=== PATIENT | female | born 1945 | race Caucasian/White ===

== ENCOUNTER 2019-11-13 10:23 | Emergency (ER) | payer OTHER ==
[~2019-11-13] VITALS: Ht 149.9 cm; Wt 79.4 kg
--- OUTSIDE RECORDS SUMMARY | ~2019-11-13 | XMS | Encounter Summary ---
Demographics + + + | Address | [address] | | | [place] [address] | + + + | Home Phone | | + + + | Preferred Language | Unknown | + + + | Marital Status | | + + + | Druze Affiliation | 1013 | + + + | Race | Unknown | + + + | Ethnic Group | Unknown | + + + Author + + + | Author | [facility] | | | and [place] | + + + | Organization | [facility] | | | and [place] | + + + | Address | Unknown | + + + | Phone | Unavailable | + + + Support + + + + + | Name | Relationship | Address | Phone | + + + + + | Tamar Lancaster | JOSEE | [address] | | | | | [place] [address] | | + + + + + | Peter Hester | ECON | [address] | | | | | [place] [address] | | + + + + + Care Team Providers + +------+ + | Care Private Investigator Surveillance Name | Role | Phone | + +------+ + | Michael Montoya MD | PCP | | + +------+ + Reason for Visit Service/Procedure (Routine) +--------+--------+ + + + + | Status | Reason | Specialty | Diagnoses / | Referred By | Referred To | | | | | Procedures | Contact | Contact | +--------+--------+ + + + + | Closed | | Radiology | Diagnoses | | [facility] | | | | | Thoracic or | [place], | [address] | | | | | lumbosacral | Uvaldo Ahumada MD | [place], | | | | | neuritis or | [address] | [place] | | | | | | [place] | [address] | | | | | radiculitis, | [place] | Phone: | | | | | unspecified | [address] | [phone] | | | | | Procedures | Phone: | Fax: | | | | | SC INJECT | [phone] | [phone] | | | | | ANES/STEROID | Fax: | | | | | | FORAMEN | [phone] | | | | | | LUMBAR/SACRA | | | | | | | L W IMG | | | | | | | GUIDE ,1 | | | | | | | LEVEL SC | | | | | | | TRIAMCINOLON | | | | | | | E ACET INJ | | | | | | | NOS, 10 MG | | | | | | | Bilat L4-5 | | | | | | | TFESI-appt | | | | | | | 12/12 | | | +--------+--------+ + + + + Encounter Details +--------+ + + + + | Date | Type | Department | Care Team | Description | +--------+ + + + + | 12/12/ | Hospital | [facility] | [facility], | Bilateral lumbar | | 2014 | Encounter | MED CTR XRAY [address] | [place]ANI[place] Georges [address] | radiculopathy; | | | | [address] [place] | [facility], | Spinal stenosis of | | | | [place] [address] | [place] [address] | lumbar region at | | | | [phone] | [phone] | multiple levels; DDD | | | | | | (degenerative disc | | | | | [employer] | disease), lumbar; | | | | | | Spondylolisthesis of | | | | | | lumbar region | +--------+ + + + + Social History + +-------+ +--------+------+ | Tobacco Use | Types | Packs/Day | Years | Date | | | | | Used | | + +-------+ +--------+------+ | Never Smoker | | | | | + +-------+ +--------+------+ + +------+---+ + | Smokeless Tobacco: | Chew | | Quit: | | Former User | | | 11/16/18 | | | | | 96 | + +------+---+ + + + | Comments: quit 20 years ago | + + + + +---------+ + | Alcohol Use | Drinks/Week | oz/Week | Comments | + + +---------+ + | No | | | Quit drinking 1975. 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 | + + +---------+ + + + + | Sex Assigned at | Date Recorded | | | | + + + | Not on file | | + + + + + + + | Job Start Date | Occupation | Industry | + + + + | Not on file | Not on file | Not on file | + + + + + + + + | Travel History | Travel Start | Travel End | + + + + + + | No recent travel history available. | + + documented as of this encounter Medications at Time of Discharge + + + +---------+--------+ + | Medication | Sig | Dispensed | Refills | Start | End Date | | | | | | Date | | + + + +---------+--------+ + | ibuprofen | Take 600 mg by mouth | | 0 | | | | (ADVIL,MOTRIN) 600 | every 6 hours as | | | | | | MG tablet | needed. | | | | | + + + +---------+--------+ + | terazosin (HYTRIN) | Take 10 mg by mouth | | 0 | | | | 10 MG capsule | 2 times daily. | | | | | + + + +---------+--------+ + | clonazePAM | Take 0.5 mg by | | 0 | | | | (KLONOPIN) 0.5 mg | mouth. 1 tab in the | | | | 5 | | tablet | AM, 2 tabs in the PM | | | | | + + + +---------+--------+ + | DULoxetine | Take 20 mg by mouth | | 0 | | | | (CYMBALTA) 20 mg | Daily. | | | | 5 | | capsule | | | | | | + + + +---------+--------+ + | methadone 10 mg | Take 10 mg by mouth | | 0 | | | | tablet | every 12 hours. | | | | 9 | + + + +---------+--------+ + | omeprazole | Take 20 mg by mouth | | 0 | | | | (PRILOSEC) 20 mg | every morning | | | | 5 | | capsule | (before breakfast). | | | | | + + + +---------+--------+ + | oxyCODONE | Take 30 mg by mouth | | 0 | | | | (ROXICODONE) 15 mg | every 8 hours as | | | | 9 | | immediate release | needed. Taking 2 | | | | | | tabletIndications: | tablets in morning, | | | | | | Moderate to Severe | 1 tablet at noon, | | | | | | Pain | and 2 tablets in | | | | | | | evening. | | | | | | | Indications: | | | | | | | Moderate to Severe | | | | | | | Pain | | | | | + + + +---------+--------+ + | potassium chloride | Take 20 mEq by mouth | | 0 | | | | (KLOR-CON) 20 MEQ | 2 times daily. | | | | 5 | | packet | | | | | | + + + +---------+--------+ + | ranitidine | Take 300 mg by mouth | | 0 | | | | (ZANTAC) 300 MG | nightly. | | | | 5 | | tablet | | | | | | + + + +---------+--------+ + documented as of this encounter Plan of Treatment +--------+---------+ + + + | Date | Type | Specialty | Care Team | Description | +--------+---------+ + + + | 12/12/ | Office | Cardiology | Emile Rosario MD | | | 2020 | Visit | | [address] | | | | | | [place] [address] | | | | | | [phone] | | | | | | | | +--------+---------+ + + + documented as of this encounter Procedures + +--------+ + + + | Procedure Name | Priori | Date/Time | Associated Diagnosis | Comments | | | ty | | | | + +--------+ + + + | FL EPIDURAL STEROID | Routin | 12/12/2014 | Bilateral lumbar | Results for this | | INJECTION LUMBAR | e | 2:48 PM | radiculopathy | procedure are in the | | TRANSFORAMINAL | | PST | Spinal stenosis of | results section. | | | | | lumbar region at | | | | | | multiple levels DDD | | | | | | (degenerative disc | | | | | | disease), lumbar | | | | | | Spondylolisthesis of | | | | | | lumbar region | | + +--------+ + + + documented in this encounter Results FL KHOA Lumbar Transforaminal (12/12/2014 2:48 PM PST) + + | Specimen | + + | | + + + + | Addenda | + + | Addendum by Uvaldo Hobbs MD on 12/18/2014 7:57 AM 12/12/2014 Bilateral | | Transforaminal Epidural Steroid Injections Diagnosis: Lumbar radiculopathy ICD-9 | | Code 724.4 Annabel Saucedo presents to the fluoroscopy suite for | | fluoroscopically-guided bilateral L4-L5 transforaminal epidural steroid injections as | | part of conservative management for chronic pain with lumbar radiculopathy and | | degenerative disk disease. After informed consent was obtained, the patient lay in the | | prone position on the fluoroscopy table. The areas were identified under fluoroscopic | | guidance. The areas were prepped and draped in sterile fashion. A 25-gauge, 1.5-inch | | needle was inserted into each region and approximately 3 mL of buffered 1% lidocaine | | was infused. Then, a 22-gauge spinal needle was inserted into the posterior superior | | transforaminal space bilaterally and advanced into the epidural space under | | fluoroscopic guidance. No contrast was used in today's study due to contrast allergy. | | Once the needle was in the appropriate position a combination of 2 mL of 1% lidocaine | | and 2 mL of 6 mg/mL Celestone was infused, divided between the two sides. The patient | | tolerated the procedure well without complications. Pre- and post-procedure blood | | pressures were stable. The patient was given verbal as well as written follow-up | | instructions. Prior to the start of the procedure, the following were performed | | and/or verified, including correct patient identity, correct site/side marked and | | visible, agreement on the procedure to be done, correct patient positioning and an | | accurate procedure consent form. Any safety precautions based on clinical history | | and/or medication use have been addressed. I personally performed the procedure above. | | Estimated blood loss: Minimal Complications: None Findings: As expected | | Anesthesia: Local 1% Lidocaine | + + + + + + + | Performing | Address | City/State/Zipcode | Phone Number | | Organization | | | | + + + + + | [facility] | [address] | [place] | [phone] | | [facility] | | [address] | | | - IMAGING | | | | + + + + + documented in this encounter Visit Diagnoses + + | Diagnosis | + + | Bilateral lumbar radiculopathy | + + | Spinal stenosis of lumbar region at multiple levels Spinal stenosis, lumbar region, | | without neurogenic claudication | + + | DDD (degenerative disc disease), lumbar Degeneration of lumbar or lumbosacral | | intervertebral disc | + + | Spondylolisthesis of lumbar region Acquired spondylolisthesis | + + documented in this encounter Administered Medications + +--------+ +-------+------+ + | Medication Order | MAR | Action | Dose | Rate | Site | | | Action | Date | | | | + +--------+ +-------+------+ + | betamethasone (CELESTONE | Given | 12/12/19 | 12 mg | | Other | | SOLUSPAN) injection 12 mg 12 mg, | | 15 3:00 | | | (Comment | | Intramuscular, EVERY 24 HOURS | | PM PST | | | ) | | INTERVAL, First dose on Thu | | | | | | | 12/12/14 at 1500, For 2 doses, | | | | | | | Shake well. Not for IV use., | | | | | | + +--------+ +-------+------+ + +---+---+ | | | +---+---+ + +-------+ +-------+---+---+ | iohexol (OMNIPAQUE 300) 300 | Given | 12/12/19 | 2 mLs | | | | mg/mL injection 2 mL 2 mL, | | 15 3:00 | | | | | Other, ONCE PRN, Other, Starting | | PM PST | | | | | 12/13/14 at 1438, For 1 dose, | | | | | | | Radiology | | | | | | + +-------+ +-------+---+---+ +---+---+ | | | +---+---+ + +-------+ +-------+---+ + | lidocaine (PF) 1% injection 2 | Given | 12/12/19 | 2 mLs | | Back-Low | | mL 2 mL, EPIDURAL, ONCE, Tue | | 15 3:00 | | | er | | 12/12/14 at 1500, For 1 dose | | PM PST | | | | + +-------+ +-------+---+ + +---+---+ | | | +---+---+ + +-------+ +-------+---+ + | lidocaine 1% injection 5 mL 5 | Given | 12/12/19 | 5 mLs | | Other | | mL, Intradermal, ONCE, Tue | | 15 3:00 | | | (Comment | | 12/12/14 at 1500, For 1 dose | | PM PST | | | ) | + +-------+ +-------+---+ + +---+---+ | | | +---+---+ + +-------+ +-------+---+---+ | sodium bicarbonate (NEUT) 4% | Given | 12/12/19 | 5 mLs | | | | injection 5 mL 5 mL, | | 15 2:49 | | | | | Infiltration, ONCE, 12/12/14 | | PM PST | | | | | at 1500, For 1 dose, Use for | | | | | | | addition to other parenteral | | | | | | | solutions., | | | | | | + +-------+ +-------+---+---+ +---+---+ | | | +---+---+ documented in this encounter"
--- OUTSIDE RECORDS SUMMARY | ~2019-11-13 | XMS | Encounter Summary ---
Demographics + + + | Address | [address] | | | [place] [address] | + + + | Home Phone | | + + + | Preferred Language | Unknown | + + + | Marital Status | | + + + | Church Affiliation | 1013 | + + + | Race | Unknown | + + + | Ethnic Group | Unknown | + + + Author + + + | Author | [facility] | | | and [place] | + + + | Organization | [facility] | | | and [place] | + + + | Address | Unknown | + + + | Phone | Unavailable | + + + Support + + + + + | Name | Relationship | Address | Phone | + + + + + | Tamar Lancaster | JOSEE | [address] | | | | | [place] [address] | | + + + + + | Peter Hester | ECON | [address] | | | | | [place] [address] | | + + + + + Care Team Providers + +------+ + | Care Landscape Contractor Name | Role | Phone | + +------+ + | Avani Barahona | PCP | | + +------+ + Reason for Visit + + + | Reason | Comments | + + + | Pain Management | | + + + Encounter Details +--------+ + + + + | Date | Type | Department | Care Team | Description | +--------+ + + + + | 06/30/ | Telephone | [facility] [place] | [facility], | Pain Management | | 2015 | | PHYSIATRY [address] | SHANIQUE [address]es [address] | | | | | [place], | [facility], | | | | | [place] [address] | [place] [address] | | | | | [phone] | [phone] | | | | | | | | +--------+ + + + + Social [...] + + documented as of this encounter Plan of Treatment +--------+---------+ + + + | Date | Type | Specialty | Care Team | Description | +--------+---------+ + + + | 12/12/ | Office | Cardiology | Emile Rosario MD | | | 2020 | Visit | | [address] | | | | | | [place] [address] | | | | | | [phone] | | | | | | | | +--------+---------+ + + + documented as of this encounter Visit Diagnoses Not on filedocumented in this encounter"
--- OUTSIDE RECORDS SUMMARY | ~2019-11-13 | XMS | Encounter Summary ---
Demographics + + + | Address | [address] | | | [place] [address] | + + + | Home Phone | | + + + | Preferred Language | Unknown | + + + | Marital Status | | + + + | Gnosticism Affiliation | 1013 | + + + | Race | Unknown | + + + | Ethnic Group | Unknown | + + + Author + + + | Author | [facility] | | | and [place] | + + + | Organization | [facility] | | | and [place] | + + + | Address | Unknown | + + + | Phone | Unavailable | + + + Support + + + + + | Name | Relationship | Address | Phone | + + + + + | Tamar Lancaster | JOSEE | [address] | | | | | [place] [address] | | + + + + + | Peter Hester | ECON | [address] | | | | | [place] [address] | | + + + + + Care Team Providers + +------+ + | Care Hot Packer Name | Role | Phone | + +------+ + | Michael Montoya MD | PCP | | + +------+ + Reason for Referral Diagnostic/Screening (Routine) +--------+--------+ + + + + | Status | Reason | Specialty | Diagnoses / | Referred By | Referred To | | | | | Procedures | Contact | Contact | +--------+--------+ + + + + | Closed | | Radiology | Diagnoses | | [facility] | | | | | Lumbar | Alexx, | [address] | | | | | radiculopath | [place], | [place], | | | | | y DDD | PA-C [address] | [place] | | | | | (degenerativ | [address] | [address] | | | | | e disc | [place] | Phone: | | | | | disease), | [address] | [phone] | | | | | lumbar | Phone: | Fax: | | | | | Spinal | [phone] | [phone] | | | | | stenosis of | Fax: | | | | | | lumbar | [phone] | | | | | | region at | | | | | | | multiple | | | | | | | levels | | | | | | | Spondylolist | | | | | | | hesis of | | | | | | | lumbar | | | | | | | region | | | | | | | Procedures | | | | | | | MRI Lumbar | | | | | | | Spine wo | | | | | | | Contrast | | | | | | | MRI called | | | | | | | 1x | | | +--------+--------+ + + + + Evaluate & Treat (Routine) +--------+ + + + + + | Status | Reason | Specialty | Diagnoses / | Referred By | Referred To | | | | | Procedures | Contact | Contact | +--------+ + + + + + | Closed | Specialty | Pain Medicine | Diagnoses | | LYNX | | | Services | | Lumbar | Alexx, | HEALTHCARE | | | Required | | radiculopath | Destini, | [address] | | | | | y DDD | PAR[place]iannonC [address] | | | | | (degenerativ | [address] | [place], | | | | | e disc | [place] | [place] [address] | | | | | disease), | [address] | Phone: | | | | | lumbar | Phone: | [phone] | | | | | Spinal | [phone] | Fax: | | | | | stenosis of | Fax: | [phone] | | | | | lumbar | [phone] | | | | | | region at | | | | | | | multiple | | | | | | | levels | | | | | | | Spondylolist | | | | | | | hesis of | | | | | | | lumbar | | | | | | | region | | | | | | | Primary | | | | | | | osteoarthrit | | | | | | | is of left | | | | | | | knee | | | | | | | Fibromyalgia | | | | | | | syndrome | | | | | | | Narcotic | | | | | | | abuse (HCC) | | | +--------+ + + + + + Evaluate & Treat (Routine) +--------+ + + + + + | Status | Reason | Specialty | Diagnoses / | Referred By | Referred To | | | | | Procedures | Contact | Contact | +--------+ + + + + + | Closed | Specialty | Physical | Diagnoses | | [facility] | | | Services | Therapy | Lumbar | Alexx | INDRA | | | Required | | radiculopath | Destini | MEDICAL | | | | | y DDD | PA-C [address] | [address] | | | | | (degenerativ | [address] | [address] | | | | | e disc | [place] | [place], [place] | | | | | disease), | [address] | [address] | | | | | lumbar | Phone: | Phone: | | | | | Spinal | [phone] | [phone] | | | | | stenosis of | Fax: | Fax: | | | | | lumbar | [phone] | [phone] | | | | | region at | | | | | | | multiple | | | | | | | levels | | | | | | | Spondylolist | | | | | | | hesis of | | | | | | | lumbar | | | | | | | region | | | | | | | Primary | | | | | | | osteoarthrit | | | | | | | is of left | | | | | | | knee | | | | | | | Fibromyalgia | | | | | | | syndrome | | | | | | | Narcotic | | | | | | | abuse (HCC) | | | | | | | Procedures | | | | | | | pt eval | | | | | | | (pool) | | | +--------+ + + + + + Reason for Visit + + + | Reason | Comments | + + + | Back Pain | low back pain | + + + Encounter Details +--------+---------+ + + + | Date | Type | Department | Care Team | Description | +--------+---------+ + + + | 11/23/ | Office | [facility] [place] | Alexx, | Lumbar radiculopathy | | 2014 | Visit | PHYSIATRY [address] | SH[address] [address] | - currently into | | | | [place], | [place], | the bilateral lower | | | | [place] [address] | [place] [address] | extremities (Primary | | | | [phone] | [phone] | Dx); DDD | | | | | | (degenerative disc | | | | | | disease), lumbar; | | | | | | Spinal stenosis of | | | | | | lumbar region at | | | | | | multiple levels; | | | | | | Spondylolisthesis of | | | | | | lumbar region; | | | | | | Primary | | | | | | osteoarthritis of | | | | | | left knee; | | | | | | Fibromyalgia | | | | | | syndrome; Narcotic | | | | | | abuse | +--------+---------+ + + + Social History + +-------+ [...] + + documented as of this encounter Last Filed Vital Signs + + + + + | Vital Sign | Reading | Time Taken | Comments | + + + + + | Blood Pressure | 166/85 | 10/08/2015 10:05 AM | | | | | PST | | + + + + + | Pulse | 61 | 10/08/2015 10:05 AM | | | | | PST | | + + + + + | Temperature | - | - | | + + + + + | Respiratory Rate | - | - | | + + + + + | Oxygen Saturation | - | - | | + + + + + | Inhaled Oxygen | - | - | | | Concentration | | | | + + + + + | Weight | 83.9 kg (185 lb) | 10/08/2015 10:05 AM | | | | | PST | | + + + + + | Height | 154.9 cm (5' 1") | 10/08/2015 10:05 AM | | | | | PST | | + + + + + | Body Mass Index | 34.96 | 10/08/2015 10:05 AM | | | | | PST | | + + + + + documented in this encounter Patient Instructions Patient Instructions Destini Coffey PA-C - 10/08/2015 10:38 AM PSTGet new lumbar MRI Physical therapy has been send over to Ernie Alicea at [facility] will contact you to discuss tapering off medications Please think about a new primary care doctor. I recommend Dr. Tidwell. Indicate to them, you are working with [facility] to get off pain medications, you have talked to surgeons for knee surgery and lumbar surgery. Need a doctor that will work with you towards a common goal in the future. documented in this encounter Progress Notes Destini Coffey PA-C - 10/08/2015 11:48 AM PSTFormatting of this note might be differe nt from the original. CHIEF COMPLAINT: Chief Complaint Patient presents with Back Pain low back pain HISTORY OF PRESENT ILLNESS: The patient is a 70 y.o. female being seen today in follow-up for complaints of back pain w ith radiation into the bilateral legs. The patient has been seen for this complaint in the past, with initial visit started by Dr. Hobbs. Previously it was recommended that she receive bilateral L4/L5 TFESI for lumbar radiculopathy, spinal stenosis. This was last per formed on 09/03/2015. She reports that the treatment only gave her 2 days of pain relief. She rates the pain as 5 on scale of 1-10. She describes the pain as aching or burning down the legs. Her symptoms worsen with standing, walking. Her symptoms improve with sitting d own, use of pain medicine: oxycodone, methadone. Initially she is working with her primary care doctor on reducing these medications as both the neurosurgeons and orthopedic surgeon have decided they cannot do surgery until she has reduced her methadone and Percocet intake. However when she saw her primary care doctor last he was not very receptive and helping he r reduce her medications. The patient does describe numbness of the bilateral legs and feet. She does not report we akness of the legs, but states the pain is unbearable and so she gets around slower. She is walking with a cane. The patient does not report recent falls or trauma. She does not have bowel and bladder dysfunction. She does not have saddle anesthesia. She has severe osteoarthritis of the left knee and has seen Dr. Bronson last month who in dicated she needed to reduce her pain medication intake before any surgery was considered. She also saw Dr. Hobbs in 2013 he said the same thing to reduce or get off the pain medication s as it would make recovery from surgery very difficult. Treatments for these complaints have included physical therapy, injections targeting the L4 /L5 nerve root and medications. She was to start physical therapy at [facility] for both her lumbar spine and left knee osteoarthritis however she did not start within 30 day perio d and is requesting another physical therapy referral. Patient's medications, allergies, past medical, surgical, social and family histories were reviewed and updated as appropriate. CURRENT MEDICATIONS: Current Outpatient Prescriptions Medication Sig Dispense Refill diazepam (VALIUM) 2 mg tablet Take 2 mg by mouth every 6 hours as needed for Anxiety. ibuprofen (ADVIL,MOTRIN) 600 MG tablet Take 600 mg by mouth every 6 hours as needed. methadone 10 mg tablet Take 10 mg by mouth every 8 hours as needed. omeprazole (PRILOSEC) 20 mg capsule Take 30 mg by mouth every morning (before breakfast ). oxyCODONE (ROXICODONE) 15 mg immediate release tablet Take 15 mg by mouth every 8 hours as needed. Taking 2 tablets in morning, 1 tablet at noon, and 2 tablets in evening. Indica tions: Moderate to Severe Pain potassium chloride (K-DUR) 20 mEq ER tablet 0 terazosin (HYTRIN) 10 MG capsule Take 10 mg by mouth 2 times daily. torsemide (DEMADEX) 5 mg tablet 0 No current facility-administered medications for this visit. ALLERGIES: Allergies Allergen Reactions Bee Venom Anaphylaxis Iodine Anaphylaxis Povidone Iodine Anaphylaxis REVIEW OF SYSTEMS: (in the last 24 hours) GENERALLY: No fever, chills, weight changes. EYES: No vision changes. EARS, NOSE, AND THROAT: No hearing loss or tinnitis,no difficulty swallowing, no hoarseness . NEUROMUSCULAR: Please see the review of systems discussed above in the history of present illness. In addition, the patient has no dizziness, no blackouts, no headaches. CARDIOVASCULAR: No chest pain, no palpitations PULMONARY: No shortness of breath, no cough. GASTROINTESTINAL: No nausea, vomiting or diarrhea GENITOURINARY: No dysuria or hematuria SKIN: No rashes. HEMATOLOGIC/LYMPHATIC: No abnormal bleeding PHYSICAL EXAMINATION: Filed Vitals: 10/08/15 1005 BP: 166/85 Pulse: 61 PainSc: 5 PainLoc: Back Body mass index is 34.97 kg/(m^2). GENERAL: The patient is well developed and well nourished. She does not appear uncomfortab le when seated. HEENT: HEAD/FACE: EYES: EARS: NASOPHARNYX: OROPHARNYX: Normocephalic and atraumatic. There are no areas of recent trauma. Normal sclerae without icterus. No drainage or tenderness. Clear without drainage. Clear without erythema. SKIN Limited skin exam shows no significant rashes or lesions. There are not scars in the lumbar region. CHEST: The patient is in no acute respiratory distress with unlabored respirations. HEART: There is bilateral lower extremity edema, she has varicose veins. ABDOMEN: Soft, non-tender, non-distended, and without palpable masses. The patient is obe se. NEUROLOGIC: The patient is awake, alert, and oriented to time, place, person. She follows simple and complex commands. Her speech is fluent. She comprehends speech well. She has no apparent deficits with short or intermediate project manager memory. She has appropriate fund of knowledge Cranial nerves 2-12 appear grossly intact. Sensory exam does not show diminished sensation to light touch in the lower extremities. MUSCULOSKELETAL There is no tenderness in the midline of the cervical or thoracic spine. T here is no major palpable deformity of the spine. Straight leg raise and slump-sit are negative. Harjeet's maneuver and impingement testing w ere negative for any groin pain. There was no tenderness to palpation over the greater troch anters or sacral sulci. The patient localized the majority of the pain to the lumbosacral re gion and radiating into the legs, left greater than right. Lumbar facet loading was negative . Strength testing showed 5/5 strength throughout the lower extremities. The patient was abl e to heel and toe walk without difficulty. There was no redness, effusion, warmth. She does have left knee joint line tenderness. RADIOGRAPHIC REVIEW: The patient's imaging was reviewed in detail with the patient today during the visit. Most recent MRI from 2010 shows multiple areas of spinal stenosis, spondylolisthesis of the lumba r region. Left knee xray shows osteoarthritis with severe degenerative joint disease. ASSESSMENT: 1. Lumbar radiculopathy - currently into the bilateral lower extremities 2. DDD (degenerative disc disease), lumbar 3. Spinal stenosis of lumbar region at multiple levels 4. Spondylolisthesis of lumbar region 5. Primary osteoarthritis of left knee 6. Fibromyalgia syndrome 7. Narcotic abuse PLAN: 1. The patient did not receive benefit like she has in the past from the epidural sterile injections targeting her spinal stenosis. Her last lumbar MRI was from 2010 and shows multi ple areas of spinal stenosis. I would like to order a new lumbar MRI and have her follow-up with Dr. Hobbs for discussion of sterile injections in a different location. 2. Medications have been reviewed at today's visit with no changes made at this time. We d iscussed how she really has to reduce the amount of pain narcotics before she is considered a surgical candidate for her knee and or back. She originally thought her primary care doct or would help her with this issue however according to her the last visit he is very busy an d did not have enough time to help manage her pain medications. Because of this I would benny lly like her to see Deanne at [facility] as Deanne can help her Coumadin to roll h er medications and possibly get off of it so that she can have surgery. A referral has been made. 3. I have given her a prescription to to participate in physical therapy at [facility] focusing on both her left knee osteoarthritis and her lumbar spine. 4. She has verbally requested a follow Dr. Hobbs to discuss her MRI results and futur e treatment. She will make this follow-up appointment well exiting our office today. ELECTRONICALLY SIGNED BY: Destini Coffey PA-C, 10/08/2015 documented in t his encounter Plan of Treatment +--------+---------+ + + + | Date | Type | Specialty | Care Team | Description | +--------+---------+ + + + | 12/12/ | Office | Cardiology | Emile Rosario MD | | | 2020 | Visit | | [address] | | | | | | [place] [address] | | | | | | [phone] | | | | | | | | +--------+---------+ + + + + + +--------+ + + | Name | Type | Priori | Associated Diagnoses | Order Schedule | | | | ty | | | + + +--------+ + + | * [facility] | Outpatient | Routin | Lumbar | Ordered: 10/08/2015 | | Therapy - AMB | Referral | e | radiculopathy - | | | Referral | | | currently into the | | | | | | bilateral lower | | | | | | extremities DDD | | | | | | (degenerative disc | | | | | | disease), lumbar | | | | | | Spinal stenosis of | | | | | | lumbar region at | | | | | | multiple levels | | | | | | Spondylolisthesis of | | | | | | lumbar region | | | | | | Primary | | | | | | osteoarthritis of | | | | | | left knee | | | | | | Fibromyalgia | | | | | | syndrome Narcotic | | | | | | abuse | | + + +--------+ + + | Ambulatory referral | Outpatient | Routin | Lumbar | Ordered: 10/08/2015 | | to Pain Clinic | Referral | e | radiculopathy - | | | | | | currently into the | | | | | | bilateral lower | | | | | | extremities DDD | | | | | | (degenerative disc | | | | | | disease), lumbar | | | | | | Spinal stenosis of | | | | | | lumbar region at | | | | | | multiple levels | | | | | | Spondylolisthesis of | | | | | | lumbar region | | | | | | Primary | | | | | | osteoarthritis of | | | | | | left knee | | | | | | Fibromyalgia | | | | | | syndrome Narcotic | | | | | | abuse | | + + +--------+ + + documented as of this encounter Results MRI Lumbar Spine wo Contrast (10/24/2015 2:58 PM PST) + + | Specimen | + + | | + + + + + | Narrative | Performed At | + + + | MRI LUMBAR SPINE WITHOUT CONTRAST: 10/24/2015 2:23 PM CLINICAL | [facility] | | HISTORY: chronic low back pain, spinal stenosis, lumbar radicu | [facility] | | Bilaterally COMPARISON: 08/18/2012 TECHNIQUE: In the 1.5T [facility] | | scanner multiplanar, multisequence imaging of the lumbar spine is | - IMAGING | | performed. FINDINGS: There are 5 lumbar-type vertebral bodies. | | | Mild anterolisthesis at L3-L4. 5 mm of anterolisthesis at L4-L5. This | | | has increased slightly when compared to prior. Alignment is otherwise | | | normal. Vertebral body heights are normal. Mild reactive endplate | | | changes at L5-S1 with no other significant marrow signal abnormality. | | | Right total hip arthroplasty. No other extra spinous | | | abnormalities. Conus medullaris appears normal, with tip at L2-L3. | | | L1-L2: Sagittal images only. Within normal limits. L2-L3: Mild | | | broad-based disc bulge. This is mildly increased in prominence from | | | prior. Mild posterior facet degenerative change and ligamentum flavum | | | thickening. No central canal or foraminal narrowing. L3-L4: | | | Severe posterior facet degenerative changes and fragmentation. | | | Ligamentum flavum thickening. Small broad-based disc bulge. These | | | changes produce a severe (5 mm) central canal stenosis with exclusion | | | of all CSF signal and compaction of the cauda equina nerve roots. | | | Appearance is similar to prior. L4-L5: Large broad-based disc | | | bulge. Severe facet degenerative changes with facet joint effusions. | | | Degenerative anterolisthesis. These features combine to produce | | | severe central canal stenosis and bilateral mild foraminal narrowing. | | | Progressive increase in these changes when compared to prior. | | | L5-S1: Focal central disc protrusion with annular tear. Mild facet | | | degenerative changes. No central canal stenosis but mild bilateral | | | foraminal narrowing similar to prior. IMPRESSION - 1. | | | Multifactorial severe central canal stenosis at L3-L4 and L4-L5. The | | | L3-L4 changes are stable when compared to prior exam, while the L4-L5 | | | changes have progressively increased. 2. Milder degenerative | | | changes of the other levels, with no other areas of neural | | | encroachment. Dictated and Signed by: Pranay Castillo MD | | | Electronically signed: 10/24/2015 6:04 PM | | + + + + + | Procedure Note | + + | Jeremy, Rad Results In - 10/24/2015 6:07 PM PST MRI LUMBAR SPINE WITHOUT CONTRAST: | | 10/24/2015 2:23 PMCLINICAL HISTORY: chronic low back pain, spinal stenosis, lumbar | | radicuBilaterallyCOMPARISON: 08/18/2012TECHNIQUE: In the 1.5T scanner multiplanar, | | multisequence imaging of the lumbarspine is performed.FINDINGS: There are 5 lumbar-type | | vertebral bodies.Mild anterolisthesis at L3-L4. 5 mm of anterolisthesis at L4-L5. This | | hasincreased slightly when compared to prior. Alignment is otherwise normal.Vertebral | | body heights are normal. Mild reactive endplate changes at L5-S1 withno other | | significant marrow signal abnormality.Right total hip arthroplasty. No other extra | | spinous abnormalities.Conus medullaris appears normal, with tip at L2-L3.L1-L2: Sagittal | | images only. Within normal limits.L2-L3: Mild broad-based disc bulge. This is mildly | | increased in prominence fromprior. Mild posterior facet degenerative change and | | ligamentum flavumthickening. No central canal or foraminal narrowing.L3-L4: Severe | | posterior facet degenerative changes and fragmentation. Ligamentumflavum thickening. | | Small broad-based disc bulge. These changes produce a severe(5 mm) central canal | | stenosis with exclusion of all CSF signal and compaction ofthe cauda equina nerve roots. | | Appearance is similar to prior.L4-L5: Large broad-based disc bulge. Severe facet | | degenerative changes withfacet joint effusions. Degenerative anterolisthesis. These | | features combine toproduce severe central canal stenosis and bilateral mild foraminal | | narrowing.Progressive increase in these changes when compared to prior.L5-S1: Focal | | central disc protrusion with annular tear. Mild facet degenerativechanges. No central | | canal stenosis but mild bilateral foraminal narrowingsimilar to prior.IMPRESSION - 1. | | Multifactorial severe central canal stenosis at L3-L4 and L4-L5. The L3-C5ooqauqm are | | stable when compared to prior exam, while the L4-L5 changes haveprogressively | | increased.2. Milder degenerative changes of the other levels, with no other areas | | ofneural encroachment.Dictated and Signed by: Pranay Castillo MD Electronically signed: | | 10/24/2015 6:04 PM | |flavum thickening. Small broad-based disc bulge. These changes produce a severe | |(5 mm) central canal stenosis with exclusion of all CSF signal and compaction of | |the cauda equina nerve roots. Appearance is similar to prior. | | | |L4-L5: Large broad-based disc bulge. Severe facet degenerative changes with | |facet joint effusions. Degenerative anterolisthesis. These features combine to | |produce severe central canal stenosis and bilateral mild foraminal narrowing. | |Progressive increase in these changes when compared to prior. | | | |L5-S1: Focal central disc protrusion with annular tear. Mild facet degenerative | |changes. No central canal stenosis but mild bilateral foraminal narrowing | |similar to prior. | | | |IMPRESSION - | |1. Multifactorial severe central canal stenosis at L3-L4 and L4-L5. The L3-L4 | |changes are stable when compared to prior exam, while the L4-L5 changes have | |progressively increased. | | | |2. Milder degenerative changes of the other levels, with no other areas of | |neural encroachment. | | | |Dictated and Signed by: Pranay Castillo MD | | Electronically signed: 10/24/2015 6:04 PM | + + + + + + + | Performing | Address | City/State/Zipcode | Phone Number | | Organization | | | | + + + + + | [facility] | [address] | [place] | [phone] | | [facility] | | [address] | | | - IMAGING | | | | + + + + + documented in this encounter Visit Diagnoses + + | Diagnosis | + + | Lumbar radiculopathy - currently into the bilateral lower extremities - Primary | | Thoracic or lumbosacral neuritis or radiculitis, unspecified | + + | DDD (degenerative disc disease), lumbar Degeneration of lumbar or lumbosacral | | intervertebral disc | + + | Spinal stenosis of lumbar region at multiple levels Spinal stenosis, lumbar region, | | without neurogenic claudication | + + | Spondylolisthesis of lumbar region Acquired spondylolisthesis | + + | Primary osteoarthritis of left knee Primary localized osteoarthrosis, lower leg | + + | Fibromyalgia syndrome Mylagia and myositis, unspecified | + + | Narcotic abuse (HCC) Sedative, hypnotic or anxiolytic abuse, unspecified | + + documented in this encounter
--- OUTSIDE RECORDS SUMMARY | ~2019-11-13 | XMS | Encounter Summary ---
Demographics + + + | Address | [address] | | | [place] [address] | + + + | Home Phone | | + + + | Preferred Language | Unknown | + + + | Marital Status | | + + + | Yazidi Affiliation | 1013 | + + + | Race | Unknown | + + + | Ethnic Group | Unknown | + + + Author + + + | Author | [facility] | | | and [place] | + + + | Organization | [facility] | | | and [place] | + + + | Address | Unknown | + + + | Phone | Unavailable | + + + Support + + + + + | Name | Relationship | Address | Phone | + + + + + | Tamar Lancaster | JOSEE | [address] | | | | | [place] [address] | | + + + + + | Peter Hester | ECON | [address] | | | | | [place] [address] | | + + + + + Care Team Providers + +------+ + | Care Line Helper Name | Role | Phone | + +------+ + | Michael Montoya MD | PCP | | + +------+ + Encounter Details +--------+ + + + + | Date | Type | Department | Care Team | Description | +--------+ + + + + | 07/31/ | Hospital | [facility] [place] [facility] | [place]version | Pain | | 2017 | Encounter | [address] | Transaction, | | | | | [address] | Provider Unknown | | | | | [place], [place] | [phone] | | | | | [address] | | | | | | [phone] | | | +--------+ + + + [...] at Time of Discharge + + + +---------+ + + | Medication | Sig | Dispensed | Refills | Start | End Date | | | | | | Date | | + + + +---------+ + + | baclofen | Take 10 mg by mouth | | 0 | | | | (LIORESAL) 10 mg | 2 times daily. As | | | | | | tablet | needed. | | | | | + + + +---------+ + + | Digestive Enzymes | Take by mouth. | | 0 | | | | (DIGESTIVE ENZYME | | | | | | | PO) | | | | | | + + + +---------+ + + | EPINEPHrine | Inject 0.3 mg into | | 0 | | | | auto-injector | the muscle as needed | | | | | | (EPIPEN 2-TABITHA) 0.3 | for Anaphylaxis. | | | | | | mg/0.3 mL injection | | | | | | + + + +---------+ + + | ibuprofen | Take 600 mg by mouth | | 0 | | | | (ADVIL,MOTRIN) 600 | every 6 hours as | | | | | | MG tablet | needed. | | | | | + + + +---------+ + + | NARCAN 4 MG/0.1ML | 4 mg by Nasal route | | 0 | / | | | | as needed. | | | 17 | | + + + +---------+ + + | potassium chloride | Take 20 mEq by mouth | | 0 | | | | (LATASHA-CON) 20 MEQ | 2 times daily. | | | | | | packet | | | | | | + + + +---------+ + + | terazosin (HYTRIN) | Take 10 mg by mouth | | 0 | | | | 10 MG capsule | 2 times daily. | | | | | + + + +---------+ + + | torsemide | Take 5 mg by mouth | | 0 | | | | (DEMADEX) 5 mg | Daily. | | | | | | tablet | | | | | | + + + +---------+ + + | Ascorbic Acid | Take 500 mg by mouth | | 0 | | | | (VITAMIN C) 100 MG | Daily. No Dosage | | | | 9 | | tablet | Provided | | | | | + + + +---------+ + + | clonazePAM | Take 0.25 mg by | | 0 | | | | (KLONOPIN) 0.5 mg | mouth Twice daily | | | | 9 | | tablet | as needed for | | | | | | | Anxiety. | | | | | + + + +---------+ + + | escitalopram | Take 10 mg by mouth | | 0 | | | | (LEXAPRO) 10 mg | Daily. | | | | 9 | | tablet | | | | | | + + + +---------+ + + | methadone 10 mg | Take 10 mg by mouth | | 0 | | | | tablet | every 12 hours. | | | | 9 | + + + +---------+ + + | Emery-3 Fatty | Take by mouth. | | 0 | | | | Acids (EPA PO) | | | | | 9 | + + + +---------+ + + | oxyCODONE | Take 30 mg [...] | | | | + + + +---------+ + + documented as of this encounter Plan of Treatment +--------+---------+ + + + | Date | Type | Specialty | Care Team | Description | +--------+---------+ + + + | 12/12/ | Office | Cardiology | Emile Rosario MD | | | 2020 | Visit | | [address] | | | | | | [place] [address] | | | | | | [phone] | | | | | | | | +--------+---------+ + + + documented as of this encounter Procedures + +--------+ + + + | Procedure Name | Priori | Date/Time | Associated Diagnosis | Comments | | | ty | | | | + +--------+ + + + | MRI LUMBAR SPINE WO | Routin | 05/29/2017 | | Results for this | | CONTRAST | e | 12:00 AM | | procedure are in the | | | | PDT | | results section. | + +--------+ + + + documented in this encounter Results MRI Lumbar Spine wo Contrast (05/29/2017 12:00 AM PDT) + + | Specimen | + + | | + + + + + | Narrative | Performed At | + + + | This is a non-reportable procedure without a radiologist report and | | | is used for image storage only | | + + + + + | Procedure Note | + + | Jeremy, Hank Conversion - 06/30/2019 2:50 AM PDT This is a non-reportable procedure | | without a radiologist report and isused for image storage only | + + documented in this encounter Visit Diagnoses + + | Diagnosis | + + | Pain Generalized pain | + + documented in this encounter"
--- OUTSIDE RECORDS SUMMARY | ~2019-11-13 | XMS | Encounter Summary ---
Demographics + + + | Address | [address] | | | [place] [address] | + + + | Home Phone | | + + + | Preferred Language | Unknown | + + + | Marital Status | | + + + | Confucianist Affiliation | [id number] | + + + | Race | Unknown | + + + | Ethnic Group | Unknown | + + + Author + + + | Author | [facility] | | | and [place] | + + + | Organization | [facility] | | | and [place] | + + + | Address | Unknown | + + + | Phone | Unavailable | + + + Support + + + + + | Name | Relationship | Address | Phone | + + + + + | Tamar Lancaster | JOSEE | [address] | | | | | [place] [address] | | + + + + + | Peter Hester | ECON | [address] | | | | | [place] [address] | | + + + + + Care Team Providers + +------+ + | Care Rod Tape Operator Name | Role | Phone | + [...] [facility] | | | | | Acute pain | Alexx, | [address] | | | | | of left | [place], | [place], | | | | | shoulder | PA-C [address] | [place] | | | | | Traumatic | [address] | [address] | | | | | closed | [place] | Phone: | | | | | displaced | [id number] | [phone] | | | | | fracture of | Phone: | Fax: | | | | | right | [phone] | [phone] | | | | | shoulder | Fax: | | | | | | with | [phone] | | | | | | anterior | | | | | | | dislocation | | | | | | | with delayed | | | | | | | healing | | | | | | | Procedures | | | | | | | MRI Shoulder | | | | | | | Left wo | | | | | | | Contrast | | | +--------+--------+ + + + + Reason for Visit + + + | Reason | Comments | + + + | Shoulder Pain | left shoulder | + + + Encounter Details +--------+---------+ + + + | Date | Type | Department | Care Team | Description | +--------+---------+ + + + | 06/25/ | Office | [facility] [place] | Alexx, | Acute pain of left | | 2016 | Visit | PHYSIATRY [address] | [place] [address] | shoulder (Primary | | | | [address] [place], | [address] [place], | Dx); Traumatic | | | | [place] [address] | [place] [address] | closed displaced | | | | [phone] | [phone] | fracture of right | | | | | | shoulder with | | | | | | anterior dislocation | | | | | | with delayed | | | | | | healing | +--------+---------+ + + + Social History [...] + + + | Blood Pressure | 143/66 | 06/25/2016 3:56 PM | | | | | PDT | | + + + + + | Pulse | 62 | 06/25/2016 3:56 PM | | | | | PDT | | + + + + + [...] + + + + | Weight | 79.4 kg (175 lb) | 06/25/2016 3:56 PM | verbacl | | | | PDT | | + + + + + | Height | 152.4 cm (5') | 06/25/2016 3:56 PM | | | | | PDT | | + + + + + | Body Mass Index | 34.18 | 06/25/2016 3:56 PM | | | | | PDT | | + + + + + documented in this encounter Patient Instructions Patient Instructions Destini Coffey PA-C - 06/25/2016 5:10 PM PDTLeft shoulder dislo cation with self reduction Need left shoulder MRI - this will be ordered to be at [facility] WITHOUT contrast since iod ine contrast allergy documented in this encounter Progress Notes Destini Coffey PA-C - 06/26/2016 9:37 AM PDTFormatting of this note might be differe nt from the original. CHIEF COMPLAINT: Chief Complaint Patient presents with Shoulder Pain left shoulder HISTORY OF PRESENT ILLNESS: The patient is a 70 y.o. female with the complaint of left loc ulder pain that began six week ago. She was chasing a bunny through her house and fell land ing on outstretched hand giving her pain to the left shoulder. She has not had any work up from this point. The patient rates her pain and discomfort as 7 on scale of 1-10. Since the symptoms began, she has noticed that symptoms have been constant. She describes the pain as a aching, dull and stabbing feeling. The patient also describes arm symptoms down the left side to the elb ow. Her pain is to the anterior aspect of the left shoulder and travels down the medial pos terior aspect of the upper arm to the elbow. She denies numbness. She taking methadone for other pain and reports about three hours after taking this medicine she still feeling the l eft shoulder aching pain. The patient does report loss of strength, she cannot fully lift her arm to wash her hair, d on and doff clothing. Her symptoms improve with rest. Her symptoms worsen with movement of the left shoulder. The patient does not reports bowel or bladder incontinence. The patien t does not reports saddle paresthesias. Treatments for these complaints have included use of medications. Patient's medications, allergies, past medical, surgical, social and family histories were reviewed and updated as appropriate. PAST MEDICAL HISTORY: Past Medical History Diagnosis Date High blood pressure High cholesterol Anxiety Depression Sleep apnea Uses CPAP machine, not every night. Can only use for 4 hours. Arthritis Breast cancer (HCC) Lumbar radiculopathy - currently into the bilateral lower extremities 03/20/2014 DDD (degenerative disc disease), lumbar 03/20/2014 Spinal stenosis of lumbar region at multiple levels 03/20/2014 Spondylolisthesis of lumbar region 03/20/2014 Osteoarthritis of left knee 01/01/2015 Stroke (HCC) Narcotic abuse 10/08/2015 Acute pain of left shoulder 06/25/2016 Traumatic closed displaced fracture of right shoulder with anterior dislocation with de layed healing 06/25/2016 PAST SURGICAL HISTORY: Past Surgical History Procedure Laterality Date section, classic 1966, 69, 71 Hysterectomy 1973 Carpal tunnel release 1993, 96 Rotator cuff repair 2007 Cholecystectomy 2008 Breast lumpectomy 2011 Bunionectomy Left CURRENT MEDICATIONS: Current Outpatient Prescriptions Medication Sig Dispense Refill acyclovir (ZOVIRAX) 800 mg tablet Take 800 mg by mouth. Ascorbic Acid (VITAMIN C) 100 MG tablet Take 100 mg by mouth Daily. No Dosage Provided Digestive Enzymes (DIGESTIVE ENZYME PO) Take by mouth. EPIPEN 2-TABITHA 0.3 MG/0.3ML injection USE NEEDED FOR ANAPHYLAXIS 1 Flaxseed, Linseed, (FLAX SEED OIL PO) Take by mouth. gabapentin (NEURONTIN) 100 mg capsule Take 100 mg by mouth 3 times daily. ibuprofen (ADVIL,MOTRIN) 600 MG tablet Take 600 mg by mouth every 12 hours. LYSINE PO Take by mouth. methadone 10 mg tablet Take 10 mg by mouth every 12 hours. metoclopramide (REGLAN) 5 MG tablet Take 5 mg by mouth 4 times daily. [place]-3 Fatty Acids (EPA PO) Take by mouth. omeprazole (PRILOSEC) 20 mg capsule Take 30 mg by mouth every morning (before breakfast ). oxyCODONE (ROXICODONE) 15 mg immediate release tablet Take 30 mg by mouth every 8 hours as needed. Taking 2 tablets in morning, 1 tablet at noon, and 2 tablets in evening. Indica tions: Moderate to Severe Pain potassium chloride (K-DUR) 20 mEq ER tablet Take 20 mEq by mouth 2 times daily. 0 prazosin (MINIPRESS) 1 mg capsule Take 1 mg by mouth 3 times daily. Psyllium (METAMUCIL PO) Take by mouth. terazosin (HYTRIN) 10 MG capsule Take 10 mg by mouth 2 times daily. torsemide (DEMADEX) 5 mg tablet 0 No current facility-administered medications for this visit. ALLERGIES: Allergies Allergen Reactions Bee Venom Anaphylaxis Iodine Anaphylaxis Povidone Iodine Anaphylaxis SOCIAL HISTORY: The patient reports that she has never smoked. She quit smokeless tobacco use about 20 yea rs ago. Her smokeless tobacco use included Chew. She reports that she does not drink alcohol or use illicit drugs. FAMILY HISTORY: Family History Problem Relation Age of Onset Headache Mother Alcohol abuse Brother Stroke Brother Stroke Mother Stroke Father Seizures Son Cancer Mother lung Heart disease Father Diabetes Brother Diabetes Mother REVIEW OF SYSTEMS: GENERALLY: No fever, chills, no night sweats, no fatigue, no weight loss, no weight gain. EYES: No vision changes. EARS, NOSE, AND THROAT: No hearing loss, no ear pain, no nosebleeds, no toothache, no gum p roblems, no significant snoring or sleep apnea, no seasonal allergies, no difficulty swallow ing, no hoarseness. NEUROMUSCULAR: Please see the review of systems discussed above in the history of present illness. In addition, the patient has no dizziness, no blackouts, no headaches. PSYCHIATRIC: No depression, no difficulty sleeping, no anxiety, no memory loss. CARDIOVASCULAR: No chest pain, no palpitations, no swollen ankles. PULMONARY: No shortness of breath, no cough. GASTROINTESTINAL: No poor appetite, no diarrhea, no nausea or vomiting, no bowel incontine nce, no hemorrhoids, no constipation, no abdominal pain. GENITOURINARY: No urinary difficulty and no incontinence. SKIN: No rashes. HEMATOLOGIC/LYMPHATIC: No enlarged lymph nodes or swollen glands. ENDOCRINE: No diabetes, no thyroid disease, no osteopenia or osteoporosis, no breast drain age. RHEUMATOLOGIC: No osteoarthritis, no rheumatoid arthritis. PHYSICAL EXAMINATION: Filed Vitals: 06/25/16 1556 BP: 143/66 Pulse: 62 PainSc: 7 PainLoc: Shoulder Body mass index is 34.18 kg/(m^2). GENERAL: The patient is well developed [...] lesions. There are not scars in the left shoulder region. CHEST: The patient is in no acute respiratory distress with unlabored respirations. HEART: There is not lower extremity edema. ABDOMEN: The patient is obese. MUSCULOSKELETAL: Range of motion testing of the cervical spine was unremarkable. Spurling s ign was negative. Shoulder examination shows limited range of motion of the left shoulder with abduction, ext ernal rotation. Impingement testing was Positive. There was tenderness over the bicipital groove and over the AC joint. She has a palpable mass to the anterior region. Speed's test was Positive. Empty can test was Positive. Strength testing, including strength testing o f the infraspinatus, supraspinatus and subscapularis, in bilateral upper extremities showed 5/5 strength to the right with 3+/5 strength in the left of the infraspinatus, suprasinatus and subscapularis. NEUROLOGIC: The patient is awake, alert, and oriented to time, place, person. She follows simple and complex commands. Her speech is fluent. She comprehends speech well. She has no apparent deficits with short or group home memory. She has appropriate fund of knowledge Cranial nerves 2-12 appear grossly intact. Sensory exam does not show diminished sensation to light touch in the upper and lower extr emities. RADIOGRAPHIC REVIEW: The patient's imaging was reviewed in detail with the patient today during the visit. Xray of the left shoulder from today shows On the scapular Y view and the externally rotated frontal view the humeral head is malpositioned. On the frontal view it is inferior in relation to the glenoid. On the scapular Y views is anterior in relation to the glenoid. Is not distinctly anterior inferior as would be expected in a classic dislocation. There is irregularity of the greater tuberosity as can be seen in rotator cuff disease. There are no visible acute fractures. The acromioclavicular joint is degenerative but otherwise unremarkable. ASSESSMENT: Encounter Diagnoses Name Primary? Acute pain of left shoulder Yes Traumatic closed displaced fracture of right shoulder with anterior dislocation with de layed healing PLAN: 1. She has not had any images of the shoulder at this point. I'm concerned about a disloc ation. A left shoulder xray was done in the Y view. She went over to the hospital today and had this done. It shows a malposition of the humeral head. 2. After seeing the xray I have ordered a left shoulder MRI to assess internal derangement and instability of the humeral head and rotator cuff muscles. She cannot have iodine due t o a anaphylaxis allergy. This was ordered without contrast. 3. I will call her with MRI results and probably referral to Dr. Bronson in orthopedics. ELECTRONICALLY SIGNED BY: Destini Coffey PA-C, 06/26/2016 documented in t his encounter Plan of Treatment +--------+---------+ + + + | Date | Type | Specialty | Care Team | Description | +--------+---------+ + + + | 12/12/ | Office | Cardiology | Emile Rosario MD | | | 2019 | Visit | | [address] | | | | | | [place] [address] | | | | | | [phone] | | | | | | | | +--------+---------+ + + + documented as of this encounter Results MRI Shoulder Left wo Contrast (07/02/2016 4:48 PM PDT) + + | Specimen | + + | | + + + + + | Narrative | Performed At | + + + | EXAM: MRI SHOULDER LEFT WO CONTRAST dated 07/02/2016 3:50 PM | [facility] | | HISTORY: left shoulder pain x 6 weeks, dislocation COMPARISON: | [facility] | | None. TECHNIQUE: Multiplanar multisequence MR imaging of the left [facility] | | shoulder without contrast. Imaging is performed on a 3 Lorenza MRI. | - IMAGING | | FINDINGS: There is motion degradation. Rotator cuff: There | | | is essentially a complete tear of the supraspinatus tendon. The torn | | | tendon is retracted to the level of the glenoid. There may be | | | component entrapped between the humeral head and glenoid. There is a | | | very small component, contributing to the junction with the | | | infraspinatus, that is intact. There is moderate supraspinatus | | | muscle volume loss. There is edema along the supraspinatus muscle. | | | There is low to moderate grade articular sided and intrasubstance | | | partial tearing of the infraspinatus tendon. No significant volume | | | loss in the infraspinatus muscle. The teres minor tendon is | | | unremarkable and intact. There is moderate to high-grade tearing of | | | the upper tendinous fibers of the subscapularis tendon. Edema and | | | volume loss in the subscapularis muscle. Labrum and biceps | | | tendon: The intra-articular biceps tendon is not visible. Components | | | of the long head of the biceps tendon are seen in the bicipital | | | groove. This may be from prior tenodesis or more recent tear. The | | | labrum is not well studied due to motion degradation. There is | | | significant irregularity in the region of the superior labrum. | | | There is a thickened irregular and somewhat hyperintense middle | | | glenohumeral ligament. This may be posttraumatic. Glenohumeral | | | and acromioclavicular joints: There is a large joint effusion. This | | | communicates with the subacromial/subdeltoid bursa. This is | | | heterogeneous. There is likely component of synovitis and | | | intra-articular hemorrhage. There is edema in the humeral head | | | along the articular surface. Linear low signal deep to the | | | subchondral bone may represent an impaction injury. The humeral | | | head is anteriorly positioned in the glenoid. There are moderate to | | | severe degenerative changes in the glenohumeral joint. There are | | | degenerative changes in acromioclavicular joint. The acromion is a | | | type II. IMPRESSION - Essentially complete tear of the | | | supraspinatus tendon retracted to the level of the glenoid. | | | Moderate to high-grade tear of the upper subscapularis tendon. | | | Biceps tendon versus prior tenodesis. Correlate with the clinical | | | history. Probable mild impaction fracture related signal changes | | | in the articular surface of humeral head. Large joint effusion | | | with probable hemarthrosis and associated synovitis. Moderate to | | | severe degenerative changes in the glenohumeral Dictated and | | | Signed by: Zaire Zamora MD Electronically signed: 07/02/2016 | | | 5:11 PM | | + + + + + | Procedure Note | + + | Jeremy, Rad Results In - 07/02/2016 5:14 PM PDT EXAM: MRI SHOULDER LEFT WO CONTRAST | | dated 07/02/2016 3:50 PMHISTORY: left shoulder pain x 6 weeks, dislocationCOMPARISON: | | None.TECHNIQUE: Multiplanar multisequence MR imaging of the left shoulder | | withoutcontrast. Imaging is performed on a 3 [facility]za MRI.FINDINGS: There is motion | | degradation. Rotator cuff: There is essentially a complete tear of the supraspinatus | | tendon. The torn tendon is retracted to the level of the glenoid. There may becomponent | | entrapped between the humeral head and glenoid. There is a very smallcomponent, | | contributing to the junction with the infraspinatus, that is intact. There is moderate | | supraspinatus muscle volume loss. There is edema along thesupraspinatus muscle. There | | is low to moderate grade articular sided andintrasubstance partial tearing of the | | infraspinatus tendon. No significantvolume loss in the infraspinatus muscle. The teres | | minor tendon is unremarkableand intact. There is moderate to high-grade tearing of the | | upper tendinousfibers of the subscapularis tendon. Edema and volume loss in the | | subscapularismuscle.Labrum and biceps tendon: The intra-articular biceps tendon is not | | visible. Components of the long head of the biceps tendon are seen in the | | bicipitalgroove. This may be from prior tenodesis or more recent tear. The labrum | | isnot well studied due to motion degradation. There is significant irregularityin the | | region of the superior labrum. There is a thickened irregular andsomewhat hyperintense | | middle glenohumeral ligament. This may be posttraumatic.Glenohumeral and | | acromioclavicular joints: There is a large joint effusion. This communicates with the | | subacromial/subdeltoid bursa. This is heterogeneous. There is likely component of | | synovitis and intra-articular hemorrhage. Thereis edema in the humeral head along the | | articular surface. Linear low signaldeep to the subchondral bone may represent an | | impaction injury. The humeralhead is anteriorly positioned in the glenoid. There are | | moderate to severedegenerative changes in the glenohumeral joint. There are | | degenerative changesin acromioclavicular joint. The acromion is a type II.IMPRESSION | | -Essentially complete tear of the supraspinatus tendon retracted to the level ofthe | | glenoid.Moderate to high-grade tear of the upper subscapularis tendon.Biceps tendon | | versus prior tenodesis. Correlate with the clinical history.Probable mild impaction | | fracture related signal changes in the articular surfaceof humeral head.Large joint | | effusion with probable hemarthrosis and associated synovitis.Moderate to severe | | degenerative changes in the glenohumeralDictated and Signed by: Zaire Zamora MD | | Electronically signed: 07/02/2016 5:11 PM | |is edema in the humeral head along the articular surface. Linear low signal | |deep to the subchondral bone may represent an impaction injury. The humeral | |head is anteriorly positioned in the glenoid. There are moderate to severe | |degenerative changes in the glenohumeral joint. There are degenerative changes | |in acromioclavicular joint. The acromion is a type II. | | | |IMPRESSION - | | | |Essentially complete tear of the supraspinatus tendon retracted to the level of | |the glenoid. | | | |Moderate to high-grade tear of the upper subscapularis tendon. | | | |Biceps tendon versus prior tenodesis. Correlate with the clinical history. | | | |Probable mild impaction fracture related signal changes in the articular surface | |of humeral head. | | | |Large joint effusion with probable hemarthrosis and associated synovitis. | | | |Moderate to severe degenerative changes in the glenohumeral | | | |Dictated and Signed by: Zaire Zamora MD | | Electronically signed: 07/02/2016 5:11 PM | + + + + + + + | Performing | Address | City/State/Zipcode | Phone Number | | Organization | | | | + + + + + | [facility] | [address] | [place], [place] | [phone] | | [facility] | | [address] | | | - IMAGING | | | | + + + + + XR Shoulder Left 2 + Vw (06/25/2016 4:46 PM PDT) + + | Specimen | + + | | + + + + + | Narrative | Performed At | + + + | EXAM: XR SHOULDER LEFT 2 + VW dated 06/25/2016 4:27 PM | [facility] | | HISTORY:left shoulder pain, possible fx or dislocation COMPARISON: | [facility] | | None. FINDINGS:3 views of the left shoulder. On the [facility] | | Y view and the externally rotated frontal view the humeral head is | - IMAGING | | malpositioned. On the frontal view it is inferior in relation to the | | | glenoid. On the scapular Y views is anterior in relation to the | | | glenoid. Is not distinctly anterior inferior as would be expected | | | in a classic dislocation. There is irregularity of the greater | | | tuberosity as can be seen in rotator cuff disease. There are no | | | visible acute fractures. The acromioclavicular joint is | | | degenerative but otherwise unremarkable. IMPRESSION - Subluxed | | | malpositioned humeral head may be the sequelae of internal | | | arrangement and instability. Currently no reagan anteroinferior | | | dislocation. No visible fracture. Consider MRI for problem | | | solving. I discussed the case with the ordering provider at 5:00 | | | PM on the day of exam. Dictated and Signed by: Zaire Zamora MD | | | Electronically signed: 06/25/2016 5:01 PM | | + + + + + | Procedure Note | + + | Jeremy, Rad Results In - 06/25/2016 5:04 PM PDT EXAM: XR SHOULDER LEFT 2 + VW dated | | 06/25/2016 4:27 PMHISTORY:left shoulder pain, possible fx or dislocationCOMPARISON: | | None.FINDINGS:3 views of the left shoulder.On the scapular Y view and the externally | | rotated frontal view the humeral headis malpositioned. On the frontal view it is | | inferior in relation to theglenoid. On the scapular Y views is anterior in relation to | | the glenoid. Isnot distinctly anterior inferior as would be expected in a classic | | dislocation. There is irregularity of the greater tuberosity as can be seen in rotator | | cuffdisease. There are no visible acute fractures. The acromioclavicular joint | | isdegenerative but otherwise unremarkable.IMPRESSION -Subluxed malpositioned humeral | | head may be the sequelae of internal arrangementand instability.Currently no reagan | | anteroinferior dislocation.No visible fracture.Consider MRI for problem solving.I | | discussed the case with the ordering provider at 5:00 PM on the day of exam.Dictated and | | Signed by: Zaire Zamora MD Electronically signed: 06/25/2016 5:01 PM | |disease. There are no visible acute fractures. The acromioclavicular joint is | |degenerative but otherwise unremarkable. | | | |IMPRESSION - | | | |Subluxed malpositioned humeral head may be the sequelae of internal arrangement | |and instability. | | | |Currently no reagan anteroinferior dislocation. | | | |No visible fracture. | | | |Consider MRI for problem solving. | | | |I discussed the case with the ordering provider at 5:00 PM on the day of exam. | | | |Dictated and Signed by: Zaire Zamora MD | | Electronically signed: 06/25/2016 5:01 PM | + + + + + + + | Performing | Address | City/State/Zipcode | Phone Number | | Organization | | | | + + + + + | [facility] | [address] | [place] | [phone] | | [facility] | | [id number] | | | - IMAGING | | | | + + + + + documented in this encounter Visit Diagnoses + + | Diagnosis | + + | Acute pain of left shoulder - Primary | + + | Traumatic closed displaced fracture of right shoulder with anterior dislocation with | | delayed healing | + + documented in this encounter"
--- OUTSIDE RECORDS SUMMARY | ~2019-11-13 | XMS | Encounter Summary ---
Demographics + + + | Address | [address] | | | [place] [address] | + + + | Home Phone | | + + + | Preferred Language | Unknown | + + + | Marital Status | | + + + | Yazidism Affiliation | 1013 | + + + | Race | Unknown | + + + | Ethnic Group | Unknown | + + + Author + + + | Author | [facility] | | | and [place] | + + + | Organization | [facility] | | | and [place] | + + + | Address | Unknown | + + + | Phone | Unavailable | + + + Support + + + + + | Name | Relationship | Address | Phone | + + + + + | Tamar Lancaster | JOSEE | [address] | | | | | [place] [address] | | + + + + + | Peter Hester | ECON | [address] | | | | | [place] [address] | | + + + + + Care Team Providers + +------+ + | Care Wick And Base Assembler Name | Role | Phone | + +------+ + | Michael Montoya MD | PCP | | + +------+ + Reason for Referral Evaluate & Treat (Routine) +--------+ + + + + + | Status | Reason | Specialty | Diagnoses / | Referred By | Referred To | | | | | Procedures | Contact | Contact | +--------+ + + + + + | Closed | Specialty | Pain Medicine | Diagnoses | | | | | Services | | | Alexx, | | | | Required | | Osteoarthrit | Destini, | | | | | | is of [facility] | PA-C [address] | | | | | | knee | [address] | | | | | | | [place] | | | | | | | [address] | | | | | | | Phone: | | | | | | | [phone] | | | | | | | Fax: | | | | | | | [phone] | | +--------+ + + + + + Evaluate & Treat (Routine) +--------+ + + + + + | Status | Reason | Specialty | Diagnoses / | Referred By | Referred To | | | | | Procedures | Contact | Contact | +--------+ + + + + + | Closed | Specialty | Orthopedic | Diagnoses | | Audie, | | | Services | Surgery | | Alexx, | Reagan Means MD | | | Required | | Osteoarthrit | [place]ini, | [address] | | | | | is of left | PA-C [address] [place] | | | | | knee | [address] | [place], [place] | | | | | | [place], [place] | [address] Phone: | | | | | | [address] | [phone] | | | | | | Phone: | Fax: | | | | | | [phone] | [phone] | | | | | | Fax: | | | | | | | [phone] | | +--------+ + + + + + Reason for Visit + + + | Reason | Comments | + + + | Knee Pain | left knee pain, requesting injection | + + + Encounter Details +--------+ + + + + | Date | Type | Department | Care Team | Description | +--------+ + + + + | 01/01/ | Procedure | [facility] | Alexx, | Osteoarthritis of | | 2014 | visit | PHYSIATRY [address] | [place] [address] | left knee (Primary | | | | [facility], | [address] [place], | Dx); Bilateral | | | | [place] [address] | [place] [address] | lumbar | | | | [phone] | [phone] | radiculopathy; DDD | | | | | | [...] region; | | | | | | Fibromyalgia | | | | | | syndrome | +--------+ + + + + Social [...] + + + | Blood Pressure | 144/76 | 01/01/2015 4:27 PM | | | | | PST | | + + + + + | Pulse | 70 | 01/01/2015 4:27 PM | | | | | PST | [...] + + + + | Weight | 88.5 kg (195 lb) | 01/01/2015 4:27 PM | | | | | PST | | + + + + + | Height | 154.9 cm (5' 1") | 01/01/2015 4:27 PM | | | | | PST | | + + + + + | Body Mass Index | 36.84 | 01/01/2015 4:27 PM | | | | | PST | | + + + + + documented in this encounter Patient Instructions Patient Instructions Destini Coffey PA-C - 01/01/2015 4:55 PM PST- Ice the area as n eeded 20 minutes per hour. Multiple times as needed over the next few days. - Watch for signs of infection (redness around injection site, swelling, fever) - No strenuous activity for 24-48 hours after the procedure. - Please call the office with questions or concerns. documented in this encounter Plan of Treatment +--------+---------+ + + + | Date | Type | Specialty | Care Team | Description | +--------+---------+ + + + | 12/12/ | Office | Cardiology | Emile Rosario MD | | | 2019 | Visit | | [address] | | | | | | [place] [address] | | | | | | [phone] | | | | | | | | +--------+---------+ + + + + + +--------+ + + | Name | Type | Priori | Associated Diagnoses | Order Schedule | | | | ty | | | + + +--------+ + + | * [facility] | Outpatient | Routin | Osteoarthritis of | Ordered: 01/01/2015 | | Orthopedic Surgery - | Referral | e | left knee | | | AMB Referral | | | | | + + +--------+ + + | [facility] Clinic, | Outpatient | Routin | Osteoarthritis of | Ordered: 01/01/2015 | | External - AMB | Referral | e | left knee | | | Referral | | | | | + + +--------+ + + documented as of this encounter Visit Diagnoses + + | Diagnosis | + + | Osteoarthritis of left knee - Primary Osteoarthrosis, unspecified whether generalized | | or localized, lower leg | + + | Bilateral lumbar radiculopathy | + + | DDD (degenerative disc disease), lumbar Degeneration of lumbar or lumbosacral | | intervertebral disc | + + | Spinal stenosis of lumbar region at multiple levels Spinal stenosis, lumbar region, | | without neurogenic claudication | + + | Spondylolisthesis of lumbar region Acquired spondylolisthesis | + + | Fibromyalgia syndrome Mylagia and myositis, unspecified | + + documented in this encounter
--- OUTSIDE RECORDS SUMMARY | ~2019-11-13 | XMS | Encounter Summary ---
Demographics + + + | Address | [address] | | | [place] [address] | + + + | Home Phone | | + + + | Preferred Language | Unknown | + + + | Marital Status | | + + + | Restorationism Affiliation | 1013 | + + + | Race | Unknown | + + + | Ethnic Group | Unknown | + + + Author + + + | Author | [facility] | | | and [place] | + + + | Organization | [facility] | | | and [place] | + + + | Address | Unknown | + + + | Phone | Unavailable | + + + Support + + + + + | Name | Relationship | Address | Phone | + + + + + | Tamar Lancaster | JOSEE | [address] | | | | | [place] [address] | | + + + + + | Peter Hester | ECON | [address] | | | | | [place] [address] | | + + + + + Care Team Providers + +------+ + | Care Computer Support Specialist Name | Role | Phone | + +------+ + | Michael Montoya MD | PCP | | + +------+ + Reason for Visit +--------+ + | Reason | Comments | +--------+ + | Other | patient has cancelled 2x appointment for PT | +--------+ + Encounter Details +--------+ + + + + | Date | Type | Department | Care Team | Description | +--------+ + + + + | 01/27/ | Telephone | [facility] | Boubacar Hobbs MD | Other (patient has | | 2012 | | NEUROSURGERY [address] | [address] | cancelled 2x | | | | [address] | [place] [address] | appointment for PT) | | | | [place] | [phone] | | | | | [address] | | | | | | [phone] | | | +--------+ + + + + Social History + +-------+ +--------+------+ | Tobacco Use | Types | Packs/Day | Years | Date | | | | | Used | | + +-------+ +--------+------+ | Never Smoker | | | | | + +-------+ +--------+------+ + +------+---+---+ | Smokeless Tobacco: | Chew | | | | Former User | | | | + +------+---+---+ + + | Comments: quit 20 years ago | + + + + +---------+ + | Alcohol Use | Drinks/Week | oz/Week | Comments | + + +---------+ + | No | | | | + + +---------+ + + + [...] [address] | | | | | | [place] [address] | | | | | | [phone] | | | | | | | | +--------+---------+ + + + documented as of this encounter Visit Diagnoses Not on filedocumented in this encounter"
--- OUTSIDE RECORDS SUMMARY | ~2019-11-13 | XMS | Encounter Summary ---
Demographics + + + | Address | [address] | | | [place] [address] | + + + | Home Phone | | + + + | Preferred Language | Unknown | + + + | Marital Status | | + + + | Faith Affiliation | 1013 | + + + | Race | Unknown | + + + | Ethnic Group | Unknown | + + + Author + + + | Author | [facility] | | | and [place] | + + + | Organization | [facility] | | | and [place] | + + + | Address | Unknown | + + + | Phone | Unavailable | + + + Support + + + + + | Name | Relationship | Address | Phone | + + + + + | Tamar Lancaster | JOSEE | [address] | | | | | [place] [address] | | + + + + + | Peter Hester | ECON | [address] | | | | | [place] [address] | | + + + + + Care Team Providers + +------+ + | Care Thimble Press Operator Name | Role | Phone | [...] | Lumbar | Alexx, | [address] | | | | | radiculopath | [place]ini, | [place], | | | | | y DDD | PA-C [address] | [place] | | | | | (degenerativ | [address] | [address] | | | | | e disc | [place] | Phone: | | | | | disease), | [address] | [phone] | | | | | lumbar | Phone: | Fax: | | | | | Spinal | [phone] | [phone] | | | | | stenosis of | Fax: | | | | | | lumbar | [phone] | | | | | | region [...] + + + + Reason for Visit Diagnostic/Screening (Routine) +--------+--------+ + + + + | Status | Reason | Specialty | Diagnoses / | Referred By | Referred To | | | | | Procedures | Contact | Contact | +--------+--------+ + + + + | Closed | | Radiology | Diagnoses | | [facility] | | | | | Lumbar | Alexx, | [address] | | | | | radiculopath | [place]ini, | [place], | | | | | y DDD | PA-C [address] | [place] | | | | | (degenerativ | [address] | [address] | | | | | e disc | [place] | Phone: | | | | | disease), | [address] | [phone] | | | | | lumbar | Phone: | Fax: | | | | | Spinal | [phone] | [phone] | | | | | stenosis of | Fax: | | | | | | lumbar | [phone] | | | | | | region [...] | +--------+ + + + + | 10/24/ | Hospital | [facility] | Alexx, | Lumbar radiculopathy | | 2015 | Encounter | [facility] MRI [address] | [place]es [address] | - currently into | | | | [place], | [facility], | the bilateral lower | | | | [place] [address] | [place] [address] | extremities; DDD | | | | [phone] | [phone] | (degenerative disc | | | | [...] + + + +---------+ + + | diazepam (VALIUM) | Take 2 mg by mouth | | 0 | | | | 2 mg tablet | every 12 hours as | | | | 6 | | | needed for Anxiety. | | | | | + + + +---------+ + + | methadone 10 mg | Take 10 mg by mouth | | 0 | | | | tablet | every 12 hours. | | | | 9 | + + + +---------+ + + | omeprazole | Take 20 mg by mouth | | 0 | | | | (PRILOSEC) 20 mg | every morning | | | | 7 | | capsule | (before breakfast). | [...] mEq by mouth | | 0 | 08/04/20 | | | (K-DUR) 20 mEq ER | 2 times daily. | | | 15 | 6 | | tablet | | | | | | + + + +---------+ + + | torsemide | | | 0 | 08/06/20 | | | (DEMADEX) 5 mg | | | | 15 | 6 | | tablet | | | | [...] [address] | | | | | | [place] [address] | | | | | | [phone] | | | | | | | | +--------+---------+ + + + documented as of this encounter Procedures + +--------+ + + + | Procedure Name | Priori | Date/Time | Associated Diagnosis | Comments | | | ty | | | | + +--------+ + + + | MRI LUMBAR SPINE WO | Routin | 10/24/2015 | Lumbar | Results for this | | CONTRAST | e | 2:58 PM | radiculopathy - | procedure are in the | | | | PST | currently into the | results section. | | | | | bilateral lower [...] back pain, spinal stenosis, lumbar radicu | [facility] | | Bilaterally COMPARISON: 08/18/2012 TECHNIQUE: In the 1.5T [facility] | | scanner multiplanar, multisequence imaging of [...] canal stenosis at L3-L4 and L4-L5. The L3-U1laprvmh are | | stable when compared to [...] | + + + + + | [address] | [address] | [place] | [phone] | | [facility] | | [address] | | | - IMAGING | | | | + + + + + documented in this encounter Visit Diagnoses + + | Diagnosis | + + | Lumbar radiculopathy - currently into the bilateral lower extremities Thoracic or | | lumbosacral neuritis or radiculitis, unspecified | + + | DDD (degenerative disc disease), lumbar Degeneration of lumbar or lumbosacral | | intervertebral disc | + + | Spinal stenosis of lumbar region at multiple levels Spinal stenosis, lumbar region, | | without neurogenic claudication | + + | Spondylolisthesis of lumbar region Acquired spondylolisthesis | + + documented in this encounter"
--- OUTSIDE RECORDS SUMMARY | ~2019-11-13 | XMS | Encounter Summary ---
Demographics + + + | Address | [address] | | | [place] [address] | + + + | Home Phone | | + + + | Preferred Language | Unknown | + + + | Marital Status | | + + + | Baptism Affiliation | 1013 | + + + | Race | Unknown | + + + | Ethnic Group | Unknown | + + + Author + + + | Author | [facility] | | | and [place] | + + + | Organization | [facility] | | | and [place] | + + + | Address | Unknown | + + + | Phone | Unavailable | + + + Support + + + + + | Name | Relationship | Address | Phone | + + + + + | Tamar Lancaster | JOSEE | [address] | | | | | [place] [address] | | + + + + + | Peter Hester | ECON | [address] | | | | | [place] [address] | | + + + + + Care Team Providers + +------+ + | Care Steel Barrel Reamer Name | Role | Phone | + +------+ + | Michael Montoya MD | PCP | | + +------+ + Reason for Visit + + + | Reason | Comments | + + + | Follow-up | left rotator cuff with acromioplasty and distal clavicle excision | | | DOS 10/07/16 | + + + Encounter Details +--------+---------+ + + + | Date | Type | Department | Care Team | Description | +--------+---------+ + + + | 01/08/ | Office | [facility] | Gamaliel Feng | Chronic left | | 2017 | Visit | ORTHOPEDIC SURGERY | [address] | shoulder pain | | | | [address] | [place] | (Primary Dx); | | | | [place] | [place] [address] | Decreased range of | | | | [address] | [phone] | motion of left | | | | [phone] | | shoulder; S/P | | | | | | orthopedic surgery, | | | | | | follow-up exam | +--------+---------+ + + + Social History [...] + + + | Blood Pressure | - | - | | + + + + + | Pulse | - | - | | + + + + + | Temperature | 36.2 C (97.2 F) | 01/08/2017 9:48 AM | | | | | PST [...] + + + + | Weight | 83.5 kg (184 lb) | 01/08/2017 9:48 AM | | | | | PST | | + + + + + | Height | 152.4 cm (5') | 01/08/2017 9:48 AM | | | | | PST | | + + + + + | Body Mass Index | 35.94 | 01/08/2017 9:48 AM | | | | | PST | | + + + + + documented in this encounter Progress Notes Gamaliel Feng PA-C - 01/08/2017 2:30 PM PSTFormatting of this note might be differe nt from the original. Name:Annabel Saucedo Todays Date: 01/08/2017 Age: 71 y.o. PCP: Michael Montoya MD Chief Complaint Patient presents with Follow-up left rotator cuff with acromioplasty and distal clavicle excision DOS 10/07/16 SUBJECTIVE: Returns today for follow-up of a left rotator cuff repair that was performed on 10/07/16. States today that pain has been significantly increasing diffusely throughout the whole left upper side of her body. She is feeling pain in her wrists and forearm elbow biceps shoulde r neck and head. She continues with chronic pain management who is treating her with 30 mg of oxycodone every 8 hours when necessary. Describes that she is taking 30 mg in the mornin g 50 mg at last time and 30 mg in the evening as well. She is also taking ibuprofen 600 mg 3 times a day. Continues with methadone 10 mg every 12 hours. States that current pain man agedeepti believes that most her pain is actually originally from her neck at this time. They 're obtaining x-ray and MRI of her neck. Current level of pain is rated at 8 out of 10. At her previous visit I gave her a alvaro system instructed her upon its use. She describe s that she has been using it very intermittently secondary to increased pain. OBJECTIVE: Incision site has healed appropriately and well. Unfortunately range of motion has decreas ed since her previous visit. At her previous visit she had approximately 75 of active abd uction and 80 of passive abduction. Examination today reveals active abduction to approxi mately 45 50 degrees. I'm able to passively abduct her to approximately 75 with effort limited secondary to pain. She does have pain experienced at the shoulder elbow and wrist w ith my passive range of motion. She is instructed to the most significant pain that she's b een experiencing in the past 4 weeks is born more in the back of her shoulder and neck just medial to the scapula. She has pain with palpation at approximately the level of C6-C7 in t he left lateral side. Also has pain palpation over the distal insertion of the trapezius mu scles. Examination of her neck reveals that she is guarded. She has full flexion and exten torrey of the neck abated have pain with full flexion that she felt I didn't into her wrist an d hand. She has full internal and external rotation of the neck without discomfort. No jordyn ding of neck occurred today. Imaging/Studies: No studies to review at this time. Filed Vitals: 01/08/17 0948 Temp: 36.2 C (97.2 F) TempSrc: Temporal Height: 1.524 m (5') Weight: 83.462 kg (184 lb) ASSESSMENT/PLAN: 1. Left rotator cuff repair with distal clavicle excision and acromioplasty, follow up A. At her previous postoperative visit she had been healing accordingly, she was given a alina platt to continue with range of motion exercises at home. Unfortunately over the past 4 wee ks pain has significantly increased and she has been unable to use the alvaro system at home . Pain throughout her head, neck shoulder and the entire length of the arm It is possible t hat neck pathology may be interfering with her recovery from the rotator cuff repair. MRI a nd plain films imaging studies are to be obtained by her pain management provider within the next few weeks. Recommended that they send this to our office as well. During examination today passive range of motion showed really no significant improvement as compared to her p revious visit. We will continue to watch her closely as she may be developing some degree o f adhesive capsulitis. To help her in discomfort she did request injection therapy at the [facility] shoulder today which I do agree as appropriate. We did obtain authorization for a left shoulder injection. I placed the injection through the superior approach of the acromioclav icular joint and placed the injection throughout the acromioclavicular joint and subacromial space. The area was identified and marked. Skin is with Betadine and alcohol. Skin was a nesthetized with a 2:1 ratio of lidocaine to ropivacaine; a total of 3 ML's was utilized. 9 mg of betamethasone with 2 ML's of ropivacaine was then placed throughout the acromial clav icular joint space and subacromial space. Post injection therapy exam finds that this actua lly providing her some degree of good pain relief. Recommended today that we no longer have her perform physical therapy at home but instead referred to outpatient physical therapy. Patient is agreeable to this. I will refer her to [facility] t for mobilization at the left shoulder. Continue with chronic pain management for pain con trol. Follow-up in approximate 6 weeks for reexamination. B. Patient is advised that if they have any questions, comments or concerns to contact our office. I spent 28 minutes face to face with the patient, with over 50% spent in counseling and/or coordination of care regarding right shoulder pain, review of physical exam findings and pat hology discussion and develop a treatment plan with injection therapy at the left shoulder. Electronically signed by: Gamaliel Feng PA-C 01/08/2017 14:30 This note was dictated using the [employer] voice recognition system. Minor errors in grammar may have occurred. documented in th is encounter Plan of Treatment +--------+---------+ + + + | Date | Type | Specialty | Care Team | Description | +--------+---------+ + + + | 12/12/ | Office | Cardiology | Emile Rosario MD | | | 2019 | Visit | | [address] | | | | | | [place] [address] | | | | | | [phone] | | | | | | | | +--------+---------+ + + + documented as of this encounter Visit Diagnoses + + | Diagnosis | + + | Chronic left shoulder pain - Primary Pain in joint, shoulder region | + + | Decreased range of motion of left shoulder | + + | S/P orthopedic surgery, follow-up exam Follow-up examination, following other surgery | + + documented in this encounter Administered Medications + +--------+ +------+------+ + | Medication Order | MAR | Action | Dose | Rate | Site | | | Action | Date | | | | + +--------+ +------+------+ + | betamethasone (CELESTONE | Given | 01/08/20 | 9 mg | | Shoulder | | SOLUSPAN) injection 9 mg 9 mg, | | 17 10:35 | | | -Left | | Other, ONCE, [facility] 01/08/17 at 1045, | | AM PST | | | | | For 1 dose, Shake well. Not for | | | | | | | IV use., | | | | | | + +--------+ +------+------+ + +---+---+ | | | +---+---+ documented in this encounter"
--- OUTSIDE RECORDS SUMMARY | ~2019-11-13 | XMS | Encounter Summary ---
Demographics + + + | Address | [address] | | | [place] [address] | + + + | Home Phone | | + + + | Preferred Language | Unknown | + + + | Marital Status | | + + + | Church Affiliation | 1013 | + + + | Race | Unknown | + + + | Ethnic Group | Unknown | + + + Author + + + | Author | [facility] | | | and [place] | + + + | Organization | [facility] | | | and [place] | + + + | Address | Unknown | + + + | Phone | Unavailable | + + + Support + + + + + | Name | Relationship | Address | Phone | + + + + + | Tamar [place] | JOSEE | [address] | | | | | [place] [address] | | + + + + + | Peter Hester | ECON | [address] | | | | | [place] [address] | | + + + + + Care Team Providers + +------+ + | Care Mill Helper Name | Role | Phone | + +------+ + | Michael Montoya MD | PCP | | + +------+ + Reason for Visit +--------+ + | Reason | Comments | +--------+ + | Other | | +--------+ + Encounter Details +--------+ + + + + | Date | Type | Department | Care Team | Description | +--------+ + + + + | 10/08/ | Telephone | [facility] | Reagan Bronson | Other | | 2015 | | ORTHOPEDIC SURGERY | MD Miguelangel [address] [facility] | | | | | [address] [facility] | [place] | | | | | [place], [place] | [address] | | | | | [address] | | | | | | [phone] | | | +--------+ + + + [...] | | | | | [place] [address] | | | | | | [phone] | | | | | | | | +--------+---------+ + + + documented as of this encounter Visit Diagnoses Not on filedocumented in this encounter"
--- OUTSIDE RECORDS SUMMARY | ~2019-11-13 | XMS | Encounter Summary ---
Demographics + + + | Address | [address] | | | [place] [address] | + + + | Home Phone | | + + + | Preferred Language | Unknown | + + + | Marital Status | | + + + | Sikh Affiliation | 1013 | + + + | Race | Unknown | + + + | Ethnic Group | Unknown | + + + Author + + + | Author | [facility] | | | and [place] | + + + | Organization | [facility] | | | and [place] | + + + | Address | Unknown | + + + | Phone | Unavailable | + + + Support + + + + + | Name | Relationship | Address | Phone | + + + + + | Tamar Lancaster | JOSEE | [address] | | | | | [place] [address] | | + + + + + | Peter Hester | ECON | [address] | | | | | [place] [address] | | + + + + + Care Team Providers + +------+ + | Care Email Marketing Executive Name | Role | Phone | + +------+ + | Avani Barahona | PCP | | + +------+ + Encounter Details +--------+ + + + + | Date | Type | Department | Care Team | Description | +--------+ + + + + | 06/25/ | Hospital | [facility] | Robvibhashelley, | Acute pain of left | | 2016 | Encounter | MED CTR XRAY [address] | [place] [address] | shoulder | | | | [place] | [facility], | | | | | [place] [address] | [place] [address] | | | | | [phone] | [phone] | | | | | | | [...] + + + +---------+ + + | acyclovir | Take 800 mg by | | 0 | 05/12/20 | | | (ZOVIRAX) 800 mg | mouth. | | | 16 | 6 | | tablet | | | | | | + + + +---------+ + + | Ascorbic Acid | Take 500 mg by mouth | | 0 | | | | (VITAMIN C) 100 MG | Daily. No Dosage | | | | 9 | | tablet | Provided | | | | | + + + +---------+ + + | EPIPEN 2-TABITHA 0.3 | USE NEEDED FOR | | 1 | 02/29/20 | | | MG/0.3ML injection | ANAPHYLAXIS | | | 16 | 6 | + + + +---------+ + + | Flaxseed, Linseed, | Take by mouth. | | 0 | | | | (FLAX SEED OIL PO) | | | | | 6 | + + + +---------+ + + | gabapentin | Take 100 mg by mouth | | 0 | | | | (NEURONTIN) 100 mg | 3 times daily. | | | | 6 | | capsule | | | | | | + + + +---------+ + + | LYSINE PO | Take by mouth. | | 0 | | | | | | | | | 6 | + + + +---------+ + + | methadone 10 mg | Take 10 mg by mouth | | 0 | | | | tablet | every 12 hours. | | | | 9 | + + + +---------+ + + | metoclopramide | Take 5 mg by mouth 4 | | 0 | | | | (REGLAN) 5 MG tablet | times daily. | | | | 6 | + + + +---------+ + + | Deane-3 Fatty | Take by mouth. | | [...] + + + +---------+ + + | prazosin | Take 1 mg by mouth 3 | | 0 | | | | (MINIPRESS) 1 mg | times daily. | | | | 6 | | capsule | | | | | | + + + +---------+ + + | Psyllium | Take by mouth. | | 0 | | | | (METAMUCIL PO) | | | | | 6 | + + + +---------+ + + [...] [address] | | | | | | [place] [address] | | | | | | [phone] | | | | | | | | +--------+---------+ + + + documented as of this encounter Procedures + +--------+ + + + | Procedure Name | Priori | Date/Time | Associated Diagnosis | Comments | | | ty | | | | + +--------+ + + + | XR SHOULDER LEFT 2 + | Routin | 06/25/2016 | Acute pain of left | Results for this | | VW | e | 4:46 PM | shoulder | procedure are in the | | | | PDT | | results section. | + +--------+ + + + documented in this encounter Results XR Shoulder Left 2 + Vw (06/25/2016 4:46 PM PDT) + + | Specimen | + + | | + + + + + | Narrative | Performed At | + + + | EXAM: XR SHOULDER LEFT 2 + VW dated 06/25/2016 4:27 PM | [facility] | | HISTORY:left shoulder pain, possible fx or dislocation COMPARISON: | [facility] | | None. FINDINGS:3 views of the left shoulder. On the scapular [facility] | | Y view and the externally [...] | + + + + + | [address] | [address] [facility]. | [place] | [phone] | | [facility] | | [address] | | | - IMAGING | | | | + + + + + documented in this encounter Visit Diagnoses + + | Diagnosis | + + | Acute pain of left shoulder | + + documented in this encounter"
--- OUTSIDE RECORDS SUMMARY | ~2019-11-13 | XMS | Encounter Summary ---
Demographics + + + | Address | [address] | | | [place] [address] | + + + | Home Phone | | + + + | Preferred Language | Unknown | + + + | Marital Status | | + + + | Sabianism Affiliation | 1013 | + + + | Race | Unknown | + + + | Ethnic Group | Unknown | + + + Author + + + | Author | [facility] | | | and [place] | + + + | Organization | [facility] | | | and [place] | + + + | Address | Unknown | + + + | Phone | Unavailable | + + + Support + + + + + | Name | Relationship | Address | Phone | + + + + + | Tamar Lancaster | JOSEE | [address] | | | | | [place] [address] | | + + + + + | Peter Hester | ECON | [address] | | | | | [place] [address] | | + + + + + Care Team Providers + +------+ + | Care Senior System Operator Name | Role | Phone | [...] | Lumbar | Alexx, | [address] | | | | | radiculopath | [place], | [place], | | | | | y DDD | PA-C [address] | [place] | | | | | (degenerativ | [address] | [address] | | | | | e disc | [place] | Phone: | | | | | disease), | [address] | [phone] | | | | | lumbar | Phone: | Fax: | | | | | Spinal | [phone] | [phone] | | | | | stenosis of | Fax: | | | | | | lumbar | [phone] | | | | | | region [...] e disc | [place] | [place] [address] | | | | | disease), | [address] | Phone: | | | | | lumbar | Phone: | [phone] | | | | | Spinal | [phone] | Fax: | | | | | stenosis of | Fax: | [phone] | | | | | lumbar | [phone] | | | | | | region [...] | | | | | disease), | [address] | [address] | | | | | lumbar | Phone: | Phone: | | | | | Spinal | [phone] | [phone] | | | | | stenosis of | Fax: | Fax: | | | | | lumbar | [phone] | [phone] | | | | | region at [...] + + | 11/23/ | Office | [facility] [place] | Alexx, | Lumbar radiculopathy | | 2014 | Visit | PHYSIATRY [address] | [place] [address] | - currently into | | | | [address] [place], | [place], | the bilateral lower | | | | [place] [address] | [place] [address] | extremities (Primary | | | | [phone] | [phone] | Dx); DDD | | | | [...] been send over to Ernie Alicea at [facility] will contact you to discuss tapering off medications Please think about a new primary care doctor. I recommend Dr. Tidwell. Indicate to them, you are working with [facility] to get off pain medications, you [...] She was to start physical therapy at [facility] for both her lumbar spine and [...] has no apparent deficits with short or termite treater memory. She has appropriate fund of knowledge [...] MRI and have her follow-up with Dr. oHbbs for discussion of sterile injections in a [...] lly like her to see Deanne at [facility] as Deanne can help her Coumadin to roll h er medications and possibly get off of it so that she can have surgery. A referral has been made. 3. I have given her a prescription to to participate in physical therapy at [facility] focusing on both her left knee osteoarthritis [...] CHAN | | | | | | [place] [address] | | | | | | [phone] | | | | | | | [...] back pain, spinal stenosis, lumbar radicu | [facility] | | Bilaterally COMPARISON: 08/18/2012 TECHNIQUE: In the 1.5T [facility] | | scanner multiplanar, multisequence imaging of [...] canal stenosis at L3-L4 and L4-L5. The L3-[id number] are | | stable when compared to [...] [address] | [place] | [phone] | | [facility] | | [address] | | | - IMAGING | | [...]
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
--- OUTSIDE RECORDS SUMMARY | ~2019-11-13 | XMS | Encounter Summary ---
Demographics + + + | Address | [address] | | | [place] [address] | + + + | Home Phone | | + + + | Preferred Language | Unknown | + + + | Marital Status | Single | + + + | Congregational Affiliation | Unknown | + + + | Race | White | + + + | Ethnic Group | Not or | + + + Author + + + | Author | [facility] | + + + | Organization | [facility] | + + + | Address | Unknown | + + + | Phone | Unavailable | + + + Support + + + + + | Name | Relationship | Address | Phone | + + + + + | Tamar Villatoro | JOSEE | [place] | | + + + + + Care Team Providers + +------+ + | Care Hand Ii Thermal Cutter Name | Role | Phone | + +------+ + | Michael Montoya MD | PCP | | + +------+ + Reason for Visit + + + | Reason | Comments | + + + | Macular hole | dx [address] Garcia | + + + Encounter Details +--------+---------+ + + + | Date | Type | Department | Care Team | Description | +--------+---------+ + + + | 02/22/ | Office | [facility] | Gabriele Mckinnon MD | Macular cyst, hole, | | 2011 | Visit | [facility] at | [address] | or pseudohole of | | | | [facility] [address] [facility] [place] | retina (Primary Dx) | | | | [address] | [address] | | | | | Mailcode: [facility] | [phone] | | | | | [place] [address] | | | | | | [phone] | | | +--------+---------+ + + + Social History + +-------+ +--------+------+ | Tobacco Use | Types | Packs/Day | Years | Date | | | | | Used | | + +-------+ +--------+------+ | Never Smoker | | | | | + +-------+ +--------+------+ + +---+---+ + | Smokeless Tobacco: | | | Quit: | | Former User | | | 02/22/19 | | | | | 96 | + +---+---+ + + + +---------+ + | Alcohol Use | Drinks/Week | oz/Week | Comments | + + +---------+ + | Not Asked | | | | + + +---------+ [...] + + documented as of this encounter Progress Notes Gabriele Mckinnon MD - 02/23/2012 2:36 PM PDT Retina Division Progress Note New Visit 02/23/2012 CC: Macular hole - dx [address] Garcia HPI: Annabel Saucedo is a 66 y.o. Female here for follow up and possible surg eval of Macula r hole. Needed to wait until after hip surg recovery. Finally had it Jun 2011 and is now com fortable in getting around. Patient has noticed an overall decrease in vision, OU. Patient has Ciliacs dz, and notices chronic dry eye Symptoms including burning and redness with martin rry vision. Uses Visine about 3x a day. Pain:Minimal pain (1-2 of 0-10) POH: Macular hole OS Ophthalmologic Problems Macular hole, left eye [362.54AL] History Substance Use Topics Smoking status: Never Smoker Smokeless tobacco: Former User Quit date: 02/23/1996 Alcohol Use: Not on file FH: No known family history of AMD, glaucoma, retinal detachment or blindness from unknown causes ROS: A review of constitutional, ophthalmic, otolaryngologic, integumentary, cardiovascular , respiratory, gastrointestinal, genitourinary, neurologic, musculoskeletal, and psychiatric systems were negative except as noted above or in the new patient questionaire., Details of the changes in the eye are described above. Allergies Allergen Reactions Iodine Anaphylaxis Ingested or topical, reacts to both Current Outpatient Prescriptions Medication Sig CLONAZEPAM OR Take by mouth. DIAZEPAM ORAL Take by mouth. DULOXETINE HCL (CYMBALTA ORAL) Take by mouth. methadone 5 mg Oral Tablet Take 5 mg by mouth two times daily. Oxycodone 10 mg Oral Tablet Take 10 mg by mouth every six hours as needed. Potassium 75 mg Oral Tablet Take by mouth. RANITIDINE HCL OR Take by mouth. TERAZOSIN HCL (TERAZOSIN OR) Take by mouth. Initial hx, allergies, meds, Va, IOP and above exam elements reviewed / performed by [facility] Exam Visual Acuity Right Left Both Dist sc 20/50-1 20/70 Dist ph sc 20/25 20/40 Method: Snellen - Linear Tonometry Right Left Pressure 13 13 Method: Tonopen Time: 2:48 PM Visual [place] Left Right Result Full Full Extraocular Movement Right Left Result Full, Ortho Full, Ortho Main Ophthalmology Exam External Exam Right Left External Normal Normal Slit Lamp Exam Right Left Lids/Lashes Normal Normal Conjunctiva/Sclera White and quiet White and quiet Cornea All layers clear All layers clear Anterior Chamber Narrow angle Narrow angle Iris Round and reactive Round and reactive Lens 2+ Nuclear sclerosis 2+ Nuclear sclerosis Fundus Exam Right Left Vitreous Normal Normal Disc Normal Normal C/D Ratio 0.3 0.3 Macula Normal no macular hole Gonioscopy Right Left Temporal occludable occludable Nasal occldable occludable Superior occldable occludable Inferior TM occludable Neuro/Psych Oriented x3: Yes Mood/Affect: Normal Diagnostics Ordered Right Left OCT CMT: 274 No IRF or SRF CMT: 351 closed hole, still with VMA and IRF FA --- --- FUNDUS --- --- Others IMPRESSION: Spontaneously resolved macular hole, left eye with improved vision Narrow angles without glaucoma PLAN: Refer to Dr. Beltran for angle evaluation / cataract evaluation RTC 6 months I reviewed all components above, made necessary revisions and performed critical portions o f the history and examination. GABRIELE MCKINNON MD documented in this enco unter Plan of Treatment + + +--------+ + + | Name | Type | Priori | Associated Diagnoses | Order Schedule | | | | ty | | | + + +--------+ + + | CMPTR OPHTH DX IMG | Procedures | Routin | Macular cyst, | Expected: | | POST SEGMT | | e | hole, or pseudohole | 02/23/2012, Expires: | | | | | of retina | 04/23/2012 | + + +--------+ + + documented as of this encounter Visit Diagnoses + + | Diagnosis | + + | Macular cyst, hole, or pseudohole of retina - Primary | + + documented in this encounter"
--- OUTSIDE RECORDS SUMMARY | ~2019-11-13 | XMS | Encounter Summary ---
Demographics + + + | Address | [address] | | | [place] [address] | + + + | Home Phone | | + + + | Preferred Language | Unknown | + + + | Marital Status | | + + + | Faith Affiliation | 1013 | + + + | Race | Unknown | + + + | Ethnic Group | Unknown | + + + Author + + + | Author | [facility] | | | and [place] | + + + | Organization | [facility] | | | and [place] | + + + | Address | Unknown | + + + | Phone | Unavailable | + + + Support + + + + + | Name | Relationship | Address | Phone | + + + + + | Tamar [place] | JOSEE | [address] | | | | | [place] [address] | | + + + + + | Peter Hester | ECON | [address] | | | | | [place] [address] | | + + + + + Care Team Providers + +------+ + | Care Solar Applications Development Engineer Name | Role | Phone | + +------+ + | Michael Montoya MD | PCP | | + +------+ + Encounter Details +--------+ + + + + | Date | Type | Department | Care Team | Description | +--------+ + + + + | 10/02/ | Hospital | [facility] | Reagan Bronson | Hyperlipidemia, | | 2016 | Encounter | [facility] | MD Miguelangel [address] [facility] | unspecified | | | | [address] [place] | [place] | hyperlipidemia type; | | | | [place], [place] | [address] | Essential | | | | [address] | | hypertension; | | | | [phone] | | Complete rotator | | | | | | cuff tear or rupture | | | | | | of left shoulder, | | | | | | not specified as | | | | | | traumatic | +--------+ + + + + Social [...] + + + +---------+ + + | diazePAM (VALIUM) | Take 1 tablet by | 50 | 0 | 10/07/20 | | | 5 mg tablet | mouth every 8 hours | tablet | | 16 | 6 | | | as needed for | | | [...] + + + +---------+ + + | [place]-3 Fatty | Take by mouth. | | [...] + + + +---------+ + + | | Take 1 tablet by | 80 | 0 | 10/07/20 | | | oxyCODONE-acetaminop | mouth every 6 hours | tablet | | 16 | 7 | | hen (PERCOCET) | as needed for Pain. | | | | | | 7.5-325 mg per | | | | | | | tablet | | | | | | + + + +---------+ + + | Psyllium | Take by mouth. | | 0 | | | | (METAMUCIL PO) | | | | | 6 | + + + +---------+ + + | raNITIdine | Take 300 mg by mouth | | 0 | | | | (ZANTAC) 300 MG | nightly. | | | | 7 | | tablet | | | | [...] | | | | | [place] [address] | | | | | | [phone] | | | | | | | | +--------+---------+ + + + documented as of this encounter Procedures + +--------+ + + + | Procedure Name | Priori | Date/Time | Associated Diagnosis | Comments | | | ty | | | | + +--------+ + + + | HEMOGLOBIN | Routin | 10/02/2016 | Hyperlipidemia, | Results for this | | | e | 10:24 AM | unspecified | procedure are in the | | | | PST | hyperlipidemia type | results section. | | | | | Essential | | | | | | hypertension | | | | | | Complete rotator | | | | | | cuff tear or rupture | | | | | | of left shoulder, | | | | | | not specified as | | | | | | traumatic | | + +--------+ + + + | BASIC METABOLIC | Routin | 10/02/2016 | Hyperlipidemia, | Results for this | | PANEL | e | 10:24 AM | unspecified | procedure are in the | | | | PST | hyperlipidemia type | results section. | | | | | Essential | | | | | | hypertension | | | | | | Complete rotator | | | | | | cuff tear or rupture | | | | | | of left shoulder, | | | | | | not specified as | | | | | | traumatic | | + +--------+ + + + documented in this encounter Results Basic Metabolic Panel (10/02/2016 10:24 AM PST) + + + + + + | Component | Value | Ref Range | Performed | Pathologist | | | | | At | Signature | + + + + + + | Na | 136 | 136 - 149 | [facility] | | | | | mmol/L | [facility] | | | | | | [facility] | | | | | | [facility] - | | | | | | LABORATORY | | + + + + + + | K | 4.1 | 3.5 - 5.1 | [facility] | | | | | mmol/L | [facility] | | | | | | [facility] | | | | | | C[facility] - | | | | | | LABORATORY | | + + + + + + | Cl | 99 | 98 - 109 mmol/L | [facility] | | | | | | [facility] | | | | | | [facility] | | | | | | C[facility] - | | | | | | LABORATORY | | + + + + + + | CO2 | 30 | 24 - 31 mmol/L | [facility] | | | | | | [facility] | | | | | | [facility]ICAL | | | | | | C[facility] - | | | | | | LABORATORY | | + + + + + + | Anion Gap | 7 | 3 - 16 mmol/L | [facility] | | | | | | [facility] | | | | | | [facility] | | | | | | C[facility] - | | | | | | LABORATORY | | + + + + + + | Glucose | 89 | 70 - 109 mg/dL | [facility] | | | | | | [facility] | | | | | | [facility]ICAL | | | | | | CENTER - | | | | | | LABORATORY | | + + + + + + | BUN | 13 | 7 - 18 mg/dL | [facility] | | | | | | [facility] | | | | | | [facility] | | | | | | C[facility] - | | | | | | LABORATORY | | + + + + + + | Creatinine | 0.86 | 0.60 - 1.30 | [facility] | | | | | mg/dL | [facility] | | | | | | MEDICAL | | | | | | CENTER - | | | | | | LABORATORY | | + + + + + + | eGFR if not | >60Comment: GLOMERULAR | >=60 | [facility] | | | | FILTRATION | mL/min/1.73m2 | [facility] | | | BENINESE | RATE,ESTIMATED | | MEDICAL | | | | mL/min/1.43k4Jmkq than | | CENTER - | | | | 60 Chronic kidney | | LABORATORY | | | | disease,if found over a | | | | | | 3-month period.Less than | | | | | | 15 Kidney failureFor | | | | | | | | | | | | Americans,multiply the | | | | | | calculated GFR by 1.21. | | | | | | | | | | + + + + + + | Calcium | 9.3 | 8.3 - 10.5 | [facility] | | | | | mg/dL | [facility] | | | | | | MEDICAL | | | | | | CENTER - | | | | | | LABORATORY | | + + + + + + | BUN/Creatin | 15.1 | | [facility] | | | ine Ratio | | | [facility] | | | | | | MEDICAL | | | | | | CENTER - | | | | | | LABORATORY | | + + + + + + + + | Specimen | + + | Blood | + + + + + + + | Performing | Address | City/State/Zipcode | Phone Number | | Organization | | | | + + + + + | [facility] | [address] | [place] | [phone] | | [facility] | | [address] | | | - LABORATORY | | | | + + + + + Hemoglobin (10/02/2016 10:24 AM PST) + +-------+ + + + | Component | Value | Ref Range | Performed | Pathologist | | | | | At | Signature | + +-------+ + + + | Hemoglobin | 13.7 | 11.5 - 16.0 | [facility] | | | | | g/dL | [facility] | | | | | | MEDICAL | | | | | | CENTER - | | | | | | LABORATORY | | + +-------+ + + + + + | Specimen | + + | Blood | + + + + + + + | Performing | Address | City/State/Zipcode | Phone Number | | Organization | | | | + + + + + | [facility] | [address] | [place], [place] | [phone] | | [facility] | | [address] | | | - LABORATORY | | | | + + + + + documented in this encounter Visit Diagnoses + + | Diagnosis | + + | Hyperlipidemia, unspecified hyperlipidemia type | + + | Essential hypertension Unspecified essential hypertension | + + | Complete rotator cuff tear or rupture of left shoulder, not specified as traumatic | | Complete rupture of rotator cuff | + + documented in this encounter"
--- OUTSIDE RECORDS SUMMARY | ~2019-11-13 | XMS | Encounter Summary ---
Demographics + + + | Address | [address] | | | [place] [address] | + + + | Home Phone | | + + + | Preferred Language | Unknown | + + + | Marital Status | | + + + | Amish Affiliation | 1013 | + + + | Race | Unknown | + + + | Ethnic Group | Unknown | + + + Author + + + | Author | [facility] | | | and [place] | + + + | Organization | [facility] | | | and [place] | + + + | Address | Unknown | + + + | Phone | Unavailable | + + + Support + + + + + | Name | Relationship | Address | Phone | + + + + + | Tamar [place] | JOSEE | [address] | | | | | [place] [address] | | + + + + + | Peter Hester | ECON | [address] | | | | | [place] [address] | | + + + + + Care Team Providers + +------+ + | Care High School Sports Coach Name | Role | Phone | + +------+ + | Michael Montoya MD | PCP | | + +------+ + Reason for Visit Auth/Cert +--------+--------+ + + + + | Status | Reason | Specialty | Diagnoses / | Referred By | Referred To | | | | | Procedures | Contact | Contact | +--------+--------+ + + + + | | | | Diagnoses | | Audie, | | | | | Complete | | Reagan Means MD | | | | | rotator cuff | | [address] | | | | | tear of | | [place] | | | | | left | | [place] | | | | | shoulder | | [address] Phone: | | | | | Complete | | [phone] | | | | | rotator cuff | | Fax: | | | | | tear of | | [phone] | | | | | left | | | | | | | shoulder | | | | | | | [[id number]] | | | | | | | Procedures | | | | | | | [place] REPAIR | | | | | | | ROTATOR | | | | | | | CUFF,CHRONIC | | | | | | | [place] PARTIAL | | | | | | | | | | | | | | REMOVAL/REPA | | | | | | | IR,ACROMION | | | | | | | [place] PARTIAL | | | | | | | REMOVAL, | | | | | | | CLAVICLE | | | +--------+--------+ + + + + Encounter Details +--------+ + + + + | Date | Type | Department | Care Team | Description | +--------+ + + + + | 10/07/ | Hospital | [facility] | Reagan Bronson | Impingement syndrome | | 2016 | Encounter | [facility] | MD Miguelangel [address] | of left shoulder | | | | [address] | [place] | (Primary Dx); | | | | [place] | [address] | Complete tear of | | | | [address] | | left rotator cuff | | | | [phone] | | | +--------+ + + + [...] + + + | Blood Pressure | 152/74 | 10/07/2016 2:30 PM | | | | | PST | | + + + + + | Pulse | 68 | 10/07/2016 2:30 PM | | | | | PST | | + + + + + | Temperature | 36.3 C (97.3 F) | 10/07/2016 11:14 AM | | | | | PST | | + + + + + | Respiratory Rate | 18 | 10/07/2016 2:30 PM | | | | | PST | | + + + + + | Oxygen Saturation | 96% | 10/07/2016 2:30 PM | | | | | PST | | + + + + + | Inhaled Oxygen | - | - | | | Concentration | | | | + + + + + | Weight | 83.5 kg (184 lb) | 10/07/2016 7:00 AM | | | | | PST | | + + + + + | Height | 152.4 cm (5') | 10/07/2016 7:00 AM | | | | | PST | | + + + + + | Body Mass Index | 35.94 | 10/07/2016 7:00 AM | | | | | PST | | + + + + + documented in this encounter Discharge Instructions Instructions Reagan Bronson MD - 10/07/2016Please keep appointment in Dr Bronson's office as already scheduled. May remove bandages in 3 days but leave steri strips in place. May move elbow and wrist but leave shoulder in arm sling for now. documented in this encounter Medications at Time of Discharge [...] + + + +---------+ + + | [place]-3 Fatty | Take by mouth. | | [...] CHAN | | | | | | [place] [address] | | | | | | [phone] | | | | | | | | +--------+---------+ + + + documented as of this encounter Procedures + +--------+ + + + | Procedure Name | Priori | Date/Time | Associated Diagnosis | Comments | | | ty | | | | + +--------+ + + + | REPAIR ROTATOR CUFF | | 10/07/2016 | Complete rotator | | | W/ OR W/O | | 8:59 AM | cuff tear of left | | | ACROMIOPLASTY | | PST | shoulder | | + +--------+ + + + +---+--------+ | | | | | Specia | | | l | | | Needs | | | | | | Need | | | 2nd | | | Scrub* | | | *(Nilson | | | s | | | unavai | | | kamala) | +---+--------+ documented in this encounter Visit Diagnoses + + | Diagnosis | + + | Impingement syndrome of left shoulder - Primary Other affections of shoulder region, | | not elsewhere classified | + + | Complete tear of left rotator cuff | + + documented in this encounter Administered Medications + +--------+ +--------+------+------+ | Medication Order | MAR | Action | Dose | Rate | Site | | | Action | Date | | | | + +--------+ +--------+------+------+ | fentaNYL (PF) injection 25-50 | Given | 10/07/20 | 30 mcg | | | | mcg 25-50 mcg, Intravenous, | | 16 12:34 | | | | | EVERY 5 MIN PRN, Pain, Starting | | PM PST | | | | | 10/07/16 at 1056, Maximum | | | | | | | total dose 250 mcg. PACU IV | | | | | | | Narcotic Priority: Only use | | | | | | | fentanyl for immediate post-op | | | | | | | pain (one dose) or breakthrough | | | | | | | pain when any other IV narcotics | | | | | | | ordered have been ineffective (if | | | | | | | ordered). If both morphine and | | | | | | | hydromorphone are ordered, use | | | | | | | morphine first, and use | | | | | | | hydromporphone if morphine | | | | | | | ineffective., Recovery/Phase I | | | | | | + +--------+ +--------+------+------+ + + +--------+---+---+ | Given by Other | 10/07/20 | 25 mcg | | | | | 16 12:22 | | | | | | PM PST | | | | + + +--------+---+---+ | Given | 10/07/20 | 30 mcg | | | | | 16 11:59 | | | | | | AM PST | | | | + + +--------+---+---+ +---+---+ | | | +---+---+ + +-------+ +-------+---+---+ | ketorolac (TORADOL) injection | Given | 10/07/20 | 15 mg | | | | 15 mg 15 mg, Intravenous, PRN, | | 16 11:25 | | | | | Pain, Starting 10/07/16 at | | AM PST | | | | | 1056, For 1 dose, Maximum dose of | | | | | | | 30 mg. Reduce maximum dose to | | | | | | | 15 mg if patient has decreased | | | | | | | renal function, is 65 years or | | | | | | | older. Do NOT administer in | | | | | | | renal failure, if patient is on | | | | | | | any other anticoagulants, or | | | | | | | bleeding diathesis., | | | | | | | Recovery/Phase I | | | | | | + +-------+ +-------+---+---+ +---+---+ | | | +---+---+ + +-------+ +------+---+---+ | labetalol (TRANDATE) 5 mg/mL | Given | 10/07/20 | 5 mg | | | | injection 5 mg 5 mg, | | 16 12:08 | | | | | Intravenous, EVERY 5 MIN PRN, For | | PM PST | | | | | SBP > 180, DBP > 100, Starting | | | | | | | 10/07/16 at 1056, Maximum | | | | | | | total dose 100mg. Notify | | | | | | | anesthesia if patient requires | | | | | | | more than 50mg. PARAMETERS KEEP: | | | | | | | SBP< 180, SBP >110 HR<110, HR>55, | | | | | | | Recovery/Phase I | | | | | | + +-------+ +------+---+---+ +---+---+ | | | +---+---+ + +---------+ +---+---+---+ | lactated ringers (LR) infusion | New Bag | 10/07/20 | | | | | at 10-100 mL/hr, Intravenous, | | 16 9:45 | | | | | CONTINUOUS, Starting e 10/07/16 | | AM PST | | | | | at 0745, TKO., Pre-op | | | | | | + +---------+ +---+---+---+ +---------+ +---+-------+---+ | New Bag | 10/07/20 | | 100 | | | | 16 7:59 | | mL/hr | | | | AM PST | | | | +---------+ +---+-------+---+ +---+---+ | | | +---+---+ documented in this encounter"
--- OUTSIDE RECORDS SUMMARY | ~2019-11-13 | XMS | Encounter Summary ---
Demographics + + + | Address | [address] | | | [place] [address] | + + + | Home Phone | | + + + | Preferred Language | Unknown | + + + | Marital Status | | + + + | Gnosticist Affiliation | 1013 | + + + | Race | Unknown | + + + | Ethnic Group | Unknown | + + + Author + + + | Author | [facility] | | | and [place] | + + + | Organization | [facility] | | | and [place] | + + + | Address | Unknown | + + + | Phone | Unavailable | + + + Support + + + + + | Name | Relationship | Address | Phone | + + + + + | Tamar [place] | JOSEE | [address] | | | | | [place] [address] | | + + + + + | Peter Hester | ECON | [address] | | | | | [place] [address] | | + + + + + Care Team Providers + +------+ + | Care Mechanical Pencils Assembler Name | Role | Phone | [...] | | | | | is of [facility] | PA-C [address] | | | | | | knee | [address] | | | | | | | [place] | | | | | | | [address] | | | | | | | Phone: | | | | | | | [phone] | | | | | | | Fax: | | | | | | | [phone] | | +--------+ + + + + [...] [place] | | | | | | [place], [place] | [address] Phone: | | | | | | [phone] | [phone] | | | | | | Phone: | Fax: | | | | | | [phone] | [phone] | | | | | | Fax: | | | | | | | [phone] | | +--------+ + + + + [...] left knee (Primary | | | | [place], | [address] [place], | Dx); Bilateral | | | | [place] [address] | [place] [address] | lumbar | | | | [phone] | [phone] | radiculopathy; DDD | | | | [...] CHAN | | | | | | [place] [address] | | | | | | [phone] | | | | | | | [...]
--- OUTSIDE RECORDS SUMMARY | ~2019-11-13 | XMS | Encounter Summary ---
Demographics + + + | Address | [address] | | | [place] [address] | + + + | Home Phone | | + + + | Preferred Language | Unknown | + + + | Marital Status | | + + + | Anglican Affiliation | 1013 | + + + | Race | Unknown | + + + | Ethnic Group | Unknown | + + + Author + + + | Author | [facility] | | | and [place] | + + + | Organization | [facility] | | | and [place] | + + + | Address | Unknown | + + + | Phone | Unavailable | + + + Support + + + + + | Name | Relationship | Address | Phone | + + + + + | Tamar Lancaster | JOSEE | [address] | | | | | [place] [address] | | + + + + + | Peter Hester | ECON | [address] | | | | | [place] [address] | | + + + + + Care Team Providers + +------+ + | Care Manufacturing Management Associate Name | Role | Phone | + [...] Specialty | Physical | Diagnoses | | | | | Services | Therapy | Spinal | Alexx, | | | | Required | | stenosis of | Destini, | | | | | | lumbar | PA-C [address] | | | | | | region at | [address] | | | | | | multiple | [place] | | | | | | levels | [address] | | | | | | Spondylolist | Phone: | | | | | | hesis of | [phone] | | | | | | lumbar | Fax: | | | | | | region DDD | [phone] | | | | | | (degenerativ | | | | | | | e disc | | | | | | | disease), | | | | | | | lumbar | | | | | | | Fibromyalgia | | | | | | | syndrome | | | | | | | Lumbar | | | | | | | radiculopath | | | | | | | y | | | +--------+ + + + + + Reason for Visit + + + | Reason | Comments | + + + | Back Pain | low back pain with numbness and tingling in bilateral legs | + + + Encounter Details +--------+---------+ + + + | Date | Type | Department | Care Team | Description | +--------+---------+ + + + | 08/14/ | Office | [facility] | Alexx, | Spinal stenosis of | | 2015 | Visit | PHYSIATRY [address] | [place] [address] | lumbar region at | | | | [place], | [address] [place], | multiple levels | | | | [place] [address] | [place] [address] | (Primary Dx); | | | | [phone] | [phone] | Spondylolisthesis of | | | | | | lumbar region; DDD | | | | | | (degenerative disc | | | | | | disease), lumbar; | | | | | | Fibromyalgia | | | | | | syndrome; Lumbar | | | | | | radiculopathy - | | | | | | currently into the | | | | | | bilateral lower | | | | | | extremities | +--------+---------+ + + + Social History [...] + + + | Blood Pressure | 143/76 | 08/14/2015 2:26 PM | | | | | PDT | | + + + + + | Pulse | 60 | 08/14/2015 2:26 PM | | | | | PDT [...] Weight | 83.9 kg (185 lb) | 08/14/2015 2:26 PM | | | | | PDT | | + + + + + | Height | 154.9 cm (5' 1") | 08/14/2015 2:26 PM | | | | | PDT | | + + + + + | Body Mass Index | 34.96 | 08/14/2015 2:26 PM | | | | | PDT | | + + + + + documented in this encounter Patient Instructions Patient Instructions Destini Coffey PA-C - 08/14/2015 3:08 PM PDTTalk to Audie a bout knee Lets do another epidural injecton with Dr. Hobbs for the back Continue to work on reducing pain medication, can always refer to Deanne Archer Pain lady that can help decrease. Follow-up at the hospital thirty minutes before your scheduled procedure to allow for time to check in. You may eat and drink as usual on the day of the procedure. If you are scheduled for an epidural injection do not take any blood thinning medications f or at least 5-7 days prior to your procedure unless you have been instructed by another phys ician not to discontinue blood thinning medications. If you are having a procedure other than an epidural injection (i.e. facet injection, media l branch block, SI joint injection or other joint injection) it is not absolutely necessary to discontinue blood thinning medications but doing so will decrease the risk of bruising or bleeding. If you have had a prior stroke, DVT or PE or if you are taking blood thinning medication be cause you have atrial fibrillation, a prosthetic cardiac valve replacement or heart stenting do not stop taking your blood thinning medications unless you have permission from your car diologist or primary care provider. All other medications should be taken as usual on the day of the procedure. Common blood thinning medications include: Aspirin (a baby aspirin is o.k.) Ibuprofen (Advil or Motrin) Naproxen (Aleve) Nabumetone (Relafen) Clopidogrel (Plavix) Dipyridamole/ASA (Aggrenox) Warfarin (Coumadin) Dabigatran (Pradaxa) Rivaroxaban (Xarelto) There are many others. If you have questions about your medications and whether or not you should stop any medications please contact our office. If you are having an epidural injection or if you take any medication for relaxation/sedati on on the day of the procedure you must provide a tour driver to take you home. For all procedur es it is recommended that someone else drive you home. documented in this encounter Progress Notes Destini Coffey PA-C - 08/15/2015 8:13 AM PDTFormatting of this note might be differe nt from the original. CHIEF COMPLAINT: Chief Complaint Patient presents with Back Pain low back pain with numbness and tingling in bilateral legs HISTORY OF PRESENT ILLNESS: The patient is a 69 y.o. female being seen today in follow-up for complaints of back pain w ith radiation into the bilateral legs. The patient has been seen for this complaint in the past, with initial visit started by Dr. Hobbs. Previously it was recommended that she receive bilateral L4/L5 TFESI for lumbar radiculopathy, spinal stenosis. This was performe d on 06/11/2015. She reports that the treatment was effective and still is effective, but she 'd like to get on the schedule for three months from the injection date. She has found the staying on schedule really does help with her pain. She rates the pain as 5 on scale of 1-10. She describes the pain as aching or burning down the legs. Her symptoms worsen with standing, walking. Her symptoms improve with sitting d own, use of pain medicine: oxycodone, methadone. She is working with her PCP to reduce the amount of pain medications, as the neurosurgeons has told her he will not do surgery until she has weined down. The patient does describe numbness of the bilateral legs and feet. She has recently had a bunionectomy on the right foot about 6 weeks ago and reports continued numbness from this s urgery. She does not report weakness of the legs, but states the pain is unbearable and so she gets around slower. She is currently in a wheelchair, she has severe osteoarthritis of the left knee. The patient does not report recent falls or trauma. She does not have bowel and bladd er dysfunction. She does not have saddle anesthesia. Treatments for these complaints have included physical therapy, injections targeting the L4 /L5 nerve root and medications. Patient's medications, allergies, past medical, surgical, social and family histories were reviewed and updated as appropriate. CURRENT MEDICATIONS: Current Outpatient Prescriptions Medication Sig Dispense Refill ibuprofen (ADVIL,MOTRIN) 600 MG tablet Take 600 [...] No abnormal bleeding PHYSICAL EXAMINATION: Filed Vitals: 09/29/15 1426 BP: 143/76 Pulse: 60 PainSc: 5 PainLoc: Back Body mass index [...] has no apparent deficits with short or mcfp memory. She has appropriate fund of knowledge [...] today during the visit. Most recent MRI shows multiple areas of spinal stenosis, spondylolisthesis of the lumbar region. Left knee xray shows osteoarthritis with severe degenerative joint disease. ASSESSMENT: 1. Spinal stenosis of lumbar region at multiple levels 2. Spondylolisthesis of lumbar region 3. DDD (degenerative disc disease), lumbar 4. Fibromyalgia syndrome 5. Lumbar radiculopathy - currently into the bilateral lower extremities PLAN: 1. The patient has had significant conservative care including medications, PT and chiropra ctic care. Unfortunately she continues to have significant discomfort. I did feel that she w ould be a decent candidate for interventional procedures as she has done well with injection s in the past. I would repeat the bilateral L4-L5 TFESI, this was ordered for the near gary e. 2. Medications have been reviewed at today's visit with no changes made at this time. Her medications are managed by her PCP and she is working on reducing this. 3. I have given her a prescription to start physical therapy, this would help her a lot. 4. She will follow up with Dr. Bronson about her knee osteoarthritis ELECTRONICALLY SIGNED BY: Destini Coffey PA-C, 08/15/2015 documented in t his encounter Plan of Treatment +--------+---------+ + + + | Date | Type | Specialty | Care Team | Description | +--------+---------+ + + + | 12/12/ | Office | Cardiology | Emile Rosario MD | | | 2019 | Visit | | [address] | | | | | | [place] [address] | | | | | | [phone] | | | | | | | | +--------+---------+ + + + + + +--------+ + + | Name | Type | Priori | Associated Diagnoses | Order Schedule | | | | ty | | | + + +--------+ + + | AMB REFERRAL TO [facility] | Outpatient | Routin | Spinal stenosis of | Ordered: 08/14/2015 | | PHYSICAL THERAPY | Referral | e | lumbar region at | | | | | | multiple levels | | | | | | Spondylolisthesis of | | | | | | lumbar region DDD | | | | | | (degenerative disc | | | | | | disease), lumbar | | | | | | Fibromyalgia | | | | | | syndrome Lumbar | | | | | | radiculopathy - | | | | | | currently into the | | | | | | bilateral lower | | | | | | extremities | | + + +--------+ + + documented as of this encounter Results FL [facility] Lumbar Transforaminal (09/03/2015 2:29 PM PDT) + + | Specimen | + + | | + + + + + | Narrative | Performed At | + + + | 09/03/2015 Bilateral Transforaminal Epidural Steroid Injections | [facility] | | Diagnosis: Lumbar radiculopathy ICD-9 Code 724.4 [facility] | [facility] | | Ryanne Saucedo presents to the fluoroscopy suite for [facility] | | fluoroscopically-guided bilateral L4-L5 transforaminal epidural | - IMAGING | | steroid injections as part of conservative management for chronic | | | pain with lumbar radiculopathy and degenerative disk disease. After | | | informed consent was obtained, the patient lay in the prone position | | | on the fluoroscopy table. The areas were identified under | | | fluoroscopic guidance. The areas were prepped and draped in sterile | | | fashion. A 25-gauge, 1.5-inch needle was inserted into each region | | | and approximately 3 mL of buffered 1% lidocaine was infused. Then, a | | | 22-gauge spinal needle was inserted into the posterior superior | | | transforaminal space bilaterally and advanced into the epidural | | | space under fluoroscopic guidance. Confirmation into the epidural | | | space with iodinated contrast was not performed due to a contrast dye | | | allergy. Once the needles were in place a combination of 2 mL of | | | 1% lidocaine and 2 mL of 6 mg/mL Celestone was infused, divided | | | between the two sides. The patient tolerated the procedure well | | | without complications. Pre- and post-procedure blood pressures were | | | stable. The patient was given verbal as well as written follow-up | | | instructions. Prior to the start of the procedure, the following | | | were performed and/or verified, including correct patient identity, | | | correct site/side marked and visible, agreement on the procedure to | | | be done, correct patient positioning and an accurate procedure | | | consent form. Any safety precautions based on clinical history | | | and/or medication use have been addressed. I personally performed | | | the procedure above. Estimated blood loss: Minimal Complications: | | | None Findings: As expected Anesthesia: Local 1% Lidocaine | | + + + + + + + + | Performing | Address | City/State/Zipcode | Phone Number | | Organization | | | | + + + + + | [facility] | [address] | [place] | [phone] | | [facility] | | [address] | | | - IMAGING | | | | + + + + + documented in this encounter Visit Diagnoses + + | Diagnosis | + + | Spinal stenosis of lumbar region at multiple levels - Primary Spinal stenosis, lumbar | | region, without neurogenic claudication | + + | Spondylolisthesis of lumbar region Acquired spondylolisthesis | + + | DDD (degenerative disc disease), lumbar Degeneration of lumbar or lumbosacral | | intervertebral disc | + + | Fibromyalgia syndrome Mylagia and myositis, unspecified | + + | Lumbar radiculopathy - currently into the bilateral lower extremities Thoracic or | | lumbosacral neuritis or radiculitis, unspecified | + + documented in this encounter
--- OUTSIDE RECORDS SUMMARY | ~2019-11-13 | XMS | Encounter Summary ---
Demographics + + + | Address | [address] | | | [place] [address] | + + + | Home Phone | | + + + | Preferred Language | Unknown | + + + | Marital Status | | + + + | Catholic Affiliation | 1013 | + + + | Race | Unknown | + + + | Ethnic Group | Unknown | + + + Author + + + | Author | [facility] | | | and [place] | + + + | Organization | [facility] | | | and [place] | + + + | Address | Unknown | + + + | Phone | Unavailable | + + + Support + + + + + | Name | Relationship | Address | Phone | + + + + + | Tamar Lancaster | JOSEE | [address] | | | | | [place] [address] | | + + + + + | Peter Hester | ECON | [address] | | | | | [place] [address] | | + + + + + Care Team Providers + +------+ + | Care Metrology Specialist Name | Role | Phone | + +------+ + | Aavni Barahona | PCP | | + +------+ + Reason for Visit + + + | Reason | Comments | + + + | Results, Imaging | | + + + Encounter Details +--------+ + + + + | Date | Type | Department | Care Team | Description | +--------+ + + + + | 07/03/ | Telephone | [facility] [place] | Alexx, | Results, Imaging | | 2015 | | PHYSIATRY [address] | SHANIQUE [address]es [address] | | | | | [place], | [address] [facility], | | | | | [place] [address] | [place] [address] | | | | | [phone] | [phone] | | | | | | | [...] [address] | | | | | | [place] [address] | | | | | | [phone] | | | | | | | | +--------+---------+ + + + documented as of this encounter Visit Diagnoses Not on filedocumented in this encounter"
--- OUTSIDE RECORDS SUMMARY | ~2019-11-13 | XMS | Encounter Summary ---
Demographics + + + | Address | [address] | | | [place] [address] | + + + | Home Phone | | + + + | Preferred Language | Unknown | + + + | Marital Status | Single | + + + | Mormon Affiliation | Unknown | + + + | Race | White | + + + | Ethnic Group | Not or | + + + Author + + + | Author | [facility] | + + + | Organization | [facility] | + + + | Address | Unknown | + + + | Phone | Unavailable | + + + Support + + + + + | Name | Relationship | Address | Phone | + + + + + | Tamar Villatoro | JOSEE | [place] | | + + + + + Care Team Providers + +------+ + | Care Wafer Mounter Name | Role | Phone | + [...] hole, | | 2011 | Visit | [facility] at | [address] | or pseudohole of | | | | [facility] [address] [facility] [place] | retina (Primary Dx) | | | | [address] | [address] | | | | | Mailcode: [facility] | [phone] | | | | | [place] [address] | | | | | | [phone] | | | +--------+---------+ + + + [...] exam elements reviewed / performed by [facility] Ophthalmology Exam Visual Acuity Right Left Both [...]
--- OUTSIDE RECORDS SUMMARY | ~2019-11-13 | XMS | Encounter Summary ---
Demographics + + + | Address | [address] | | | [place] [address] | + + + | Home Phone | | + + + | Preferred Language | Unknown | + + + | Marital Status | | + + + | Samaritan Affiliation | 1013 | + + + | Race | Unknown | + + + | Ethnic Group | Unknown | + + + Author + + + | Author | [facility] | | | and [place] | + + + | Organization | [facility] | | | and [...] | | | | | [place] [address] | | + + + + + | Peter Hester | ECON | [address] | | | | | [place] [address] | | + + + + + Care Team Providers + +------+ + | Care Nuclear Medicine Physician Name | Role | Phone | + [...] | Specialty | Physical | Diagnoses | Jung, | ART | | | Services | Therapy | Chronic | Gamaliel | [place] | | | Required | | left | [place] | PHYSICAL | | | | | shoulder | [address] | THERAPY - | | | | | pain | [address] [place] | [place] | | | | | Decreased | [place] | [address] | | | | | range of | [address] | [address] | | | | | motion of | Phone: | [place] | | | | | left | [phone] | [address] | | | | | shoulder | Fax: | Phone: | | | | | S/P rotator | [phone] | [phone] | | | | | cuff repair | | Fax: | | | | | | | [phone] | +--------+ + + + + + Encounter Details +--------+ + + + + | Date | Type | Department | Care Team | Description | +--------+ + + + + | 01/12/ | Orders Only | [facility] [place] | Gamaliel Feng | Chronic left | | 2017 | | ORTHOPEDIC SURGERY | [address] | shoulder pain | | | | [address] | [address] [place] | (Primary Dx); | | | | [place], [place] | [place] [address] | Decreased range of | | | | [address] | [phone] | motion of left | | | | [phone] | | shoulder; S/P | | | | | | rotator cuff repair | +--------+ + + + + Social [...] [address]AN | | | | | | [place] [address] | | | | | | [phone] | | | | | | | | +--------+---------+ + + + + + +--------+ + + | Name | Type | Priori | Associated Diagnoses | Order Schedule | | | | ty | | | + + +--------+ + + | Ambulatory referral | Outpatient | Routin | Chronic left | Ordered: 01/12/2017 | | to Physical Therapy | Referral | e | shoulder pain | | | | | | Decreased range of | | | | | | motion of left | | | | | | shoulder S/P | | | | | | rotator cuff repair | | + + +--------+ + + documented as of this encounter Visit Diagnoses + + | Diagnosis | + + | Chronic left shoulder pain - Primary Pain in joint, shoulder region | + + | Decreased range of motion of left shoulder | + + | S/P rotator cuff repair Other postprocedural status | + + documented in this encounter"
--- OUTSIDE RECORDS SUMMARY | ~2019-11-13 | XMS | Encounter Summary ---
Demographics + + + | Address | [address] | | | [place] [address] | + + + | Home Phone | | + + + | Preferred Language | Unknown | + + + | Marital Status | | + + + | Jewish Affiliation | 1013 | + + + | Race | Unknown | + + + | Ethnic Group | Unknown | + + + Author + + + | Author | [facility] | | | and [place] | + + + | Organization | [facility] | | | and [...] | | | | | [place] [address] | | + + + + + | Peter Hester | ECON | [address] | | | | | [place] [address] | | + + + + + Care Team Providers + +------+ + | Care Cover Marker Name | Role | Phone | + +------+ + | Michael Montoya MD | PCP | | + +------+ + Reason for Referral Diagnostic/Screening (Routine) + +--------+ + + + + | Status | Reason | Specialty | Diagnoses / | Referred By | Referred To | | | | | Procedures | Contact | Contact | + +--------+ + + + + | Pending | | Radiology | Diagnoses | Alqaisi, | | | Review | | | Essential | MD Emile | | | | | | hypertension | [address] | | | | | | [address] | [address] | | | | | | cholesterol | [place], | | | | | | Atypical | [place] [address] | | | | | | chest pain | Phone: | | | | | | Procedures | [phone] | | | | | | [place] Nuclear | Fax: | | | | | | Stress Test | [phone] | | | | | | (Vasodilator | | | | | | | ) | | | + +--------+ + + + + Diagnostic/Screening (Routine) + +--------+ + + + + | Status | Reason | Specialty | Diagnoses / | Referred By | Referred To | | | | | Procedures | Contact | Contact | + +--------+ + + + + | Pending | | Radiology | Diagnoses | Alqaisi, | | | Review | | | Essential | MD Emile | | | | | | hypertension | [address] | | | | | | High | [address] | | | | | | cholesterol | [place], | | | | | | Atypical | [place] [address] | | | | | | chest pain | Phone: | | | | | | Procedures | [phone] | | | | | | ECHO | Fax: | | | | | | Complete | [phone] | | + +--------+ + + + + Reason for Visit + + + | Reason | Comments | + + + | Establish Care | | + + + Evaluate & Treat (Urgent) + +--------+ + + + + | Status | Reason | Specialty | Diagnoses / | Referred By | Referred To | | | | | Procedures | Contact | Contact | + +--------+ + + + + | Authorized | | Cardiology | Diagnoses | Judy, | Abraham, | | | | | Essential | Poncho | MD Emile | | | | | (primary) | DO Dominic | [address] | | | | | hypertension | [address] | | | | | | Chest | [address], [place] | [place], [place] | | | | | pain, | [address] | [address] Phone: | | | | | unspecified | [place], | [phone] | | | | | Procedures | [place] [address] | Fax: | | | | | Consult | Phone: | [phone] | | | | | | [phone] | | | | | | | Fax: | | | | | | | [phone] | | + +--------+ + + + + Encounter Details +--------+---------+ + + + | Date | Type | Department | Care Team | Description | +--------+---------+ + + + | 10/26/ | Office | [facility] | Emile Rosario MD | Essential | | 2019 | Visit | [facility] | [address] | hypertension | | | | [address] | [place] [address] | (Primary Dx); High | | | | [place], [place] | [phone] | cholesterol; | | | | [address] | | Atypical chest pain | | | | [phone] | | | +--------+---------+ + + + [...] + + + | Blood Pressure | 132/66 | 10/26/2019 11:46 AM | | | | | PST | | + + + + + | Pulse | 60 | 10/26/2019 11:46 AM | | | | | PST | | + + + + + | Temperature | - | - | | + + + + + | Respiratory Rate | - | - | | + + + + + | Oxygen Saturation | 95% | 10/26/2019 11:46 AM | | | | | PST | | + + + + + | Inhaled Oxygen | - | - | | | Concentration | | | | + + + + + | Weight | 83.9 kg (185 lb) | 10/26/2019 11:46 AM | | | | | PST | | + + + + + | Height | 152.4 cm (5') | 10/26/2019 11:46 AM | | | | | PST | | + + + + + | Body Mass Index | 36.13 | 10/26/2019 11:46 AM | | | | | PST | | + + + + + documented in this encounter Patient Instructions Patient Instructions Emile Rosario MD - 10/26/2019 11:00 AM PST Change Lisinopril to 10 mg twice a day. Schedule an echocardiogram and stress test. Follow up in the clinic. documented in this encounter Progress Notes Emile Rosario MD - 10/26/2019 11:00 AM PST Date of visit: 10/26/2019 Primary Care Physician: Michael Montoya MD CHIEF COMPLAINT: Chief Complaint Patient presents with Establish Care HISTORY OF PRESENT ILLNESS: Annabel Saucedo is 74 y.o. lady was referred to my clinic with concerns about recurren t episodes of chest pain for the last 3 weeks, it occurs in the center, no radiation, on ave rage once a day, described as tightness, last for few seconds, associated with high blood pr essure, can be precipitated by stress or constipation, no specific relieving factors. She has limited activity due to her arthritis and back pain. She was diagnosed with worsening high blood pressure and she was prescribed lisinopril 10 m g once a day. REVIEW OF SYSTEMS: Negative except for pertinent items noted in HPI. Review of Systems Constitutional: Negative for fatigue. HENT: Negative for nosebleeds. Eyes: Negative for visual disturbance. Respiratory: Negative for cough and shortness of breath. Cardiovascular: Chest pain. No palpitations and leg swelling. Gastrointestinal: Negative for nausea, vomiting, abdominal pain and blood in stool. Genitourinary: Negative for hematuria. Musculoskeletal: Negative for myalgias. Back pain and arthralgias. Skin: Negative for color change. Neurological: Negative for dizziness, syncope and numbness. Hematological: Does not bruise/bleed easily. Psychiatric/Behavioral: The patient is not nervous/anxious. PHYSICAL EXAM: BP 132/66 | Pulse 60 | Ht 1.524 m (5') | Wt 83.9 kg (185 lb) | SpO2 95% | BMI 36.13 kg /m Physical Exam Constitutional: Well-developed. Neck: No JVD present. No thyromegaly present. Cardiovascular: Regular rhythm, S1 normal and S2 normal. Systolic murmur, 1/6, no radiation. Pulses: Carotid pulses are 2+ on the right side, and 2+ on the left side. Radial pulses are 2+ on the right side, and 2+ on the left side. Pulmonary/Chest: Effort normal and breath sounds normal. No wheezes. No rales. Abdominal: Soft. No tenderness. Musculoskeletal: No edema. Neurological: Alert. No cranial nerve deficit. Skin: Warm and dry. DATA: Blood tests: Lab Results Component Value Date HGB 13.7 10/02/2016 Lab Results Component Value Date NA 136 10/02/2016 K 4.1 10/02/2016 CL 99 10/02/2016 CO2 30 10/02/2016 ANIONGAP 7 10/02/2016 BUN 13 10/02/2016 No results found for: CHOL, TRIG, LDL, LDL, GLUF No results found for: BNP, TSH, CRP No results found for: TOTEPI May 2019 Sodium 140, potassium 4.2, urea 16, creatinine 0.78 Total protein 7, albumin 4.3, AST 28, ALT 32 Total cholesterol 192, triglyceride 199, LDL 117, HDL January WBC 10, hemoglobin 13.3, platelet 257 EKG: October 19, 2019, reviewed personally on October 26, 2019. Normal ECG. Sinus rhythm, hea rt rate 63. October 02, 2016, reviewed personally on October 26, 2019. Sinus rhythm, heart rate 60, normal axis, normal QRS voltage in duration, normal ST-T segment and QT interval. Last Echo: Last stress test: Last cath: Carotid US: AAA screening: Lower extremity US: OTHERS: Plan ASSESSMENT & PLAN: Annabel Saucedo is a 74 y.o. lady with the following medical conditions: 1. Hypertension 2. Hypercholesterolemia 3. TIA, x3, last one more than 10 years ago, no residual weakness. 4. Sleep apnea, not using CPAP 5. Fibromyalgia 6. Osteoarthritis 7. Chronic back pain 8. Celiac disease Referred to the clinic for evaluation of atypical chest pain and high blood pressure. I recommended to him change lisinopril to 10 mg twice a day. Schedule an echocardiogram and pharmacological nuclear stress test. Follow-up in the clinic to review the results. Medications Placed This Encounter Medications lisinopril (PRINIVIL, ZESTRIL) 10 mg tablet Sig: Take 1 tablet by mouth 2 times daily. Dispense: 180 tablet Refill: 3 The following portions of the patient's history were reviewed and updated as appropriate: Allergies, current medications. Family history, past medical history, past social history, past surgical history. Problem list. Thank you for allowing me to participate in the care of this patient. Please, do not hesitate to contact me for any further questions. Emile Rosario MD 10/26/2019 documented in this encounter Plan of Treatment +--------+---------+ + + + | Date | Type | Specialty | Care Team | Description | +--------+---------+ + + + | 12/12/ | Office | Cardiology | Emile Rosario MD | | | 2019 | Visit | | [address] | | | | | | [place] [address] | | | | | | [phone] | | | | | | | | +--------+---------+ + + + + + +--------+ + + | Name | Type | Priori | Associated Diagnoses | Order Schedule | | | | ty | | | + + +--------+ + + | ECHO Complete | Echocardiog | Routin | Essential | Expected: | | | king | e | hypertension High | 10/26/2019, Expires: | | | | | cholesterol | 10/26/2020 | | | | | Atypical chest pain | | + + +--------+ + + | NM Nuclear Stress | Cardiac | Routin | Essential | Expected: | | Test (Vasodilator) | Nuclear | e | hypertension High | 10/26/2019, Expires: | | | Medicine | | cholesterol | 10/26/2020 | | | | | Atypical chest pain | | + + +--------+ + + documented as of this encounter Visit Diagnoses + + | Diagnosis | + + | Essential hypertension - Primary Unspecified essential hypertension | + + | High cholesterol Pure hypercholesterolemia | + + | Atypical chest pain Other chest pain | + + documented in this encounter"
--- OUTSIDE RECORDS SUMMARY | ~2019-11-13 | XMS | Encounter Summary ---
Demographics + + + | Address | [address] | | | [place] [address] | + + + | Home Phone | | + + + | Preferred Language | Unknown | + + + | Marital Status | | + + + | Church Affiliation | 1013 | + + + | Race | Unknown | + + + | Ethnic Group | Unknown | + + + Author + + + | Author | [facility] | | | and [place] | + + + | Organization | [facility] | | | and [...] | | | | | [place] [address] | | + + + + + | Peter Hester | ECON | [address] | | | | | [place] [address] | | + + + + + Care Team Providers + +------+ + | Care Supervisory Cbp Officer Name | Role | Phone | + [...] | | | Services | Therapy | Bilateral | Alexx, | | | | Required | | lumbar | Destini, | | | | | | radiculopath | PA-C [address] | | | | | | y Spinal | [address] | | | | | | stenosis of | [place] | | | | | | lumbar | [address] | | | | | | region at | Phone: | | | | | | multiple | [phone] | | | | | | levels DDD | Fax: | | | | | | (degenerativ | [phone] | | | | | | e disc | | | | | | | disease), | | | | | | | lumbar | | | | | | | Spondylolist | | | | | | | hesis of | | | | | | | lumbar | | | | | | | region | | | +--------+ + + + + + Reason for Visit + + + | Reason | Comments | + + + | Back Pain | low back pain radiating to bilateral legs | + + + Encounter Details +--------+---------+ + + + | Date | Type | Department | Care Team | Description | +--------+---------+ + + + | 12/04/ | Office | [facility] | Alexx, | Bilateral lumbar | | 2014 | Visit | PHYSIATRY [address] | SHANIQUE [address]es [address] | radiculopathy | | | | [place], | [facility], | (Primary Dx); Spinal | | | | [place] [address] | [place] [address] | stenosis of lumbar | | | | [phone] | [phone] | region at multiple | | | | | | levels; DDD | | | | | | (degenerative disc | | | | | | disease), lumbar; | | | | | | Spondylolisthesis of | | | | | | lumbar region; Left | | | | | | knee pain | +--------+---------+ + + + Social History [...] + + + | Blood Pressure | 155/84 | 12/04/2014 3:17 PM | | | | | PST | | + + + + + | Pulse | 70 | 12/04/2014 3:17 PM | | | | | PST [...] Weight | 88.5 kg (195 lb) | 12/04/2014 3:17 PM | | | | | PST | | + + + + + | Height | 154.9 cm (5' 1") | 12/04/2014 3:17 PM | | | | | PST | | + + + + + | Body Mass Index | 36.84 | 12/04/2014 3:17 PM | | | | | PST | | + + + + + documented in this encounter Patient Instructions Patient Instructions Destini Coffey PA-C - 12/04/2014 3:47 PM PST Follow-up at the hospital thirty minutes before [...] of the procedure you must provide a cdl dedicated truck driver to take you home. For all procedur es it is recommended that someone else drive you home. documented in this encounter Progress Notes Destini Coffey PA-C - 12/04/2014 3:17 PM PSTFormatting of this note might be differe nt from the original. CHIEF COMPLAINT: Chief Complaint Patient presents with Back Pain HISTORY OF PRESENT ILLNESS: The patient is [...] spinal stenosis. This was performe d on 03/2014. She reports that the treatment was effective until September 2014. She reports t hat the symptoms are worsening. She rates the pain as 7 on scale of 1-10. She describes the pain as aching or burning down the legs. Her symptoms worsen with standing, walking. Her symptoms improve with sitting down, use of pain medicine: oxycodone, methadone. The patient does describe numbness of the bilateral legs and feet. She also described foot pain with a bunion of the right foot. She does not report weakness of the legs, but states the pain is unbearable and so she gets around slower. The patient does not report recent falls or trauma. She does not have bowel and bladder dysfunction. She does not have saddle anesthesia. Treatments for these complaints have included physical therapy, injections targeting the L4 /L5 nerve root and medications. She also reports left knee pain. She states this started this summer, it's hard to walk ar ound. She states bending the knee is painful. She has had arthroscopic surgery of the righ t knee. She has informed her PCP but he has not taken any xray's. Patient's medications, allergies, past medical, surgical, social and family histories were reviewed and updated as appropriate. CURRENT MEDICATIONS: Current Outpatient Prescriptions Medication Sig Dispense Refill clonazePAM (KLONOPIN) 0.5 mg tablet Take 0.5 mg by mouth. 1 tab in the AM, 2 tabs in th e PM DIAZEPAM PO Take 0.5 mg by mouth Daily. DULoxetine (CYMBALTA) 20 mg capsule Take 20 mg by mouth Daily. furosemide (LASIX) 20 mg tablet Take 20 mg by mouth Daily. ibuprofen (ADVIL,MOTRIN) 600 MG tablet Take 600 mg by mouth every 6 hours as needed. methadone 10 mg tablet Take 10 mg by mouth every 8 hours as needed. oxyCODONE (ROXICODONE) 15 mg immediate release tablet Take 15 mg by mouth every 8 hours as needed. Indications: Moderate to Severe Pain potassium chloride (KLOR-CON) 20 MEQ packet Take 20 mEq by mouth 2 times daily. ranitidine (ZANTAC) 300 MG tablet Take 300 mg by mouth nightly. terazosin (HYTRIN) 10 MG capsule Take 10 mg by mouth 2 times daily. ALLERGIES: Allergies Allergen Reactions Bee Venom Anaphylaxis [...] No abnormal bleeding PHYSICAL EXAMINATION: Filed Vitals: 12/04/14 1517 BP: 155/84 Pulse: 70 PainSc: 7 PainLoc: Back Body mass index is 36.86 kg/(m^2). GENERAL: The patient is well developed [...] has no apparent deficits with short or laundry worker memory. She has appropriate fund of knowledge Cranial nerves 2-12 appear grossly intact. Sensory exam does not show diminished sensation to light touch in the lower extremities. REFLEX: RIGHT LEFT PATELLAR 2+ 2+ ACHILLES 2+ 2+ MUSCULOSKELETAL There is no tenderness in the [...] the majority of the pain to the lower lumbar r egion and radiating into the legs, left greater than right. Lumbar facet loading was negativ e. Strength testing showed 5/5 strength throughout the lower extremities. The patient was ab le to heel and toe walk without difficulty. There was no redness, effusion, warmth or joint line tenderness in the knees or ankles. RADIOGRAPHIC REVIEW: The patient's imaging was reviewed in detail with the patient today during the visit. Most recent MRI shows multiple areas of spinal stenosis, spondylolisthesis of the lumbar region ASSESSMENT: 1. Bilateral lumbar radiculopathy 2. Spinal stenosis of lumbar region at multiple levels 3. DDD (degenerative disc disease), lumbar 4. Spondylolisthesis of lumbar region 5. Left knee pain PLAN: 1. The patient has had significant conservative care including medications, PT and chiropra ctic care. Unfortunately she continues to have significant discomfort. I did feel that she w ould be a decent candidate for interventional procedures as she has done well with injection s in the past. I would repeat the bilateral L4-L5 TFESI. 2. She has had a bad reaction to iodine in the past. I considered pre-medicating for the al lergy but the reaction was reportedly so bad that she doesn't even want to test her luck. No contrast will be used. 3. Medications have been reviewed at today's visit with no changes made at this time. Her medications are managed by her PCP. 4. She has right knee pain, I think an xray would be warranted, depending on the results we can do a steroid injection or refer to Orthopedics. 5. The patient would like to attend physical therapy. I think this is a good idea with sta rt in the water. A detailed physical therapy referral to [facility] has been m april. 6. Dr. Hobbs's last note indicated a referral to neurology for confusion. She report s seeing Dr. Xiong who thinks her confusion was mostly caused by her medications. She has not made any changes on her medications and her PCP is managing this. ELECTRONICALLY SIGNED BY: Destini Coffey PA-C, 12/04/2014 SUPERVISING PHYSICIAN: Spenser Turner Jr., MD, who was present in the clinic today CC: documented in t his encounter Plan of Treatment +--------+---------+ + + + | Date | Type | Specialty | Care Team | Description | +--------+---------+ + + + | 12/12/ | Office | Cardiology | Emile Rosario MD | | | 2019 | Visit | | [address] | | | | | | [place] [address] | | | | | | [phone] | | | | | | | | +--------+---------+ + + + + + +--------+ + + | Name | Type | Priori | Associated Diagnoses | Order Schedule | | | | ty | | | + + +--------+ + + | AMB Referral to [facility] | Outpatient | Routin | Bilateral Lumbar | Ordered: 12/04/2014 | | Physical Therapy | Referral | e | Radiculopathy | | | | | | Spinal stenosis of | | | | | | lumbar region at | | | | | | multiple levels DDD | | | | | | (degenerative disc | | | | | | disease), lumbar | | | | | | Spondylolisthesis of | | | | | | lumbar region | | + + +--------+ + + [...] + | [facility] | [address] | [place], [place] | [phone] | | [facility] | | [address] | | | - IMAGING | | | | + + + + + XR Knee Left 4 + Vw (12/12/2014 1:56 PM PST) + + | Specimen | + + | | + + + + + | Narrative | Performed At | + + + | XR KNEE LEFT 4 + VW 12/12/2014 1:56 PM HISTORY: left knee xray | [facility] | | for possible arthritis, please get in standing view, sunrise view | LAB | | also. COMPARISON: None. FINDINGS: The left knee shows no | | | acute findings. Severe medial compartment joint space loss is present | | | with buqi-le-vjiw contact. Moderate size subchondral cysts are noted | | | of the medial compartment. Large osteophytes are present of the | | | medial compartment along with small osteophytes of the lateral | | | compartment. There are moderate osteophytes of the patella. Bone | | | mineralization is normal. There is a small knee joint effusion. Soft | | | tissues are unremarkable. Incidental evaluation of the right knee | | | demonstrates mild medial and lateral compartment joint space loss | | | with mild osteophytosis of the lateral compartment. IMPRESSION - | | | Advanced degenerative changes of the left knee. Dictated and | | | Signed by: Saqib Castle MD Electronically signed: 12/12/2014 3:19 | | | PM | | + + + + + | Procedure Note | + + | Jeremy, Rad Results In - 12/12/2014 3:22 PM PST XR KNEE LEFT 4 + VW 12/12/2014 1:56 PM | | | | HISTORY: left knee xray for possible arthritis, please get in standing view, | | sunrise view also. | | | | COMPARISON: None. | | | | FINDINGS: | | The left knee shows no acute findings. Severe medial compartment joint space | | loss is present with [id number] contact. Moderate size subchondral cysts are | | noted of the medial compartment. Large osteophytes are present of the medial | | compartment along with small osteophytes of the lateral compartment. There are | | moderate osteophytes of the patella. Bone mineralization is normal. There is a | | small knee joint effusion. Soft tissues are unremarkable. | | | | Incidental evaluation of the right knee demonstrates mild medial and lateral | | compartment joint space loss with mild osteophytosis of the lateral compartment. | | | | IMPRESSION - | | Advanced degenerative changes of the left knee. | | | | Dictated and Signed by: Saqib Castle MD | | Electronically signed: 12/12/2014 3:19 PM | + + + +---------+ + + | Performing | Address | City/State/Zipcode | Phone Number | | Organization | | | | + +---------+ + + | [facility] | | | [phone] | + +---------+ + + | [facility] | | | [phone] | + +---------+ + + documented in this encounter Visit Diagnoses + + | Diagnosis | + + | Bilateral lumbar radiculopathy - Primary | + + | Spinal stenosis of lumbar region at multiple levels Spinal stenosis, lumbar region, | | without neurogenic claudication | + + | DDD (degenerative disc disease), lumbar Degeneration of lumbar or lumbosacral | | intervertebral disc | + + | Spondylolisthesis of lumbar region Acquired spondylolisthesis | + + | Left knee pain Pain in joint, lower leg | + + documented in this encounter
--- OUTSIDE RECORDS SUMMARY | ~2019-11-13 | XMS | Encounter Summary ---
Demographics + + + | Address | [address] | | | [place] [address] | + + + | Home Phone | | + + + | Preferred Language | Unknown | + + + | Marital Status | | + + + | Mormon Affiliation | 1013 | + + + | Race | Unknown | + + + | Ethnic Group | Unknown | + + + Author + + + | Author | [facility] | | | and [place] | + + + | Organization | [facility] | | | and [place] | + + + | Address | Unknown | + + + | Phone | Unavailable | + + + Support + + + + + | Name | Relationship | Address | Phone | + + + + + | Tamar Lancaster | JOSEE | [address] | | | | | [place] [address] | | + + + + + | Peter Hester | ECON | [address] | | | | | [place] [address] | | + + + + + Care Team Providers + +------+ + | Care Measuring Machine Tender Name | Role | Phone | + [...] Acute pain | Alexx, | [address] | | | | | of left | [place], | [place], | | | | | shoulder | PA-C [address] | [place] | | | | | Traumatic | [address] | [address] | | | | | closed | [place] | Phone: | | | | | displaced | [address] | [phone] | | | | | fracture of | Phone: | Fax: | | | | | right | [phone] | [phone] | | | | | shoulder | Fax: | | | | | | with | [phone] | | | | | | anterior [...] Acute pain | Alexx, | [address] | | | | | of left | [place], | [place], | | | | | shoulder | PA-C [address] | [place] | | | | | Traumatic | [address] | [address] | | | | | closed | [place] | Phone: | | | | | displaced | [address] | [phone] | | | | | fracture of | Phone: | Fax: | | | | | right | [phone] | [phone] | | | | | shoulder | Fax: | | | | | | with | [phone] | | | | | | anterior [...] | +--------+ + + + + | 07/02/ | Hospital | [facility] | Alexx, | Acute pain of left | | 2016 | Encounter | MED CTR MRI [address] | [place]es [address] | shoulder; Traumatic | | | | [address] [place], | [place], | closed displaced | | | | [place] [address] | [place] [address] | fracture of right | | | | [phone] | [phone] | shoulder with | | | | | | anterior dislocation | | | | | | with delayed | | | | | | healing | +--------+ + + + + Social [...] + + + +---------+ + + | Pierce-3 Fatty | Take by mouth. | | [...] | | | | | [place] [address] | | | | | | [phone] | | | | | | | | +--------+---------+ + + + documented as of this encounter Procedures + +--------+ + + + | Procedure Name | Priori | Date/Time | Associated Diagnosis | Comments | | | ty | | | | + +--------+ + + + | MRI SHOULDER LEFT WO | Routin | 07/02/2016 | Acute pain of left | Results for this | | CONTRAST | e | 4:48 PM | shoulder Traumatic | procedure are in the | | | | PDT | closed displaced | results section. | | | | | fracture of right | | | | | | shoulder with | | | | | | anterior dislocation | | | | | | with delayed | | | | | | healing | | + +--------+ + + + documented in this encounter Results MRI Shoulder Left wo Contrast (07/02/2016 4:48 PM PDT) + + | Specimen | + + | | + + + + + | Narrative | Performed At | + + + | EXAM: MRI SHOULDER LEFT WO CONTRAST dated 07/02/2016 3:50 PM | [facility] | | HISTORY: left shoulder pain x 6 weeks, dislocation COMPARISON: | [facility] | | None. TECHNIQUE: Multiplanar multisequence MR imaging of the left [facility] | | shoulder without contrast. Imaging is [...] + + | Performing | Address | City/[facility] | Phone Number | | Organization | | | | + + + + + | [address] | [address] | [place] | [phone] | | [facility] | | [address] | | | - IMAGING | | | | + + + + + documented in this encounter Visit Diagnoses + + | Diagnosis | + + | Acute pain of left shoulder | + + | Traumatic closed displaced fracture of right shoulder with anterior dislocation with | | delayed healing | + + documented in this encounter"
--- OUTSIDE RECORDS SUMMARY | ~2019-11-13 | XMS | Encounter Summary ---
Demographics + + + | Address | [address] | | | [place] [address] | + + + | Home Phone | | + + + | Preferred Language | Unknown | + + + | Marital Status | Single | + + + | Taoism Affiliation | Unknown | + + + | Race | White | + + + | Ethnic Group | Not or | + + + Author + + + | Author | [facility] | + + + | Organization | [facility] | + + + | Address | Unknown | + + + | Phone | Unavailable | + + + Support + + + + + | Name | Relationship | Address | Phone | + + + + + | Tamar Villatoro | JOSEE | [place] | | + + + + + Care Team Providers + +------+ + | Care Bottle Tester Name | Role | Phone | + +------+ + | Michael Montoya MD | PCP | | + +------+ + Reason for Visit + + + | Reason | Comments | + + + | Removal of suture | | + + + Encounter Details +--------+---------+ + + + | Date | Type | Department | Care Team | Description | +--------+---------+ + + + | 08/23/ | Office | Dermatology at | | Visit for suture | | 2017 | Visit | [facility] | | removal (Primary Dx) | | | | Clinic [address] | | | | | | [address] [place], [place] | | | | | | [address] | | | | | | [phone] | | | +--------+---------+ + + + [...] documented as of this encounter Progress Notes Alka Montiel MD,PhD - 08/23/2018 2:00 PM PDTAttending Physician Attestation I personally interviewed, examined the patient, and discussed management with the MA. Alka Montiel M.D. Ph.D. Cutter Operator Department of Dermatology [facility] lKiara cobian M A - 08/23/2018 2:00 PM PDTS: Annabel Saucedo is a 73 y.o. female who presents for suture rem oval. Site: left dorsal hand Diagnosis: BCC Date of surgery: 2018 O: There were no vitals taken for this visit. A: Surgical site clean, dry, and intact. Healing well. Patient is concerned about small are a that she thinks may be splitting within suture line. Dr. Montiel checked area and was not co ncerned that area would split when sutures were removed. Advise to use steri-strips and dres s with telpha and paper tape. P: Sutures removed. Patient tolerated well. Steri strips applied, then dressed with telfa b andage, secured to hand with paper tape. Additional wound care instructions provided. VALERY Hernandez documented in th is encounter Plan of Treatment Not on filedocumented as of this encounter Visit Diagnoses + + | Diagnosis | + + | Visit for suture removal - Primary Encounter for removal of sutures | + + documented in this encounter"
--- OUTSIDE RECORDS SUMMARY | ~2019-11-13 | XMS | Encounter Summary ---
Demographics + + + | Address | [address] | | | [place] [address] | + + + | Home Phone | | + + + | Preferred Language | Unknown | + + + | Marital Status | Single | + + + | Quaker Affiliation | Unknown | + + + | Race | White | + + + | Ethnic Group | Not or | + + + Author + + + | Author | [facility] | + + + | Organization | [facility] | + + + | Address [...] Team Providers + +------+ + | Care Full Service Supervisor Name | Role | Phone | + +------+ + | Michael Montoya MD | PCP | | + +------+ + Encounter Details +--------+ + + + + | Date | Type | Department | Care Team | Description | +--------+ + + + + | 07/05/ | Pharmacy | Specialty Pharmacy | | | | 2013 | Visit | Services [address] | | | | | [address] | | | | | | [place], [place] | | | | | | [address] | | | | | | [phone] | | | +--------+ + + + [...] as of this encounter Plan of Treatment Not on filedocumented as of this encounter Visit Diagnoses Not on filedocumented in this encounter"
--- OUTSIDE RECORDS SUMMARY | ~2019-11-13 | XMS | Encounter Summary ---
Demographics + + + | Address | [address] | | | [place] [address] | + + + | Home Phone | | + + + | Preferred Language | Unknown | + + + | Marital Status | | + + + | Hindu Affiliation | 1013 | + + + | Race | Unknown | + + + | Ethnic Group | Unknown | + + + Author + + + | Author | [facility] | | | and [place] | + + + | Organization | [facility] | | | and [...] | | | | | [place] [address] | | + + + + + | Peter Hester | ECON | [address] | | | | | [place] [address] | | + + + + + Care Team Providers + +------+ + | Care Director Of Maternity Services Name | Role | Phone | + +------+ + | Michael Montoya MD | PCP | | + +------+ + Reason for Visit + + + | Reason | Comments | + + + | Back Pain | low back pain radiating down bilateral legs | + + + | Knee Pain | left knee | + + + Encounter Details +--------+---------+ + + + | Date | Type | Department | Care Team | Description | +--------+---------+ + + + | 05/15/ | Office | [facility] | Alexx, | Lumbar radiculopathy | | 2015 | Visit | PHYSIATRY [address] | [place]es [address] | - currently into | | | | [place], | [address] [place], | the bilateral lower | | | | [place] [address] | [place] [address] | extremities (Primary | | | | [phone] | [phone] | Dx); DDD | | | | [...] region; | | | | | | Osteoarthritis of | | | | | | left knee, | | | | | | unspecified | | | | | | osteoarthritis type | +--------+---------+ + + + Social History [...] + + + | Blood Pressure | 136/76 | 05/15/2015 3:27 PM | | | | | PDT | | + + + + + | Pulse | 60 | 05/15/2015 3:27 PM | | | | | PDT [...] Weight | 88.5 kg (195 lb) | 05/15/2015 3:27 PM | | | | | PDT | | + + + + + | Height | 154.9 cm (5' 1") | 05/15/2015 3:27 PM | | | | | PDT | | + + + + + | Body Mass Index | 36.84 | 05/15/2015 3:27 PM | | | | | PDT | | + + + + + documented in this encounter Patient Instructions Patient Instructions Destini Coffey PA-C - 05/15/2015 4:00 PM PDT- Ice the area as n eeded 20 minutes per hour. Multiple times as needed over the next few days. - Watch for signs of infection (redness around injection site, swelling, fever) - No strenuous activity for 24-48 hours after the procedure. - Please call the office with questions or concerns. Follow-up at the hospital thirty minutes before [...] of the procedure you must provide a heavy truck driver to take you home. For all procedur es it is recommended that someone else drive you home. documented in this encounter Progress Notes Destini Coffey PA-C - 05/15/2015 4:14 PM PDTFormatting of this note might be differe nt from the original. CHIEF COMPLAINT: Chief Complaint Patient presents with Back Pain low back pain radiating down bilateral legs Knee Pain left knee HISTORY OF PRESENT ILLNESS: The patient is a 69 y.o. female being seen today in follow-up for complaints of back pain w ith radiation into the bilateral legs. The patient has been seen for this complaint in the past, with initial visit started by Dr. Hbobs. Previously it was recommended that she receive bilateral L4/L5 TFESI for lumbar radiculopathy, spinal stenosis. This was performe d on 12/12/2014. She reports that the treatment was effective until March, getting approximatel y 3 months of relief. She reports that the symptoms are worsening. She rates the pain as 9 on scale of 1-10. She describes the [...] arthroscopic surgery of the righ t knee. At last visit we got xrays of the knee which shows severe osteoarthritis with minim al joint space to the left knee. Patient's medications, allergies, past medical, surgical, social and family histories were reviewed and updated as appropriate. CURRENT MEDICATIONS: Current Outpatient Prescriptions Medication Sig Dispense Refill clonazePAM (KLONOPIN) 0.5 mg tablet Take 0.5 mg by mouth. 1 tab in the AM, 2 tabs in th e PM DULoxetine (CYMBALTA) 20 mg capsule Take 20 mg by mouth Daily. ibuprofen (ADVIL,MOTRIN) 600 MG tablet Take 600 mg by mouth every 6 hours as needed. methadone 10 mg tablet Take 10 mg by mouth every 8 hours as needed. omeprazole (PRILOSEC) 20 mg capsule Take 20 mg by mouth every morning (before breakfast [...] 10 mg by mouth 2 times daily. Current Facility-Administered Medications Medication Dose Route Frequency Provider Last Rate Last Dose triamcinolone acetonide (KENALOG-40) 40 mg/mL injection 40 mg 40 mg Intra-articular On ce Destini Coffey PA-C ALLERGIES: Allergies Allergen Reactions Bee Venom Anaphylaxis [...] No abnormal bleeding PHYSICAL EXAMINATION: Filed Vitals: 05/15/15 1527 BP: 136/76 Pulse: 60 PainSc: 9 PainLoc: Back Body mass index is 36.86 [...] has no apparent deficits with short or mcc memory. She has appropriate fund of knowledge [...] There was no redness, effusion, warmth. She stokes s have left knee joint line tenderness. RADIOGRAPHIC [...] levels 4. Spondylolisthesis of lumbar region 5. Osteoarthritis of left knee, unspecified osteoarthritis type PLAN: 1. The patient has had significant conservative care including medications, PT and chiropra ctic care. Unfortunately she continues to have significant discomfort. I did feel that she w ould be a decent candidate for interventional procedures as she has done well with injection s in the past. I would repeat the bilateral L4-L5 TFESI, this was ordered for the near futur e. 2. She has had a bad reaction [...] her PCP. 4. She has right knee pain,she has responded well to steroid injections into the left knee, this was last done in November of this year. After the patient gave consent for the procedur e the area for injection was located by palpation and was marked. The area was then prepped with Betadine swabs and alcohol. A 25 gauge 1 1/2 inch needle was then inserted into the j oint capsule. Attempted aspiration showed no fluid in the needle hub. A combination of 1 mL of 40 mg/mL Kenalog and 2 mL each of 0.5% Bupivicaine and 1% Lidocaine was injected. The p rocedure was then performed using the same steps on the opposite side. The patient tolerated the procedures well and was instructed to ice the areas for 15-20 min utes several times over the next few days and to watch for any signs of infection. She is scheduled with Dr. Bronson the end of June to discuss a total knee replacement. ELECTRONICALLY SIGNED BY: Destini Coffey PA-C, 05/15/2015 SUPERVISING PHYSICIAN: Spenser Turner Jr., MD, who was present in the clinic today documented in t his encounter Plan of Treatment +--------+---------+ + + + | Date | Type | Specialty | Care Team | Description | +--------+---------+ + + + | 12/12/ | Office | Cardiology | Emile Rosario MD | | | 2020 | Visit | | [address] | | | | | | [place] [address] | | | | | | [phone] | | | | | | | | +--------+---------+ + + + documented as of this encounter Results FL KHOA Lumbar Transforaminal (06/11/2015 2:45 PM PDT) + + | Specimen | + + | | + + + + + | Narrative | Performed At | + + + | 06/11/2015 Bilateral Transforaminal Epidural Steroid Injections | [facility] | | Diagnosis: Lumbar radiculopathy ICD-9 Code 724.4 Annabel Mcneil | [facility] | | Sheryl presents to the fluoroscopy suite for fluoroscopically-guided [facility] | | bilateral L4-L5 transforaminal epidural steroid injections as part | - IMAGING | | of conservative management for chronic pain with lumbar | | | radiculopathy and degenerative disk disease. After informed consent | | | was obtained, the patient lay in the prone position on the | | | fluoroscopy table. The areas were identified under fluoroscopic | | | guidance. The areas were prepped and draped in sterile fashion. A | | | 25-gauge, 1.5-inch needle was inserted into each region and | | | approximately 3 mL of buffered 1% lidocaine was infused. Then, a | | | 22-gauge spinal needle was inserted into the posterior superior | | | transforaminal space bilaterally and advanced into the epidural | | | space under fluoroscopic guidance. Confirmation into the epidural | | | space was obtained with infusion of approximately 1 mL of Omnipaque | | | contrast which showed epidural flow as well as nerve sheath flow. | | | Then, a combination of 2 mL of 1% lidocaine and 2 mL of 6 mg/mL | | | Celestone was infused, divided between the two sides. The patient | | | tolerated the procedure well without complications. Pre- and | | | post-procedure blood pressures were stable. The patient was given | | | verbal as well as written follow-up instructions. Prior to the | | | start of the procedure, the following were performed and/or | | | verified, including correct patient identity, correct site/side marked | | | and visible, agreement on the procedure to be done, correct patient | | | positioning and an accurate procedure consent form. Any safety | | | precautions based on clinical history and/or medication use have | | | been addressed. I personally performed the procedure above. | | | Estimated blood loss: Minimal Complications: None Findings: As | | | expected Anesthesia: Local 1% Lidocaine | | + + + + + + + + | Performing | Address | City/[facility] | Phone Number | | Organization | | | | + + + + + | [facility] | [address] | [place], [place] | [phone] | | [facility] | | [address] | | | - IMAGING | | [...] region Acquired spondylolisthesis | + + | Osteoarthritis of left knee, unspecified osteoarthritis type | + + documented in this encounter Administered Medications + + + +-------+------+ + | Medication Order | MAR | Action | Dose | Rate | Site | | | Action | Date | | | | + + + +-------+------+ + | triamcinolone acetonide | Given by | 05/15/20 | 40 mg | | Knee-Lef | | (KENALOG-40) 40 mg/mL injection | Other | 15 4:56 | | | t | | 40 mg 40 mg, Intra-articular, | | PM PDT | | | | | ONCE, 05/15/15 at 1615, For 1 | | | | | | | dose, Shake well. Not for IV | | | | | | | use., | | | | | | + + + +-------+------+ + +---+---+ | | | +---+---+ documented in this encounter
--- OUTSIDE RECORDS SUMMARY | ~2019-11-13 | XMS | Encounter Summary ---
Demographics + + + | Address | [address] | | | [place] [address] | + + + | Home Phone | | + + + | Preferred Language | Unknown | + + + | Marital Status | | + + + | Zoroastrianism Affiliation | 1013 | + + + | Race | Unknown | + + + | Ethnic Group | Unknown | + + + Author + + + | Author | [facility] | | | and [place] | + + + | Organization | [facility] | | | and [place] | + + + | Address | Unknown | + + + | Phone | Unavailable | + + + Support + + + + + | Name | Relationship | Address | Phone | + + + + + | Tamar Lancaster | JOSEE | [address] | | | | | [place] [address] | | + + + + + | Peter Hester | ECON | [address] | | | | | [place] [address] | | + + + + + Care Team Providers + +------+ + | Care Pediatric Hospitalist Name | Role | Phone | + [...] | | | | Services | | DDD | Alexx, | | | | Required | | (degenerativ | [place], | | | | | | e disc | PA-C [address] | | | | | | disease), | [address] | | | | | | lumbar | [place] | | | | | | Spinal | [address] | | | | | | stenosis of | Phone: | | | | | | lumbar | [phone] | | | | | | region at | Fax: | | | | | | multiple | [phone] | | | | | | levels [...] + + + + Reason for Visit +--------+ + | Reason | Comments | +--------+ + | Other | | +--------+ + Encounter Details +--------+ + + + + | Date | Type | Department | Care Team | Description | +--------+ + + + + | 10/25/ | Telephone | [facility] | Alexx, | Other | | 2014 | | PHYSIATRY [address] | SHANIQUE Georges [address] | | | | | [place], | [facility], | | | | | [place] [address] | [place] [address] | | | | | [phone] | [phone] | | | | | | | [...] [address] | | | | | | [place] [address] | | | | | | [phone] | | | | | | | | +--------+---------+ + + + + + +--------+ + + | Name | Type | Priori | Associated Diagnoses | Order Schedule | | | | ty | | | + + +--------+ + + | Ambulatory referral | Outpatient | Routin | DDD (degenerative | Ordered: 10/25/2015 | | to Pain Clinic | Referral | e | disc disease), | | | | | | lumbar Spinal | | | | | | stenosis of lumbar | | | | | | region at multiple | | | | | | levels | | | | | | Spondylolisthesis of | | | | | | lumbar region | | | | | | Primary | | | | | | osteoarthritis of | | | | | | left knee Narcotic | | | | | | abuse Lumbar | | | | | | radiculopathy - | | | | | | currently into the | | | | | | bilateral lower | | | | | | extremities | | + + +--------+ + + documented as of this encounter Visit Diagnoses + + | Diagnosis | + + | DDD (degenerative disc disease), lumbar - Primary Degeneration of lumbar or | | lumbosacral intervertebral disc | + + | Spinal stenosis of lumbar region at multiple levels Spinal stenosis, lumbar region, | | without neurogenic claudication | + + | Spondylolisthesis of lumbar region Acquired spondylolisthesis | + + | Primary osteoarthritis of left knee Primary localized osteoarthrosis, lower leg | + + | Narcotic abuse (HCC) Sedative, hypnotic or anxiolytic abuse, unspecified | + + | Lumbar radiculopathy - currently into the bilateral lower extremities Thoracic or | | lumbosacral neuritis or radiculitis, unspecified | + + documented in this encounter"
--- OUTSIDE RECORDS SUMMARY | ~2019-11-13 | XMS | Encounter Summary ---
Demographics + + + | Address | [address] | | | [place] [address] | + + + | Home Phone | | + + + | Preferred Language | Unknown | + + + | Marital Status | | + + + | Zoroastrian Affiliation | 1013 | + + + | Race | Unknown | + + + | Ethnic Group | Unknown | + + + Author + + + | Author | [facility] | | | and [place] | + + + | Organization | [facility] | | | and [place] | + + + | Address | Unknown | + + + | Phone | Unavailable | + + + Support + + + + + | Name | Relationship | Address | Phone | + + + + + | Tamar Lancaster | JOSEE | [address] | | | | | [place] [address] | | + + + + + | Peter Hester | ECON | [address] | | | | | [place] [address] | | + + + + + Care Team Providers + +------+ + | Care Dropper [employer] Storage Name | Role | Phone | + +------+ + | Kaur Fisher MD | PCP | | + +------+ + Reason for Visit +---------+ + | Reason | Comments | +---------+ + | Post Op | left rotator cuff repair with acromioplasty and distal clavicle | | | excision DOS 10/07/16 | +---------+ + Encounter Details +--------+---------+ + + + | Date | Type | Department | Care Team | Description | +--------+---------+ + + + | 10/08/ | Office | [facility] | Reagan Bronson | S/P orthopedic | | 2016 | Visit | ORTHOPEDIC SURGERY | MD Nirmal Means [facility] | surgery, follow-up | | | | [address] [facility] | [place] | exam (Primary Dx) | | | | [place] | [address] | | | | | [address] | | | | | | [phone] | | | +--------+---------+ + + + [...] + + + + | Temperature | 37.1 C (98.7 F) | 10/08/2016 12:27 PM | | | | | PST [...] Weight | 83.5 kg (184 lb) | 10/08/2016 12:27 PM | | | | | PST | | + + + + + | Height | 152.4 cm (5') | 10/08/2016 12:27 PM | | | | | PST | | + + + + + | Body Mass Index | 35.94 | 10/08/2016 12:27 PM | | | | | PST | | + + + + + documented in this encounter Progress Notes Reagan Bronson MD - 10/08/2016 2:30 PM PSTSee soap note [id number]. Electronically sign ed by Reagan Bronson MD at 10/08/2016 2:30 PM PSTReagan Bronson MD - 2:29 PM PST [facility] ORTHOPEDIC SURGERY [address] [place] [id number] OFFICE NOTE REAGAN BRONSON MD Patient: ANNABEL JENSEN Admitting: MR #: [id number] LOC: PT TYPE: Adm Date: 10/08/2016 : 1945 Annabel returns today following her left shoulder surgery performed yesterday. She was acco mpanied by her daughter and granddaughter. There has been some difference of opinion regard ing the amount of medication she can take after surgery and she is now having increased pa in as the regional interscalene block anesthetic has worn off. The daughter states that sergei rey has removed her shoulder UltraSling because it has been bothering her. EXAMINATION: Exam reveals that Annabel is alert and oriented. There is obvious tension in the room between the patient and her daughter. The bandages are clean and dry. ADVICE: Today we have reapplied the UltraSling and have demonstrated how it should be wor n properly. We have shown the daughter how the forearm part can be removed and the patient may fully extend and flex her elbow. We reviewed her pain medications and have made sugges tion for appropriate use of baclofen and oxycodone. We discussed the importance towards m aintaining safety at all times. Apparently, the daughter did buy a pulse oximeter and we i ssued guidelines regarding the patient's oxygenation on room air. We have answered multipl e questions and hopefully have assisted the daughter in the care of her mother who is prov ing to be somewhat of a challenge. We will plan to see Annabel lancaster as previously scheduled in approximately 1 week for clinical followup. REAGAN BRONSON MD Dictated by REAGAN BRONSON MD 10/08/2016 14:29:53 Transcribed on 10/10/2016 07:15:10 by [facility] job# [id number] Confirmation #: [id number] cc: KAUR FISHER MD documented in this encounter Plan of Treatment +--------+---------+ + + + | Date | Type | Specialty | Care Team | Description | +--------+---------+ + + + | 12/12/ | Office | Cardiology | Emile Rosario MD | | | 2019 | Visit | | [address] | | | | | | [place] [address] | | | | | | [phone] | | | | | | | | +--------+---------+ + + + documented as of this encounter Visit Diagnoses + + | Diagnosis | + + | S/P orthopedic surgery, follow-up exam - Primary Follow-up examination, following | | other surgery | + + documented in this encounter"
--- OUTSIDE RECORDS SUMMARY | ~2019-11-13 | XMS | Encounter Summary ---
Demographics + + + | Address | [address] | | | [place] [address] | + + + | Home Phone | | + + + | Preferred Language | Unknown | + + + | Marital Status | Single | + + + | Temple Affiliation | Unknown | + + + | Race | White | + + + | Ethnic Group | Not or | + + + Author + + + | Author | [facility] | + + + | Organization | [facility] | + + + | [...] Team Providers + +------+ + | Care Core Mounter Name | Role | Phone | + +------+ + | Michael Montoya MD | PCP | | + +------+ + Reason for Visit + + + | Reason | Comments | + + + | Mohs' chemosurgery | 2 sites Left hand and Left chin BCC | + + + CC to [facility] (Routine) +--------+ + + + + + | Status | Reason | Specialty | Diagnoses / | Referred By | Referred To | | | | | Procedures | Contact | Contact | +--------+ + + + + + | Closed | Specialty | Dermatology | Diagnoses | Riter, | Drm Surg | | | Services | | Basal cell | Alka Fontaine, | Outpt Hos | | | Required | | carcinoma | ,PhD 1933 | [facility] [address] | | | | | (BCC) of | [address] | | | | | chin Basal | [facility], | Mailcode: | | | | | cell | [place] | [facility] | | | | | carcinoma | [address] | for Health | | | | | (BCC) of | Phone: | and Healing, | | | | | left hand | [phone] | Building [address], | | | | | 1) left chin | Fax: | 5th Floor | | | | | 2) left | [phone] | [place], [place] | | | | | dorsal hand | | [address] | | | | | Procedures | | Phone: | | | | | CONSULT TO | | [phone] | | | | | DERM & DERM | | Fax: | | | | | SURGERY | | [phone] | | | | | mohs | | | +--------+ + + + + + Encounter Details +--------+ + + + + | Date | Type | Department | Care Team | Description | +--------+ + + + + | 08/16/ | Procedure | Dermatology | Samson, | Zander' chemosurgery | | 2018 | | Surgery at [facility] [address] | Ayaan Tanner MD [address] | (2 sites Left hand | | | | [address] | [address] | and Left chin BCC) | | | | Mailcode: [facility] | [place], [place] | | | | | [facility] | [address] | | | | | and Healing, | [phone] | | | | | [place] [address] | | | | | | [place], [place] | | | | | | [address] | | | | | | [phone] | | | +--------+ + + + [...] this encounter Last Filed Vital Signs + +---------+ + + | Vital Sign | Reading | Time Taken | Comments | + +---------+ + + | Blood Pressure | 151/64 | 2018 8:04 AM | | | | | PDT | | + +---------+ + + | Pulse | 85 | 2018 8:04 AM | | | | | PDT | | + +---------+ + + | Temperature | - | - | | + +---------+ + + | Respiratory Rate | 16 | 2018 8:04 AM | | | | | PDT | | + +---------+ + + | Oxygen Saturation | - | - | | + +---------+ + + | Inhaled Oxygen | - | - | | | Concentration | | | | + +---------+ + + | Weight | - | - | | + +---------+ + + | Height | - | - | | + +---------+ + + | Body Mass Index | - | - | | + +---------+ + + documented in this encounter Patient Instructions Patient Instructions Sri Everett MA - 2018 8:00 AM [facility] [place] [employer] [facility] DEPARTMENT OF DERMATOLOGY [address] [place] [id number], SUTURE WOUND CARE INSTRUCTIONS General Care-All Wounds ? Apply ice (or frozen vegetables) wrapped in a thin dishtowel over the surgical site 10 mi nutes for every hour for the first day. This will help with pain and swelling. ? Avoid aspirin, ibuprofen, alcohol and smoking for 5 days after your procedure, as this ca n increase your risk of bleeding and bruising. ? Reduce strenuous activity for the first week. ? Avoid bending over or heavylifting if your stitches are on your face or scalp. The healin g skin is fragile so it is best to avoid rigorous activity such as contact sports or running - especially if the stitches are in a place where the skin stretches with movement, like th e knee. ? Do not get your bandage wet. Change your bandage in 24 hours. ? For discomfort and pain, we encourage you to take Extra-strength Tylenol, 2 tablets every 4-6 hours as needed for pain: not to exceed 3 grams in one 24 hour period. Or if you were g iven a prescription, take it as directed. ? For wounds on the arms or legs, keep site elevated above the heart for the first 24 hours . ? For lip wounds, avoid hard, crunchy food for several days. Expect swelling for up to 1 we ek. ? If bleeding occurs, hold direct pressure for 20 minutes. If the bleeding does not discont inue, please call the office. ? Bruising can range from none to dark purple in areas surrounding the wound. Applying pre ssure to the wound helps prevent bruising, which is why we use a larger pressure dressing fo r the first 24 hours after surgery. Although they can be unsightly, bruises will fade. Suture/Staple Wound Care ? Clean the area of stitches or sangita daily with soap and water. Once moistened, any fahad t or pus can be gently removed by rolling a Q-tip or gauze over the area. ? The area should be clear of any drainage or crusts. ? Apply petrolatum ointment to suture/staple area. ? Do not cover if possible. If needed, you may cover with Telfa and tape into place. It is okay to cut the Telfa to size. ? When uncovered, reapply ointment multiple times throughout day to keep moist with layer a t all times. ? You may get the area wet in the shower after bandage is removed, however, do not let the water hit the wound directly. You do not want the wound to get saturated. ? Pat the area dry after showering, and reapply ointment. ? If you have steri-strips then replace them when they fall off in approximately 10-14 days . You may get the area wet. What to Expect------Sutured/Stapled Wounds ? You may experience numbness that is usually temporary. ? There will be bruising and swelling that can last between 1 and 2 weeks. Areas of the trena th and eye may last longer. ? The sutured area will be pink, swollen and tender for the first few days. The area should look and feel better each day after this point. ? Skin near the surgery site may appear and feel tight. This relaxes in time. A scar is str jada at 30 days, but not mature for 6 months or more. ? Stitches below the skin will be absorbed by the body within 2-3 months. ? Sometimes a stitch works its way up through the skin; this is not necessarily a problem. If you have any questions about this, please call. Bleeding ? If bleeding occurs, apply firm pressure directly over the wound for 15 minutes (no denaeeklilia mclean). o Time yourself with a clock as this can feel like a long time. ? If it is still bleeding, please contact the clinic. ? Very rarely, bleeding can occur under the skin. o This looks like a purple, egg-shaped swelling underneath the wound and is associated with severe pain. o Please contact the clinic if you think you have bleeding under the skin or go to your [facility] urgent care or emergency room. Infection ? Expect the area to become more red and tender during the first two days after the procedu re. o This will gradually improve and is part of the normal wound healing process. ? Infection is a rare complication. o If it occurs, it begins several days after the procedure. o The area will become increasingly red, swollen and tender instead of slowly improving. o Please contact the clinic if you think you may have an infection. Call the Office If... ? Any of the bandages become saturated with blood. If your site bleeds, hold direct pressur e for 20 minutes and phone the clinic. ? You are having a great deal of pain, not relieved by Tylenol or your prescription medicat ion. Pain after 48 hours is not typically expected though depending on the size, location, a nd depth of your wound you may experience pain longer. ? The wound appears to be worse instead of better each day (Increased pain, redness, warmth and drainage). ? Your graft bandage becomes wet with drainage or is more painful than the day before. How to Reach [phone] Toll-free [phone] Evenings and Weekends: [phone] documented in this encounter Progress Notes Wayne Ochoa MD - 2018 5:07 PM PDT Chief Complaint: Basal Cell Carcinoma located on the left chin and Basal Cell Carcinoma loc ated on the left dorsal hand Referring Physician: Tiana History of Present Illness: Patient presents with the above diagnosis which has been present for months. There have bee n no previous treatments. Past history of other skin cancers yes. Past Medical History reviewed. Review of Systems: Negative for other skin complaints. Negative for constitutional sympto ms. Physical Examination: BP 151/64 | Pulse 85 | RR 16 Patient is alert and oriented. Extra ocular movements are intact. Located on the left chi n and left dorsal hand are single biopsy scars MOHS Operative Note Assessment and Plan: Mohs micrographic surgery is indicated because of location, ill defined borders, size. The procedure and alternatives were discussed, questions were answered and the risks includ ing but not limited to infection, bleeding, scarring, unsatisfactory results, nerve damage a nd recurrence were explained. Using a mirror, the patient identified the site of the biopsi ed cancer. I marked the site and the patient confirmed the location using a mirror. The pat ient felt comfortable and wished to proceed with Mohs surgery later on today. Site A: Primary Basal Cell Carcinoma located on the left chin Tissue obtained during this procedure was processed, read and resulted in [facility] Dermatologic Surgery, [address] [place] [address] MOHS MICROGRAPHIC SURGERY PROCEDURE NOTE 2018 ATTENDING SURGEON: Ayaan Davies M.D. SPEECH COMMUNICATION PROFESSOR: Dev Ochoa MD Pretreatment lesion size of 1.4x 1.3 cm. STAGE 1: The patient was placed supine on the operating room table. The wound was defined and infiltrated with 1% Lidocaine with Epinephrine. The area was then debulked. Initial ex cisions were made around the clinical and debulk markings and hemostasis were obtained by el ectrodessication. A dressing was placed. Tissue was divided into two specimens which were mapped, color coded at their margins, and frozen sectioning was performed. Microscopic tumo r was found persisting in none of the specimens. The histology showed sparse perifollicular and perivascular lymphocytic infiltrate. Following surgery, the defect measures as follows: 1.4cm x 1.3cm. CONDITION AT TERMINATION OF THERAPY: Carcinoma removed. CLOSURE: RECONSTRUCTION PROCEDURE NOTE COMPLEX LINEAR LAYERED CLOSURE Prior to beginning the procedure, patient identity was verified, as well as the procedure t o be performed and the site. All equipment required was ready and available. The patient wa s positioned appropriately. INDICATIONS: The patient was left with a defect as noted above following Mohs micrographic surgery. Various reconstructive modalities were discussed with the patient, and it was deci ded that a complex linear layered closure would best preserve normal anatomical and function al relationships. After a discussion of the risks including but not limited to bleeding, sca rring, infection, nerve damage, unsatisfactory results, and wound dehiscense, informed conse nt was obtained, and the patient underwent the procedure as follows. PROCEDURE: The patient was taken to the operative suite and placed supine on the operating room table. The area was anesthetized with 1% Lidocaine with Epinephrine. The skin was wash ed and prepped with Hibiclens, rinsed with sterile saline, and draped with sterile towels. T he wound edges were debeveled, and because of the tension the wound was undermined extensive ly in all directions. Hemostasis was obtained with spot electrodessication. The deep subcuta neous tissue and dermis were carefully reapproximated using 4-0 Polysorb buried sutures. Red undant cones were removed as Burow's triangles superior and inferior to align with the relax ed skin tension lines in a curvilinear fashion. The epidermis was closed and approximated us ing 5-0 Fast Absorbing Gut sutures. A sterile pressure dressing was applied, and wound care instructions were given. Final wound length 3.1 cm. COMPLICATIONS: None Patient reports no pain after the procedure. Site B: Primary Basal Cell Carcinoma located on the left dorsal hand Tissue obtained during this procedure was processed, read and resulted in [facility] Dermatologic Surgery, [address] [facility] [place] [address] MOHS MICROGRAPHIC SURGERY PROCEDURE NOTE 2018 ATTENDING SURGEON: Ayaan Davies M.D. SPEECH COMMUNICATION PROFESSOR: Dev Ochoa MD Pretreatment lesion size of 1x 1 cm. STAGE 1: The patient was placed supine on the operating room table. The wound was defined and infiltrated with 1% Lidocaine with Epinephrine. The area was then debulked. Initial ex cisions were made around the clinical and debulk markings and hemostasis was obtained by genesis ctrodessication. A dressing was placed. Tissue was divided into two specimens which were m apped, color coded at their margins, and frozen sectioning was performed. Microscopic tumor was found persisting in 1 of the specimens. The histology showed large atypical basaloid p leomorphic cells extending into the papillary dermis. STAGE 2: The patient was returned to the operative suite. The area of positivity was deli neated, infiltrated with 1% Lidocaine with Epinephrine, and excised. Tissue was divided int o one specimen which was again marked, color-coded, and frozen sectioning was performed. H emostasis was obtained in the usual manner, and a dressing placed. Microscopic tumor was fo und persisting in none of the specimens. With the lesion clear of microscopic tumor, surger y was considered complete. Following surgery, the defect measures as follows: 1.4cm x 1.4cm . CONDITION AT TERMINATION OF THERAPY: Carcinoma removed. CLOSURE: RECONSTRUCTION PROCEDURE NOTE COMPLEX LINEAR LAYERED CLOSURE Prior to beginning the procedure, patient identity was verified, as well as the procedure t o be performed and the site. All equipment required was ready and available. The patient wa s positioned appropriately. INDICATIONS: The patient was left with a defect as noted above following Mohs micrographic surgery. Various reconstructive modalities were discussed with the patient, and it was deci ded that a complex linear layered closure would best preserve normal anatomical and function al relationships. After a discussion of the risks including but not limited to bleeding, sca rring, infection, nerve damage, unsatisfactory results, and wound dehiscense, informed conse nt was obtained, and the patient underwent the procedure as follows. PROCEDURE: The patient was taken to the operative suite and placed supine on the operating room table. The area was anesthetized with 1% Lidocaine with Epinephrine. The skin was wash ed and prepped with Hibiclens, rinsed with sterile saline, and draped with sterile towels. T he wound edges were debeveled, and because of the tension the wound was undermined extensive ly in all directions. Hemostasis was obtained with spot electrodessication. The deep subcuta neous tissue and dermis were carefully reapproximated using 4-0 Polysorb buried sutures. Red undant cones were removed as Burow's triangles superior and inferior to align with the relax ed skin tension lines in a curvilinear fashion. The epidermis was closed and approximated us ing 4-0 Prolene sutures. A sterile pressure dressing was applied, and wound care instructio ns were given. Final wound length 3.3 cm. COMPLICATIONS: None Patient reports no pain after the procedure. ? Ayaan Mena MD - 2018 8:00 AM PDTATTENDING PHYSICIAN ATTESTATION I saw and examined the patient and discussed the case with the Fellow/Resident. I agree wit h their findings and plan as written. Using a mirror, the patient identified the site of the biopsied cancer. I marked the site a nd the patient confirmed the location using a mirror. The nature of the diagnosis was discussed with the patient and the details of the procedure , alternatives, risks were discussed with the patient and all questions were answered. Speci fically risks including but not limited to infection, bleeding, recurrence, nerve damage, sc arring and poor cosmetic result were explained and the patient expressed understanding. MOHS-SURGERY ATTENDING PHYSICIAN ATTESTATION I have reviewed the procedure note and agree with its contents. Pursuant to Federal Medic[employer] e billing regulations, I certify that I performed the morales components of the procedure: ident casey location/lesion and method of treatment, identify the appropriate margin, respect for an atomy, and reading of the prepared histologic session. RECONSTRUCTION- ATTENDING PHYSICIAN ATTESTATION I have reviewed the procedure note and agree with its contents. Pursuant to Federal Medicar e billing regulations, I certify that I performed, at a minimum, the morales components of the p rocedure: identify type of reconstruction, areas of primary and secondary tissue movement, d esign of closure, location of morales stitch, and review of final result. documented in this encounter Plan of Treatment Not on filedocumented as of this encounter Procedures + +--------+ + + + | Procedure Name | Priori | Date/Time | Associated Diagnosis | Comments | | | ty | | | | + +--------+ + + + | PROCEDURE NOTE | Routin | 02/08/2019 | | Results for this | | | e | 3:07 AM | | procedure are in the | | | | PDT | | results section. | + +--------+ + + + | [place] MOHS ADDL STAGE | Routin | 08/17/2018 | BCC (basal cell | | | | e | 4:16 PM | carcinoma), hand, | | | | | PDT | left | | + +--------+ + + + | [place] MOHS,1 | Routin | 08/17/2018 | Basal cell | | | STAGE,H/N/HF/G | e | 4:16 PM | carcinoma (BCC) of | | | | | PDT | chin BCC (basal | | | | | | cell carcinoma), | | | | | | hand, left | | + +--------+ + + + | [place] REPR CMPL WND | Routin | 08/17/2018 | Basal cell | | | HEAD,FAC,HAND | e | 4:16 PM | carcinoma (BCC) of | | | 2.6-7.5 | | PDT | chin BCC (basal | | | | | | cell carcinoma), | | | | | | hand, left | | + +--------+ + + + documented in this encounter Results PROCEDURE NOTE (02/08/2019 3:07 AM PDT)documented in this encounter Visit Diagnoses + + | Diagnosis | + + | Skin cancer - Primary Unspecified malignant neoplasm of skin, site unspecified | + + | Basal cell carcinoma (BCC) of chin | + + | BCC (basal cell carcinoma), hand, left | + + documented in this encounter Administered Medications + +--------+ + +------+------+ | Medication Order | MAR | Action | Dose | Rate | Site | | | Action | Date | | | | + +--------+ + +------+------+ | cephALEXin (KEFLEX) capsule | Given | 08/16/20 | 1,000 mg | | | | 1,000 mg 1,000 mg, oral, ONCE, 1 | | 18 8:20 | | | | | dose, 08/16/18 at 0830 | | AM PDT | | | | + +--------+ + +------+------+ +---+---+ | | | +---+---+ + +-------+ +------+---+---+ | diazePAM (VALIUM) tablet 5 mg | Given | 08/16/20 | 5 mg | | | | 5 mg, oral, ONCE, 1 dose, Thu | | 18 8:21 | | | | | 08/16/18 at 0830 | | AM PDT | | | | + +-------+ +------+---+---+ +---+---+ | | | +---+---+ documented in this encounter"
--- OUTSIDE RECORDS SUMMARY | ~2019-11-13 | XMS | Encounter Summary ---
Demographics + + + | Address | [address] | | | [place] [address] | + + + | Home Phone | | + + + | Preferred Language | Unknown | + + + | Marital Status | Single | + + + | Jain Affiliation | Unknown | + + + | Race | White | + + + | Ethnic Group | Not or | + + + Author + + + | Author | [facility] | + + + | Organization | [facility] | + + + | Address [...] Team Providers + +------+ + | Care Dining Room Busser Name | Role | Phone | + +------+ + | Michael Montoya MD | PCP | | + +------+ + Reason for Referral Diagnostic Testing +--------+--------+ + + + + | Status | Reason | Specialty | Diagnoses / | Referred By | Referred To | | | | | Procedures | Contact | Contact | +--------+--------+ + + + + | Closed | | Clinical | Procedures | Cnl Eeg | Cnl Eeg Hrc | | | | Neurophysiolo | EEG | [address] | | | | gy | ROUTINE | [address] | [address] | | | | | | Janelle Rausch | Shalom | | | | | | Mailcode: | Mailcode: | | | | | | CR120 | CR120 | | | | | | Familia | Familia | | | | | | Research | Research | | | | | | Shed[place] | [place]d | | | | | | [place], [place] | [place], [place] | | | | | | [address] | [address] | | | | | | Phone: | Phone: | | | | | | [phone] | [phone] | | | | | | Fax: | Fax: | | | | | | [phone] | | +--------+--------+ + + + + Encounter Details +--------+ + + + + | Date | Type | Department | Care Team | Description | +--------+ + + + + | 03/24/ | Outside | Neurophysiology | Jan, | | | 2012 | Referral | EEG at [facility] [address] | Michael Tanner MD | | | | Order | [address] | [address] | | | | | Mailcode: CR120 | [place] [address] | | | | | [facility] | [phone] | | | | | [place], [place] | | | | | | [address] | | | | | | [phone] | | | +--------+ + + + [...] | + +--------+ + + + | EEG ROUTINE | Routin | 03/11/2013 | | Results for this | | | e | | | procedure are in the | | | | | | results section. | + +--------+ + + + documented in this encounter Results EEG ROUTINE (03/11/2013) + + | Specimen | + + | | + + + + + | Narrative | Performed At | + + + | Patient Name: Annabel Saucedo Date of : 1945 Medical | | | Record Number: [id number] Date of Test: 03/11/2013 Place of | | | Service: [facility] Department: EEG [facility] - [id number] ROUTINE | | | EEG Indication: 67 year old woman with episodes of confusion and | | | questionable remote epilepsy history in the . EEG to evaluate | | | for epileptiform abnormalities. Current Inpatient Medications: | | | CLONAZEPAM OR DIAZEPAM ORAL DULOXETINE HCL (CYMBALTA ORAL) | | | methadone 5 mg Oral Tablet Oxycodone 10 mg Oral Tablet And others. | | | Methods: This study was a Routine EEG with a duration of 33 | | | minutes. The digital recording was performed with routine electrodes | | | applied according to the 10-20 electrode placement system. The record | | | included video, EKG, and EOG monitoring. EEG was reviewed | | | electronically. Automated digital spike and seizure detection | | | analysis was used, along with patient-activated alarms and nursing | | | observations. EEG Description Interictal Record: The entire | | | record consists of significant electrode artifact, involving all | | | electrodes. A background of polymorphic theta to alpha frequencies is | | | present through the artifact, and there are intermittent sleep | | | spindles and vertex waves present. Sometimes there is overriding beta | | | activity. The patient declined photic stimulation per tech notation. | | | Hyperventilation is not performed. Events/Seizures: No events | | | or seizures are recorded. EKG: The single-channel EKG recording | | | shows an occasional irregular beat. Interpretation: This is a | | | technically inadequate study to evaluate for focal or epileptiform | | | abnormalities. Significant electrode artifact would not allow for | | | phase reversals to be identified. This is likely a sleep recording, | | | and additional beta activity likely represents a medication effect. | | | Recommend repeating the study. The single-channel EKG recording shows | | | an occasional irregular beat; a standard 12-lead EKG is recommended, | | | if clinically indicated. Kiersten Stout M.D. Suggested CPT: | | | 84753 - EEG Asleep Only Suggested Dx: 348.30 - Encephalopathy, | | | Unspec Electronically signed on 03/25/2013 at 5:27 PM KIERSTEN Elliott | | | MD ALAN. | | + + + documented in this encounter Visit Diagnoses Not on filedocumented in this encounter"
--- OUTSIDE RECORDS SUMMARY | ~2019-11-13 | XMS | Encounter Summary ---
Demographics + + + | Address | [address] | | | [place] [address] | + + + | Home Phone | | + + + | Preferred Language | Unknown | + + + | Marital Status | Single | + + + | Hindu Affiliation | Unknown | + + + [...] Team Providers + +------+ + | Care Garbage Truck Helper Name | Role | Phone | [...] Research | | | | | | [place] | | | | | | [place], [place] | [place], [place] | | | | | | [address] | [address] | | | | | | Phone: | Phone: | | | | | | [phone] | [phone] | | | | | | Fax: | Fax: | | | | | | [phone] | | +--------+--------+ + + + + Encounter Details +--------+ + + + + | Date | Type | Department | Care Team | Description | +--------+ + + + + | 03/24/ | Outside | Neurophysiology | Jan, | | | 2012 | Referral | EEG at [facility] [address] | Michael Tanner MD | | | | Order | [address] | [address] | | | | | Mailcode: CR120 | [place] [address] | | | | | [facility] | [phone] | | | | | [place], [place] | | | | | | [address] | | | | | | [phone] | | | +--------+ + + + [...] 1945 Medical | | | Record Number: [id number] Date of Test: 03/11/2013 Place of | | | Service: [facility] Department: EEG [facility] - [id number] ROUTINE | | | EEG Indication: 67 [...] Stout M.D. Suggested CPT: | | | 23515 - EEG Asleep Only Suggested Dx: 348.30 - Encephalopathy, | | | Unspec Electronically signed on 03/25/2013 at 5:27 PM KIERSTEN Elliott | | | MD ALAN. | | + + + documented in this encounter Visit Diagnoses Not on filedocumented in this encounter"
--- OUTSIDE RECORDS SUMMARY | ~2019-11-13 | XMS | Encounter Summary ---
Demographics + + + | Address | [address] | | | [place] [address] | + + + | Home Phone [...] + + + | Author | [facility] | + + + | Organization | [facility] | + + + | Address [...] Team Providers + +------+ + | Care Missile Inspector Name | Role | Phone | + +------+ + | Michael Montoya MD | PCP | | + +------+ + Encounter Details +--------+ + + + + | Date | Type | Department | Care Team | Description | +--------+ + + + + | 07/05/ | Pharmacy | Specialty Pharmacy | | | | 2013 | Visit | Services [address] | | | | | | [address] | | | | | | [place], [place] | | | | | | [address] | | | | | | [phone] | | | +--------+ + + + [...]
--- OUTSIDE RECORDS SUMMARY | ~2019-11-13 | XMS | Encounter Summary ---
Demographics + + + | Address | [address] | | | [place] [address] | + + + | Home Phone | | + + + | Preferred Language | Unknown | + + + | Marital Status | | + + + | Judaism Affiliation | 1013 | + + + | Race | Unknown | + + + | Ethnic Group | Unknown | + + + Author + + + | Author | [facility] | | | and [place] | + + + | Organization | [facility] | | | and [place] | + + + | Address | Unknown | + + + | Phone | Unavailable | + + + Support + + + + + | Name | Relationship | Address | Phone | + + + + + | Tamar Lancaster | JOSEE | [address] | | | | | [place] [address] | | + + + + + | Peter Hester | ECON | [address] | | | | | [place] [address] | | + + + + + Care Team Providers + +------+ + | Care Medical Anthropologist Name | Role | Phone | + +------+ + | Michael Montoya MD | PCP | | + +------+ + Reason for Visit + + + | Reason | Comments | + + + | Appointment | | + + + Encounter Details +--------+ + + + + | Date | Type | Department | Care Team | Description | +--------+ + + + + | 01/06/ | Telephone | [facility] | Uvaldo Hobbs | Appointment | | 2012 | | PHYSIATRY [address] | | | | | [place], | [facility] [place] | | | | | [place] [address] | [address] | | | | | [phone] | | | +--------+ + + + [...] CHAN | | | | | | [place] [address] | | | | | | [phone] | | | | | | | | +--------+---------+ + + + documented as of this encounter Visit Diagnoses Not on filedocumented in this encounter"
--- OUTSIDE RECORDS SUMMARY | ~2019-11-13 | XMS | Encounter Summary ---
Demographics + + + | Address | [address] | | | [place] [address] | + + + | Home Phone | | + + + | Preferred Language | Unknown | + + + | Marital Status | | + + + | Jewish Affiliation | 1013 | + + + | Race | Unknown | + + + | Ethnic Group | Unknown | + + + Author + + + | Author | [facility] | | | and [place] | + + + | Organization | [facility] | | | and [place] | + + + | Address | Unknown | + + + | Phone | Unavailable | + + + Support + + + + + | Name | Relationship | Address | Phone | + + + + + | Tamar Lancaster | JOSEE | [address] | | | | | [place] [address] | | + + + + + | Peter Hester | ECON | [address] | | | | | [place] [address] | | + + + + + Care Team Providers + +------+ + | Care Carpet Sewer Name | Role | Phone | + +------+ + | Michael Montoya MD | PCP | | + +------+ + Reason for Visit +--------+ + | Reason | Comments | +--------+ + | Other | Referral for EEG | +--------+ + Encounter Details +--------+ + + + + | Date | Type | Department | Care Team | Description | +--------+ + + + + | 02/08/ | Telephone | [facility] | Jamshid Xiong MD [address] | Other (Referral for | | 2012 | | NEUR[address] | [address] | EEG) | | | | [address] [facility], | [address] [place], | | | | | [address] [place] | [place] [address] | | | | | [place] [address] | [phone] | | | | | [phone] | | | +--------+ + + + [...] CHAN | | | | | | [place] [address] | | | | | | [phone] | | | | | | | | +--------+---------+ + + + documented as of this encounter Visit Diagnoses Not on filedocumented in this encounter"
--- OUTSIDE RECORDS SUMMARY | ~2019-11-13 | XMS | Encounter Summary ---
Demographics + + + | Address | [address] | | | [place] [address] | + + + | Home Phone | | + + + | Preferred Language | Unknown | + + + | Marital Status | Single | + + + | Adventism Affiliation | Unknown | + + + | Race | White | + + + | Ethnic Group | Not or | + + + Author + + + | Author | [facility] | + + + | Organization | [facility] | + + + | Address [...] Team Providers + +------+ + | Care Diesel Crane Operator Name | Role | Phone | + +------+ + | Michael Montoya MD | PCP | | + +------+ + Reason for Visit + + + | Reason | Comments | + + + | Follow-up visit | | + + + | Psoriasis | | + + + Encounter Details +--------+---------+ + + + | Date | Type | Department | Care Team | Description | +--------+---------+ + + + | 09/06/ | Office | Dermatology at | [place], | Seborrheic keratosis | | 2018 | Visit | Jermaine Cabello | ,PhD 1933 | (Primary Dx); | | | | Clinic [address] | [address] [place], [place] | History of basal | | | | [place], [place] | [address] | cell carcinoma (BCC) | | | | [address] | [phone] | | | | | [phone] | | | +--------+---------+ + + + [...] + + + + | Weight | 88.7 kg (195 lb 9.6 | 09/06/2018 10:30 AM | | | | oz) | PDT | | + + + + + | Height | 151.1 cm (4' 11.5") | 09/06/2018 10:30 AM | | | | | PDT | | + + + + + | Body Mass Index | 38.85 | 09/06/2018 10:30 AM | | | | | PDT | | + + + + + documented in this encounter Patient Instructions Patient Instructions Sierra Oakes MA - 09/06/2018 10:30 AM PDTSUNSCREEN APPLICATION AND UV PROTECTION ? Exposure to ultraviolet radiation is the leading cause of premature aging, and skin cance rs including melanoma. ? The [place] [employer] (AAD) recommends you wear a wide-brimmed hat, sun gla sses and sun protective clothing. If you must be in the sun, it is recommended to use a Bro ad spectrum sunscreen (blocking both UVA and UVB) with a sun protection factor (SPF) of 30+ (even on cloudy days) and reapply every two hours, or after swimming or heavy perspiration. ? Sunscreens should be applied generously and evenly. One fluid ounce (or the equivalent o f a full shot glass) is the approximate amount of sunscreen required for each person each ti me sunscreen is applied. ? Sunscreens have an expiration date and once that date is reached, they may lose effective ness and should be discarded. ? Sunscreen is also important for blocking reflected UVR (Ultraviolet Radiation). Sand, con crete, snow, water, and other surfaces reflect UVR which has the same effect to your skin as direct sunlight. THE "ABCDE" RULE AND MELANOMA DETECTION Asymmetry - compare one half of the growth to the other half to determine if the halves are equal in size and appearance. Border - If the mole's border is irregular, notched, scalloped, or indistinct, it should be checked by a doctor. Color - Variation of color (e.g., more than one color or shade) within a mole is a suspicio us finding. Diameter - Any mole that has a diameter larger than a pencil's eraser should be checked by a doctor. Evolving - If a mole is changing in size, shape, color, elevation, surface texture or becom es itchy or painful, it should be checked by a doctor. Additional sunscreen and melanoma information is available at the following websites: http://www.[email or web address]/xd/health/services/dermatology/for-patients/health_info.cfm - [facility] Derm atology http://www.aad.org/public/sun/smart.html - AAD Website documented in this encounter Progress Notes Alka Montiel MD,PhD - 09/06/2018 10:30 AM PDTFormatting of this note might be differen t from the original. [facility] DERMATOLOGY FOLLOW-UP VISIT (Last Appointment in [facility] D[facility] was on 08/23/18 at 3:43 pm with [facility]. Removal of suture.) Derm Hx: L chin BCC - Mohs 08/2018 L chest BCC - please schedule for excision with nd L dorsal hand BCC - Mohs 08/2018 SUBJECTIVE: Annabel Saucedo is a 73 y.o. female here for follow-up of skin cancer. Patient presents for her 6 month follow up. Patient recently underwent Mohs procedure on her L chin and L dorsal hand. Patient state that she is concerned about a bump on her Left chin where mohs procedure was done. She states that it's not healing like she would like it to. She state she hasn't had the excision done yet on her her Left chest. She states that she has some dry spots on h er legs and a red area on her R chest that she would like looked at. ROS: Other than those stated above, the patient denies any fevers, chills, night sweats, w eight loss, loss of appetite or other skin complaints. PAST MEDICAL HISTORY: Past Medical History: Diagnosis Date Bipolar disorder (HCC) Carpal tunnel syndrome Celiac sprue Depressive disorder, not elsewhere classified Fibromyalgia HTN (hypertension) Macular hole OS Osteoarthritis PTSD (post-traumatic stress disorder) PHYSICAL EXAMINATION: Ht 1.511 m (4' 11.5") | Wt 88.7 kg (195 lb 9.6 oz) | BMI 38.85 kg/(m^2) Well-developed, well-nourished patient in no acute distress. Awake, alert and oriented. P leasant and cooperative mood. A complete skin examination was performed including the scalp/hair, head/face, eyelids/conj unctivae, lips, neck, chest, back, abdomen, buttocks, genital exam declined, bilateral arms and legs, bilateral hands and feet, and nails. --Left scalp, R chest, : waxy hyperkeratotic mercer/brown stuck on papules and plaques with ps eudocysts --well healed scar without pigmentation, induration, or scale on the chin and left dorsal h and, both areas are moderately erythematous with increased vasculature ASSESSMENT AND PLAN: (L82.1) Seborrheic keratosis (primary encounter diagnosis) Comment: L scalp, R chest Plan: -Pt reassured as to the benign nature, does not require treatment unless symptomatic or repeatedly traumatized. Like any lesion, should it not be stable in size or appearance, or become symptomatic, it should be biopsied to confirm benign nature. Pt instructed to retu rn with any change or concern. (Z85.779) History of basal cell carcinoma (BCC) Comment: NER --we discussed that if the scar on the chin remains quite red that laser treatment would be an option. --She would like [facility] dermatology surgery to call her for a post Mohs follow-up to discuss treatment of the scar in the next 3 months. Plan: -ABCDEs of melanoma were discussed as well as the findings seen with non-melanoma sk in cancer. Routine use of sunscreen and skin-protective clothing was also discussed. Month ly self-examination was recommended in addition to annual skin exams Basal cell carcinoma on the chest: Not yet treated. Scheduled for excision on September h. RETURN VISIT: Return in about 6 months (around 03/07/2019). and September 20 for excision Alka Montiel M.D. Ph.D. Sheet Pile Hammer Operator Department of Dermatology [facility] ([facility]) Dermatology documented in is encounter Plan of Treatment Not on filedocumented as of this encounter Visit Diagnoses + + | Diagnosis | + + | Seborrheic keratosis - Primary Other seborrheic keratosis | + + | History of basal cell carcinoma (BCC) | + + documented in this encounter
--- OUTSIDE RECORDS SUMMARY | ~2019-11-13 | XMS | Encounter Summary ---
Demographics + + + | Address | [address] | | | [place] [address] | + + + | Home Phone | | + + + | Preferred Language | Unknown | + + + | Marital Status | | + + + | Tenriism Affiliation | 1013 | + + + | Race | Unknown | + + + | Ethnic Group | Unknown | + + + Author + + + | Author | [facility] | | | and [place] | + + + | Organization | [facility] | | | and [place] | + + + | Address | Unknown | + + + | Phone | Unavailable | + + + Support + + + + + | Name | Relationship | Address | Phone | + + + + + | Tamar Lancaster | JOSEE | [address] | | | | | [place] [address] | | + + + + + | Peter Hester | ECON | [address] | | | | | [place] [address] | | + + + + + Care Team Providers + +------+ + | Care Manager Audio Name | Role | Phone | + [...] | | | | shoulder | | [address] Phone: | | | | | Complete | | [phone] | | | | | rotator cuff | | Fax: | | | | | tear of | | [phone] | | | | | left | | | | | | | shoulder | | | | | | | [[id number]] | | | | | | | Procedures | | | | | | | MS REPAIR | | | | | | | ROTATOR | | | | | | | CUFF,CHRONIC | | | | | | | MS PARTIAL | | | | | | | | | | | | | | REMOVAL/REPA | | | | | | | IR,ACROMION | | | | | | | MS PARTIAL | | | | | | | REMOVAL, | | | | | | | CLAVICLE | | | +--------+--------+ + + + + Encounter Details +--------+ + + + + | Date | Type | Department | Care Team | Description | +--------+ + + + + | 10/07/ Anesthesia | [facility]KCER | Robert Lindsay | | | 2015 | Event | [facility] | MD Fer [address] | | | | | [address] | [address] [place], [place] | | | | | [place], [place] | [address] | | | | | [address] | [phone] | | | | | [phone] | | | +--------+ + + + + Anesthesia Record + + + + + | Procedure Name | Responsible | Anesthesia Start | Anesthesia Stop Time | | | Anesthesiologist | Time | | + + + + + | Left Rotator Cuff | Robert Lindsay, | 10/07/16 0911 | 10/07/16 1118 | | Repair w/ | MD | | | | Acromioplasty and | | | | | Distal Clavicle | | | | | Excision (Left | | | | | Shoulder) | | | | + + + + + +----+---+ + + | Da | T | Event | Comment | | te | i | | | | | m | | | | | e | | | +----+---+ + + | 11 | 0 | An Checkout | Pre-use anesthesia machine/equipment checkout. | | /2 | 8 | | | | 2/ | 4 | | | | 20 | 6 | | | | 16 | | | | +----+---+ + + | | 0 | | | | | 9 | | | | | 0 | | | | | 8 | | | +----+---+ + + | | 0 | An Start | | | | 9 | Data | | | | 0 | | | | | 9 | | | +----+---+ + + | | 0 | An Start | Room ready, anesthesia equipment checked, essential drugs & | | | 9 | | equipment available. Patient Identity checked, anesthesia plan | | | 1 | | explained and consent obtained. Patient transported to OR, | | | 1 | | Monitors applied. Reassessment prior to anesthesia | | | | | induction/procedure. | +----+---+ + + | | 0 | an enedelia now | | | | 9 | | | | | 1 | | | | | 4 | | | +----+---+ + + | | 0 | Antibiotic | | | | 9 | Given | | | | 1 | | | | | 5 | | | +----+---+ + + | | 0 | Block Start | | | | 9 | | | | | 2 | | | | | 0 | | | +----+---+ + + | | 0 | AN Block | | | | 9 | End | | | | 2 | | | | | 4 | | | +----+---+ + + | | 0 | Preoxygenat | Oxygen administered, patient sedated, ventilating spontaneously. | | | 9 | ed | | | | 2 | | | | | 7 | | | +----+---+ + + | | 0 | An | | | | 9 | Induction | | | | 2 | | | | | 9 | | | +----+---+ + + | | 0 | An | Smooth IV induction, easy mask airway. LMA placed and well | | | 9 | Intubation | seated. Breathing Circuit attached to LMA. BSEB/ETCO2 | | | 3 | | (auscultation and capnography) and placement confirmed. | | | 0 | | | +----+---+ + + | | 0 | Pre-Procedu | | | | 9 | ral Timeout | | | | 4 | Completed | | | | 0 | | | +----+---+ + + | | 0 | First | | | | 9 | Inc/Proc St | | | | 4 | | | | | 5 | | | +----+---+ + + | | 1 | an enedelia now | PACU | | | 1 | | | | | 1 | | | | | 3 | | | +----+---+ + + | | 1 | An Stop | Patient handed off to recovery nurse. | | | 1 | | | | | 8 | | | +----+---+ + + +------+ | Meds | +------+ + + + | Name | Total | + + + | propofol | 110 mg | + + + | ketamine | 25 mg | + + + | fentaNYL injection (2 mL) | 100 mcg | + + + | HYDROmorphone | 1 mg | + + + | ondansetron | 4 mg | + + + | ropivacaine 0.5% | 12 mL | + + + | lidocaine 2% | 8 mL | + + + | glycopyrrolate | 0.2 mg | + + + | ceFAZolin (ANCEF, KEFZOL) 2 g in | 2 g | | sodium chloride 0.9% 50 mL IVPB | | + + + | lactated ringers (LR) infusion | 1,400 mL | + + + + + | Name | + + | N2O Flow Rate (L/Min) | + + | O2 Flow Rate (L/Min) | + + | Insp O2 | + + | Exp SEV | + + | Air Flow Rate (L/Min) | + + + + | No blood administrations on file. | + + +--------+ + + + | Type | Details | Placement | Removal | +--------+ + + + | Periph | 10/07/16; 0756; Left; Foot; 20 | 10/07/16 0756 by | 10/07/16 1400 by | | eral | gauge, 1 1/4 in length; | Elo Davidson RN | Patt Lopez, | | IV | distraction, intradermal | | RN | | | injection, tolerated well; no | | | | | longer indicated, removed per | | | | | policy/procedure; 10/07/16; 1400 | | | +--------+ + + + | Airway | Placement Date: 10/07/16; | 10/07/16 09 by | 10/07/16 1357 by | | | Placement Time: 929 (created via | Robert Lindsay, | Patt Lopez, | | | procedure documentation); Mask | MD | RN | | | Ventilation: EZ; Attempts: 1; | | | | | Airway Type: laryngeal mask; | | | | | Size: 3; Trauma: none; Placement | | | | | Check: exhaled CO2 detection | | | | | device, bilateral chest rise, | | | | | breath sounds equal bilaterally; | | | | | Removal Date: 10/07/16; Removal | | | | | Time: 1356; Additional Comments: | | | | | Smooth IV induction. LMA placed | | | | | and well seated. Secured in | | | | | place. Breathing Circuit attached | | | | | to LMA. BSEB/ETCO2 | | | | | (auscultation and capnography) | | | | | and placement confirmed. | | | +--------+ + + + | Read | 10/07/16; 1028; Left; shoulder; | 10/07/16 1028 by | 10/07/16 1357 by | | only - | healing within expectations; | Wei De Leon RN | Patt Lopez, | | | 10/07/16; 1357 | | RN | | Incisi | | | | | on | | | | +--------+ + + + documented in this encounter Social History + +-------+ +--------+------+ | Tobacco [...] CHAN | | | | | | [place] [address] | | | | | | [phone] | | | | | | | | +--------+---------+ + + + documented as of this encounter Procedures + +--------+ + + + | Procedure Name | Priori | Date/Time | Associated Diagnosis | Comments | | | ty | | | | + +--------+ + + + | ANE AIRWAY NOTE | Routin | 10/07/2016 | | Results for this | | | e | 12:13 PM | | procedure are in the | | | | PST | | results section. | + +--------+ + + + documented in this encounter Results Anesthesia Perineural Note (10/07/2016 12:13 PM PST) + + + | Narrative | Performed At | + + + | Robert Lindsay MD 10/07/2016 12:13 Anesthesia Airway | | | Placement 10/07/2016 9:30 Preprocedure check: patient identified, | | | oxygen, airway assessed, patient reassessment prior to induction, | | | airway equipment checked and suction Mask ventilation: easy | | | Attempts: 1 Airway type: laryngeal mask Size: 3 Cuffed: cuffed | | | Route, reference point: center of mouth Tube secured with: adhesive | | | tape Trauma: none Tube placement verification: carbon dioxide | | | detection, equal bilateral breath sounds and bilateral chest rise | | | Performing provider: ROBERT LINDSAY Comments: Smooth IV | | | induction. LMA placed and well seated. Secured in place. Breathing | | | Circuit attached to LMA. BSEB/ETCO2 (auscultation and | | | capnography) and placement confirmed. Perineural Procedure | | | Note 10/07/2016 9:24 Nerve block: interscalene-brachial plexus | | | Laterality: left Continuous block with catheter: No Provider | | | requested procedure: CASTILLO Indication: postoperative analgesia | | | Preprocedure check: patient identified, procedure and rescue | | | equipment checked, preevaluation including airway assessment | | | complete, risks/benefits discussed, consent obtained, timeout | | | performed, reassessment prior to procedure and monitors applied | | | Patient position: supine Preparation: chlorhexidine/isopropyl alcohol | | | Technique: ultrasound Needle: insulated and stimulating Needle | | | size: 21 g Needle length: 4 in Lowest stimulator setting in mA: 1 | | | Medication administered through: needle and incremental injection | | | Negative findings: no blood aspirated and no paresthesia Test | | | response dose: negative Total volume of local anesthetic solution | | | administered: 20 Ease of procedure: 1 Attempts: easy Comments: | | | Patient positioned in the Operating Room with monitors applied. | | | Landmarks identified and marked. The patient was prep'd and area | | | isolated to allow for sterile technique. Ultrasound was used to | | | guide a Stimex/Stimuplex needle to the nerve avoiding all | | | vasculature. Twitches were identified. Lowest milliamp (ma) | | | document above. 1cc test dose to extinguish twitches follow by | | | incremental injection of the remaining local anesthetic (see | | | Anesthesia Record for totals). All injections preceded by an | | | aspiration to assure no vascular injection. Minimal or no blood | | | loss. Patient tolerated the procedure well. Please see | | | anesthesia record or flowsheet for vital sign documentation and see | | | anesthesia record or MAR for all medication documentation. | | | Performing provider: ROBERT LINDSAY P | | + + + Anesthesia Airway Note (10/07/2016 12:13 PM PST) + + + | Narrative | Performed At | + + + | Robert Lindsay MD 10/07/2016 12:13 Anesthesia Airway | | | Placement 10/07/2016 9:30 Preprocedure check: patient identified, | | | oxygen, airway assessed, patient reassessment prior to induction, | | | airway equipment checked and suction Mask ventilation: easy | | | Attempts: 1 Airway type: laryngeal mask Size: 3 Cuffed: cuffed | | | Route, reference point: center of mouth Tube secured with: adhesive | | | tape Trauma: none Tube placement verification: carbon dioxide | | | detection, equal bilateral breath sounds and bilateral chest rise | | | Performing provider: ROBERT LINDSAY Comments: Smooth IV | | | induction. LMA placed and well seated. Secured in place. Breathing | | | Circuit attached to LMA. BSEB/ETCO2 (auscultation and | | | capnography) and placement confirmed. Perineural Procedure | | | Note 10/07/2016 9:24 Nerve block: interscalene-brachial plexus | | | Laterality: left Continuous block with catheter: No Provider | | | requested procedure: CASTILLO Indication: postoperative analgesia | | | Preprocedure check: patient identified, procedure and rescue | | | equipment checked, preevaluation including airway assessment | | | complete, risks/benefits discussed, consent obtained, timeout | | | performed, reassessment prior to procedure and monitors applied | | | Patient position: supine Preparation: chlorhexidine/isopropyl alcohol | | | Technique: ultrasound Needle: insulated and stimulating Needle | | | size: 21 g Needle length: 4 in Lowest stimulator setting in mA: 1 | | | Medication administered through: needle and incremental injection | | | Negative findings: no blood aspirated and no paresthesia Test | | | response dose: negative Total volume of local anesthetic solution | | | administered: 20 Ease of procedure: 1 Attempts: easy Comments: | | | Patient positioned in the Operating Room with monitors applied. | | | Landmarks identified and marked. The patient was prep'd and area | | | isolated to allow for sterile technique. Ultrasound was used to | | | guide a Stimex/Stimuplex needle to the nerve avoiding all | | | vasculature. Twitches were identified. Lowest milliamp (ma) | | | document above. 1cc test dose to extinguish twitches follow by | | | incremental injection of the remaining local anesthetic (see | | | Anesthesia Record for totals). All injections preceded by an | | | aspiration to assure no vascular injection. Minimal or no blood | | | loss. Patient tolerated the procedure well. Please see | | | anesthesia record or flowsheet for vital sign documentation and see | | | anesthesia record or MAR for all medication documentation. | | | Performing provider: ROBERT LINDSAY | | + + + documented in this encounter Visit Diagnoses Not on filedocumented in this encounter Administered Medications + +---------+ +------+------+------+ | Medication Order | MAR | Action | Dose | Rate | Site | | | Action | Date | | | | + +---------+ +------+------+------+ | ceFAZolin (ANCEF, KEFZOL) 2 g | New Bag | 10/07/20 | 2 g | | | | in sodium chloride 0.9% 50 mL | | 16 9:15 | | | | | IVPB 2 g, Intravenous, | | AM PST | | | | | Administer over 30 Minutes, Prior | | | | | | | to Incision, Starting Thu | | | | | | | 10/07/16 at 0728, For 1 dose, | | | | | | | Give within one hour prior to | | | | | | | incision., Pre-op, Indications: | | | | | | | Surgical Prophylaxis | | | | | | + +---------+ +------+------+------+ +---+---+ | | | +---+---+ + +-------+ +--------+---+---+ | fentaNYL (PF) injection PRN, | Given | 10/07/20 | 50 mcg | | | | Pain, Starting Thu10/07/16 at | | 16 9:29 | | | | | 0929, Anesthesia Intra-op | | AM PST | | | | + +-------+ +--------+---+---+ +-------+ +--------+---+---+ | Given | 10/07/20 | 50 mcg | | | | | 16 9:15 | | | | | | AM PST | | | | +-------+ +--------+---+---+ +---+---+ | | | +---+---+ + +-------+ +--------+---+---+ | glycopyrrolate (ROBINUL) | Given | 10/07/20 | 0.2 mg | | | | injection Intravenous, PRN, | | 16 9:37 | | | | | Secretions, Starting Thu10/07/16 | | AM PST | | | | | at 0937, Anesthesia Intra-op | | | | | | + +-------+ +--------+---+---+ +---+---+ | | | +---+---+ + +-------+ +------+---+---+ | HYDROmorphone (DILAUDID) 2 | Given | 10/07/20 | 1 mg | | | | mg/mL injection Intravenous, | | 16 9:30 | | | | | PRN, Pain, Starting Thu10/07/16 | | AM PST | | | | | at 0930, Anesthesia Intra-op | | | | | | + +-------+ +------+---+---+ +---+---+ | | | +---+---+ + +-------+ +-------+---+---+ | ketamine 50 mg/mL injection | Given | 10/07/20 | 25 mg | | | | PRN, Starting Thu10/07/16 at | | 16 9:30 | | | | | 0930, Anesthesia Intra-op | | AM PST | | | | + +-------+ +-------+---+---+ +---+---+ | | | +---+---+ + +---------+ +---+---+---+ | lactated ringers (LR) infusion | New Bag | 10/07/20 | | | | | at 10-100 mL/hr, Intravenous, | | 16 9:45 | | | | | CONTINUOUS, Starting Thu10/07/16 | | AM PST | | | | | at 0745, TKO., Pre-op | | | | | | + +---------+ +---+---+---+ +---------+ +---+-------+---+ | New Bag | 10/07/20 | | 100 | | | | 16 7:59 | | mL/hr | | | | AM PST | | | | +---------+ +---+-------+---+ +---+---+ | | | +---+---+ + +-------+ +-------+---+---+ | lidocaine (PF) 2% injection | Given | 10/07/20 | 8 mLs | | | | Infiltration, PRN, Starting Tue | | 16 9:23 | | | | | 10/07/16 at 0923, Anesthesia | | AM PST | | | | | Intra-op | | | | | | + +-------+ +-------+---+---+ +---+---+ | | | +---+---+ + +-------+ +------+---+---+ | ondansetron (ZOFRAN) injection | Given | 10/07/20 | 4 mg | | | | PRN, Nausea, Vomiting, Starting | | 16 9:15 | | | | | 10/07/16 at 0915, Anesthesia | | AM PST | | | | | Intra-op | | | | | | + +-------+ +------+---+---+ +---+---+ | | | +---+---+ + +-------+ +--------+---+---+ | propofol (DIPRIVAN) injection | Given | 10/07/20 | 110 mg | | | | Intravenous, PRN, Starting Tue | | 16 9:29 | | | | | 10/07/16 at 0929, Anesthesia | | AM PST | | | | | Intra-op | | | | | | + +-------+ +--------+---+---+ +---+---+ | | | +---+---+ + +-------+ +--------+---+---+ | ropivacaine (NAROPIN) 5 mg/mL | Given | 10/07/20 | 12 mLs | | | | (0.5%) injection Infiltration, | | 16 9:23 | | | | | PRN, Starting 10/07/16 at | | AM PST | | | | | 0923, Anesthesia Intra-op | | | | | | + +-------+ +--------+---+---+ +---+---+ | | | +---+---+ documented in this encounter"
--- OUTSIDE RECORDS SUMMARY | ~2019-11-13 | XMS | Encounter Summary ---
Demographics + + + | Address | [address] | | | [place] [address] | + + + | Home Phone | | + + + | Preferred Language | Unknown | + + + | Marital Status | Single | + + + | Scientology Affiliation | Unknown | + + + | Race | White | + + + | Ethnic Group | Not or | + + + Author + + + | Author | [facility] | + + + | Organization | [facility] | + + + | [...] Team Providers + +------+ + | Care Regulatory Internship Name | Role | Phone | + +------+ + | Michael Montoya MD | PCP | | + +------+ + Reason for Visit + + + | Reason | Comments | + + + | Biopsy Finding | | + + + Encounter Details +--------+ + + + + | Date | Type | Department | Care Team | Description | +--------+ + + + + | 09/27/ | Telephone | Dermatology at | [facility], | Biopsy Finding | | 2017 | | Jermaine Cabello | ,PhD [address] | | | | Clinic [address] [place], [place] | | | | | [place], [place] | [address] | | | | | [address] | [phone] | | | | | [phone] | | | +--------+ + + + [...]
--- OUTSIDE RECORDS SUMMARY | ~2019-11-13 | XMS | Encounter Summary ---
Demographics + + + | Address | [address] | | | [place] [address] | + + + | Home Phone | | + + + | Preferred Language | Unknown | + + + | Marital Status | Single | + + + | Mosque Affiliation | Unknown | + + + | Race | White | + + + | Ethnic Group | Not or | + + + Author + + + | Author | [facility] | + + + | Organization | [facility] | + + + | Address [...] Team Providers + +------+ + | Care Welding Supervisor Name | Role | Phone | [...] | | | | | carcinoma | [phone] | for Health | | | | | ([facility]) of | Phone: | and Healing, | | | | | left hand | [phone] | [address], | | | | | 1) left chin | Fax: | 5th Floor | | | | | 2) left | [phone] | [place], [place] | | | | | dorsal hand | | [address] | | | | | Procedures | | Phone: | | | | | CONSULT TO | | [phone] | | | | | DERM & DERM | | Fax: | | | | | SURGERY | | [phone] | | | | | mohs | | | +--------+ + + + + + Encounter Details +--------+ + + + + | Date | Type | Department | Care Team | Description | +--------+ + + + + | 08/16/ | Procedure | Dermatology | [place], | [facility] | | 2018 | | Surgery at [facility] [address] | Ayaan Tanner MD [address] | (2 sites Left hand | | | | [address] | [address] | and Left chin BCC) | | | | Mailcode: [id number] | [place], [place] | | | | | [facility] | [address] | | | | | and Healing, | [phone] | | | | | [place] [address] | | | | | | [place], [place] | | | | | | [address] | | | | | | [phone] | | | +--------+ + + + [...] Sri Everett MA - 2018 8:00 AM [facility] [employer] [facility] DEPARTMENT OF DERMATOLOGY [address] [place] [address], SUTURE WOUND CARE INSTRUCTIONS General Care-All [...] under the skin or go to your [facility] urgent care or emergency room. Infection ? [...] than the day before. How to Reach [phone] Toll-free [phone] Evenings and Weekends: [phone] documented in this encounter Progress Notes Wayne [...] procedure was processed, read and resulted in [facility] Dermatologic Surgery, [address] [place] [address] MOHS MICROGRAPHIC SURGERY PROCEDURE NOTE 2018 ATTENDING SURGEON: Ayaan Davies M.D. HIGHWALL DRILL OPERATOR: Dev Ochoa MD Pretreatment lesion size of [...] procedure was processed, read and resulted in [facility] Dermatologic Surgery, [address] [facility] [place] [address] MOHS MICROGRAPHIC SURGERY PROCEDURE NOTE 2018 ATTENDING SURGEON: Ayaan Davies M.D. 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
--- OUTSIDE RECORDS SUMMARY | ~2019-11-13 | XMS | Encounter Summary ---
Demographics + + + | Address | [address] | | | [place] [address] | + + + | Home Phone | | + + + | Preferred Language | Unknown | + + + | Marital Status | | + + + | Confucianist Affiliation | 1013 | + + + | Race | Unknown | + + + | Ethnic Group | Unknown | + + + Author + + + | Author | [facility] | | | and [place] | + + + | Organization | [facility] | | | and [...] | | | | | [place] [address] | | + + + + + | Peter Hester | ECON | [address] | | | | | [place] [address] | | + + + + + Care Team Providers + +------+ + | Care Registrar Museum Name | Role | Phone | + +------+ + | Michael Montoya MD | PCP | | + +------+ + Reason for Referral Consultation (Routine) +--------+ + + + + [...] | | | | | ischemic | [place], | [address] | | | | | attack) | [place] [address] | [address], | | | | | Confusion | Phone: | [place] [address] | | | | | | [phone] | Phone: | | | | | | Fax: | [phone] | | | | | | [phone] | Fax: | | | | | | | [phone] | +--------+ + + + + + Evaluate & Treat (Routine) +--------+ + + + + + | Status | Reason | Specialty | Diagnoses / | Referred By | Referred To | | | | | Procedures | Contact | Contact | +--------+ + + + + + | Closed | Specialty | Physical | Diagnoses | Boubacar Hobbs | | | | Services | Therapy | | MD [address] | | | | Required | | Spondylolist | [address] | | | | | | hesis of | [place], | | | | | | lumbar | [place] [address] | | | | | | region | Phone: | | | | | | Degenerative | [phone] | | | | | | disc | Fax: | | | | | | disease, | [phone] | | | | | | lumbar | | | | | | | Lumbar | | | | | | | spinal | | | | | | | stenosis | | | | | | | Lumbar | | | | | | | radiculopath | | | | | | | y | | | +--------+ + + + + + + + | Scheduling Instructions | + + | Pool therapy, eval and treat. | + + Reason for Visit + + + | Reason | Comments | + + + | Back Pain | | + + + Encounter Details +--------+---------+ + + + | Date | Type | Department | Care Team | Description | +--------+---------+ + + + | 12/31/ | Office | [facility] | Boubacar Hobbs MD | Spondylolisthesis of | | 2012 | Visit | NEUROSURGERY [address] | lumbar region | | | | [address] | [place] [address] | (Primary Dx); | | | | [place] | [phone] | Degenerative disc | | | | [address] | | disease, lumbar; | | | | [phone] | | Lumbar spinal | | | | | | stenosis; Lumbar | | | | | | radiculopathy; | | | | | | Obesity (BMI | | | | | | 30-39.9); TIA | | | | | | (transient ischemic | | | | | | attack); Confusion; | | | | | | Fibromyalgia | | | | | | syndrome; DA | | | | | | (degenerative | | | | | | arthritis) | +--------+---------+ + + + Social History [...] + + + | Blood Pressure | 154/79 | 12/31/2012 8:37 AM | | | | | PST | | + + + + + | Pulse | 68 | 12/31/2012 8:37 AM | | | | | PST | | + + + + + | Temperature | - | - | | + + + + + | Respiratory Rate | 16 | 12/31/2012 8:37 AM | | | | | PST | | + + + + + | Oxygen Saturation | - | - | | + + + + + | Inhaled Oxygen | - | - | | | Concentration | | | | + + + + + | Weight | 88.5 kg (195 lb) | 12/31/2012 8:37 AM | | | | | PST | | + + + + + | Height | 155.5 cm (5' 1.22") | 12/31/2012 8:37 AM | | | | | PST | | + + + + + | Body Mass Index | 36.58 | 12/31/2012 8:37 AM | | | | | PST | | + + + + + documented in this encounter Patient Instructions Patient Instructions Boubacar Hobbs MD - 12/31/2012 9:44 AM PSTI recommend you try therapy and consider injections. On your current level of pain medication, surgery will be very difficult for you to recover from. Boubacar Hobbs documented in this encounter Progress Notes Ritchie Osborne PA-C - 12/31/2012 9:22 AM PSTFormatting of this note might be differ ent from the original. MARYBETH Mclain, and Boubacar Hobbs M.D. [address] [facility] [address] [place], [place] [id number] FAX: NEUROSURGERY HISTORY AND PHYSICAL EXAMINATION CHIEF COMPLAINT: Chief Complaint Patient presents with Back Pain HISTORY OF PRESENT ILLNESS: The patient is a 67 y.o. female with the complaint of back and bilateral leg pain she states that for greater than a year she has had increasing lower leg pain bilaterally beginning in her knees extending down to her feet she describes it in the posterior portion of her calves and leg. Her back pain is more in the mid lower back and wi th extension more to the left side with activity. This is been gradually getting worse over the last year and has been followed by her primary care provider. As this progressed they decided to do an MRI of her low back it hasn't she is now sent here for further evaluation. This patient has multiple comorbid conditions. During her history it sounds like she's had multiple episodes of TIAs in the past. She has had continued episodic issues with confusio n episodes, as well as double vision episodes, episodes of falling asleep as well as possibl y some episodes of syncope. Very difficult to get a good history on somebody's episodes fro m the patient. But she does relate having fallen in the bathtub a couple of times. She als o states she has chronic decreased sensation on the right side of her body versus the left s baljinder. The patient's activity level is minimal because of her ongoing problems including fibr omyalgia and her chronic pain, as well as her ongoing problems with weakness. She does not relate any chest pain although as mentioned above she is minimally active [place] symptoms improve with sitting in her recliner and laying down Her symptoms worsen with any activity Her has tried pain medications. PAST MEDICAL HISTORY: Past Medical History Diagnosis Date High blood pressure High cholesterol Anxiety Depression Sleep apnea Arthritis Breast cancer PAST SURGICAL HISTORY: Past Surgical History Procedure Date section, classic 1966, 69, 71 Hysterectomy 1973 Carpal tunnel release 1993, 96 Rotator cuff repair 2008 Cholecystectomy 2008 Breast lumpectomy 2011 CURRENT MEDICATIONS: Current Outpatient Prescriptions on File Prior to [...] PO Take 0.5 mg by mouth Daily. ALLERGIES: Allergies Allergen Reactions Bee Venom Anaphylaxis Iodine Anaphylaxis Povidone Iodine Anaphylaxis SOCIAL HISTORY: The patient reports that she has never smoked. She has quit using smokeless tobacco. Her s mokeless tobacco use included Chew. She reports that she does not drink alcohol or use illic it drugs. FAMILY HISTORY: Family History Problem Relation Age of Onset Headache Mother Alcohol abuse Brother Stroke Brother Stroke Mother Stroke Father Seizures Son Cancer Mother lung Heart disease Father Diabetes Brother Diabetes Mother REVIEW OF SYSTEMS: GENERALLY: No fever, no night sweats, no anemia, positive fatigue, positive for weight ga in. EYES: Positive for eye problems, positive for use of corrective lenses, no eye injury, p ositive for intermittent double vision, no blindness. EARS, NOSE, AND THROAT: No changes in taste or smell, no hearing difficulty, no ringing in the ears, no ear drainage, no dizziness, no voice changes, no difficulty swallowing, no sig nificant snoring, no sleep apnea, no sinus problems, no major dental work. NEUROLOGICALLY: Please see the review of systems discussed above in the history of present illness. PSYCHIATRIC: positive for depression, positive for sleep disorders noncompliant with CPA P , positive anxiety, was a 4 bipolar disorder, positive for depression no psychotic epi sodes. CARDIOVASCULAR: No heart attacks, no heart murmur, no heart fluttering, no chest pain posi tive ankle swelling. LUNG DISEASE: Positive for shortness of breath, no cough, no tuberculosis, no bloody cou gh, no asthma, no emphysema/COPD. GASTROINTESTINAL: History of celiac sprue , no nausea or vomiting, no rectal bleeding, no constipation, no stool incontinence, no liver disease, status post cholecystectomy , no ab dominal pain, history of ulcers by endoscopy . KIDNEY DISEASE: No urinary frequency, no painful or difficult urination, no incontinence. ENDOCRINE: No diabetes, no thyroid disease, no osteopenia or osteoporosis, history of danna ast cancer negative lymph node biopsy with no chemo or radiation therapy . SKIN: No breast lumps, no skin changes, no rashes, no itches. HEMATOLOGIC/LYMPHATIC: No enlarged lymph nodes, no easy or unusual bleeding, history ana st cancer RHEUMATOLOGIC: degenerative joint arthritis, no rheumatoid arthritis. PHYSICAL EXAMINATION: Blood pressure 154/79, pulse 68, resp. rate 16, height 1.555 m (5' 1.22"), weight 88.451 kg (195 lb). Body mass index is 36.58 kg/(m^2). GENERAL: Annabel Saucedo is in no acute distress with unlabored respirations. The patient d oes not appear uncomfortable throughout the exam today. HEENT: HEAD/FACE: EYES: EARS: NASOPHARNYX: OROPHARNYX: Normocephalic and atraumatic. There are no areas of recent trauma. Normal sclerae without icterus. No drainage or tenderness. Clear without drainage. Clear without erythema. NECK (ANTERIOR): Supple and without palpable masses. CHEST: Clear to ausculation without crackles or wheeze. HEART: Regular rate and rhythm without murmurs. ABDOMEN: Soft, non-tender, non-distended, and without palpable masses. The patient is obe se. SPINE: There is tenderness in the midline of the cervical or thoracic spine. There is no m ajor palpable deformity of the spine. The lumbar spine shows there is tenderness in the midline of the L1, L2, L3, L4, L5, S1 lev els. To palpation, there is signficant bilaterally myofascial tenderness. EXTREMITIES: No cyanosis, clubbing, or edema. Distal pulses are palpable. NEUROLOGICAL EXAM: MENTAL STATUS: The patient is awake, alert, and oriented. She follows simple and complex commands. She speech is fluent, her comprehends speech well, and her repeats well. She has no apparent deficits with short or petroleum terminal plant operator memory. CRANIAL NERVES: Fundoscopic Exam: The optic disc is sharp. Normal vascular pattern is visualized II: Acuity is intact. Ellsworth are full to confrontation. III, IV, : The pupils are reactive. Extraocular movements are intact. No ptosis is note d. V: Facial sensation is intact and symmetric. VII: Facial movements are symmetric. VIII: Hearing is intact bilaterally. IX, X: The uvula and palate move appropriately. XI: Shrug is equal bilaterally. XII: Tongue protrusion is midline. MOTOR EXAM: (5 IS NORMAL) * Indicates pain limited MUSCLE/ MOVEMENT: RIGHT LEFT Deltoids 5 5 Biceps 5 5 Triceps 5 5 Wrist Flexion 5 5 Wrist Extension 5 5 Median Intrinsics 5 5 Ulnar Intrinsics 5 5 Sole Edge Inker Machine Strength 5 5 Hip Flexion 5 5 Hip Extension 5 5 Knee Flexion 5 5 Knee Extension 5 5 Dorsiflexion 5 5 Extensor Hallicus Longus 5 5 Plantarflexion 5 5 SENSORY EXAM: Sensory exam shows diminished sensation to light touch over her entire right side REFLEXES: (2 OR 2+ IS NORMAL) REFLEX: RIGHT LEFT BICEPS 2 2 BRACHIORADIALIS 2 2 TRICEPS 2 2 PATELLAR 2+ 2+ ACHILLES 2 2 LEE'S ABSENT ABSENT PLANTAR DOWNGOING DOWNGOING GAIT: Gait is steady. PERIPHERAL NERVE/MISC: Tinel is negative at the wrists and elbows bilaterally. Phalen is negative. Straight leg raise is negative bilaterally. Harjeet's test of the hips is positive on the right RADIOGRAPHIC REVIEW: The patient's imaging was reviewed in detail with the patient today during the visit. The images show multiple levels of spondylosis. At L3-4 and L4-5, she has a spondylolisthesis ( Grade 1). At L5-S1 she has severe lumbar degenerative disc disease. Stenosis is present at L3-4 and L4-5. ASSESSMENT: NEUROSURGICAL DIAGNOSES: Encounter Diagnoses Name Primary? Spondylolisthesis of lumbar region Yes Degenerative disc disease, lumbar Lumbar spinal stenosis Lumbar radiculopathy Obesity (BMI 30-39.9) TIA (transient ischemic attack) Confusion Fibromyalgia syndrome DA (degenerative arthritis) GENERAL DIAGNOSES: Past Medical History Diagnosis Date High blood pressure High cholesterol Anxiety Depression Sleep apnea Arthritis Breast cancer PLAN: It was a pleasure meeting and evaluating this patient today, and I greatly appreciate the r ketan. The patient has severe lumbar disease. She is on high dose opioids and surgery wo uld be very difficult. She also has symptoms of synecope and possible TIA's. I would stron gly recommend a neurology evaluation and she and her family agreed. To help manage her symptoms, I recommended she work with therapy and consider injections ov er surgery for now. If she can lose weight and reduce her opioid use, she would be a better candidate for surgery. Nicholas Osborne and I spent 1 hour in visit with Annabel Saucedo today with the majority of time s pent counselling the patient on her diagnosis, options for her care, and coordinating her ca re. ELECTRONICALLY SIGNED BY: MARYBETH Mclain, Boubacar Hobbs MD 12/31/2012 9:53 documented in this encou nter Plan of Treatment +--------+---------+ + + + | Date | Type | Specialty | Care Team | Description | +--------+---------+ + + + | 12/12/ | Office | Cardiology | Emile Rosario MD | | | 2019 | Visit | | [address] | | | | | | [place] [address] | | | | | | [phone] | | | | | | | | +--------+---------+ + + + + + +--------+ + + | Name | Type | Priori | Associated Diagnoses | Order Schedule | | | | ty | | | + + +--------+ + + | Ambulatory referral | Outpatient | Routin | Spondylolisthesis | 1 Occurrences | | to Physical Therapy | Referral | e | of lumbar region | starting 12/31/2012 | | | | | Degenerative disc | until 12/31/2013 | | | | | disease, lumbar | | | | | | Lumbar spinal | | | | | | stenosis Lumbar | | | | | | radiculopathy | | + + +--------+ + + | Ambulatory referral | Outpatient | Routin | TIA (transient | 1 Occurrences | | to Neurology | Referral | e | ischemic attack) | starting 12/31/2012 | | | | | Confusion | until 12/31/2013 | + + +--------+ + + documented as of this encounter Visit Diagnoses + + | Diagnosis | + + | Spondylolisthesis of lumbar region - Primary Acquired spondylolisthesis | + + | Degenerative disc disease, lumbar Degeneration of lumbar or lumbosacral | | intervertebral disc | + + | Lumbar spinal stenosis Spinal stenosis, lumbar region, without neurogenic | | claudication | + + | Lumbar radiculopathy Thoracic or lumbosacral neuritis or radiculitis, unspecified | + + | Obesity (BMI 30-39.9) Obesity, unspecified | + + | TIA (transient ischemic attack) Unspecified transient cerebral ischemia | + + | Confusion Unspecified psychosis | + + | Fibromyalgia syndrome Mylagia and myositis, unspecified | + + | DA (degenerative arthritis) Osteoarthrosis, unspecified whether generalized or | | localized, unspecified site | + + documented in this encounter
--- OUTSIDE RECORDS SUMMARY | ~2019-11-13 | XMS | Encounter Summary ---
Demographics + + + | Address | [address] | | | [place] [address] | + + + | Home Phone | | + + + | Preferred Language | Unknown | + + + | Marital Status | | + + + | Pentecostalism Affiliation | 1013 | + + + | Race | Unknown | + + + | Ethnic Group | Unknown | + + + Author + + + | Author | [facility] | | | and [place] | + + + | Organization | [facility] [...] | | | | | [place] [address] | | + + + + + | Peter Hester | ECON | [address] | | | | | [place] [address] | | + + + + + Care Team Providers + +------+ + | Care Applications Systems Engineer Name | Role | Phone | + +------+ + | Michael Montoya MD | PCP | | + +------+ + Encounter Details +--------+ + + + + | Date | Type | Department | Care Team | Description | +--------+ + + + + | 08/27/ | Orders Only | [facility] | Boubacar Hobbs MD | Low back pain | | 2011 | | NEUROSURGERY [address] | [address] | (Primary Dx) | | | | [address] | [place] [address] | | | | | [place], [place] | [phone] | | | | | [address] | | | | | | [phone] | | | +--------+ + + + + Social History + +-------+ +--------+------+ | Tobacco Use | Types | Packs/Day | Years | Date | | | | | Used | | + +-------+ +--------+------+ | Never Assessed | | | | | + +-------+ +--------+------+ + + + | Sex Assigned at [...] | | | | | [place] [address] | | | | | | [phone] | | | | | | | | +--------+---------+ + + + documented as of this encounter Visit Diagnoses + + | Diagnosis | + + | Low back pain - Primary Lumbago | + + documented in this encounter"
--- OUTSIDE RECORDS SUMMARY | ~2019-11-13 | XMS | Encounter Summary ---
Demographics + + + | Address | [address] | | | [place] [address] | + + + | Home Phone | | + + + | Preferred Language | Unknown | + + + | Marital Status | | + + + | Catholic Affiliation | 1013 | + + + | Race | Unknown | + + + | Ethnic Group | Unknown | + + + Author + + + | Author | [facility] | | | and [place] | + + + | Organization | [facility] | | | and [place] | + + + | Address | Unknown | + + + | Phone | Unavailable | + + + Support + + + + + | Name | Relationship | Address | Phone | + + + + + | Tamar Lancaster | JOSEE | [address] | | | | | [place] [address] | | + + + + + | Peter Hester | ECON | [address] | | | | | [place] [address] | | + + + + + Care Team Providers + +------+ + | Care Business Objects Architect Name | Role | Phone | + +------+ + | Michael Montoya MD | PCP | | + +------+ + Reason for Visit + + + | Reason | Comments | + + + | Follow-up | Review of MRI | + + + | Leg Pain | bilateral | + + + Encounter Details +--------+---------+ + + + | Date | Type | Department | Care Team | Description | +--------+---------+ + + + | 12/13/ | Office | [facility] | Uvaldo Hobbs | Lumbar radiculopathy | | 2016 | Visit | PHYSIATRY [address] | [address] | - currently into | | | | [place], | [place], [place] | the bilateral lower | | | | [place] [address] | [address] | extremities (Primary | | | | [phone] | | Dx); DDD | | | | [...] | | | | left knee | +--------+---------+ + + + Social History [...] + + + | Blood Pressure | 133/77 | 12/13/2015 8:42 AM | | | | | PST | | + + + + + | Pulse | 68 | 12/13/2015 8:42 AM | | | | | PST | | + + + + + | Temperature | - | - | | + + + + + | Respiratory Rate | 18 | 12/13/2015 8:42 AM | | | | | PST | | + + + + + | Oxygen Saturation | - | - | | + + + + + | Inhaled Oxygen | - | - | | | Concentration | | | | + + + + + | Weight | 79.4 kg (175 lb) | 12/13/2015 8:42 AM | | | | | PST | | + + + + + | Height | 152.4 cm (5') | 12/13/2015 8:42 AM | | | | | PST | | + + + + + | Body Mass Index | 34.18 | 12/13/2015 8:42 AM | | | | | PST | | + + + + + documented in this encounter Progress Notes Uvaldo Hobbs MD - 12/13/2015 8:14 AM PST CHIEF COMPLAINT: Chief Complaint Patient presents with Follow-up Review of MRI Leg Pain bilateral HISTORY OF PRESENT ILLNESS: The patient is a 70 y.o. female being seen today in follow-up for complaints of low back pa in and bilateral leg pain. The pain is primarily present in her left leg around the knee and in the posterior thighs. The patient has been seen for these complaints in the past and has been diagnosed with spinal stenosis which is quite severe at the L3-4 and L4-L5 levels as w ell as left knee arthritis. She has tried multiple injections in the past and initially these were providing some relie f. Unfortunately the most recent injections have not helped as much. I repeat MRI did show that the degenerative changes in the lumbar spine have worsened. She's been told that she would be a candidate for surgery on both the knee and the lumbar spine, however she is on hi gh doses of narcotic medications and the surgeons have been worried about postoperative pain control. Therefore surgery has been postponed until she can decrease her narcotic usage. She has been referred to [facility] to help with pain management and hopefully she will be seeing them soon. She does report that she would like to be able to get off her con trolled substance medication but that she needs help. Her symptoms worsen with standing, walking. Her symptoms improve with sitting down and wit h the use of pain medicine: oxycodone, methadone. The patient does describe numbness of th e bilateral legs and feet, primarily the calf region. She does not report weakness of the legs, but states the pain is unbearable and so she gets around slower. She is walking with a cane. The patient does not report recent falls or trauma. She does not have bowel and jailyn dder dysfunction. She does not have saddle anesthesia. Treatments for these complaints have included physical therapy, epidural steroid injections targeting the L4-L5 nerve roots and medications. She has tried PT and she states that she has had some improvement with it in the past. Unfortunately recent PT has made her somewhat worse. Patient's medications, allergies, past medical, surgical, social [...] Anaphylaxis Povidone Iodine Anaphylaxis REVIEW OF SYSTEMS: GENERALLY: No fever, chills, weight changes. EYES: [...] No abnormal bleeding PHYSICAL EXAMINATION: Filed Vitals: 12/13/15 0842 BP: 133/77 Pulse: 68 Resp: 18 PainSc: 3 PainLoc: Leg Body mass index is 34.18 kg/(m^2). GENERAL: The patient is well developed and well nourished. She does not appear uncomfortab le when seated. HEENT: HEAD/FACE: EYES: Normocephalic and atraumatic. There are no areas of recent trauma. Normal sclerae without icterus. SKIN Limited skin exam shows no significant rashes or lesions. There are not scars in the lumbar region. CHEST: The patient is in no acute respiratory distress with unlabored respirations. HEART: There is bilateral lower extremity edema, she has varicose veins. ABDOMEN: The patient is overweight. NEUROLOGIC: The patient is awake, alert, and oriented to time, place, person. She follows simple and complex commands. Her speech is fluent. She comprehends speech well. She has no apparent deficits with short or shelter memory. She has appropriate fund of knowledge Cranial nerves 2-12 appear grossly intact. Sensory exam does show diminished sensation to light touch in [...] the patient today during the visit. The m ost recent MRI from 2014 shows spinal stenosis and spondylolisthesis at the L3-L4 and L4-L5 levels. ASSESSMENT: 1. Lumbar radiculopathy - currently into the bilateral lower extremities 2. DDD (degenerative disc disease), lumbar 3. Spinal stenosis of lumbar region at multiple levels 4. Spondylolisthesis of lumbar region 5. Primary osteoarthritis of left knee PLAN: 1. The patient was informed that injections are no longer a viable treatment option as they have stopped working. Steroid injection side effects were discussed with the patient as gabriel chaudhary. I believe the best option at this point is surgery. For that to happen she has been told that she needs to decrease her narcotic medication usage. Unfortunately I do not have a lo t of expertise in helping patients wean narcotic medications effectively and with minimal si de effects. She has been working on getting in to see a powder coat painter at [facility] and it sounds as though they have agreed to see her. Hopefully they will be able to help her wean off the medications. 2. The patient was encouraged to stay active as much as possible. Home exercises are sugges lico in order to help maintain her strength. Traveling to [place] has been too hard on her lately but she will keep going until they can help her get set up with a good home exercise progra m. 3. We did also briefly discuss that other surgeons may not be as concerned about the medic ations she is on and may agree to do the surgery at this time. She may look into getting a second opinion. ELECTRONICALLY EDITED AND SIGNED BY: Uvaldo Hobbs MD Scribed by: Madelin Tellez RN 12/13/2014 documented in this encounter Plan of Treatment +--------+---------+ + + + | Date | Type | Specialty | Care Team | Description | +--------+---------+ + + + | 12/12/ | Office | Cardiology | Emile Rosario MD | | | 2020 | Visit | | [address] | | | | | | [place] [address] | | | | | | [phone] | | | | | | | [...] localized osteoarthrosis, lower leg | + + documented in this encounter"
--- OUTSIDE RECORDS SUMMARY | ~2019-11-13 | XMS | Encounter Summary ---
Demographics + + + | Address | [address] | | | [place] [address] | + + + | Home Phone | | + + + | Preferred Language | Unknown | + + + | Marital Status | | + + + | Christianity Affiliation | 1013 | + + + | Race | Unknown | + + + | Ethnic Group | Unknown | + + + Author + + + | Author | [facility] | | | and [place] | + + + | Organization | [facility] | | | and [place] | + + + | Address | Unknown | + + + | Phone | Unavailable | + + + Support + + + + + | Name | Relationship | Address | Phone | + + + + + | Tamar Lancaster | JOSEE | [address] | | | | | [place] [address] | | + + + + + | Peter Hester | ECON | [address] | | | | | [place] [address] | | + + + + + Care Team Providers + +------+ + | Care General Manager In Training Name | Role | Phone | + +------+ + | Michael Mnotoya MD | PCP | | + +------+ + Encounter Details +--------+ + + + + | Date | Type | Department | Care Team | Description | +--------+ + + + + | 07/31/ | Imaging | [facility] | Provider, | | | 2017 | Exam | [facility] | MD [address] | | | | | IMAGING | [place] | | | | | [phone] | [place] [address] | | +--------+ + + + + [...] | | | | | [place] [address] | | | | | | [phone] | | | | | | | | +--------+---------+ + + + documented as of this encounter Procedures + +--------+ + + + | Procedure Name | Priori | Date/Time | Associated Diagnosis | Comments | | | ty | | | | + +--------+ + + + | XR CERVICAL SPINE 2 | Routin | 01/08/2017 | | Results for this | | OR 3 VIEWS | e | 4:40 PM | | procedure are in the | | | | PST | | results section. | + +--------+ + + + documented in this encounter Results XR Cervical Spine 2 or 3 Views (01/08/2017 4:40 PM PST) + + | Specimen | + + | | + + + + + | Narrative | Performed At | + + + | External films for comparison only - no result from [place]. | [facility] | + + + + +---------+ + + | Performing | Address | City/State/Zipcode | Phone Number | | Organization | | | | + +---------+ + + | [facility] | | | | + +---------+ + + documented in this encounter Visit Diagnoses Not on filedocumented in this encounter"
--- OUTSIDE RECORDS SUMMARY | ~2019-11-13 | XMS | Encounter Summary ---
Demographics + + + | Address | [address] | | | [place] [address] | + + + | Home Phone | | + + + | Preferred Language | Unknown | + + + | Marital Status | Single | + + + | Catholic Affiliation | Unknown | + + + | Race | White | + + + | Ethnic Group | Not or | + + + Author + + + | Author | [facility] | + + + | Organization | [facility] | + + + | Address [...] Team Providers + +------+ + | Care Interactive Developer Name | Role | Phone | + [...] suture | | 2017 | Visit | [facility] | | removal (Primary Dx) | | | | Clinic [address] | | | | | [address] [place], [place] | | | | | | [address] | | | | | | [phone] | | | +--------+---------+ + + + [...] with the MA. Alka Montiel M.D. Ph.D. Business Unit Leader Department of Dermatology [facility] lKiara cobian M A - 08/23/2018 [...]
--- OUTSIDE RECORDS SUMMARY | ~2019-11-13 | XMS | Encounter Summary ---
Demographics + + + | Address | [address] | | | [place] [address] | + + + | Home Phone | | + + + | Preferred Language | Unknown | + + + | Marital Status | Single | + + + | Pentecostalism Affiliation | Unknown | + + + | Race | White | + + + | Ethnic Group | Not or | + + + Author + + + | Author | [facility] | + + + | Organization | [facility] | + + + | Address [...] Team Providers + +------+ + | Care Neurology Tech Name | Role | Phone | + +------+ + | Michael Montoya MD | PCP | | + +------+ + Reason for Visit +---------+ + | Reason | Comments | +---------+ + | Post Op | Mohs | +---------+ + Encounter Details +--------+ + + + + | Date | Type | Department | Care Team | Description | +--------+ + + + + | 08/17/ | Telephone | Dermatology | [place], | Post Op (Mohs) | | 2017 | | Surgery at [facility] [address] | Ayaan Tanner MD [address] | | | | | [address] | [address] | | | | | Mailcode: [id number] | [place], [place] | | | | | [facility] | [address] | | | | | and [place], | [phone] | | | | | [facility] | | | | | | Floor [place], [place] | | | | | | [address] | | | | | | [phone] | | | +--------+ + + + [...]
--- OUTSIDE RECORDS SUMMARY | ~2019-11-13 | XMS | Encounter Summary ---
Demographics + + + | Address | [address] | | | [place] [address] | + + + | Home Phone | | + + + | Preferred Language | Unknown | + + + | Marital Status | | + + + | Buddhist Affiliation | 1013 | + + + | Race | Unknown | + + + | Ethnic Group | Unknown | + + + Author + + + | Author | [facility] | | | and [place] | + + + | Organization | [facility] | | | and [...] | | | | | [place] [address] | | + + + + + | Peter Hester | ECON | [address] | | | | | [place] [address] | | + + + + + Care Team Providers + +------+ + | Care Emotional Support Teacher Name | Role | Phone | + +------+ + | Michael Montoya MD | PCP | | + +------+ + Encounter Details +--------+ + + + + | Date | Type | Department | Care Team | Description | +--------+ + + + + | 10/13/ | Abstract | [facility] [place] | Brian Garduno, | | | 2016 | | NEUROSURGERY [address] | DO [address] | | | | | [address] | [address] [place], [place] | | | | | [place], [place] | [address] | | | | | [address] | | | | | | [phone] | | | +--------+ + + + [...] | | | | | [place] [address] | | | | | | [phone] | | | | | | | | +--------+---------+ + + + documented as of this encounter Visit Diagnoses Not on filedocumented in this encounter"
--- OUTSIDE RECORDS SUMMARY | ~2019-11-13 | XMS | Encounter Summary ---
Demographics + + + | Address | [address] | | | [place] [address] | + + + | Home Phone | | + + + | Preferred Language | Unknown | + + + | Marital Status | | + + + | Synagogue Affiliation | 1013 | + + + | Race | Unknown | + + + | Ethnic Group | Unknown | + + + Author + + + | Author | [facility] | | | and [place] | + + + | Organization | [facility] | | | and [place] | + + + | Address | Unknown | + + + | Phone | Unavailable | + + + Support + + + + + | Name | Relationship | Address | Phone | + + + + + | Tamar [place] | JOSEE | [address] | | | | | [place] [address] | | + + + + + | Peter Hester | ECON | [address] | | | | | [place] [address] | | + + + + + Care Team Providers + +------+ + | Care Skiver Box Toe Name | Role | Phone | + +------+ + | Michael Montoya MD | PCP | | + +------+ + Encounter Details +--------+ + + + + | Date | Type | Department | Care Team | Description | +--------+ + + + + | 07/02/ | Imaging | [facility] | Provider, | | | 2017 | Exam | MED [facility] EXTER[facility] | MD [address] | | | | | IMAGING | [place] | | | | | [phone] | [place] [address] | | +--------+ + + + + [...] | | | | | [place] [address] | | | | | | [phone] | | | | | | | [...] this | | CONTRAST | e | 8:30 AM | | procedure are in the | | | | PDT | | results section. | + +--------+ + + + documented in this encounter Results MRI Lumbar Spine wo Contrast (05/29/2017 8:30 AM PDT) + + | Specimen | + + | | + + + + + | Narrative | Performed At | + + + | External films for comparison only - no result from [place]. | [facility] | + + + + +---------+ + + | Performing | Address | City/State/Zipcode | Phone Number | | Organization | | | | + +---------+ + + | [facility] | | | | + +---------+ + + documented in this encounter Visit Diagnoses Not on filedocumented in this encounter"
--- OUTSIDE RECORDS SUMMARY | ~2019-11-13 | XMS | Encounter Summary ---
Demographics + + + | Address | [address] | | | [place] [address] | + + + | Home Phone | | + + + | Preferred Language | Unknown | + + + | Marital Status | | + + + | Advent Affiliation | 1013 | + + + | Race | Unknown | + + + | Ethnic Group | Unknown | + + + Author + + + | Author | [facility] | | | and [place] | + + + | Organization | [facility] | | | and [place] | + + + | Address | Unknown | + + + | Phone | Unavailable | + + + Support + + + + + | Name | Relationship | Address | Phone | + + + + + | Tamar [place] | JOSEE | [address] | | | | | [place] [address] | | + + + + + | Peter Hester | ECON | [address] | | | | | [place] [address] | | + + + + + Care Team Providers + +------+ + | Care Oxygen Therapy Teacher Name | Role | Phone | [...] [address] | | | | | [place], | [facility] [place] | | | | | [place] [address] | [address] | | | | | [phone] | | | +--------+ + + + [...] [address] | | | | | | [place] [address] | | | | | | [phone] | | | | | | | | +--------+---------+ + + + documented as of this encounter Visit Diagnoses Not on filedocumented in this encounter"
--- OUTSIDE RECORDS SUMMARY | ~2019-11-13 | XMS | Clinical Summary ---
Demographics + + + | Address | [address] | | | [place] [address] | + + + | Home Phone | | + + + | Preferred Language | Unknown | + + + | Marital Status | | + + + | Quaker Affiliation | Unknown | + + + | Race | Unknown | + + + | Ethnic Group | Unknown | + + + Author + + + | Author | [facility] (Historical as of | | | 07-02-19) | + + + | Organization | [facility] (Historical as of | | | 07-02-19) | + + + | Address | Unknown | + + + | Phone | Unavailable | + + + Support + + + + + | Name | Relationship | Address | Phone | + + + + + | Tamar Lancaster | ECON | [address] | | | | | [place] [address] | | + + + + + Care Team Providers + +------+ + | Care Geospatial Engineer Name | Role | Phone | + +------+ + | Michael Montoya MD | PP | | + +------+ + Allergies + + + + + + | Active Allergy | Reactions | Severity | Noted | Comments | | | | | Date | | + + + + + + | Povidone Iodine | Anaphylaxis | High | 05// | | | | | | 16 | | + + + + + + Current Medications No known medications Active Problems Not on file Social History + +-------+ +--------+------+ | Tobacco Use | Types | Packs/Day | Years | Date | | | | | Used | | + +-------+ +--------+------+ | Never Smoker | | | | | + +-------+ +--------+------+ + + +---------+ + | Alcohol Use | Drinks/We | oz/Week | Comments | | | ek | | | + + +---------+ + | No | | | | + + +---------+ + + + + | Sex Assigned at | Date Recorded | | | | + + + | Not on file | | + + + Last Filed Vital Signs + + + + | Vital Sign | Reading | Time Taken | + + + + | Blood Pressure | 134/62 | 04/10/2016 6:41 PM PDT | + + + + | Pulse | 64 | 04/10/2016 6:41 PM PDT | + + + + | Temperature | 36.6 C (97.9 F) | 04/10/2016 5:46 PM PDT | + + + + | Respiratory Rate | 16 | 04/10/2016 6:41 PM PDT | + + + + | Oxygen Saturation | 95% | 04/10/2016 6:41 PM PDT | + + + + | Inhaled Oxygen | - | - | | Concentration | | | + + + + | Weight | 83.6 kg (184 lb 4.9 | 04/10/2016 5:46 PM PDT | | | oz) | | + + + + | Height | - | - | + + + + | Body Mass Index | - | - | + + + + Plan of Treatment + + + + + | Health Maintenance | Due Date | Last Done | Comments | + + + + + | Vaccine: Zoster (1 | | | | | of 2) | 6 | | | + + + + + | DEXA SCAN SCREENING | | | | | | 1 | | | + + + + + | Vaccine: | | 10/23/2015, 10/07/2005 | | | Pneumococcal 65+ | 6 | | | | Low/Medium Risk (2 | | | | | of 2 - PPSV23) | | | | + + + + + | Vaccine: Influenza | | | | | (#1) | 9 | | | + + + + + | Vaccine: | | 04/03/2012 | | | Dtap/Tdap/Td (2 - | 2 | | | | Td) | | | | + + + + + Results Not on filefrom Last 3 Months Insurance + +--------+ +--------+-------+ + | Payer | Benefi | Subscriber | Type | Phone | Address | | | t Plan | ID | | | | | | / | | | | | | | Group | | | | | + +--------+ +--------+-------+ + | [place] - [employer] | [place]-FAM | [id number] | Medica | | | | FAMILY | NEAL | | re | | | | | CARE | | | | | + +--------+ +--------+-------+ + | MEDICAID | MEDICA | [id number] | | | [address] | | | [place] | | | | [place] | | | [place] | | | | [phone] | + +--------+ +--------+-------+ + + +--------+ +--------+ + + | Guarantor Name | Accoun | Relation to | Date | Phone | Billing Address | | | t Type | Patient | of | | | | | | | | | | + +--------+ +--------+ + + | CAMILAANNABEL | Person | Self [birth year] | Home: | [address] | | | al/Fam | | 1945 | [phone] | [place] | | | [place] | | | [phone] | [phone] | + +--------+ +--------+ + +"
--- OUTSIDE RECORDS SUMMARY | ~2019-11-13 | XMS | Encounter Summary ---
Demographics + + + | Address | [address] | | | [place] [address] | + + + | Home Phone | | + + + | Preferred Language | Unknown | + + + | Marital Status | | + + + | Confucianism Affiliation | 1013 | + + + | Race | Unknown | + + + | Ethnic Group | Unknown | + + + Author + + + | Author | [facility] | | | and [place] | + + + | Organization | [facility] | | | and [place] | + + + | Address | Unknown | + + + | Phone | Unavailable | + + + Support + + + + + | Name | Relationship | Address | Phone | + + + + + | Tamar Lancaster | JOSEE | [address] | | | | | [place] [address] | | + + + + + | Peter Hester | ECON | [address] | | | | | [place] [address] | | + + + + + Care Team Providers + +------+ + | Care Guest Services Director Name | Role | Phone | + +------+ + | Michael Montoya MD | PCP | | + +------+ + Reason for Visit +---------+ + | Reason | Comments | +---------+ + | Post Op | left rotator cuff with acromioplasty and distal clavivle excition | | | DOS 10/07/16 | +---------+ + Encounter Details +--------+---------+ + + + | Date | Type | Department | Care Team | Description | +--------+---------+ + + + | 10/20/ | Office | [facility] | Gamaliel Feng | S/P orthopedic | | 2016 | Visit | ORTHOPEDIC SURGERY | [address] | surgery, follow-up | | | | [address] [facility] | [address] | exam (Primary Dx) | | | | [place] | [place] [address] | | | | | [address] | [phone] | | | | | [phone] | | | +--------+---------+ + + + [...] + + + + | Temperature | 36.5 C (97.7 F) | 10/20/2016 10:37 AM | | | | | PST [...] Weight | 83.5 kg (184 lb) | 10/20/2016 10:37 AM | | | | | PST | | + + + + + | Height | 152.4 cm (5') | 10/20/2016 10:37 AM | | | | | PST | | + + + + + | Body Mass Index | 35.94 | 10/20/2016 10:37 AM | | | | | PST | | + + + + + documented in this encounter Progress Notes Gmaaliel Feng PA-C - 10/20/2016 2:14 PM PSTFormatting of this note might be differe nt from the original. Name:Annabel Saucedo Todays Date: 10/20/2016 Age: 71 y.o. PCP: Michael Montoya MD Chief Complaint Patient presents with Post Op left rotator cuff with acromioplasty and distal clavivle excition DOS 10/07/16 SUBJECTIVE: Returns today for first postoperative visit following a left rotator cuff repair with dista l clavicle excision and acromioplasty was performed on 10/07/16. She has remained in the [facility] immobilizer sling postoperatively. She has only been performing flexion and extension of the left elbow. Continues with chronic pain medication consisting of oxycodone and methado ne prescribed by chronic pain management. Current level of pain at the left shoulder is rat ed at 5 out of 10 OBJECTIVE: Inspection of the left shoulder incision site reveals that the incision is healing appropri ately and well. Skin is well approximated. There is no evidence of complication or infecti on. She has remained dry and she is neurovascularly intact at the left shoulder. Did not a ssess range of motion today. Imaging/Studies: No studies to review at this time. Filed Vitals: 10/20/16 1037 Temp: 36.5 C (97.7 F) TempSrc: Michell Height: 1.524 m (5') Weight: 83.462 kg (184 lb) ASSESSMENT/PLAN: 1. Left rotator cuff repair with distal clavicle excision and acromioplasty, status postop A. recovering well postoperatively. Pain well controlled. She has been performing physic al therapy at the left elbow with flexion and extension but has yet to start pendulum and ci rcumduction exercises. Demonstrated these range of motion exercises today in the office at the left shoulder. Recommended that she do these twice daily for 15-20 minutes. Continue w ith chronic pain medication as prescribed. Follow-up in our office in approximately 4 weeks for reevaluation. B. Patient is advised that if they have any questions, comments or concerns to contact our office. Electronically signed by: Gamaliel Feng PA-C 10/20/2016 14:14 This note was dictated using the Microland voice recognition system. Minor errors in grammar [...] CHAN | | | | | | [place] [address] | | | | | | [phone] | | | | | | | | +--------+---------+ + + + documented as of this encounter Visit Diagnoses + + | Diagnosis | + + | S/P orthopedic surgery, follow-up exam - Primary Follow-up examination, following | | other surgery | + + documented in this encounter"
--- OUTSIDE RECORDS SUMMARY | ~2019-11-13 | XMS | Encounter Summary ---
Demographics + + + | Address | [address] | | | [place] [address] | + + + | Home Phone | | + + + | Preferred Language | Unknown | + + + | Marital Status | | + + + | Methodist Affiliation | 1013 | + + + | Race | Unknown | + + + | Ethnic Group | Unknown | + + + Author + + + | Author | and [facility] | | | and [place] | + + + | Organization | and [facility] | | | and [...] | | | | | [place] [address] | | + + + + + | Peter Hester | ECON | [address] | | | | | [place] [address] | | + + + + + Care Team Providers + +------+ + | Care Senior Tableau Developer Name | Role | Phone | [...] | | | Services | Therapy | History of | Gamaliel | [place] | | | Required | | repair of | [address] | PHYSICAL | | | | | left rotator | [address] | THERAPY - | | | | | cuff | [address] [place] | [place] | | | | | Chronic left | [place], [place] | [address] | | | | | shoulder | [address] | [address] | | | | | pain | Phone: | [place] | | | | | Adhesive | [phone] | [address] | | | | | capsulitis | Fax: | Phone: | | | | | of left | [phone] | [phone] | | | | | shoulder | | Fax: | | | | | Decreased | | [phone] | | | | | range of | | | | | | | motion of | | | | | | | left | | | | | | | shoulder | | | +--------+ + + + + + Encounter Details +--------+ + + + + | Date | Type | Department | Care Team | Description | +--------+ + + + + | 01/29/ | Orders Only | [facility] [place] | Gamaliel Feng | History of repair of | | 2016 | | ORTHOPEDIC SURGERY | [address] | left rotator cuff | | | | [address] [facility] | [facility] | (Primary Dx); | | | | [place], [place] | [place] [address] | Chronic left | | | | [address] | [phone] | shoulder pain; | | | | [phone] | | Adhesive capsulitis | | | | | | of left shoulder; | | | | | | Decreased range of | | | | | | motion of left | | | | | | shoulder | +--------+ + + + + Social [...] CHAN | | | | | | [place] [address] | | | | | | [phone] | | | | | | | | +--------+---------+ + + + + + +--------+ + + | Name | Type | Priori | Associated Diagnoses | Order Schedule | | | | ty | | | + + +--------+ + + | Ambulatory referral | Outpatient | Routin | History of repair | Ordered: 01/29/2017 | | to Physical Therapy | Referral | e | of left rotator cuff | | | | | | Chronic left | | | | | | shoulder pain | | | | | | Adhesive capsulitis | | | | | | of left shoulder | | | | | | Decreased range of | | | | | | motion of left | | | | | | shoulder | | + + +--------+ + + documented as of this encounter Visit Diagnoses + + | Diagnosis | + + | History of repair of left rotator cuff - Primary Personal history of surgery to other | | organs | + + | Chronic left shoulder pain Pain in joint, shoulder region | + + | Adhesive capsulitis of left shoulder Adhesive capsulitis of shoulder | + + | Decreased range of motion of left shoulder | + + documented in this encounter"
--- OUTSIDE RECORDS SUMMARY | ~2019-11-13 | XMS | Encounter Summary ---
Demographics + + + | Address | [address] | | | [place] [address] | + + + | Home Phone | | + + + | Preferred Language | Unknown | + + + | Marital Status | Single | + + + | Anabaptist Affiliation | Unknown | + + + | Race | White | + + + | Ethnic Group | Not or | + + + Author + + + | Author | [facility] | + + + | Organization | [facility] | + + + | Address [...] Team Providers + +------+ + | Care Hat Maker Name | Role | Phone | + +------+ + | Michael Montoya MD | PCP | | + +------+ + Reason for Visit + + + | Reason | Comments | + + + | New patient | | | consultation | | + + + Encounter Details +--------+---------+ + + + | Date | Type | Department | Care Team | Description | +--------+---------+ + + + | 06/07/ | Office | [facility] | Flaxel, Jolie, | Macular Cyst, Hole, | | 2009 | Visit | [facility] | [address] | or Pseudohole of | | | | [place] [address] | Retina (Primary Dx) | | | | [address] | [place], [place] | | | | | Mailcode: [facility] | [address] | | | | | [place] [address] | [phone] | | | | | [phone] | | | +--------+---------+ + + + [...] + documented as of this encounter Progress Jolie Johnson MD - 06/07/2009 3:29 PM PDTFormatting of this note might be different f rom the original. Retina Division Progress Note New Visit 06/07/2009 CC: Referred by Dr. Ortiz Beltran for macular hole OS HPI: Annabel Saucedo is a 63 y.o. Female with macular hole left eye, discovered on eye exam in early April after pt had difficulty reading eye chart for driving test. Pt reports she has had more difficulty seeing small print and jewelry clasps, had to move item to 'different a ngle' to see it. Sees some distortion OS. Pain:No pain (0 of 0-10) POH:No previous eye surgeries or injuries Macular hole OS No hx of ocular surgery. PMH: Reviewed in [facility], + HTN SH: Reviewed in [facility], Tobacco: Past use of chewing tobacco for 20 years, quit 13 years ago FH: Positive family history of Macular hole, son, in left eye. ROS: A review of constitutional, ophthalmic, otolaryngologic, integumentary, cardiovascular , respiratory, gastrointestinal, genitourinary, neurologic, musculoskeletal, and psychiatric systems were negative except as noted above or in the new patient questionaire., Details of the changes in the eye are described above. Allergies: Allergies Allergen Reactions Iodine Anaphylaxis Ingested or topical, reacts to both Meds: CLONAZEPAM OR, Take by mouth. methadone 5 mg Oral Tablet, Take 5 mg by mouth two times daily. Oxycodone 10 mg Oral Tablet, Take 10 mg by mouth every six hours as needed. Potassium 75 mg Oral Tablet, Take by mouth. RANITIDINE HCL OR, Take by mouth. TERAZOSIN HCL (TERAZOSIN OR), Take by mouth. Examination: 06/07/2009 [facility] 3:25 PM Right Eye 20/40 20/20-1 13 Left Eye 20/70 20/50+1 13 Amsler- OD WNL . OS - central area of distortion. Pupils were equally reactive without relative afferent pupillary defect. Extraocular movements were full and alignment was orthophoric. Confrontational visual calles were full to counting fingers. Alert and oriented times 4. Both eyes dilated with Mydriacyl and Neosynephrine OU @ 3:25 PM by Sofi Fofana Chart Notes Reviewed cjf SLE OD OS Lids Nl lids, lashes, orbit Nl lids, lashes, orbit Conj White and quiet White and quiet Cornea Nl. tear film, epithelium, stroma, and endothelium Nl. tear film, epithelium, stroma , and endothelium AC Deep and quiet Deep and quiet Iris Normal Normal Lens 2+ NS 2+ NS Ant Vit Clear Clear DFE OD OS C/D: 0.3, sharp disc margins, M/P/V unremakrable C/D: 0.3, sharp disc margins P/V unremarkable except: Macula: + FTMH small no PVD noted Photos OD OS OCT CMT: 209 No IRF or SRF CMT: 279 with partial PVD + FTMH Stage 3 - small with minimal surrounding fluid FA Refused FA Refused FA Color --- --- Others IMPRESSION: 1) stage 3 small FTMH OS - extensive discussion with patient and family - would like FA to r/o vascular abnormality but she refuses FA (worried about dye injections) PLAN: PARQ held for PPV/MP/gas OS 23 gauge - she is due for knee surgery so will wait until after she recovers from that - she will call to schedule surgery in the future - will need to com e in for preop and PAT clinic Jolie Garcia MD documented in this encounter Plan of Treatment + + +--------+ + + | Name | Type | Priori | Associated Diagnoses | Order Schedule | | | | ty | | | + + +--------+ + + | OPTICAL COHERENCE | Procedures | Routin | Macular Cyst, | Expected: | | TOMOGRAPHY | | e | Hole, or Pseudohole | 06/07/2009, Expires: | | | | | of Retina | 08/06/2009 | + + +--------+ + + | [place] OPTHALMIC DX | Procedures | Routin | Macular Cyst, | Ordered: 06/07/2009 | | IMAGING | | e | Hole, or Pseudohole | | | | | | of Retina | | + + +--------+ + + | [place] OPTHALMIC DX | Procedures | Routin | Macular Cyst, | Ordered: 06/07/2009 | | IMAGING | | e | Hole, or Pseudohole | | | | | | of Retina | | + + +--------+ + + documented as of this encounter Visit Diagnoses + + | Diagnosis | + + | Macular cyst, hole, or pseudohole of retina - Primary | + + documented in this encounter"
--- OUTSIDE RECORDS SUMMARY | ~2019-11-13 | XMS | Encounter Summary ---
Demographics + + + | Address | [address] | | | [place] [address] | + + + | Home Phone | | + + + | Preferred Language | Unknown | + + + | Marital Status | Single | + + + | Muslim Affiliation | Unknown | + + + | Race | White | + + + | Ethnic Group | Not or | + + + Author + + + | Author | [facility] | + + + | Organization | [facility] | + + + | [...] Team Providers + +------+ + | Care Basket Filler Name | Role | Phone | + +------+ + | Michael Montoya MD | PCP | | + +------+ + Encounter Details +--------+ + + + + | Date | Type | Department | Care Team | Description | +--------+ + + + + | 09/07/ | Telephone | Dermatology | NurseJosephine | | | 2018 | | Medical at [facility] 5th | Surgical [address] | | | | | Floor [address] | [address] | | | | | Marika Mailcode: [address] | Road [place], [place] | | | | | [facility] | [address] | | | | | and Healing, | | | | | | Building [address], | | | | | | Floor [place], [place] | | | | | | [address] | | | | | | [phone] | | | +--------+ + + + [...]
--- OUTSIDE RECORDS SUMMARY | ~2019-11-13 | XMS | Encounter Summary ---
Demographics + + + | Address | [address] | | | [place] [address] | + + + | Home Phone | | + + + | Preferred Language | Unknown | + + + | Marital Status | | + + + | Voodoo Affiliation | 1013 | + + + | Race | Unknown | + + + | Ethnic Group | Unknown | + + + Author + + + | Author | [facility] | | | and [place] | + + + | Organization | [facility] | | | and [...] | | | | | [place] [address] | | + + + + + | Peter Hester | ECON | [address] | | | | | [place] [address] | | + + + + + Care Team Providers + +------+ + | Care Oil Developer Name | Role | Phone | + +------+ + | Michael Montoya MD | PCP | | + +------+ + Encounter Details +--------+ + + + + | Date | Type | Department | Care Team | Description | +--------+ + + + + | 10/02/ | Hospital | [facility] | Reagan Bronson | Hyperlipidemia, | | 2016 | Encounter | MED CTR LABORATORY | MD Miguelangel [address] [facility] | unspecified | | | | [address] [place] | [place], [place] | hyperlipidemia type; | | | | [place], [place] | [address] | Essential | | | | [address] | | hypertension; | | | | [phone] | | Complete rotator | | | [...] + + + +---------+ + + | [place]-[address] Fatty | Take by mouth. | | [...] | | | | | [place] [address] | | | | | | [phone] | | | | | | | [...] | 0.86 | 0.60 - 1.30 | [facility] | | | | | mg/dL | [facility] | | | | | | MEDICAL | | | | | | CENTER - | | | | | | LABORATORY | | + + + + + + | eGFR if not | >60Comment: GLOMERULAR | >=60 | [facility] | | | | FILTRATION | mL/min/1.73m2 | [facility] | | | MALIAN | RATE,ESTIMATED | | MEDICAL | | | | mL/min/1.50k8Mqds than | | CENTER - | | [...] + | [facility] | [address] | [place] | [phone] | | [facility] | | [address] | | | - LABORATORY | | [...] | | | | g/dL | [facility] | | | | | [...] + | [facility] | [address] | [place], [place] | [phone] | | [facility] | | [address] | | | - LABORATORY | | [...]
--- OUTSIDE RECORDS SUMMARY | ~2019-11-13 | XMS | Encounter Summary ---
Demographics + + + | Address | [address] | | | [place] [address] | + + + | Home Phone | | + + + | Preferred Language | Unknown | + + + | Marital Status | | + + + | Sikhism Affiliation | 1013 | + + + | Race | Unknown | + + + | Ethnic Group | Unknown | + + + Author + + + | Author | [facility] | | | and [place] | + + + | Organization | [facility] | | | and [place] | + + + | Address | Unknown | + + + | Phone | Unavailable | + + + Support + + + + + | Name | Relationship | Address | Phone | + + + + + | Tamar Lancaster | JOSEE | [address] | | | | | [place] [address] | | + + + + + | Peter Hester | ECON | [address] | | | | | [place] [address] | | + + + + + Care Team Providers + +------+ + | Care Photograph Retoucher Name | Role | Phone | + +------+ + | Michael Montoya MD | PCP | | + +------+ + Encounter Details +--------+ + + + + | Date | Type | Department | Care Team | Description | +--------+ + + + + | 12/12/ | Hospital | [facility] | Alexx, | Left knee pain | | 2015 | Encounter | MED CTR XRAY [address] | [address] | | | | | [place] | [place], | | | | | [place] [address] | [place] [address] | | | | | [phone] | [phone] | | | | | | | [...] Description | +--------+---------+ + + + | Office | Cardiology | Emile Rosario MD | | | 2019 | Visit | | [address] | | | | | | [place] [address] | | | | | | [phone] | | | | | | | | +--------+---------+ + + + documented as of this encounter Procedures + +--------+ + + + | Procedure Name | Priori | Date/Time | Associated Diagnosis | Comments | | | ty | | | | + +--------+ + + + | XR KNEE LEFT 4 + VW | Routin | 12/12/2014 | Left knee pain | Results for this | | | e | 1:56 PM | | procedure are in the | | | | PST | | results section. | + +--------+ + + + documented in this encounter Results XR Knee Left 4 + Vw (12/12/2014 [...] loss is present | | | with ztvx-ri-enkh contact. Moderate size subchondral cysts are noted [...] space | | loss is present with rsoq-dx-hikz contact. Moderate size subchondral cysts are | [...] + | MISCELLANEOUS LAB | | | [phone] | + +---------+ + + | MISCELANIOUS LAB | | | [phone] | + +---------+ + + documented in this encounter Visit Diagnoses + + | Diagnosis | + + | Left knee pain Pain in joint, lower leg | + + documented in this encounter"
--- OUTSIDE RECORDS SUMMARY | ~2019-11-13 | XMS | Encounter Summary ---
Demographics + + + | Address | [address] | | | [place] [address] | + + + | Home Phone | | + + + | Preferred Language | Unknown | + + + | Marital Status | | + + + | Hindu Affiliation | 1013 | + + + | Race | Unknown | + + + | Ethnic Group | Unknown | + + + Author + + + | Author | [facility] | | | and [place] | + + + | Organization | [facility] | | | and [place] | + + + | Address | Unknown | + + + | Phone | Unavailable | + + + Support + + + + + | Name | Relationship | Address | Phone | + + + + + | Tamar Lancaster | JOSEE | [address] | | | | | [place] [address] | | + + + + + | Peter Hester | ECON | [address] | | | | | [place] [address] | | + + + + + Care Team Providers + +------+ + | Care Press Pipe Inspector Name | Role | Phone | + +------+ + | Michael Montoya MD | PCP | | + +------+ + Reason for Visit + + + | Reason | Comments | + + + | Pre-op Exam | left rotator cuff with acromioplasty and DCE dos 10/07/16 | + + + Encounter Details +--------+---------+ + + + | Date | Type | Department | Care Team | Description | +--------+---------+ + + + | 10/02/ | Office | [facility] | Reagan Bronson | Complete rotator | | 2016 | Visit | ORTHOPEDIC SURGERY | MD Miguelangel [address] [place] [address] | cuff tear or rupture | | | | [address] [facility] | [place] | of left shoulder, | | | | [place] | [address] | not specified as | | | | [address] | | traumatic (Primary | | | | [phone] | | Dx); Hyperlipidemia, | | | | | | unspecified | | | | | | hyperlipidemia type; | | | | | | Essential | | | | | | hypertension | +--------+---------+ + + + Social History [...] + + + | Blood Pressure | 117/54 | 10/02/2016 9:03 AM | | | | | PST | | + + + + + | Pulse | 63 | 10/02/2016 9:03 AM | | | | | PST | | + + + + + | Temperature | 36.7 C (98 F) | 10/02/2016 9:03 AM | | | | | PST | | + + + + + | Respiratory Rate | - | - | | + + + + + | Oxygen Saturation | 93% | 10/02/2016 9:03 AM | R/A | | | | PST | | + + + + + | Inhaled Oxygen | - | - | | | Concentration | | | | + + + + + | Weight | 80.7 kg (178 lb) | 10/02/2016 9:03 AM | | | | | PST | | + + + + + | Height | - | - | | + + + + + | Body Mass Index | 34.76 | 08/01/2016 9:40 AM | | | | | PDT | | + + + + + documented in this encounter Progress Notes Reagan Bronson MD - 10/02/2016 9:14 AM PSTFormatting of this note might be differen t from the original. History of present illness: Annabel is a 71 y.o. female who presents to our clinic today for a preop examination. Annabel is scheduled for a left shoulder limited open reduction and rotat or cuff repair on 10/07/16. She has had left shoulder pain and weakness after injuring her left shoulder while chasing a baby rabbit. She has failed conservative measures. A recent left shoulder MRA showed evidence of a full thickness rotator cuff tear and she is therefore felt to be an appropriate candidate for shoulder repair. Past Medical History Diagnosis Date High blood pressure High cholesterol Anxiety Depression Sleep apnea Uses CPAP machine, not every night. Can only use for 4 hours. Arthritis Breast cancer ([facility]) Lumbar radiculopathy - currently into the bilateral lower extremities 03/20/2014 DDD (degenerative disc disease), lumbar 03/20/2014 Spinal stenosis of lumbar region at multiple levels 03/20/2014 Spondylolisthesis of lumbar region 03/20/2014 Osteoarthritis of left knee 01/01/2015 Stroke (HCC) Narcotic abuse 10/08/2015 Acute pain of left shoulder 06/25/2016 Traumatic closed displaced fracture of right shoulder with anterior dislocation with de layed healing 06/25/2016 Tear of left supraspinatus tendon 07/03/2016 Past Surgical History Procedure Laterality Date section, classic 1966, 69, 71 Hysterectomy 1973 Carpal tunnel release 1994, 96 Rotator cuff repair 2008 Cholecystectomy 2009 Breast lumpectomy 2012 Bunionectomy Left Allergies Allergen Reactions Bee Venom Anaphylaxis Iodine Anaphylaxis Povidone Iodine Anaphylaxis Current Outpatient Prescriptions on File Prior to Visit Medication Sig Dispense Refill Ascorbic Acid (VITAMIN C) 100 MG tablet Take 100 mg by mouth Daily. No Dosage Provided clonazePAM (KLONOPIN) 0.5 mg tablet take 1 tablet by mouth three times a day 0 Digestive Enzymes (DIGESTIVE ENZYME PO) Take by mouth. EPIPEN 2-TABITHA 0.3 MG/0.3ML injection USE NEEDED FOR ANAPHYLAXIS 1 escitalopram (LEXAPRO) 10 mg tablet Take 10 mg by mouth Daily. Flaxseed, Linseed, (FLAX SEED OIL PO) Take by mouth. ibuprofen (ADVIL,MOTRIN) 600 MG tablet Take 600 mg by mouth every 12 hours. LYSINE PO Take by mouth. methadone 10 mg tablet Take 10 mg by mouth every 12 hours. [place]-3 Fatty Acids (EPA PO) Take by mouth. [...] mEq by mouth 2 times daily. 0 Psyllium (METAMUCIL PO) Take by mouth. terazosin (HYTRIN) 10 MG capsule Take 10 mg by mouth 2 times daily. torsemide (DEMADEX) 5 mg tablet 0 No current facility-administered medications on file prior to visit. Family History Problem Relation Age of Onset Headache Mother Alcohol abuse Brother Stroke Brother Stroke Mother Stroke Father Seizures Son Cancer Mother lung Heart disease Father Diabetes Brother Diabetes Mother Social History Social History Marital Status: Spouse Name: N/A Number of Children: 3 Years of Education: 14 Occupational History Not on file. Social History Main Topics Smoking status: Never Smoker Smokeless tobacco: Former User Types: Chew Quit date: 11/16/1995 Comment: quit 20 years ago Alcohol Use: No Comment: 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 Drug Use: No Comment: Quit 1975. Sexual Activity: Not on file Other Topics Concern Not on file Social History Narrative Review of Systems This has been reviewed. All other entries are negative except for those checked below. Marge Murillo Eyes: [] Double vision [] Glasses/contacts [x] Failing vision Ear/Nose/Throat: [] Frequent Colds [] Sinus Disease [] Nose obstruction [] Sneezing Spells [] Change in taste [] Artificial teeth [] Ears ringing [] Ear pain [] Hearing loss [] Teeth problems [] Hoarseness [x] Neck swelling [] Sore throat [] Congestion [] Nosebleeds [] Nasal allergies Respiratory: [] Asthma/Wheezing [] Pneumonia [] Night sweats [] Shortness of breath [] Chronic cough [] Coughing up blood [] Exposure to tuberculosis Cardiovascular: [] Heart Problems [x] Hypertension [] Heart murmur [] Palpitations [] Rheumatic fever [] Phlebitis [] Chest pain [x] Ankle swelling [] Leg cramps [] Raci ng heart [] Skipping beats [] Blood clots Gastrointestinal: [] Abdominal pain [] Heartburn [] Blood from rectum [] Colitis [] Gallbladder problems [] Troubl e swallowing [] Bloated stomach [] Change in stools [] Vomiting blood [] Nausea [x] Hemorrhoids [] Jaundice [] Hepatitis [] Diarrhea [x] Constipation [] Diverticulitis Urinary Tract: [] Painful urination [] Kidney Stones [] Any urine leakage [] Weak urine stream [] Night urination [] Urine infections [] Bedwetting [] Blood in urine Skin: [] Skin rashes [] Itching/Burning [] Skin bruises easil y [] Artificial tanning [] Skin cancer [] Hair loss [] Changes in moles Musculoskeletal: [x] Physical handicaps [x] Back or shoulder pain []Rheumatoid disease [x] Osteoarthritis [x] Joint pain [x] Joint swelling []Gout [] Leg cramps at night Neurological: [] Headaches [] Seizures [] Stroke/TIA [] Faintness [] Tremors [] Numbness [] Dizziness [] Changes in handwriting [x] Memory loss [] Shooting pains Psychiatric: [x] Depression [] Suicidal thoughts [] Sleep pattern changes [] Appetite changes [x] Recent counseling [x] Nervousness/anxiety [] Physical violence [] Marital problems Endocrine: [] Thyroid [] Diabetes Systemic: []Weight loss/gain (over 10 lbs) []Fever/chills [x]Fatigue [] Sleeping Difficulties [] Speech change [] Voice change Filed Vitals: 10/02/16 0903 BP: 117/54 Pulse: 63 Temp: 36.7 C (98 F) PainSc: 8 PainLoc: Shoulder Estimated body mass index is 34.76 kg/(m^2) as calculated from the following: Height as of 08/01/16: 1.524 m (5'). Weight as of this encounter: 80.74 kg (178 lb). Physical examination:Patient is alert and oriented and in no acute distress. Inspection reveals: Skin is warm dry and intact with no gross deformity. Head: Oral pharnyx nonerythematous nonedematous no exudate noted Neck: Supple nontender without any lymphadenopathy. Heart: Regular rate and rhythm. Lungs: Clear to auscultation. Abdomen: Soft nontender no masses organomegaly. Cranial nerves 2-12 grossly intact. Musculoskeletal: She has maximum active left shoulder elevation of 80 degrees which is milton nful and weak. NV function is intact to both hands. Assessment: Left shoulder impingement syndrome and full thickness rotator cuff tear. Plan: The patient is scheduled for a left shoulder limited open decompression and rotator c uff repair on 10/07/16. Therefore, the planned procedure with its risks, possible complicat ions, expected prognosis, and treatment alternatives was discussed with the patient. Risks and possible complications were listed but not limited to infection, nerve and vessel damage , bleeding, pain, scarring, stiffness, residual symptoms remaining after surgery, and the ri sk of anesthesia including . No guarantees were given or implied other than that of di ligent effort. documented in th is encounter Plan of Treatment +--------+---------+ + + + | Date | Type | Specialty | Care Team | Description | +--------+---------+ + + + | 12/12/ | Office | Cardiology | Emile Rosario MD | | | 2020 | Visit | | [address] | | | | | | [place] [address] | | | | | | [phone] | | | | | | | | +--------+---------+ + + + documented as of this encounter Procedures + +--------+ + + + | Procedure Name | Priori | Date/Time | Associated Diagnosis | Comments | | | ty | | | | + +--------+ + + + | ECG 12 LEAD | Routin | 10/02/2016 | Hyperlipidemia, | Results for this | | | e | 10:05 AM | unspecified | procedure are in [...] + documented in this encounter Results XR Chest PA and Lateral (10/02/2016 10:30 AM PST) + + | Specimen | + + | | + + + + + | Narrative | Performed At | + + + | EXAM: XR CHEST PA AND LATERAL HISTORY: PREOP TESTING | [facility] | | TECHNIQUE: Upright PA and Lateral Chest COMPARISON: None. | [facility] | | FINDINGS: Heart is normal size. Mediastinal and hilar | [facility] | | contours are within normal limits. Mild linear scarring/atelectasis | - IMAGING | | at the left midlung. There is mild nonspecific prominence of the | | | pulmonary interstitium. Lungs are otherwise clear. No pleural | | | effusion. No pneumothorax. No acute osseous abnormality. Right | | | upper quadrant surgical clips suggest cholecystectomy. IMPRESSION | | | - 1. No acute cardiopulmonary abnormality. 2. Other findings as | | | noted above. CRITICAL VALUE: No. Dictated and Signed by: | | | Maxx Tijerina MD Electronically signed: 10/02/2016 10:32 AM | | + + + + + | Procedure Note | + + | Jeremy, Rad Results In - 10/02/2016 10:35 AM PST EXAM: XR CHEST PA AND LATERAL | | | | HISTORY: PREOP TESTING | | | | TECHNIQUE: Upright PA and Lateral Chest | | | | COMPARISON: None. | | | | FINDINGS: | | | | Heart is normal size. | | Mediastinal and hilar contours are within normal limits. | | Mild linear scarring/atelectasis at the left midlung. There is mild nonspecific | | prominence of the pulmonary interstitium. Lungs are otherwise clear. No pleural | | effusion. No pneumothorax. | | No acute osseous abnormality. Right upper quadrant surgical clips suggest | | cholecystectomy. | | | | IMPRESSION - | | 1. No acute cardiopulmonary abnormality. | | 2. Other findings as noted above. | | | | CRITICAL VALUE: No. | | | | Dictated and Signed by: Maxx Tijerina MD | | Electronically signed: 10/02/2016 10:32 AM | + + + + + + + | Performing | Address | City/State/Zipcode | Phone Number | | Organization | | | | + + + + + | [facility] | [address] | [place] | [phone] | | [facility] | | [address] | | | - IMAGING | | | | + + + + + Basic Metabolic Panel (10/02/2016 10:24 AM PST) [...] 13 | 7 - 18 mg/dL | [facility] | | | | | | [facility] | | | | | | MEDICAL | | | | | | CENTER - | | | | | | LABORATORY | | + + + + + + | Creatinine | 0.86 | 0.60 - 1.30 | [facility] | | | | | mg/dL | [facility] | | | | | | MEDICAL | | | | | | CENTER - | | | | | | LABORATORY | | + + + + + + | eGFR if not | >60Comment: GLOMERULAR | >=60 | [facility] | | | | FILTRATION | mL/min/1.73m2 | [facility] | | | [place] | RATE,ESTIMATED | | MEDICAL | | | | mL/min/1.32r8Wczc than | | CENTER - | | [...] + | [facility] | [address] | [place] | [phone] | | [facility] | | [address] | | | - LABORATORY | | [...] | | | | g/dL | [facility] | | | | [...] | [facility] | [address] | [place] | [phone] | | [facility] | | [address] | | | - LABORATORY | | | | + + + + + ECG 12 lead (10/02/2016 10:05 AM PST) + + + + + + | Component | Value | Ref Range | Performed | Pathologist | | | | | At | Signature | + + + + + + | VENTRICULAR | 60 | BPM | [facility] | | | RATE EKG | | | | | + + + + + + | ATRIAL RATE | 60 | BPM | [facility] | | + + + + + + | P-R | 188 | ms | [facility] | | | INTERVAL | | | | | + + + + + + | QRS | 82 | ms | [facility] | | | DURATION | | | | | + + + + + + | Q-T | 446 | ms | [facility] | | | INTERVAL | | | | | + + + + + + | Q-T | 446 | ms | [facility] | | | INTERVAL | | | | | | (CORRECTED) | | | | | + + + + + + | P WAVE AXIS | 9 | degrees | [facility] | | + + + + + + | QRS AXIS | -23 | degrees | [facility] | | + + + + + + | T AXIS | -22 | degrees | [facility] | | + + + + + + | INTERPRETAT | Normal sinus | | [facility] | | | ION TEXT | rhythmMinimal voltage | | | | | | criteria for LVH, may be | | | | | | normal | | | | | | variantNonspecific | | | | | | inferior Twave | | | | | | abnormalitiesBorderline | | | | | | ECGNo previous ECGs | | | | | | availableConfirmed by | | | | | | VICK MAC MD ([id number]) | | | | | | on 10/03/2016 8:04:48 PM | | | | | | | | | | + + + + + + + + | Specimen | + + | | + + + + + | Narrative | Performed At | + + + | | | + + + + +---------+ + + | Performing | Address | City/State/Zipcode | Phone Number | | Organization | | | | + +---------+ + + | [facility] | | | | + +---------+ + + documented in this encounter Visit Diagnoses + + | Diagnosis | + + | Complete rotator cuff tear or rupture of left shoulder, not specified as traumatic - | | Primary Complete rupture of rotator cuff | + + | Hyperlipidemia, unspecified hyperlipidemia type | + + | Essential hypertension Unspecified essential hypertension | + + documented in this encounter"
--- OUTSIDE RECORDS SUMMARY | ~2019-11-13 | XMS | Encounter Summary ---
Demographics + + + | Address | [address] | | | [place] [address] | + + + | Home Phone | | + + + | Preferred Language | Unknown | + + + | Marital Status | | + + + | Restorationist Affiliation | 1013 | + + + | Race | Unknown | + + + | Ethnic Group | Unknown | + + + Author + + + | Author | [facility] | | | and [place] | + + + | Organization | [facility] | | | and [place] | + + + | Address | Unknown | + + + | Phone | Unavailable | + + + Support + + + + + | Name | Relationship | Address | Phone | + + + + + | Tamar Lancaster | JOSEE | [address] | | | | | [place] [address] | | + + + + + | Peter Hester | ECON | [address] | | | | | [place] [address] | | + + + + + Care Team Providers + +------+ + | Care Rubber Vulcanizing Machine Operator Name | Role | Phone | + +------+ + | Michael Montoya MD | PCP | | + +------+ + Encounter Details +--------+ + + + + | Date | Type | Department | Care Team | Description | +--------+ + + + + | 10/02/ | Hospital | [facility] | Reagan Bronson | Hyperlipidemia, | | 2016 | Encounter | [facility] XRAY | MD Miguelangel [address] [facility] | unspecified | | | | [address] [place] | [place], [place] | hyperlipidemia type; | | | | [place], [place] | [address] | Essential | | | | [address] | | hypertension; | | | | [phone] | | Complete rotator | | | [...] + + + +---------+ + + | Flanagan-3 Fatty | Take by mouth. | | [...] [address] | | | | | | [place] [address] | | | | | | [phone] | | | | | | | | +--------+---------+ + + + documented as of this encounter Procedures + +--------+ + + + | Procedure Name | Priori | Date/Time | Associated Diagnosis | Comments | | | ty | | | | + +--------+ + + + | XR CHEST PA AND | Routin | 10/02/2016 | Hyperlipidemia, | Results for this | | LATERAL | e | 10:30 AM | unspecified | procedure are in [...] PA AND LATERAL HISTORY: PREOP TESTING | [facility] | | TECHNIQUE: Upright PA and Lateral Chest COMPARISON: None. | [facility] | | FINDINGS: Heart is normal size. [...] | Procedure Note | + + | Hank Luna Results In - 10/02/2016 10:35 AM PST [...] + + | [facility] | [address] | [place] | [phone] | | [facility] | | [address] | | | - IMAGING | | [...]
--- OUTSIDE RECORDS SUMMARY | ~2019-11-13 | XMS | Encounter Summary ---
Demographics + + + | Address | [address] | | | [place] [address] | + + + | Home Phone | | + + + | Preferred Language | Unknown | + + + | Marital Status | | + + + | Roman Catholic Affiliation | 1013 | + + + | Race | Unknown | + + + | Ethnic Group | Unknown | + + + Author + + + | Author | [facility] | | | and [place] | + + + | Organization | [facility] | | | and [place] | + + + | Address | Unknown | + + + | Phone | Unavailable | + + + Support + + + + + | Name | Relationship | Address | Phone | + + + + + | Tamar Lancaster | JOSEE | [address] | | | | | [place] [address] | | + + + + + | Peter Hester | ECON | [address] | | | | | [place] [address] | | + + + + + Care Team Providers + +------+ + | Care Service Specialist Name | Role | Phone | + +------+ + | Michael Montoya MD | PCP | | + +------+ + Encounter Details +--------+ + + + + | Date | Type | Department | Care Team | Description | +--------+ + + + + | 08/12/ | Orders Only | [facility] | Brian Garduno, | Neck pain (Primary | | 2017 | | NEUROSURGERY [address] | DO [address] | Dx); Back pain, | | | | [address] | [address] [place], [place] | unspecified back | | | | [place], [place] | [address] | location, | | | | [address] | | unspecified back | | | | [phone] | | pain laterality, | | | | | | unspecified | | | | | | chronicity | +--------+ + + + + Social [...] | 2020 | Visit | | [address] | | | | | | [place] [address] | | | | | | [phone] | | | | | | | | +--------+---------+ + + + + +---------+--------+ + + | Name | Type | Priori | Associated Diagnoses | Order Schedule | | | | ty | | | + +---------+--------+ + + | XR Cervical Spine 4 | Imaging | Routin | Neck pain | Expected: | | or 5 Vws | | e | | 08/12/2017, Expires: | | | | | | 08/13/2018 | + +---------+--------+ + + | XR Lumbar Spine 4 + | Imaging | Routin | Back pain, | Expected: | | Vw | | e | unspecified back | 08/12/2017, Expires: | | | | | location, | 08/12/2018 | | | | | unspecified back | | | | | | pain laterality, | | | | | | unspecified | | | | | | chronicity | | + +---------+--------+ + + documented as of this encounter Visit Diagnoses + + | Diagnosis | + + | Neck pain - Primary Cervicalgia | + + | Back pain, unspecified back location, unspecified back pain laterality, unspecified | | chronicity | + + documented in this encounter"
--- OUTSIDE RECORDS SUMMARY | ~2019-11-13 | XMS | Encounter Summary ---
Demographics + + + | Address | [address] | | | [place] [address] | + + + | Home Phone | | + + + | Preferred Language | Unknown | + + + | Marital Status | | + + + | Jain Affiliation | 1013 | + + + | Race | Unknown | + + + | Ethnic Group | Unknown | + + + Author + + + | Author | [facility] | | | and [place] | + + + | Organization | [facility] | | | and [place] | + + + | Address | Unknown | + + + | Phone | Unavailable | + + + Support + + + + + | Name | Relationship | Address | Phone | + + + + + | Tamar Lancaster | JOSEE | [address] | | | | | [place] [address] | | + + + + + | Peter Hester | ECON | [address] | | | | | [place] [address] | | + + + + + Care Team Providers + +------+ + | Care Outlet Manager Name | Role | Phone | + [...] | | | Services | Surgery | Acute pain | Alexx, | Reagan Means MD | | | Required | | of left | [place], | [address] | | | | | shoulder | PA-C [address] | | | | | Tear of left | [address] | [facility] [place] | | | | | | [place] | [address] Phone: | | | | | supraspinatu | [address] | [phone] | | | | | s tendon, | Phone: | Fax: | | | | | initial | [phone] | [phone] | | | | | encounter | Fax: | | | | | | | [phone] | | +--------+ + + + + + Reason for Visit + + + | Reason | Comments | + + + | Follow-up | MRI review | + + + Encounter Details +--------+---------+ + + + | Date | Type | Department | Care Team | Description | +--------+---------+ + + + | 07/03/ | Office | [facility] [place] | Alexx, | Acute pain of left | | 2015 | Visit | PHYSIATRY [address] | [address] | shoulder (Primary | | | | [place], | [place], | Dx); Tear of left | | | | [place] [address] | [place] [address] | supraspinatus | | | | [phone] | [phone] | tendon, initial | | | | | | encounter | +--------+---------+ + + + Social History [...] + + + | Blood Pressure | 139/71 | 07/03/2016 11:05 AM | | | | | PDT | | + + + + + | Pulse | 56 | 07/03/2016 11:05 AM | | | | | PDT [...] Weight | 80.7 kg (178 lb) | 07/03/2016 11:05 AM | | | | | PDT | | + + + + + | Height | 152.4 cm (5') | 07/03/2016 11:05 AM | | | | | PDT | | + + + + + | Body Mass Index | 34.76 | 07/03/2016 11:05 AM | | | | | PDT | | + + + + + documented in this encounter Patient Instructions Patient Instructions Destini Coffey PA-C - 07/03/2016 11:30 AM PDTDrDimitris Bronson's off ice will call you for surgery documented in this encounter Progress Notes Destini Coffey PA-C - 07/03/2016 8:48 AM PDTFormatting of this note might be differe nt from the original. CHIEF COMPLAINT: Chief Complaint Patient presents with Follow-up MRI review HISTORY OF PRESENT ILLNESS: The patient is a 70 y.o. female with the complaint of left loc ulder pain that began six week ago. She was chasing a bunny through her house and fell land ing on outstretched hand giving her pain to the left shoulder. An xray was done which showe d partial dislocation, and MRI of the shoulder was performed, she is here today with her bernice tomaster to discuss the results. The patient rates her pain and discomfort as 4 on scale of 1-10. Since the symptoms [...] mg by mouth Daily. No Dosage Provided baclofen (LIORESAL) 10 mg tablet Take 5 mg by mouth 3 times daily. Digestive Enzymes (DIGESTIVE ENZYME PO) Take by mouth. EPIPEN 2-TABITHA 0.3 MG/0.3ML injection USE NEEDED FOR ANAPHYLAXIS 1 escitalopram (LEXAPRO) 10 mg tablet Take 10 mg by mouth Daily. Flaxseed, Linseed, (FLAX SEED OIL PO) Take by mouth. gabapentin (NEURONTIN) 100 mg capsule Take 100 mg by mouth 3 times daily. hydrOXYzine pamoate (VISTARIL) 25 mg capsule Take 25 mg by mouth 4 times daily as neede d for Itching. ibuprofen (ADVIL,MOTRIN) 600 MG tablet Take 600 mg by mouth every 12 hours. LYSINE PO Take by mouth. methadone 10 mg tablet Take 10 mg by mouth every 12 hours. metoclopramide (REGLAN) 5 MG tablet Take 5 mg by mouth 4 times daily. [place]-3 Fatty Acids (EPA PO) Take by mouth. [...] no rheumatoid arthritis. PHYSICAL EXAMINATION: Filed Vitals: 07/03/16 1105 BP: 139/71 Pulse: 56 PainSc: 4 PainLoc: Shoulder Body mass index is 34.76 kg/(m^2). GENERAL: The patient is well developed [...] was unremarkable. Spurling s ign was negative. RADIOGRAPHIC REVIEW: The patient's imaging was reviewed [...] acromioclavicular joint is degenerative but otherwise unremarkable. LEft shoulder MRI shows: supraspinatus tear with retraction, high grade tear of the subscap ular muscle, arthritis of the glenohumeral joint. ASSESSMENT: Encounter Diagnoses Name Primary? Acute pain of left shoulder Yes Tear of left supraspinatus tendon, initial encounter PLAN: 1. After MRI was reviewed we discussed referral to Dr. Bronson, she has seen him for con sultation regarding a left total knee replacement. A referral to him has been made. 2. She is a patient of [facility] and today received a left subacromial steroid injecti on which did give her relief. She gets all her pain medications through them. ELECTRONICALLY SIGNED BY: Destini Coffey PA-C, 07/03/2016 documented in t his encounter Plan of Treatment +--------+---------+ + + + | Date | Type | Specialty | Care Team | Description | +--------+---------+ + + + | 12/12/ | Office | Cardiology | Emile Rosario MD | | | 2019 | Visit | | [address] | | | | | | [place] [address] | | | | | | [phone] | | | | | | | | +--------+---------+ + + + + + +--------+ + + | Name | Type | Priori | Associated Diagnoses | Order Schedule | | | | ty | | | + + +--------+ + + | Ambulatory referral | Outpatient | Routin | Acute pain of left | Ordered: 07/03/2016 | | to Orthopedic | Referral | e | shoulder Tear of | | | Surgery | | | left supraspinatus | | | | | | tendon, initial | | | | | | encounter | | + + +--------+ + + documented as of this encounter Visit Diagnoses + + | Diagnosis | + + | Acute pain of left shoulder - Primary | + + | Tear of left supraspinatus tendon, initial encounter | + + documented in this encounter"
--- OUTSIDE RECORDS SUMMARY | ~2019-11-13 | XMS | Encounter Summary ---
Demographics + + + | Address | [address] | | | [place] [address] | + + + | Home Phone | | + + + | Preferred Language | Unknown | + + + | Marital Status | | + + + | Uatsdin Affiliation | 1013 | + + + | Race | Unknown | + + + | Ethnic Group | Unknown | + + + Author + + + | Author | [facility] | | | and [place] | + + + | Organization | [facility] | | | and [...] | | | | | [place] [address] | | + + + + + | Peter Hester | ECON | [address] | | | | | [place] [address] | | + + + + + Care Team Providers + +------+ + | Care Welder Explosion Name | Role | Phone | + [...] | Specialty | Physical | Diagnoses | Audie | MARTÍNEZ | | | Services | Therapy | Primary | Reagan Means, | INDRA | | | Required | | osteoarthrit | MD [address] | MEDICAL | | | | | is of both | [address] | [address] | | | | | knees | [place], | [place] | | | | | | [place] [address] | [place] | | | | | | Phone: | [phone] | | | | | | [phone] | Phone: | | | | | | Fax: | [phone] | | | | | | [phone] | Fax: | | | | | | | [phone] | +--------+ + + + + + Reason for Visit + + + | Reason | Comments | + + + | Follow-up | left knee pain | + + + Encounter Details +--------+---------+ + + + | Date | Type | Department | Care Team | Description | +--------+---------+ + + + | 08/14/ | Office | [facility] | Reagan Bronson | Primary | | 2014 | Visit | ORTHOPEDIC SURGERY | MD Miguelangel [address] [place] [address] | osteoarthritis of | | | | [address] [place] [address] | [place] | both knees (Primary | | | | [place] | [address] | Dx) | | | | [address] | | | | | | [phone] | | | +--------+---------+ + + + [...] + + + + | Temperature | 36.4 C (97.5 F) | 08/14/2015 3:47 PM | | | | | PDT [...] | 83.9 kg (185 lb) | 08/14/2015 3:47 PM | | | | | PDT | | + + + + + | Height | 154.9 cm (5' 1") | 08/14/2015 3:47 PM | | | | | PDT | | + + + + + | Body Mass Index | 34.96 | 08/14/2015 3:47 PM | | | | | PDT | | + + + + + documented in this encounter Progress Notes Reagan Bronson MD - 08/14/2015 6:09 PM PDTSee soap note [id number].Electronically sign ed by Reagan Bronson MD at 08/14/2015 6:09 PM PDTReagan Bronson MD - 5 6:09 PM PDT [facility] [address] [place] [address] OFFICE NOTE REAGAN BRONSON MD Patient: ANNABEL JENSEN Admitting: MR #: [id number] LOC: PT TYPE: Adm Date: 08/14/2015 : 1945 IDENTIFICATION: Annabel Jensen is a 69-year-old female who has recently moved to live with her daughter in [place], [place]. CHIEF COMPLAINT: Left knee pain. 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 She has come to our office specifically for evaluation and treatment recommendations regarding her known left knee osteoarthritis. X-rays were reviewed, which show wvcq-ju-vyud apposition throughout the medial joint roseann rtment with degenerative changes throughout the entire knee joint. She is currently using a walker for household ambulation and a wheelchair for community ambulation. She states th at physical activity tends to aggravate her back pain, so she has tried to minimize her ov erall physical activity level, which is probably not helping her knee at all. PAST MEDICAL HISTORY: Hypertension, elevated cholesterol, anxiety, depression, sleep apne a on CPAP, breast cancer, lumbar radiculopathy, degenerative lumbar disc disease, spondylol isthesis of the lumbar level, history of stroke. PAST SURGICAL HISTORY: Includes times 3, hysterectomy, carpal tunnel release, r otator cuff repair, cholecystectomy, breast lumpectomy and a left bunionectomy. MEDICATION ALLERGIES: IODINE and BETADINE. CURRENT MEDICATIONS: Ibuprofen as needed. Methadone 10 mg by mouth 3 times a day. Oxycodone 15 mg 5 tablets per day. Potassium chloride 20 mEq by mouth daily. Hytrin 10 mg 2 per day. Torsemide 5 mg by mouth daily. FAMILY HISTORY: Positive for alcohol use, cancer, diabetes, headache, heart disease, seiz ure and stroke. SOCIAL HISTORY: The patient previously smoked and drank, but stop using tobacco and alcoh ol in 1975 after a divorce. REVIEW OF SYSTEMS: Reportedly negative except for what is noted in the HPI. EXAMINATION: The patient's left knee is examined. She is diffusely tender but specifical ly over the joint lines, more so medially than laterally. Motion is approximately 5 to 115 degrees. Ligaments are stable. Neurovascular function is intact to the left foot. The k nee demonstrates a mild varus deformity. X-RAYS: X-rays are reviewed of the left knee, which show rather advanced degenerative corina nt disease with gvrl-xl-gqrq wear throughout the medial compartment with some degree of bon y erosion. ASSESSMENT: 1. Advanced degenerative joint disease, left knee. 2. Multiple medical comorbidities including hypertension, elevated cholesterol, anxiety, depression, multilevel back degenerative disc disease, fibromyalgia, history of stroke, and obesity with a BMI of 35. ADVICE: We discussed our plans at length with Annabel. She really needs to be better to ma ximize her chance of a successful recovery from knee replacement. We have given her a pres cription to go to [facility] in [place], near where she lives, for aqua-based therapy. We have encouraged her to proceed with weight loss as she actually has already lost about 30 pounds in the past 6 months. She will continue to work on weaning herself of f of her large amounts of narcotic pain medication under the care of her primary care physi yeimy, Dr. Fisher, in [place]. We will see Annabel back for further discussion regarding total knee joint replacement when desired in the future. Today she was given patient edu cation material regarding total joint replacement of the knee joint. REAGAN BRONSON MD Dictated by REAGAN BRONSON MD 08/14/2015 18:09:31 Transcribed on 08/15/2015 02:51:00 by dtw job# [id number] Confirmation #: [id number] cc: KAUR FISHER MD documented in this encounter Plan of Treatment +--------+---------+ + + + | Date | Type | Specialty | Care Team | Description | +--------+---------+ + + + | 12/12/ | Office | Cardiology | Emile Rosario MD | | | 2020 | Visit | | [address] | | | | | | [place] [address] | | | | | | [phone] | | | | | | | | +--------+---------+ + + + + + +--------+ + + | Name | Type | Priori | Associated Diagnoses | Order Schedule | | | | ty | | | + + +--------+ + + | * [facility] | Outpatient | Routin | Primary | Ordered: 08/14/2015 | | Therapy - AMB | Referral | e | osteoarthritis of | | | Referral | | | both knees | | + + +--------+ + + documented as of this encounter Visit Diagnoses + + | Diagnosis | + + | Primary osteoarthritis of both knees - Primary Primary localized osteoarthrosis, | | lower leg | + + documented in this encounter
--- OUTSIDE RECORDS SUMMARY | ~2019-11-13 | XMS | Encounter Summary ---
Demographics + + + | Address | [address] | | | [place] [address] | + + + | Home Phone | | + + + | Preferred Language | Unknown | + + + | Marital Status | Single | + + + | Yazidi Affiliation | Unknown | + + + | Race | White | + + + | Ethnic Group | Not or | + + + Author + + + | Author | [facility] | + + + | Organization | [facility] | + + + | [...] Team Providers + +------+ + | Care Truck Body Builder Apprentice Name | Role | Phone | + +------+ + | Michael Montoya MD | PCP | | + +------+ + Reason for Visit + + + | Reason | Comments | + + + | Eye examination | OCT | + + + Encounter Details +--------+---------+ + + + | Date | Type | Department | Care Team | Description | +--------+---------+ + + + | 02/22/ | Office | [facility] | | Macular cyst, hole, | | 2011 | Visit | [place] | | or pseudohole of | | | | Photography at | | retina | | | | [facility] | | | | | | [place] | | | | | | Mailcode: [address] | | | | | | [place] [address] | | | | | | [phone] | | | +--------+---------+ + + + [...] + documented as of this encounter Progress Marilin Bartlett - 02/23/2012 4:46 PM PDT Annabel Saucedo was seen in the [facility] [place] Photography/Ultrasound Department today, 02/23/2012, for OCT OU. Marilin Velez documented in this encounter Plan of Treatment Not on filedocumented as of this encounter Visit Diagnoses + + | Diagnosis | + + | Macular cyst, hole, or pseudohole of retina | + + documented in this encounter"
--- OUTSIDE RECORDS SUMMARY | ~2019-11-13 | XMS | Encounter Summary ---
Demographics + + + | Address | [address] | | | [place] [address] | + + + | Home Phone | | + + + | Preferred Language | Unknown | + + + | Marital Status | | + + + | Shinto Affiliation | 1013 | + + + | Race | Unknown | + + + | Ethnic Group | Unknown | + + + Author + + + | Author | [facility] | | | and [place] | + + + | Organization | [facility] | | | and [place] | + + + | Address | Unknown | + + + | Phone | Unavailable | + + + Support + + + + + | Name | Relationship | Address | Phone | + + + + + | Tamar Lancaster | JOSEE | [address] | | | | | [place] [address] | | + + + + + | Peter Hester | ECON | [address] | | | | | [place] [address] | | + + + + + Care Team Providers + +------+ + | Care Film Sound Coordinator Name | Role | Phone | + [...] Thoracic or | [place], | [address] | | | | | lumbosacral | Uvaldo Ahumada MD | [place], | | | | | neuritis or | [address] | [place] | | | | | | ST [place] | [address] | | | | | radiculitis, | [place], [place] | Phone: | | | | | unspecified | [address] | [phone] | | | | | Procedures | Phone: | Fax: | | | | | MS INJECT | [phone] | [phone] | | | | | ANES/STEROID | Fax: | | | | | | FORAMEN | [phone] | | | | | | LUMBAR/SACRA | | | | | | | L W IMG | | | | | | | GUIDE ,1 | | | | | | | LEVEL MS | | | | | | | TRIAMCINOLON | | | | | | | E ACET INJ | | | | | | | NOS, 10 MG | | | | | | | Bilat L4-L5 | | | | | | | TFESI-APPT | | | | | | | 5/14 | | | +--------+--------+ + + + + Encounter Details +--------+ + + + + | Date | Type | Department | Care Team | Description | +--------+ + + + + | 03/29/ | Hospital | [facility] | Uvaldo Hobbs | Lumbar radiculopathy | | 2013 | Encounter | MED CTR XRAY [address] | T, [address] | - currently into | | | | [place] | [place] | the bilateral lower | | | | [place] [address] | [address] | extremities; DDD | | | | [phone] | | (degenerative disc | | | | | [employer], [facility] | disease), lumbar; | | | | | | Spinal stenosis of | | | | | | lumbar region at | | | | | | multiple levels | +--------+ + + + + Social [...] +---------+ + + | Blood Pressure | 150/81 | 03/29/2014 12:28 PM | | | | | PDT | | + +---------+ + + | Pulse | 74 | 03/29/2014 12:28 PM | | | | | PDT | | + +---------+ + + | Temperature | - | - | | + +---------+ + + | Respiratory Rate | - [...] +---------+ + + documented in this encounter Medications at Time [...] | + + + +---------+--------+ + | DIAZEPAM PO | Take 0.5 mg by mouth | | 0 | | | | | Daily. | | | | 5 | + + + +---------+--------+ + | DULoxetine | Take 20 mg by mouth | | 0 | | | | (CYMBALTA) 20 mg | Daily. | | | | 5 | | capsule | | | | | | + + + +---------+--------+ + | furosemide (LASIX) | Take 20 mg by mouth | | 0 | | | | 20 mg tablet | Daily. | | | | 5 | + + + +---------+--------+ + | [...] [address] | | | | | | [place] [address] | | | | | | [phone] | | | | | | | | +--------+---------+ + + + documented as of this encounter Procedures + +--------+ + + + | Procedure Name | Priori | Date/Time | Associated Diagnosis | Comments | | | ty | | | | + +--------+ + + + | FL EPIDURAL STEROID | Routin | 03/29/2014 | Lumbar | Results for this | | INJECTION LUMBAR | e | 12:50 PM | radiculopathy - | procedure are in the | | TRANSFORAMINAL | | PDT | currently into the | results section. [...] | | | multiple levels | | + +--------+ + + + documented in this encounter Results FL KHOA Lumbar Transforaminal (03/29/2014 12:50 PM PDT) + + | Specimen | + + | | + + + + + | Narrative | Performed At | + + + | 03/29/2014 Bilateral Transforaminal Epidural Steroid Injections | [facility] | | Diagnosis: Lumbar radiculopathy ICD-9 Code 724.4 Annabel Mcneil | [facility] | | Sheryl presents to the fluoroscopy suite for fluoroscopically-guided [facility] | | bilateral L4-L5 transforaminal epidural [...] the epidural | | | space with contrast was not performed due to a severe iodine allergy. | | | A combination of 2 mL of 1% lidocaine and 2 mL of 6 mg/mL Celestone | | | was infused, divided between the two sides. The patient tolerated | | | the procedure well without complications. Pre- and post-procedure | | | blood pressures were stable. The patient was given verbal as well as | | | written follow-up instructions. Prior to the start of the | | | procedure, the following were performed and/or verified, including | | | correct patient identity, correct site/side marked and visible, | | | agreement on the procedure to be done, correct patient positioning | | | and an accurate procedure consent form. Any safety precautions based | | | on clinical history and/or medication use have been addressed. I | | | personally performed the procedure above. Estimated blood loss: | | | Minimal Complications: None Findings: As expected Anesthesia: Local | | | 1% Lidocaine | | + + + + + | Procedure Note | + + | Uvaldo Hobbs MD - 03/29/2014 1:13 PM PDT 03/29/2014ilateral Transforaminal | | Epidural Steroid InjectionsDiagnosis: Lumbar radiculopathyICD-9 Code 724.4Sdylan Tarun Saucedo | | presents to the fluoroscopy suite for fluoroscopically-guided bilateral L4-L5 | | transforaminal epidural steroid injections as part of conservative management for | | chronic pain with lumbar radiculopathy and degenerative disk disease. After informed | | consent was obtained, the patient lay in the prone position on the fluoroscopy table. | | The areas were identified under fluoroscopic guidance. The areas were prepped and draped | | in sterile fashion. A 25-gauge, 1.5-inch needle was inserted into each region and | | approximately 3 mL of buffered 1% lidocaine was infused. Then, a 22-gauge spinal needle | | was inserted into the posterior superior transforaminal space bilaterally and advanced | | into the epidural space under fluoroscopic guidance. Confirmation into the epidural | | space with contrast was not performed due to a severe iodine allergy. A combination of 2 | | mL of 1% lidocaine and 2 mL of 6 mg/mL Celestone was infused, divided between the two | | sides. The patient tolerated the procedure well without complications. Pre- and | | post-procedure blood pressures were stable. The patient was given verbal as well as | | written follow-up instructions. Prior to the start of the procedure, the following were | | performed and/or verified, including correct patient identity, correct site/side marked | | and visible, agreement on the procedure to be done, correct patient positioning and an | | accurate procedure consent form. Any safety precautions based on clinical history and/or | | medication use have been addressed. I personally performed the procedure | | above.Estimated blood loss: MinimalComplications: NoneFindings: As expectedAnesthesia: | | Local 1% Lidocaine | + + + + + + + | Performing | Address | City/State/Zipcode | Phone Number | | Organization | | | | + + + + + | [facility] | [address] | [place], [place] | [phone] | | [facility] | | [address] | | | - IMAGING | | [...] | without neurogenic claudication | + + documented in this encounter Administered Medications + +--------+ +-------+------+ + | Medication Order | MAR | Action | Dose | Rate | Site | | | Action | Date | | | | + +--------+ +-------+------+ + | betamethasone (CELESTONE | Given | 03/29/20 | 12 mg | | Other | | SOLUSPAN) injection 12 mg 12 mg, | | 14 1:00 | | | (Comment | | Intramuscular, EVERY 24 HOURS | | PM PDT | | | ) | | INTERVAL, First dose on Thu | | | | | | | 03/29/14 at 1300, For 2 doses, | | | | | | | Shake well. Not for IV use., | | | | | | + +--------+ +-------+------+ + +---+---+ | | | +---+---+ + +-------+ +-------+---+ + | lidocaine 1% injection 5 mL 5 | Given | 03/29/20 | 5 mLs | | Other | | mL, Intradermal, ONCE, Wed | | 14 1:00 | | | (Comment | | 03/29/14 at 1300, For 1 dose | | PM PDT | | | ) | + +-------+ +-------+---+ + +---+---+ | | | +---+---+ documented in this encounter"
--- OUTSIDE RECORDS SUMMARY | ~2019-11-13 | XMS | Encounter Summary ---
Demographics + + + | Address | [address] | | | [place] [address] | + + + | Home Phone | | + + + | Preferred Language | Unknown | + + + | Marital Status | Single | + + + | Samaritan Affiliation | Unknown | + + + | Race | White | + + + | Ethnic Group | Not or | + + + Author + + + | Author | [facility] | + + + | Organization | [facility] | + + + | Address | Unknown | + + + | Phone | Unavailable | + + + Support + + + + + | Name | Relationship | Address | Phone | + + + + + | Tamar Villatoro | JOSEE | [place] | | + + + + + Care Team Providers + +------+ + | Care Cloth Burler Name | Role | Phone | + +------+ + | Michael Montoya MD | PCP | | + +------+ + Reason for Visit + + + | Reason | Comments | + + + | Eye examination | | + + + Encounter Details +--------+---------+ + + + | Date | Type | Department | Care Team | Description | +--------+---------+ + + + | 06/07/ | Office | [facility] | | Macular Cyst, Hole, | | 2009 | Visit | [place] | | or Pseudohole of | | | | Photography at | | Retina | | | | [address] | | | | | | [address] | | | | | | Mailcode: [address] | | | | | | [place] [address] | | | | | | [phone] | | | +--------+---------+ + + + [...] + documented as of this encounter Progress Nikolas Car - 06/13/2009 4:28 PM Beverly Saucedo [facility] Department today, 06/07/2009, for fundus photography and OCT ou. Shawanda gordon declined FA. ps documented in this encou nter Plan of Treatment Not on filedocumented as of this encounter Visit Diagnoses + + | Diagnosis | + + | Macular cyst, hole, or pseudohole of retina | + + documented in this encounter"
--- OUTSIDE RECORDS SUMMARY | ~2019-11-13 | XMS | Encounter Summary ---
Demographics + + + | Address | [address] | | | [place] [address] | + + + | Home Phone | | + + + | Preferred Language | Unknown | + + + | Marital Status | | + + + | Pentecostal Affiliation | 1013 | + + + | Race | Unknown | + + + | Ethnic Group | Unknown | + + + Author + + + | Author | [facility] | | | and [place] | + + + | Organization | [facility] | | | and [...] | | | | | [place] [address] | | + + + + + | Peter Hester | ECON | [address] | | | | | [place] [address] | | + + + + + Care Team Providers + +------+ + | Care Behavioral Health Assistant Name | Role | Phone | + +------+ + | Michael Montoya MD | PCP | | + +------+ + Encounter Details +--------+ + + + + | Date | Type | Department | Care Team | Description | +--------+ + + + + | 04/10/ | Emergency | [facility] | [place], | Herpes zoster | | 2016 | | MEDICAL CENTER | MD [address] | dermatitis of eyelid | | | | EMERGENCY CENTER | [place] [address] | | | | | [address] | [phone] | | | | | [place], [place] | | | | | | [address] | | | | | | [phone] | | | +--------+ + + + [...] | | | | | [place] [address] | | | | | | [phone] | | | | | | | | +--------+---------+ + + + documented as of this encounter Visit Diagnoses + + | Diagnosis | + + | Herpes zoster dermatitis of eyelid | + + documented in this encounter"
--- OUTSIDE RECORDS SUMMARY | ~2019-11-13 | XMS | Encounter Summary ---
Demographics + + + | Address | [address] | | | [place] [address] | + + + | Home Phone | | + + + | Preferred Language | Unknown | + + + | Marital Status | | + + + | Scientology Affiliation | 1013 | + + + | Race | Unknown | + + + | Ethnic Group | Unknown | + + + Author + + + | Author | [facility] | | | and [place] | + + + | Organization | [facility] | | | and [place] | + + + | Address | Unknown | + + + | Phone | Unavailable | + + + Support + + + + + | Name | Relationship | Address | Phone | + + + + + | Tamar Lancaster | JOSEE | [address] | | | | | [place] [address] | | + + + + + | Peter Hester | ECON | [address] | | | | | [place] [address] | | + + + + + Care Team Providers + +------+ + | Care Horticultural Farmer Name | Role | Phone | + +------+ + | Michael Montoya MD | PCP | | + +------+ + Reason for Visit +--------+ + | Reason | Comments | +--------+ + | Other | | +--------+ + Encounter Details +--------+ + + + + | Date | Type | Department | Care Team | Description | +--------+ + + + + | 01/28/ | Telephone | [facility] [place] | Alexx, | Other | | 2015 | | PHYSIATRY [address] | [address]ANI[address] | | | | | [place], | [facility], | | | | | [place] [address] | [place] [address] | | | | | [phone] | [phone] | | | | | | | [...] | | | | | [place] [address] | | | | | | [phone] | | | | | | | | +--------+---------+ + + + documented as of this encounter Visit Diagnoses Not on filedocumented in this encounter"
--- OUTSIDE RECORDS SUMMARY | ~2019-11-13 | XMS | Encounter Summary ---
Demographics + + + | Address | [address] | | | [place] [address] | + + + | Home Phone | | + + + | Preferred Language | Unknown | + + + | Marital Status | | + + + | Yarsanism Affiliation | 1013 | + + + | Race | Unknown | + + + | Ethnic Group | Unknown | + + + Author + + + | Author | [facility] | | | and [place] | + + + | Organization | [facility] [...] | | | | | [place] [address] | | + + + + + | Peter Hester | ECON | [address] | | | | | [place] [address] | | + + + + + Care Team Providers + +------+ + | Care Roll Forming Machine Set Up Operator Name | Role | Phone | [...] | +--------+ + + + + | 10/30/ | Telephone | [facility] | Uvaldo Hobbs | Results, Imaging | | 2014 | | PHYSIATRY [address] | [address] | | | | | [place], | [place], [place] | | | | | [place] [address] | [id number] | | | | | [phone] | | | +--------+ + + + [...] CHAN | | | | | | [place] [address] | | | | | | [phone] | | | | | | | | +--------+---------+ + + + documented as of this encounter Visit Diagnoses Not on filedocumented in this encounter"
--- OUTSIDE RECORDS SUMMARY | ~2019-11-13 | XMS | Encounter Summary ---
Demographics + + + | Address | [address] | | | [place] [address] | + + + | Home Phone | | + + + | Preferred Language | Unknown | + + + | Marital Status | Single | + + + | Faith Affiliation | Unknown | + + + | Race | White | + + + | Ethnic Group | Not or | + + + Author + + + | Author | [facility] | + + + | Organization | [facility] | + + + | [...] Team Providers + +------+ + | Care Public Service Representative Name | Role | Phone | + [...] [place] | | | | | [place], [place] | [address] | | | | | [address] | [phone] | | | | | [phone] | | | +--------+ + + + [...]
--- OUTSIDE RECORDS SUMMARY | ~2019-11-13 | XMS | Encounter Summary ---
Demographics + + + | Address | [address] | | | [place] [address] | + + + | Home Phone | | + + + | Preferred Language | Unknown | + + + | Marital Status | Single | + + + | Judaism Affiliation | Unknown | + + + | Race | White | + + + | Ethnic Group | Not or | + + + Author + + + | Author | [facility] | + + + | Organization | [facility] | + + + | Address | Unknown | + + + | Phone | Unavailable | + + + Support + + + + + | Name | Relationship | Address | Phone | + + + + + | Tamar Villatoro | JOSEE | [place] | | + + + + + Care Team Providers + +------+ + | Care Shank Paperer Name | Role | Phone | + +------+ + | Michael Montoya MD | PCP | | + +------+ + Encounter Details +--------+ + + + + | Date | Type | Department | Care Team | Description | +--------+ + + + + | 05/22/ | Document-Sc | UNKNOWN DEPARTMENT | Unknown . | | | 2013 | anned | [address] | | | | | | [address] | | | | | | [place], [place] | | | | | | [address] | | | +--------+ + + + [...]
--- OUTSIDE RECORDS SUMMARY | ~2019-11-13 | XMS | Encounter Summary ---
Demographics + + + | Address | [address] | | | [place] [address] | + + + | Home Phone | | + + + | Preferred Language | Unknown | + + + | Marital Status | Single | + + + | Buddhism Affiliation | Unknown | + + + | Race | White | + + + | Ethnic Group | Not or | + + + Author + + + | Author | [facility] | + + + | Organization | [facility] | + + + | Address | Unknown | + + + | Phone | Unavailable | + + + Support + + + + + | Name | Relationship | Address | Phone | + + + + + | Tmaar Villatoro | JOSEE | [place] | | + + + + + Care Team Providers + +------+ + | Care Finisher Polisher Name | Role | Phone | + +------+ + | Michael Montoya MD | PCP | | + +------+ + Encounter Details +--------+ + + + + | Date | Type | Department | Care Team | Description | +--------+ + + + + | 09/07/ | Telephone | Dermatology | NurseJosephine | | | 2018 | | Medical at [facility] | Surgical [address] | | | | | Floor [address] | [address] | | | | | Marika Mailcode: [id number] | Road [place], [place] | | | | | [place] [facility] | [address] | | | | | and Healing, | | | | | | Building [address], | | | | | | Floor [place], [place] | | | | | | [address] | | | | | | [phone] | | | +--------+ + + + [...]
--- OUTSIDE RECORDS SUMMARY | ~2019-11-13 | XMS | Encounter Summary ---
Demographics + + + | Address | [address] | | | [place] [address] | + + + | Home Phone [...] | Author | [facility] | | | and [place] | + + + | Organization | [facility] | | | and [place] | + + + | Address | Unknown | + + + | Phone | Unavailable | + + + Support + + + + + | Name | Relationship | Address | Phone | + + + + + | Tamar Lancaster | JOSEE | [address] | | | | | [place] [address] | | + + + + + | Peter Hester | ECON | [address] | | | | | [place] [address] | | + + + + + Care Team Providers + +------+ + | Care Repairer Welding Systems And Equipment Name | Role | Phone | + [...] + + | 07/03/ | Telephone | [facility] [place] | Alexx, | Results, Imaging | | 2015 | | PHYSIATRY [address] | [address]ANIQUE [address]es [address] | | | | | [place], | [place] [facility], | | | | | [place] [address] | [place] [address] | | | | | [phone] | [phone] | | | | | | | [...] CHAN | | | | | | [place] [address] | | | | | | [phone] | | | | | | | | +--------+---------+ + + + documented as of this encounter Visit Diagnoses Not on filedocumented in this encounter"
--- OUTSIDE RECORDS SUMMARY | ~2019-11-13 | XMS | Encounter Summary ---
Demographics + + + | Address | [address] | | | [place] [address] | + + + | Home Phone | | + + + | Preferred Language | Unknown | + + + | Marital Status | | + + + | Sabianist Affiliation | 1013 | + + + | Race | Unknown | + + + | Ethnic Group | Unknown | + + + Author + + + | Author | [facility] | | | and [place] | + + + | Organization | [facility] | | | and [place] | + + + | Address | Unknown | + + + | Phone | Unavailable | + + + Support + + + + + | Name | Relationship | Address | Phone | + + + + + | Tamar [place] | JOSEE | [address] | | | | | [place] [address] | | + + + + + | Peter Hester | ECON | [address] | | | | | [place] [address] | | + + + + + Care Team Providers + +------+ + | Care Yield Analyst Name | Role | Phone | + [...] [address] [place] | | | | | [phone] | [place] [address] | | +--------+ + + + + [...] | | | | | [place] [address] | | | | | | [phone] | | | | | | | [...] for comparison only - no result from [place]. | [facility] | + + + + +---------+ + + | Performing | Address | City/State/Zipcode | Phone Number | | Organization | | | | + +---------+ + + | [facility] | | | | + +---------+ + + documented in this encounter Visit Diagnoses Not on filedocumented in this encounter"
--- OUTSIDE RECORDS SUMMARY | ~2019-11-13 | XMS | Encounter Summary ---
Demographics + + + | Address | [address] | | | [place] [address] | + + + | Home Phone | | + + + | Preferred Language | Unknown | + + + | Marital Status | | + + + | Anabaptism Affiliation | 1013 | + + + | Race | Unknown | + + + | Ethnic Group | Unknown | + + + Author + + + | Author | [facility] | | | and [place] | + + + | Organization | [facility] | | | and [place] | + + + | Address | Unknown | + + + | Phone | Unavailable | + + + Support + + + + + | Name | Relationship | Address | Phone | + + + + + | Tamar Lancaster | JOSEE | [address] | | | | | [place] [address] | | + + + + + | Peter Hester | ECON | [address] | | | | | [place] [address] | | + + + + + Care Team Providers + +------+ + | Care Box Toe Maker Name | Role | Phone | + +------+ + | Michael Montoya MD | PCP | | + +------+ + Reason for Visit + + + | Reason | Comments | + + + | Follow-up | left rotator cuff repair and ac, dce DOS 10/07/16 | + + + Encounter Details +--------+---------+ + + + | Date | Type | Department | Care Team | Description | +--------+---------+ + + + | 01/28/ | Office | [facility] | Gamaliel Feng | Chronic left | | 2017 | Visit | ORTHOPEDIC SURGERY | [address] | shoulder pain | | | | [address] | [facility] | (Primary Dx); | | | | [place] | [place] [address] | Adhesive capsulitis | | | | [address] | [phone] | of left shoulder; | | | | [phone] | | Decreased range of | | | | | | motion of left | | | | | | shoulder | +--------+---------+ + + + Social History [...] documented as of this encounter Progress Notes Gamaliel Feng PA-C - 01/28/2017 4:32 PM PDTFormatting of this note might be differe nt from the original. Name:Annabel Saucedo Todays Date: 01/28/2017 Age: 71 y.o. PCP: Michael Montoya MD Chief Complaint Patient presents with Follow-up left rotator cuff repair and ac, dce DOS 10/07/16 SUBJECTIVE: Returns today for follow-up of left rotator cuff repair with acromioplasty and distal clavi galo excision was probed performed on 10/07/16. Continues to have quite significant discomfo rt at the left shoulder elbow, hand and fingers. Describes the pain still elicited very top of her head, pointing to the top of her head. These with pain medication as prescribed by chronic pain management consisting of methadone and oxycodone immediate release tablets. A t her previous visit I provided her injection therapy at the left subacromial space and acro mioclavicular joint. She describes that this provided little in the way of any significant pain relief. Current level pain is rated at 5 6 out of 10. She is also had pain management in the [facility] obtain MRI of the neck. This does show mild osteoarthritic changes with joint space narrowing and spinal stenosis at mult iple levels but no clear severe pathology. OBJECTIVE: Examination reveals continued lack of range of motion at the left shoulder approximately 85 90 degrees of left shoulder shoulder abduction with effort. Limited secondary to pain an d what appears to be a hard stop. Imaging/Studies: No studies to review at this time. There were no vitals filed for this visit. ASSESSMENT/PLAN: 1. Left rotator cuff repair with distal clavicle excision arthroplasty, status postop 2. Adhesive capsulitis left shoulder A. patient had left rotator cuff repair on 10/07/16. Unfortunately her recovery from the surgery did not progress well with study improvements in range of motion. She had increased pain postoperatively and mobilization of the left shoulder was difficult and found wanting. I suspected that she has been developing adhesive capsulitis and todays findingswere rachid parker supported today. This was discussed today. We discussed treatment options at length. C onsisting of continued physical therapy, injection therapy and shoulder manipulation. Patie nt wishes to start physical therapy again and continue with mobilization. No injection ther apy today. I will refer her to physical therapy again for range of motion. However I do fe el it is likely that she will also require shoulder manipulation if she wishes to obtain ful l range of motion at the left shoulder. Continue with chronic pain medications prescribed b y pain management. Follow-up after physical therapy is completed B. Patient is advised that if they have any questions, comments or concerns to contact our office. Electronically signed by: Gamaliel Feng PA-C 01/28/2017 16:32 This note was dictated using the Oneexchangestreet voice recognition system. Minor errors in grammar [...] CHAN | | | | | | [place] [address] | | | | | | [phone] | | | | | | | [...]
--- OUTSIDE RECORDS SUMMARY | ~2019-11-13 | XMS | Encounter Summary ---
Demographics + + + | Address | [address] | | | [place] [address] | + + + | Home Phone [...] | Author | [facility] | | | and [place] | + + + | Organization | [facility] | | | and [place] | + + + | Address | Unknown | + + + | Phone | Unavailable | + + + Support + + + + + | Name | Relationship | Address | Phone | + + + + + | Tamar [place] | JOSEE | [address] | | | | | [place] [address] | | + + + + + | Peter Hester | ECON | [address] | | | | | [place] [address] | | + + + + + Care Team Providers + +------+ + | Care Senior Ui Ux Designer Name | Role | Phone | + [...] | | | | | Spinal | [address] | | | | | | stenosis of | Phone: | | | | | | lumbar | [phone] | | | | | | region at | Fax: | | | | | | multiple | [phone] | | | | | | levels [...] [address] | | | | | [place], | [facility], | | | | | [place] [address] | [place] [address] | | | | | [phone] | [phone] | | | | | | | [...] CHAN | | | | | | [place] [address] | | | | | | [phone] | | | | | | | [...]
--- OUTSIDE RECORDS SUMMARY | ~2019-11-13 | XMS | Encounter Summary ---
Demographics + + + | Address | [address] | | | [place] [address] | + + + | Home Phone | | + + + | Preferred Language | Unknown | + + + | Marital Status | | + + + | Latter-Day Affiliation | 1013 | + + + | Race | Unknown | + + + | Ethnic Group | Unknown | + + + Author + + + | Author | [facility] | | | and [place] | + + + | Organization | [facility] | [...] | | | | | [place] [address] | | + + + + + | Peter Hester | ECON | [address] | | | | | [place] [address] | | + + + + + Care Team Providers + +------+ + | Care Physical Medicine Teacher Name | Role | Phone | [...] Closed | | Radiology | Diagnoses | Br[place], | [facility] | | | | | Primary | Reagan L, | [address] | | | | | osteoarthrit | [address] | [place], | | | | | is of left | [address] | [place] | | | | | knee | [place], | [address] | | | | | Application | [place] [address] | Phone: | | | | | of | Phone: | [phone] | | | | | prosthesis | [phone] | Fax: | | | | | Procedures | Fax: | [phone] | | | | | MRI Knee | [phone] | | | | | | Left wo | | | | | | | Contrast | | | +--------+--------+ + + + + Encounter Details +--------+ + + + + | Date | Type | Department | Care Team | Description | +--------+ + + + + | 06/02/ | Orders Only | [facility] [place] | Reagan [place]onson | Primary | | 2016 | | ORTHOPEDIC SURGERY | MD [address] [facility] | osteoarthritis of | | | | [address] [facility] | [place] | left knee (Primary | | | | [place], [place] | [address] | Dx); Application of | | | | [address] | | prosthesis | | | | [phone] | | | +--------+ + + + [...] | | Former User | | | 01/01/19 | | | | | 96 | [...] CHAN | | | | | | [place] [address] | | | | | | [phone] | | | | | | | | +--------+---------+ + + + + +---------+--------+ + + | Name | Type | Priori | Associated Diagnoses | Order Schedule | | | | ty | | | + +---------+--------+ + + | MRI Knee Left wo | Imaging | Routin | Primary | Expected: | | Contrast | | e | osteoarthritis of | 06/02/2016, Expires: | | | | | left knee | 06/03/2017 | | | | | Application of | | | | | | prosthesis | | + +---------+--------+ + + documented as of this encounter Visit Diagnoses + + | Diagnosis | + + | Primary osteoarthritis of left knee - Primary Primary localized osteoarthrosis, lower | | leg | + + | Application of prosthesis Fitting and adjustment of unspecified prosthetic device | + + documented in this encounter"
--- OUTSIDE RECORDS SUMMARY | ~2019-11-13 | XMS | Encounter Summary ---
Demographics + + + | Address | [address] | | | [place] [address] | + + + | Home Phone | | + + + | Preferred Language | Unknown | + + + | Marital Status | | + + + | Christianity Affiliation | 1013 | + + + | Race | Unknown | + + + | Ethnic Group | Unknown | + + + Author + + + | Author | [facility] | | | and [place] | + + + | Organization | [facility] | | | and [...] | | | | | [place] [address] | | + + + + + | Peter Hester | ECON | [address] | | | | | [place] [address] | | + + + + + Care Team Providers + +------+ + | Care Semiautomatic Taper Operator Name | Role | Phone | [...] Acute pain | Alexx, | [address] | | | | | of left | [place], | [place], | | | | | shoulder | PA-C [address] | [place] | | | | | Traumatic | [address] | [address] | | | | | closed | [place] | Phone: | | | | | displaced | [address] | [phone] | | | | | fracture of | Phone: | Fax: | | | | | right | [phone] | [phone] | | | | | shoulder | Fax: | | | | | | with | [phone] | | | | | | anterior [...] Acute pain | Alexx, | [address] | | | | | of left | [place], | [place], | | | | | shoulder | PA-C [address] | [place] | | | | | Traumatic | [address] | [address] | | | | | closed | [place] | Phone: | | | | | displaced | [address] | [phone] | | | | | fracture of | Phone: | Fax: | | | | | right | [phone] | [phone] | | | | | shoulder | Fax: | | | | | | with | [phone] | | | | | | anterior [...] + + | 07/02/ | Hospital | [facility] | Alexx, | Acute pain of left | | 2016 | Encounter | [facility] MRI [address] | [address]ANIQUE Georges [address] | shoulder; Traumatic | | | | [address] [place], | [place], | closed displaced | | | | [place] [address] | [place] [address] | fracture of right | | | | [phone] | shoulder with | | | | [...] + + + +---------+ + + | [place] | Take by mouth. | | [...] | | | | | [place] [address] | | | | | | [phone] | | | | | | | [...] pain x 6 weeks, dislocation COMPARISON: | [facility] | | None. TECHNIQUE: Multiplanar multisequence MR imaging of the left [facility] | | shoulder without contrast. Imaging is [...] + + | Performing | Address | City/State/[facility] | Phone Number | | Organization | | | | + + + + + | [address] | [address] | [place] | [phone] | | [facility] | | [address] | | | - IMAGING | | [...]
--- OUTSIDE RECORDS SUMMARY | ~2019-11-13 | XMS | Encounter Summary ---
Demographics + + + | Address | [address] | | | [place] [address] | + + + | Home Phone | | + + + | Preferred Language | Unknown | + + + | Marital Status | Single | + + + | Scientologist Affiliation | Unknown | + + + | Race | White | + + + | Ethnic Group | Not or | + + + Author + + + | Author | [facility] | + + + | Organization | [facility] | + + + | [...] Team Providers + +------+ + | Care Certified Respiratory Therapist Name | Role | Phone | + +------+ + | Michael Montoya MD | PCP | | + +------+ + Reason for Visit + + + | Reason | Comments | + + + | Pre-Admission | Mohs | + + + Encounter Details +--------+ + + + + | Date | Type | Department | Care Team | Description | +--------+ + + + + | 08/12/ | Telephone | Dermatology | Leitenberger, | Pre-Admission (Mohs) | | 2018 | | Surgery at [facility] [address] | Ayaan Tanner MD [address] | | | | | [address] | [address] | | | | | Mailcode: CH16D | [place], [place] | | | | | [facility] | [address] | | | | | and Healing, | [phone] | | | | | [facility] | | | | | | Floor [place], [place] | | | | | | [address] | | | | | | [phone] | | | +--------+ + + + [...]
--- OUTSIDE RECORDS SUMMARY | ~2019-11-13 | XMS | Encounter Summary ---
Demographics + + + | Address | [address] | | | [place] [address] | + + + | Home Phone [...] + | Author | [facility] | | | and [place] | + + + | Organization | [facility] | | | and [...] | | | | | [place] [address] | | + + + + + | Peter Hester | ECON | [address] | | | | | [place] [address] | | + + + + + Care Team Providers + +------+ + | Care Fermentation Scientist Name | Role | Phone | + [...] | | [address] | [place] [address] | | | | | [place], [place] | [phone] | | | | | [address] | | | | | | [phone] | | | +--------+ + + + [...] | | | | | [place] [address] | | | | | | [phone] | | | | | | | | +--------+---------+ + + + documented as of this encounter Visit Diagnoses + + | Diagnosis | + + | Low back pain - Primary Lumbago | + + documented in this encounter"
--- OUTSIDE RECORDS SUMMARY | ~2019-11-13 | XMS | Encounter Summary ---
Demographics + + + | Address | [address] | | | [place] [address] | + + + | Home Phone | | + + + | Preferred Language | Unknown | + + + | Marital Status | | + + + | Nondenominational Affiliation | 1013 | + + + | Race | Unknown | + + + | Ethnic Group | Unknown | + + + Author + + + | Author | [facility] | | | and [place] | + + + | Organization | [facility] | | | and [place] | + + + | Address | Unknown | + + + | Phone | Unavailable | + + + Support + + + + + | Name | Relationship | Address | Phone | + + + + + | Tamar [place] | JOSEE | [address] | | | | | [place] [address] | | + + + + + | Peter Hester | ECON | [address] | | | | | [place] [address] | | + + + + + Care Team Providers + +------+ + | Care Is Project Manager Name | Role | Phone | [...] | ORTHOPEDIC SURGERY | MD Miguelangel [address] | osteoarthritis of | | | | [address] [facility] | [place] | left knee; | | | | [place], [place] | [address] | Application of | | | | [address] | | prosthesis | | | | [phone] | | | +--------+ + + + [...] CHAN | | | | | | [place] [address] | | | | | | [phone] | | | | | | | | +--------+---------+ + + + documented as of this encounter Visit Diagnoses + + | Diagnosis | + + | Primary osteoarthritis of left knee Primary localized osteoarthrosis, lower leg | + + | Application of prosthesis Fitting and adjustment of unspecified prosthetic device | + + documented in this encounter"
--- OUTSIDE RECORDS SUMMARY | ~2019-11-13 | XMS | Encounter Summary ---
Demographics + + + | Address | [address] | | | [place] [address] | + + + | Home Phone [...] | Author | [facility] | | | and [place] | + + + | Organization | [facility] | | | and [place] | + + + | Address | Unknown | + + + | Phone | Unavailable | + + + Support + + + + + | Name | Relationship | Address | Phone | + + + + + | Tamar [place] | JOSEE | [address] | | | | | [place] [address] | | + + + + + | Peter Hester | ECON | [address] | | | | | [place] [address] | | + + + + + Care Team Providers + +------+ + | Care Strategic Insights Lead Name | Role | Phone | + [...] Thoracic or | [place], | [address] | | | | | lumbosacral | Uvaldo Ahumada MD | [place], | | | | | neuritis or | [address] | [place] | | | | | | [place] | [address] | | | | | radiculitis, | [place], [place] | Phone: | | | | | unspecified | [address] | [phone] | | | | | Procedures | Phone: | Fax: | | | | | [place] INJECT | [phone] | [phone] | | | | | ANES/STEROID | Fax: | | | | | | [place]AM[place] | [phone] | | | | | | LUMBAR/SACRA [...] | | | | | | | 06/11 | | | +--------+--------+ + + + + Encounter Details +--------+ + + + + | Date | Type | Department | Care Team | Description | +--------+ + + + + | 06/11/ | Hospital | [facility] | Alexx, | Lumbar radiculopathy | | 2015 | Encounter | MED CTR XRAY [address] | [place] [address] | - currently into | | | | [address] [place] | [facility], | the bilateral lower | | | | [place] [address] | [place] [address] | extremities; DDD | | | | [phone] | [phone] | (degenerative disc | | | | | | disease), lumbar; | | | | | 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[facility] | Spinal stenosis of | | | [...] +---------+ + + | Blood Pressure | 164/88 | 06/11/2015 3:04 PM | | | | | PDT | | + +---------+ + + | Pulse | 55 | 06/11/2015 3:04 PM | | | | | PDT [...] | +--------+---------+ + + + | 12/12/ Office | Cardiology | Emile Rosario MD | | | 2019 | Visit | | [address] | | | | | | [place] [address] | | | | | | [phone] | | | | | | | | +--------+---------+ + + + documented as of this encounter Procedures + +--------+ + + + | Procedure Name | Priori | Date/Time | Associated Diagnosis | Comments | | | ty | | | | + +--------+ + + + | FL EPIDURAL STEROID | Routin | 06/11/2015 | Lumbar | Results for this | | INJECTION LUMBAR | e | 2:45 PM | radiculopathy - | procedure are [...] 06/11/2015 Bilateral Transforaminal Epidural Steroid Injections | ALLENE | | Diagnosis: Lumbar radiculopathy ICD-9 Code 724.4 Annabel MADERA | | Sheryl presents to the fluoroscopy suite for fluoroscopically-guided [facility] | | bilateral L4-L5 transforaminal [...] ST. | [address] | [place], [place] | [phone] | | [facility] | | [address] | | | - IMAGING | | [...] in this encounter Administered Medications + +--------+ +-------+------+------+ | Medication Order | MAR | Action | Dose | Rate | Site | | | Action | Date | | | | + +--------+ +-------+------+------+ | betamethasone (CELESTONE | Given | 06/11/20 | 12 mg | | | | SOLUSPAN) injection 12 mg 12 mg, | | 15 2:56 | | | | | Other, ONCE, 06/11/15 at | | PM PDT | | | | | 1500, For 1 dose, Shake well. Not | | | | | | | for IV use., | | | | | | + +--------+ +-------+------+------+ +---+---+ | | | +---+---+ + +-------+ +------+---+ + | lidocaine 1% injection 1 mL 1 | Given | 06/11/20 | 1 mL | | Other | | mL, Intradermal, ONCE, Mon | | 15 2:51 | | | (Comment | | 06/11/15 at 1500, For 1 dose | | PM PDT | | | ) | + +-------+ +------+---+ + +---+---+ | | | +---+---+ + +-------+ +------+---+---+ | sodium bicarbonate (NEUT) 4% | Given | 06/11/20 | 1 mL | | | | injection 1 mL 1 mL, | | 15 2:52 | | | | | Intravenous, ONCE, 06/11/15 at | | PM PDT | | | | | 1500, For 1 dose, Use for | | | | | | | addition to other parenteral | | | | | | | solutions., | | | | | | + +-------+ +------+---+---+ +---+---+ | | | +---+---+ documented in this encounter"
--- OUTSIDE RECORDS SUMMARY | ~2019-11-13 | XMS | Encounter Summary ---
Demographics + + + | Address | [address] | | | [place] [address] | + + + | Home Phone | | + + + | Preferred Language | Unknown | + + + | Marital Status | | + + + | Protestant Affiliation | 1013 | + + + | Race | Unknown | + + + | Ethnic Group | Unknown | + + + Author + + + | Author | [facility] | | | and [place] | + + + | Organization | [facility] | | | and [...] | | | | | [place] [address] | | + + + + + | Peter Hester | ECON | [address] | | | | | [place] [address] | | + + + + + Care Team Providers + +------+ + | Care Refrigeration Mechanic Helper Name | Role | Phone | + +------+ + | Michael [place] MD | PCP | | + +------+ + Encounter Details +--------+ + + + + | Date | Type | Department | Care Team | Description | +--------+ + + + + | 03/03/ | Hospital | [facility] | Uvaldo Hobbs | | | 2013 | Encounter | MED CTR XRAY [address] | [address], [address] | | | | | [place] | [place], [place] | | | | | [place] [address] | [address] | | | | | [phone] | | | +--------+ + + + [...] CHAN | | | | | | [place] [address] | | | | | | [phone] | | | | | | | | +--------+---------+ + + + documented as of this encounter Procedures + +--------+ + + + | Procedure Name | Priori | Date/Time | Associated Diagnosis | Comments | | | ty | | | | + +--------+ + + + | FL EPIDURAL STEROID | Routin | 03/09/2013 | | Results for this | | INJECTION LUMBAR | e | 7:38 AM | | procedure are in the | | TRANSFORAMINAL | | PDT | | results section. | + +--------+ + + + documented in this encounter Results FL KHOA Lumbar Transforaminal (03/09/2013 7:38 AM PDT) + + | Specimen | + + | | + + + + + | Narrative | Performed At | + + + | [facility] | [facility] | | Department [address] [place] [address] | [facility] | | [ rep [address]] [ rep [facility] | | [facility]] Signed | - IMAGING | | | | | Patient Name: ANNABEL SAUCEDO Physician: | | | SANDY : 1945 Age: 67 Sex: F Unit #: [id number] | | | Exam Date: 03/03/13 Location: [facility] | | | Report #: [id number] Page: | | | %(RAD)RES..mtdd.print.filter("pg") of %(RAD) | | | RES..mtdd.print.filter("tpg") | | | | | | Accession Number: [id number] | | | EPIDURAL STEROID INJECTION, 02/27/2013 CLINICAL HISTORY: | | | ICD-9 CODE 724.4, LUMBAR RADICULITIS. Ms Annabel Saucedo | | | presents to the fluoroscopy suite for fluoroscopically guided | | | bilateral L4-L5 transforaminal epidural steroid injections as part | | | of conservative management for chronic pain with lumbar | | | radiculopathy and degenerative disk disease. After informed | | | consent was obtained, the patient was laid in the prone position on | | | the fluoroscopy table. The area was identified under fluoroscopy | | | guidance. The area was prepped and draped in sterile fashion. A 25 | | | gauge 1 1/2 inch needle is inserted into this region and | | | approximately 3 mL of buffered 1% lidocaine was infused. Then a 22 | | | gauge spinal needle was inserted into the posterior superior | | | transforaminal space bilaterally and advanced into the epidural space | | | under fluoroscopic guidance. Confirmation into the epidural space | | | was achieved with infusion of approximately 1 mL of Isovue contrast | | | which showed epidural flow and combination 2 mL of 1% lidocaine and 2 | | | mL of 6 mg/mL of Celestone was infused divided between two sites. | | | The patient tolerated the procedure well without complications. | | | Pre- and post-procedure blood pressure was stable. The patient was | | | given verbal as well as written followup instructions. | | | Prior to the start of the procedure, the following were performed and | | | verified, including correct person identity, correct site/side | | | marked and visible, agreement of procedure to be done, correct | | | patient positioning and accurate procedure consent form. Any safety | | | precautions based on clinical history and/or medications have been | | | addressed. I personally performed the procedure above. | | | Dictated Date/Time: 03/09/2013 07:38 | | | Transcribed Date/Time: 03/09/2013 09:55 Coverage Specialist Rn: | | | <<Signature on File>> | | | Uvaldo Ahumada | | | MD Anjel03/12/13 2218 <Electronically signed by Uvaldo Ahumada | | | Anjel CHRISTIANSEN> Uvaldo Hobbs MD 03/09/13 0738 | | | Coverage Specialist Rn: YongChe [email or web address]/24/13 0955 | | | | | + + + + + + + + | Performing | Address | City/State/Zipcode | Phone Number | | Organization | | | | + + + + + | [facility] | [address] | [place] | [phone] | | [facility] | | [address] | | | - IMAGING | | | | + + + + + documented in this encounter Visit Diagnoses Not on filedocumented in this encounter
--- OUTSIDE RECORDS SUMMARY | ~2019-11-13 | XMS | Encounter Summary ---
Demographics + + + | Address | [address] | | | [place] [address] | + + + | Home Phone | | + + + | Preferred Language | Unknown | + + + | Marital Status | | + + + | Buddhist Affiliation | 1013 | + + + | Race | Unknown | + + + | Ethnic Group | Unknown | + + + Author + + + | Author | [facility] | | | and [place] | + + + | Organization | [facility] | | [...] | | | | | [place] [address] | | + + + + + | Peter Hester | ECON | [address] | | | | | [place] [address] | | + + + + + Care Team Providers + +------+ + | Care Home Sales Consultant Name | Role | Phone | + [...] Thoracic or | [place], | [address] | | | | | lumbosacral | Uvaldo Ahumada MD | [place], | | | | | neuritis or | [address] | [place] | | | | | | [place] | [address] | | | | | radiculitis, | [place], [place] | Phone: | | | | | unspecified | [address] | [phone] | | | | | Procedures | Phone: | Fax: | | | | | [place] INJECT | [phone] | [phone] | | | | | ANES/STEROID | Fax: | | | | | | [place] | [phone] | | | | | | LUMBAR/SACRA | | | | | | | L W IMG | | | | | | | GUIDE ,1 | | | | | | | [place] | | | | | | | [...] + + | 06/11/ | Hospital | [facility] | Alexx, | Lumbar radiculopathy | | 2015 | Encounter | MED CTR XRAY [address] | [place] [address] | - currently into | | | | [place] | [facility], | the bilateral lower | | | | [place] [address] | [place] [address] | extremities; DDD | | | | [phone] | [phone] | (degenerative disc | | | | | | disease), lumbar; | | | | | Civil Engineering Professional [facility] | Spinal stenosis of | | [...] CHAN | | | | | | [place] [address] | | | | | | [phone] | | | | | | | [...] presents to the fluoroscopy suite for fluoroscopically-guided [facility] | | bilateral L4-L5 transforaminal epidural [...] ST. | [address] | [place], [place] | [phone] | | [facility] | | [address] | | | - IMAGING | | [...]
--- OUTSIDE RECORDS SUMMARY | ~2019-11-13 | XMS | Encounter Summary ---
Demographics + + + | Address | [address] | | | [place] [address] | + + + | Home Phone [...] Author + + + | Author | [facility] | + + + | Organization | [facility] | + + + | [...] Team Providers + +------+ + | Care Weaver Apprentice Name | Role | Phone | [...] Description | +--------+---------+ + + + | 05/12/ | Office | Dermatology at | Al[place] Montiel, | Neoplasm of | | 2018 | Visit | Jermaine Cabello | ,PhD 1933 | uncertain behavior | | | | Clinic [address] | [address] [place], [place] | of skin (Primary Dx) | | | | [place], [place] | [address] | | | | | [address] | [phone] | | | | | [phone] | | | +--------+---------+ + + + [...] + + + + | Weight | 88 kg (194 lb) | 05/12/2018 11:01 AM | | | | | PDT | | + + + + + | Height | 151.1 cm (4' 11.5") | 05/12/2018 11:01 AM | | | | | PDT | | + + + + + | Body Mass Index | 38.53 | 05/12/2018 11:01 AM | | | | | PDT | | + + + + + documented in this encounter Patient Instructions Patient Instructions Sierra Oakes MA - 05/12/2018 11:00 AM [facility] Dermatology BIOPSY WOUND CARE INSTRUCTIONS General Care Wound healing is most rapid if the area is kept moist with ointment and covered so that a s cab is not able to form. To help this occur: ? Please remove the bandage on the day following your procedure. ? Wash gently with a mild soap and water (in the shower is fine) ? If you have any crusts or pus, you may gently remove with a Q-tip or gauze and hydrogen p eroxide to keep it clean. ? Spread a thin layer of Vaseline ointment on the wound and then cover with a fresh bandage . Continue this routine until the area heals. You will know the area is healed when it is no longer moist or makes a scab. It will still be pink. This may take up to several weeks. ? If you have stitches, they should be removed in 7-10 days. If you are uncertain of when t o return for suture removal, please call the clinic. ? Pain is rare, but if present, try an [id number]-pmxcngv pain medication such as Tylenol talya ry four hours. If you are having a great deal of pain from the wound, please contact the cli arturo. Complications ? If bleeding occurs, apply firm pressure directly over the wound for 15 minutes. Time your self with a clock, as this can feel like a long time. If it is still bleeding, please contac t the clinic. ? Expect the area to become more red and tender during the first 48 hours after the procedu re. This will gradually improve and is part5 of normal wound healing. Infection is rare comp lication. If it occurs, it begins several days after the procedure. The area will become inc reasingly red, swollen and tender instead of slowly improving. Please contact the clinic if you think you may have an infection. Biopsy Results ? It usually takes 1-2 weeks to be notified of biopsy results. ? If you have not heard about your results within two weeks and would like to know the resu lts, please call the clinic and we will assist you. If you have any questions, please contact the clinic at [phone] Please note: In addition to your visit charges, you or your insurance company may be billed. It usually takes 1-2 weeks to be notified of biopsy results. For dermatopathology services by Ricky Russell MD billed through [facility] A fee from an outside laboratory where tissue is processed onto microscopic slides. documented in this encounter Progress Notes Alka Montiel MD,PhD - 05/12/2018 11:00 AM PDTFormatting of this note might be differen t from the original. DERMATOLOGY NEW PATIENT VISIT CHIEF COMPLAINT: New patient consultation PCP: Michael Montoya Md, MD HISTORY OF PRESENT ILLNESS: Annabel Saucedo is a 72 y.o. female who presents for evaluation of New patient consultation She describes having a concerning spot on her Left chin. She states that it started out tin y and continued to get larger. She try the OTC wart cream on it. She states that now she has a dark spot. She also has an area on her Right chest that has been present for about 20 ye ars. She states that it has gotten bigger and puffier. She denies it being bothersome. Sympt om onset was one year. Previous treatments include mole removed from right cheek, benign. She is here today with her daughter. She grew up in [place], [place]. They have no history of tanning bed use, no history of serious edwards nburns. Outdoor hobbies and interests include: none, she did do oil painting and bead work, but not able to anymore. Occupation: Disabled [employer]. She does regularly use sunscreens and protective clothing, and d oes examine her skin regularly. The patient's dermatology intake form was reviewed, signed, and dated. Her relevant PMH, F H, and SH includes: PAST MEDICAL HISTORY: Past Medical History: Diagnosis Date Bipolar disorder (HCC) Carpal tunnel syndrome Celiac sprue Depressive disorder, not elsewhere classified Fibromyalgia HTN (hypertension) Macular hole OS Osteoarthritis PTSD (post-traumatic stress disorder) PAST SURGICAL HISTORY: Past Surgical History: Procedure Laterality Date APPENDECTOMY CHOLECYSTECTOMY HIP SURGERY 06/2011 ROTATOR CUFF REPAIR 2004 TUMOR REMOVAL left breast FAMILY HISTORY: Family history includes Cancer in her mother ( at 60 of lung cancer); Diabetes in her b rother and mother; Heart Disease in her father and maternal grandmother; and High blood pres sure in her mother. SOCIAL HISTORY: Patient reports that she has never smoked. She quit smokeless tobacco use about 22 years a go. MEDICATIONS: Current Medication List Name Sig CLONAZEPAM OR Take by mouth. DIAZEPAM ORAL Take by mouth. CYMBALTA ORAL Take by mouth. METHADONE 5 MG TABLET Take 5 mg by mouth two times daily. OXYCODONE 10 MG TABLET Take 10 mg by mouth every six hours as needed. POTASSIUM 75 MG TABLET Take by mouth. RANITIDINE HCL OR Take by mouth. TERAZOSIN OR Take by mouth. ALLERGIES: Allergies Allergen Reactions Iodine Anaphylaxis Ingested or topical, reacts to both REVIEW OF SYSTEMS: Please see HPI and PMH. In addition, she denies fever, chills, sweats, weight loss or loss of appetite, and has no further skin complaints. PHYSICAL EXAMINATION: Ht 1.511 m (4' 11.5") | Wt 88 kg (194 lb) | BMI 38.53 kg/(m^2) Well-developed, well-nourished person in no acute distress. Awake, alert and oriented. P leasant and cooperative mood. A skin examination was performed including the scalp, face, eyelids, ears, lips, neck, uppe r chest, bilateral arms, bilateral hands, and nails. Findings were within normal limits exc ept for the following: --Left chin: raised dodson colored nodule 7 mm --Left chest: pink shiny pearly nodule 11 mm --Left dorsal hand: pearly plaque 6 mm ASSESSMENT AND PLAN: Neoplasm of uncertain behavior of skin (primary encounter diagnosis) Comment: Left chin, Left chest, Left dorsal hand Plan: Neoplasms of uncertain behavior. Biopsy by shave technique performed today; will contact patient with results and arrange f or further care if needed. Procedure Note - Shave Biopsies Location: A) Left chin, ddx: r/o BCC Preferred mode of treatment if needed: A) mohs - they are willing to travel to [facility] B) Left Chest , ddx r/o BCC B) excision C) Left dorsal hand, ddx BCC C) mohs Prior to beginning the procedure the team paused to verify the patient's identity, as well as the procedure to be performed and the excision site. All equipment required was ready an d available. The patient was positioned appropriately. A team pause was performed prior to the procedure. After PARQ addressed and scar factors discussed, the areas were prepped with an isopropyl a lcohol pad. Anesthesia was obtained by subcutaneous infusion of buffered 1% lidocaine with 1 :100,000 epinephrine. Biopsies were performed by shave technique. Blood loss was minimal. The sites were dressed with white petrolatum jelly and a bandage. Verbal and written wound care instructions were given to the patient. Patient reports no pain after the procedure. Encouraged her to return in 6 months for full-body skin exam for a complete screening. We focused on the most concerning lesions today. RETURN VISIT: Return in about 6 months (around 11/11/2018). Alka Montiel M.D. Ph.D. Hose [facility] [facility] Department of Dermatology [facility] ([facility] Dermatology documented in th is encounter Plan of Treatment Not on filedocumented as of this encounter Procedures + +--------+ + + + | Procedure Name | Priori | Date/Time | Associated Diagnosis | Comments | | | ty | | | | + +--------+ + + + | DERM PATHOLOGY | Routin | 05/12/2018 | Neoplasm of | Results for this | | | e | 12:18 PM | uncertain behavior | procedure are in the | | | | PDT | of skin | results section. | + +--------+ + + + | TX BIOPSY, EACH | Routin | 05/12/2018 | Neoplasm of | | | ADDED LESION | e | 11:29 AM | uncertain behavior | | | | | PDT | of skin | | + +--------+ + + + | TX BIOPSY OF SKIN | Routin | 05/12/2018 | Neoplasm of | | | LESION | e | 11:29 AM | uncertain behavior | | | | | PDT | of skin | | + +--------+ + + + documented in this encounter Results DERM PATHOLOGY (05/12/2018 12:18 PM PDT) + + + + + + | Component | Value | Ref Range | Performed | Pathologist | | | | | At | Signature | + + + + + + | Clinical | A: 7 mm raised dodson | | [facility] | | | History | colored nodule.B: 11 mm | | DERMATOPATH | | | | pink shiny pearly | | OLOGY | | | | nodule.C: 6 mm pearly | | | | | | papule. | | | | + + + + + + | Final | A: BASAL CELL CARCINOMA, | | [facility] | Electronically | | Pathologic | PIGMENTED, NODULAR | | DERMATOPATH | signed by | | Diagnosis | PATTERN. (LEFT | | OLOGY | Marialuisa Tanner | | | EDIE)NOTE: Basal cell | | | Robyn Jay, | | | carcinoma is present at | | | MD on 05/17/2018 | | | the peripheral and deep | | | at 12:15 PM | | | biopsy margin.B: BASAL | | | | | | CELL CARCINOMA, NODULAR | | | | | | AND MORPHEAFORM | | | | | | PATTERNS. (LEFT | | | | | | CHEST)NOTE: Basal cell | | | | | | carcinoma is present at | | | | | | the peripheral and deep | | | | | | biopsy margins. C: BASAL | | | | | | CELL CARCINOMA, NODULAR | | | | | | PATTERN. (LEFT DORSAL | | | | | | HAND)NOTE: Basal cell | | | | | | carcinoma is present at | | | | | | the peripheral and deep | | | | | | biopsy margins. | | | | + + + + + + | Gross | Received in formalin are | | [facility] | | | Description | three specimens labeled | | DERMATOPATH | | | | with the patient's | | OLOGY | | | | name:A: Specimen is | | | | | | labeled "L chin" and | | | | | | consists of an irregular | | | | | | shave of papular patchy | | | | | | [id number]-mlxhg skin, 5 | | | | | | x 4 x 1 mm. The surgical | | | | | | margin is inked blue; | | | | | | the tissue is bisected, | | | | | | and entirely submitted | | | | | | in cassette A1.B: | | | | | | Specimen is labeled "L | | | | | | chest" and consists of | | | | | | an irregular shave of | | | | | | papular white-mercer skin, | | | | | | 5 x 4 x 1 mm. The | | | | | | surgical margin is inked | | | | | | blue; the tissue is | | | | | | bisected, and entirely | | | | | | submitted in cassette | | | | | | B1.C: Specimen is | | | | | | labeled "L dorsal hand" | | | | | | and consists of an | | | | | | irregular shave of | | | | | | papular white-mercer skin, | | | | | | 6 x 4 x 1 mm. The | | | | | | surgical margin is inked | | | | | | blue; the tissue is | | | | | | bisected, and entirely | | | | | | submitted in cassette | | | | | | C1. | | | | + + + + + + | Microscopic | A: There are aggregates | | [facility] | | | | of cells with | | DERMATOPATH | | | Description | hyperchromatic nuclei, | | OLOGY | | | | scant cytoplasm | | | | | | containing pigment and | | | | | | palisading of the | | | | | | peripheral nuclei.B: | | | | | | There are aggregates of | | | | | | basaloid cells attached | | | | | | to the base of the | | | | | | epidermis and in the | | | | | | dermis, with areas of | | | | | | peripheral nuclear | | | | | | palisading, retraction | | | | | | and fibromyxoid stroma. | | | | | | Many of the aggregates | | | | | | are in linear | | | | | | arrangement between | | | | | | thickened collagen | | | | | | bundles.C: There are | | | | | | aggregates of cells with | | | | | | hyperchromatic nuclei, | | | | | | scant cytoplasm and | | | | | | palisading of the | | | | | | peripheral nuclei. | | | | + + + + + + + + | Specimen | + + | Biopsy | + + | Biopsy | + + | Biopsy | + + + + + + + | Performing | Address | City/State/Zipcode | Phone Number | | Organization | | | | + + + + + | [facility] | [id number], [address] | [place] [address] | | | DERMATOPATHOLOGY | [address] | | | + + + + + documented in this encounter Visit Diagnoses + + | Diagnosis | + + | Neoplasm of uncertain behavior of skin - Primary | + + documented in this encounter
--- OUTSIDE RECORDS SUMMARY | ~2019-11-13 | XMS | Encounter Summary ---
Demographics + + + | Address | [address] | | | [place] [address] | + + + | Home Phone | | + + + | Preferred Language | Unknown | + + + | Marital Status | | + + + | Spiritism Affiliation | 1013 | + + + | Race | Unknown | + + + | Ethnic Group | Unknown | + + + Author + + + | Author | [facility] | | | and [place] | + + + | Organization | [facility] | | | and [...] | | | | | [place] [address] | | + + + + + | Peter Hester | ECON | [address] | | | | | [place] [address] | | + + + + + Care Team Providers + +------+ + | Care Eyeglass Lens Grinder Name | Role | Phone | + +------+ + PCP | Unavailable | + +------+ + Encounter Details +--------+ + + + + | Date | Type | Department | Care Team | Description | +--------+ + + + + | 05/29/ | Hospital | [facility] | | | | 1997 | Encounter | [facility] | | | | | [facility] [address] | | | | | | [place], [place] | | | | | | [address] | | | | | | [phone] | | | +--------+ + + + [...] | 2020 | Visit | | [address] | | | | | | [place] [address] | | | | | | [phone] | | | | | | | | +--------+---------+ + + + documented as of this encounter Visit Diagnoses Not on filedocumented in this encounter"
--- OUTSIDE RECORDS SUMMARY | ~2019-11-13 | XMS | Clinical Summary ---
Demographics + + + | Address | [address] | | | [place] [address] | + + + | Home Phone | | + + + | Preferred Language | Unknown | + + + | Marital Status | | + + + | Congregational Affiliation | 1013 | + + + | Race | Unknown | + + + | Ethnic Group | Unknown | + + + Author + + + | Author | [facility] | | | and [place] | + + + | Organization | [facility] | | | and [place] | + + + | Address | Unknown | + + + | Phone | Unavailable | + + + Support + + + + + | Name | Relationship | Address | Phone | + + + + + | Tamar Lancaster | JOSEE | [address] | | | | | [place] [address] | | + + + + + | Peter Hester | ECON | [address] | | | | | [place] [address] | | + + + + + Care Team Providers + +------+ + | Care Cafeteria Monitor Name | Role | Phone | + +------+ + | Michael Montoya MD | PCP | | + +------+ + Allergies + + + + + + | Active Allergy | Reactions | Severity | Noted | Comments | | | | | Date | | + + + + + + | Bee Venom | Anaphylaxis | High | //20 | | | | | | 13 | | + + + + + + | Iodine | Anaphylaxis | High | //20 | | | | | | 13 | | + + + + + + | Povidone Iodine | Anaphylaxis | High | //20 | | | | | | 13 | | + + + + + + | Wasp Venom Protein | Anaphylaxis | High | 10/13/20 | | | | | | 17 | | + + + + + + Medications + + + +---------+------+------+-------+ | Medication | Sig | Dispensed | Refills | Star | End | Statu | | | | | | t | Date | s | | | | | | Date | | | + + + +---------+------+------+-------+ | ibuprofen | Take 600 mg by mouth | | 0 | | | Activ | | (ADVIL,MOTRIN) 600 | every 6 hours as | | | | | e | | MG tablet | needed. | | | | | | + + + +---------+------+------+-------+ | terazosin (HYTRIN) | Take 10 mg by mouth | | 0 | | | Activ | | 10 MG capsule | 2 times daily. | | | | | e | + + + +---------+------+------+-------+ | Digestive Enzymes | Take by mouth. | | 0 | | | Activ | | (DIGESTIVE ENZYME | | | | | | e | | PO) | | | | | | | + + + +---------+------+------+-------+ | EPINEPHrine | Inject 0.3 mg into | | 0 | | | Activ | | auto-injector | the muscle as needed | | | | | e | | (EPIPEN 2-TABITHA) 0.3 | for Anaphylaxis. | | | | | | | mg/0.3 mL injection | | | | | | | + + + +---------+------+------+-------+ | potassium chloride | Take 20 mEq by mouth | | 0 | | | Activ | | (KLOR-CON) 20 MEQ | 2 times daily. | | | | | e | | packet | | | | | | | + + + +---------+------+------+-------+ | torsemide | Take 5 mg by mouth | | 0 | | | Activ | | (DEMADEX) 5 mg | Daily. | | | | | e | | tablet | | | | | | | + + + +---------+------+------+-------+ | baclofen | Take 10 mg by mouth | | 0 | | | Activ | | (LIORESAL) 10 mg | 2 times daily. As | | | | | e | | tablet | needed. | | | | | | + + + +---------+------+------+-------+ | NARCAN 4 MG/0.1ML | 4 mg by Nasal route | | 0 | 02/ | | Activ | | | as needed. | | | 04/04 | | e | | | | | | 17 | | | + + + +---------+------+------+-------+ | methadone 5 mg | Take 1 tablet by | | 0 | / | | Activ | | tablet | mouth every 8 hours. | | | 08/05 | | e | | | | | | 17 | | | + + + +---------+------+------+-------+ | escitalopram | | | 0 | 07/17 | | Activ | | (LEXAPRO) 20 mg | | | | 08/05 | | e | | tablet | | | | 17 | | | + + + +---------+------+------+-------+ | aspirin 81 mg EC | Take 81 mg by mouth | | 0 | | | Activ | | tablet | Daily. | | | | | e | + + + +---------+------+------+-------+ | ondansetron | Take 4 mg by mouth | | 0 | | | Activ | | (ZOFRAN ODT) 4 mg | every 8 hours as | | | | | e | | disintegrating | needed for Nausea. | | | | | | | tablet | | | | | | | + + + +---------+------+------+-------+ | lisinopril | Take 1 tablet by | 180 | 3 | 12/1 | 12/1 | Activ | | (PRINIVIL, ZESTRIL) | mouth 2 times daily. | tablet | | 1/20 | 0/20 | e | | 10 mg tablet | | | | 19 | 20 | | + + + +---------+------+------+-------+ | methadone 10 mg | Take 10 mg by mouth | | 0 | | 12/1 | Disco | | tablet | every 12 hours. | | | | 1/20 | ntinu | | | | | | | 19 | ed | | | | | | | | (Ther | | | | | | | | apy | | | | | | | | compl | | | | | | | | eted) | + + + +---------+------+------+-------+ | oxyCODONE | Take 30 mg by mouth | | 0 | | 12/ | Disco | | (ROXICODONE) 15 mg | every 8 hours as | | | | 20 | ntinu | | immediate release | needed. Taking 2 | | | | 19 | ed | | tabletIndications: | tablets in morning, | | | | | (Ther | | Moderate to Severe | 1 tablet at noon, | | | | | apy | | Pain | and 2 tablets in | | | | | compl | | | evening. | | | | | eted) | | | Indications: | | | | | | | | Moderate to Severe | | | | | | | | Pain | | | | | | + + + +---------+------+------+-------+ | [place]-3 Fatty | Take by mouth. | | 0 | | 10/16 | Disco | | Acids (EPA PO) | | | | | 20 | ntinu | | | | | | | 19 | ed | | | | | | | | (Ther | | | | | | | | apy | | | | | | | | compl | | | | | | | | eted) | + + + +---------+------+------+-------+ | Ascorbic Acid | Take 500 mg by mouth | | 0 | | 12/1 | Disco | | (VITAMIN C) 100 MG | Daily. No Dosage | | | | 1/20 | ntinu | | tablet | Provided | | | | 19 | ed | | | | | | | | (Ther | | | | | | | | apy | | | | | | | | compl | | | | | | | | eted) | + + + +---------+------+------+-------+ | escitalopram | Take 10 mg by mouth | | 0 | | 12/1 | Disco | | (LEXAPRO) 10 mg | Daily. | | | | 1/20 | ntinu | | tablet | | | | | 19 | ed | | | | | | | | (Ther | | | | | | | | apy | | | | | | | | compl | | | | | | | | eted) | + + + +---------+------+------+-------+ | clonazePAM | Take 0.25 mg by | | 0 | | 12/1 | Disco | | (KLONOPIN) 0.5 mg | mouth Twice daily | | | | 1/20 | ntinu | | tablet | as needed for | | | | 19 | ed | | | Anxiety. | | | | | (Ther | | | | | | | | apy | | | | | | | | compl | | | | | | | | eted) | + + + +---------+------+------+-------+ | oxyCODONE 10 MG | Take 1 tablet by | | 0 | 07/17 | 10/16 | Disco | | TABS | mouth every 6 hours | | | 08/05 | 12/05 | ntinu | | | as needed for Pain. | | | 17 | 19 | ed | | | | | | | | (Ther | | | | | | | | apy | | | | | | | | compl | | | | | | | | eted) | + + + +---------+------+------+-------+ | lisinopril | Take 10 mg by mouth | | 0 | | 10/16 | Disco | | (PRINIVIL, ZESTRIL) | Daily. | | | | 12/05 | ntinu | | 10 mg tablet | | | | | 19 | ed | | | | | | | | (Reor | | | | | | | | chandler) | + + + +---------+------+------+-------+ Active Problems + + + | Problem | Noted Date | + + + | Atypical chest pain | 10/26/2019 | + + + | Impingement syndrome of left shoulder | 10/07/2016 | + + + | Complete tear of left rotator cuff | 10/07/2016 | + + + | Potential difficult airway on pre-intubation assessment | 10/07/2016 | + + + | H/O Breast cancer | 10/06/2016 | + + + | Class I, BMI 30-34.9 | 10/06/2016 | + + + | H/O Iodine Allergy | 10/06/2016 | + + + | H/O CVA Stroke | 10/06/2016 | + + + | H/O Hysterectomy | 10/06/2016 | + + + | Alf Use of Narcotic - METHADONE | 10/06/2016 | + + + | Tear of left supraspinatus tendon | 07/03/2016 | + + + | Acute pain of left shoulder | 06/25/2016 | + + + | Traumatic closed displaced fracture of right shoulder with | 06/25/2016 | | anterior dislocation with delayed healing | | + + + | Muscle pain | 04/15/2016 | + + + | Chronic pain syndrome | 04/15/2016 | + + + | Celiac disease | 04/15/2016 | + + + | Cataract | 04/15/2016 | + + + + + | Overview: Overview: | | Followed in [place] | + + + + + | Encounter for screening for other disorder | 04/15/2016 | + + + | Myalgia | 04/15/2016 | + + + | Narcotic abuse | 10/08/2015 | + + + | Osteoarthritis of left knee | 01/01/2015 | + + + | Lumbar radiculopathy - currently into the bilateral lower | 03/20/2014 | | extremities | | + + + | DDD (degenerative disc disease), lumbar | 03/20/2014 | + + + | Spinal stenosis of lumbar region at multiple levels | 03/20/2014 | + + + | Spondylolisthesis of lumbar region | 03/20/2014 | + + + | TIA (transient ischemic attack) | 12/31/2012 | + + + | Confusion | 12/31/2012 | + + + | Fibromyalgia syndrome | 12/31/2012 | + + + | DA (degenerative arthritis) | 12/31/2012 | + + + | High blood pressure | | + + + | High cholesterol | | + + + | Anxiety and depression | | + + + | Depression | | + + + | SABA Sleep apnea - Uses CPAP | | + + + | Arthritis | | + + + | Breast cancer (Right Side with lymphnode excision, per pt) | | + + + Encounters +--------+---------+ + + + | Date | Type | Specialty | Care Team | Description | +--------+---------+ + + + | 10/26/ | Office | Cardiology | Emile Rosario MD | Essential | | 2019 | Visit | | | hypertension | | | | | | (Primary Dx); High | | | | | | cholesterol; | | | | | | Atypical chest pain | +--------+---------+ + + + from Last 3 Months Family History + + +------+ + | Medical History | Relation | Name | Comments | + + +------+ + | Alcohol abuse | Brother | | | + + +------+ + | Stroke | Brother | | | + + +------+ + | Diabetes | Brother | | | + + +------+ + | Heart disease | Father | | | + + +------+ + | Stroke | Father | | | + + +------+ + | Cancer | Mother | | lung | + + +------+ + | Diabetes | Mother | | | + + +------+ + | Headache | Mother | | | + + +------+ + | Stroke | Mother | | | + + +------+ + | Seizures | Son | | | + + +------+ + + +------+--------+ + | Relation | Name | Status | Comments | + +------+--------+ + | Brother | | | | + +------+--------+ + | Brother | | | | + +------+--------+ + | Brother | | | | + +------+--------+ + | Father | | | | + +------+--------+ + | Mother | | | | + +------+--------+ + | Son | | | | + +------+--------+ + Social History + +-------+ +--------+------+ | [...] recent travel history available. | + + Last Filed Vital Signs + [...] | | + + + + + Plan of Treatment +--------+---------+ + + + | Date | Type | Specialty | Care Team | Description | +--------+---------+ + + + | 12/12/ | Office | Cardiology | Emile Rosario MD | | | 2020 | Visit | | [address] | | | | | | [place] [address] | | | | | | [phone] | | | | | | | | +--------+---------+ + + + + + + + + | Health Maintenance | Due Date | Last Done | Comments | + + + + + | Hepatitis C | | | | | Screening | 6 | | | + + + + + | Vaccine: | | | | | Dtap/Tdap/Td (1 - | 7 | | | | Tdap) | | | | + + + + + | Urine Drug Screening | | | | | | 2 | | | + + + + + | Colorectal Cancer | | | | | Screening | 6 | | | | (Colonoscopy) | | | | + + + + + | Vaccine: Zoster (1 | | | | | of 2) | 6 | | | + + + + + | Breast Cancer | | | | | Screening | 1 | | | + + + + + | Vaccine: | | | | | Pneumococcal 65+ (1 | 1 | | | | of 2 - PCV13) | | | | + + + + + | Vaccine: Influenza | | | | | (#1) | 9 | | | + + + + + | Adult Annual | | | | | Wellness Visit | 9 | | | + + + + + | Statin Therapy | | | | | (optimal intensity) | 9 | | | + + + + + Results Not on filefrom Last 3 Months Insurance + +--------+ +--------+ +---------+--------+ | Payer | Benefi | Subscriber | Effect | Phone | Address | Type | | | t Plan | ID | teetee | | | | | | / | | Dates | | | | | | Group | | | | | | + +--------+ +--------+ +---------+--------+ | MEDICARE | MEDICA | [id number] | | [phone] | | Medica | | | RE | | 001-Pr | 5 | | re | | | PART A | | esent | | | | | | AND B | | | | | | + +--------+ +--------+ +---------+--------+ | MEDICARE | MEDICA | [id number] | 11/16/19 | [phone] | | Medica | | | RE | | 17-Pre | 5 | | re | | | PART A | | sent | | | | | | AND B | | | | | | + +--------+ +--------+ +---------+--------+ | [employer] | MODA | [id number] | 06/16/20 | [phone] | | Medica | | MEDICAID HMO | HEALTH | | 16-Pre | 1 | | id | | | MDCD | | sent | | | | | | [place]MO [place] | | | | | | + +--------+ +--------+ +---------+--------+ | [employer] | MODA | [id number] | | [phone] | | Medica | | MEDICAID HMO | HEALTH | | 019-Pr | 1 | | id | | | MDCD | | esent | | | | | | [place]MO [place] | | | | | | + +--------+ +--------+ +---------+--------+ + +--------+ +--------+ + + | Guarantor Name | Accoun | Relation to | Date | Phone | Billing Address | | | t Type | Patient | of | | | | | | | | | | + +--------+ +--------+ + + | Annabel Saucedo | Person | Self [birth year] | [address] | | | al/Fam | | 1945 | [phone] | [place] [address] | | | neal | | | 6 (Home) | | + +--------+ +--------+ + + | Annabel Saucedo | Person | Self [birth year] | [address] | | | kwame/Jose | | 1945 | [phone] | [place] [address] | | | neal | | | 6 (Home) | | + +--------+ +--------+ + + Advance Directives + + + + + | Type | Date Recorded | Patient | Explanation | | | | Paid Search Marketing Analyst | | + + + + + | Power of | | | | | Seamer [employer]ose | | | | + + + + + | Advance | 10/07/2016 | | | | Directive | 7:22 AM | | | + + + + + + + + + + | Code Status | Date | Date | Comments | | | Activated | Inactivated | | + + + + + | Full Code | 10/07/2016 | 10/07/2016 | | | | 12:33 PM | 4:52 PM | | + + + + +"
--- OUTSIDE RECORDS SUMMARY | ~2019-11-13 | XMS | Encounter Summary ---
Demographics + + + | Address | [address] | | | [place] [address] | + + + | Home Phone | | + + + | Preferred Language | Unknown | + + + | Marital Status | Single | + + + | Sabianism Affiliation | Unknown | + + + [...] Team Providers + +------+ + | Care Facility Mechanic Name | Role | Phone | + +------+ + | Michael Montoya MD | PCP | | + +------+ + Reason for Visit + + + | Reason | Comments | + + + | Pre-op evaluation | Mohs | + + + Encounter Details +--------+ + + + + | Date | Type | Department | Care Team | Description | +--------+ + + + + | 07/22/ | Telephone | Dermatology | [place], | Pre-op evaluation | | 2018 | | Surgery at [facility] [address] | Ayaan Tanner MD [address] | ([facility]) | | | | [address] | [address] | | | | | Mailcode: CH16D | [place], [place] | | | | | [facility] | [address] | | | | | and Healing, | [phone] | | | | | [facility] | | | | | | Floor [place], [place] | | | | | | [address] | | | | | | [phone] | | | +--------+ + + + + Social History + +-------+ +--------+------+ | Tobacco Use | Types | Packs/Day | Years | Date | | | | | Used | | + +-------+ +--------+------+ | Never Smoker | | | | | + +-------+ +--------+------+ + +---+---+ + | Smokeless Tobacco: | | | Quit: | | Former User | | | 04/09/19 | | | | | 96 | [...]
--- OUTSIDE RECORDS SUMMARY | ~2019-11-13 | XMS | Encounter Summary ---
Demographics + + + | Address | [address] | | | [place] [address] | + + + | Home Phone | | + + + | Preferred Language | Unknown | + + + | Marital Status | | + + + | Yazdanism Affiliation | 1013 | + + + | Race | Unknown | + + + | Ethnic Group | Unknown | + + + Author + + + | Author | [facility] | | | and [place] | + + + | Organization | [facility] | | | and [...] | | | | | [place] [address] | | + + + + + | Peter Hester | ECON | [address] | | | | | [place] [address] | | + + + + + Care Team Providers + +------+ + | Care Trip Follower Name | Role | Phone | + +------+ + | Michael Montoya MD | PCP | | + +------+ + Reason for Visit + + + | Reason | Comments | + + + | Back Pain | Low back pain that radiates down the legs, worse on the left | + + + Encounter Details +--------+---------+ + + + | Date | Type | Department | Care Team | Description | +--------+---------+ + + + | 03/20/ | Office | [facility] | Uvaldo Hobbs | Lumbar radiculopathy | | 2013 | Visit | PHYSIATRY [address] | MD Zita [address] | - currently into | | | | [place], | [address] [place], [place] | the bilateral lower | | | | [place] [address] | [address] | extremities (Primary | | | | [phone] | | Dx); DDD | | | [...] | | | | | | syndrome; Confusion; | | | | | | TIA (transient | | | | | | ischemic attack) | +--------+---------+ + + + Social History [...] + + + | Blood Pressure | 138/72 | 03/20/2014 11:27 AM | | | | | PDT | | + + + + + | Pulse | 74 | 03/20/2014 11:27 AM | | | | | PDT [...] Weight | 87.1 kg (192 lb) | 03/20/2014 11:27 AM | | | | | PDT | | + + + + + | Height | 155.6 cm (5' 1.25") | 03/20/2014 11:27 AM | | | | | PDT | | + + + + + | Body Mass Index | 35.98 | 03/20/2014 11:27 AM | | | | | PDT | | + + + + + documented in this encounter Patient Instructions Patient Instructions Uvaldo Hobbs MD - 03/20/2014 12:10 PM PDT Follow-up at the hospital thirty minutes before [...] of the procedure you must provide a flatbed company driver to take you home. For all procedur es it is recommended that someone else drive you home. documented in this encounter Progress Notes Uvaldo Hobbs MD - 03/20/2014 11:53 AM PDT CHIEF COMPLAINT: Chief Complaint Patient presents with Back Pain Low back pain that radiates down the legs, worse on the left HISTORY OF PRESENT ILLNESS: The patient is a 68 y.o. female being seen today at the request of Dr. Michael agarwal for complaints of low back and left leg pain, left greater than right at present. The mayo gordon's symptoms originally began years ago and she has been seen for injections only for sim ilar complaints. She was diagnosed by other providers with lumbar radiculopathy and spinal stenosis. Overall the patient reports that the symptoms are worsening. She rates the pain as moderate. She describes the pain as aching and sometimes burning. Her symptoms worsen with any standing or walking. Her symptoms improve with injections and with rest. The mayo gordon does describe numbness of the legs, especially on the left at times. She does report weakness of the left leg at times as well. She does not have bowel and bladder dysfunction. She does not have saddle anesthesia. Treatments for these complaints have included PT, injections as above and medications. Prior injections have included bilateral L4-L5 TFESI on 03/03/13. These worked well until r ecently. MRI of the lumbar spine was reviewed with the patient in detail. PAST MEDICAL HISTORY Past Medical History Diagnosis Date High blood pressure High cholesterol Anxiety Depression Sleep apnea Uses CPAP machine, not every night. Can only use for 4 hours. Arthritis Breast cancer (HCC) Lumbar radiculopathy - currently into the bilateral lower extremities 03/20/2014 DDD (degenerative disc disease), lumbar 03/20/2014 Spinal stenosis of lumbar region at multiple levels 03/20/2014 Spondylolisthesis of lumbar region 03/20/2014 PAST SURGICAL HISTORY Past Surgical History Procedure Date section, classic 1966, 69, 71 Hysterectomy 1973 Carpal tunnel release 1993, Rotator cuff repair 2007 Cholecystectomy 2008 Breast lumpectomy 2011 CURRENT MEDICATIONS: Current Outpatient Prescriptions Medication Sig [...] Anaphylaxis Iodine Anaphylaxis Povidone Iodine Anaphylaxis SOCIAL HISTORY History Substance Use Topics Smoking status: Never Smoker Smokeless tobacco: Former User Types: Chew Quit date: 11/16/1995 Comment: quit 20 years ago Alcohol Use: No Comment: 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 FAMILY HISTORY Family History Problem Relation Age of Onset [...] no dizziness, no blackouts, no headaches. PSYCHIATRIC: +depression, no difficulty sleeping, + anxiety, + memory loss. She has been diagnosed with bipolar disorder. CARDIOVASCULAR: No chest pain, no palpitations, no [...] diabetes, no thyroid disease, no osteopenia or osteoporosis. RHEUMATOLOGIC: + osteoarthritis, no rheumatoid arthritis. PHYSICAL EXAMINATION: Blood pressure 138/72, pulse 74, height 1.556 m (5' 1.25"), weight 87.091 kg (192 lb). Body mass index is 35.97 kg/(m^2). GENERAL: The patient is well developed and well nourished. She does not appear uncomfortab le when seated. HEENT: Normocephalic and atraumatic. Normal sclerae without icterus. NECK (ANTERIOR): There is no apparent cervical lymphadenopathy or thyromegaly. PULMONARY: The patient is in no acute respiratory distress with unlabored respirations. CARDIOVASCULAR: Regular rate and rhythm. There is bilateral lower extremity edema. ABDOMEN: Non-distended. SKIN: Limited skin exam shows no significant rashes or lesions. There are not scars in the lumbar region. NEUROLOGIC: The patient is awake, alert at times but appears quite confused at times and hi story is very tangential. She appears tired or almost sedated. She follows simple and complex commands. Her speech is fluent. She comprehends speech well. She has apparent deficits with short term memory. The cranial nerves appear grossly intact with the exception of mild droop of the eyelid on the left. Sensory exam does not show diminished sensation to light touch in the upper and lower extr emities. REFLEX: RIGHT LEFT PATELLAR 2+ 2+ ACHILLES 2+ 2+ PLANTAR Downgoing Downgoing MUSCULOSKELETAL : Straight leg raise and slump-sit are negative. Harjeet's maneuver and im pingement testing were negative for any groin pain. There was no tenderness to palpation o tarik the greater trochanters or sacral sulci. The patient localized the majority of the pain to the lower lumbar region and radiating into the legs, left greater than right. Lumbar fa cet loading was negative. Strength testing showed 5/5 strength throughout the lower extremi ties. The patient was able to heel and toe walk without difficulty. There was no redness, effusion, warmth or joint line tenderness in the knees or ankles. ASSESSMENT: Encounter Diagnoses Name Primary? Lumbar radiculopathy - currently into the bilateral lower extremities, left greater oli n right Yes DDD (degenerative disc disease), lumbar Spinal stenosis of lumbar region at multiple levels - L4-L5 and L5-S1 Spondylolisthesis of lumbar region Fibromyalgia syndrome Confusion TIA (transient ischemic attack) PLAN: 1. The patient has had significant conservative care including medications, PT and chiropr actic care. Unfortunately she continues to have significant discomfort. I did feel that she would be a decent candidate for interventional procedures as she has done well with injectio ns in the past. I would repeat the bilateral L4-L5 TFESI. 2. She has had a bad reaction to iodine in the past. I considered pre-medicating for the allergy but the reaction was reportedly so bad that she doesn't even want to test her luck. No contrast will be used. 3. I did not make any changes in her medications today. 4. She should continue to follow-up with neurology and her PCP for the confusion issues. ELECTRONICALLY SIGNED BY: Uvaldo Hobbs MD, 03/20/2014 documented in this encounter Plan of Treatment +--------+---------+ + + + | Date | Type | Specialty | Care Team | Description | +--------+---------+ + + + | 12/12/ | Office | Cardiology | Emile Rosario MD | | | 2020 | Visit | | [address] | | | | | | [place] [address] | | | | | | [phone] | | | | | | | | +--------+---------+ + + + documented as of this encounter Results FL KHOA Lumbar Transforaminal (03/29/2014 12:50 PM PDT) + + | Specimen | + + | | + + + + + | Narrative | Performed At | + + + | 03/29/2014 Bilateral Transforaminal Epidural Steroid Injections | [facility] | | Diagnosis: Lumbar radiculopathy ICD-9 Code 724.4 Annabel MADERA | | Sheryl presents to the fluoroscopy suite for fluoroscopically-guided [facility] | | bilateral L4-L5 transforaminal epidural steroid [...] | Epidural Steroid InjectionsDiagnosis: Lumbar radiculopathyICD-9 Code 724.4Sonja Tarun Marieen | | presents to the fluoroscopy suite [...] + | [facility] | [address] | [place], [place] | [phone] | | [facility] | | [address] | | | - IMAGING | | [...] and myositis, unspecified | + + | Confusion Unspecified psychosis | + + | TIA (transient ischemic attack) Unspecified transient cerebral ischemia | + + documented in this encounter
--- OUTSIDE RECORDS SUMMARY | ~2019-11-13 | XMS | Encounter Summary ---
Demographics + + + | Address | [address] | | | [place] [address] | + + + | Home Phone | | + + + | Preferred Language | Unknown | + + + | Marital Status | | + + + | Church Affiliation | 1013 | + + + | Race | Unknown | + + + | Ethnic Group | Unknown | + + + Author + + + | Author | [facility] | | | and [place] | + + + | Organization | [facility] | | | and [...] | | | | | [place] [address] | | + + + + + | Peter Hester | ECON | [address] | | | | | [place] [address] | | + + + + + Care Team Providers + +------+ + | Care Director Of Clinical Services Name | Role | Phone | [...] [address] | | | | | [place], | [place], [place] | | | | | [place] [address] | [id number] | | | | | [phone] | | | +--------+ + + + [...] CHAN | | | | | | [place] [address] | | | | | | [phone] | | | | | | | | +--------+---------+ + + + documented as of this encounter Visit Diagnoses Not on filedocumented in this encounter"
--- OUTSIDE RECORDS SUMMARY | ~2019-11-13 | XMS | Encounter Summary ---
Demographics + + + | Address | [address] | | | [place] [address] | + + + | Home Phone | | + + + | Preferred Language | Unknown | + + + | Marital Status | Single | + + + | Amish Affiliation | Unknown | + + + | Race | White | + + + | Ethnic Group | Not or | + + + Author + + + | Author | [facility] | + + + | Organization | [facility] | + + + | [...] Team Providers + +------+ + | Care Recycle Driver Name | Role | Phone | + +------+ + | Michael Montoya MD | PCP | | + +------+ + Reason for Visit + + + | Reason | Comments | + + + | Excision | | + + + Encounter Details +--------+ + + + + | Date | Type | Department | Care Team | Description | +--------+ + + + + | 09/20/ | Procedure | Dermatology at | [place], | Excision | | 2018 | | Jermaine Cabello | ,PhD [address] | | | | [address] | [address] [place], [place] | | | | | [place], [place] | [address] | | | | | [address] | [phone] | | | | | [phone] | | | +--------+ + + + [...] encounter Progress Notes Alka Montiel MD,PhD - 09/20/2018 2:00 PM PSTFormatting of this note might be differen t from the original. [facility] DERMATOLOGY FOLLOW-UP VISIT (Last Appointment [address] was on 09/07/18 at 3:41 pm with Dermatology Nurse.) Derm Hx: L chin BCC - Mohs 08/2018 L chest BCC - Excision 09/20/18 L dorsal hand BCC - Mohs 08/2018 SUBJECTIVE: Annabel Saucedo is a 73 y.o. female here for a 1) biopsy proven basal cell carcinoma on her left chest 2)biopsy of left chin where she thinks she may have a stitch from Mohs surgery. ROS: Other than those stated above, the patient denies any fevers, chills, night sweats, w eight loss, loss of appetite or other skin complaints. PAST DERMATOLOGIC HISTORY: Problem List Dermatology PAST MEDICAL HISTORY: Past Medical History: Diagnosis Date Bipolar disorder (HCC) Carpal tunnel syndrome Celiac sprue Depressive disorder, not elsewhere classified Fibromyalgia HTN (hypertension) Macular hole OS Osteoarthritis PTSD (post-traumatic stress disorder) PHYSICAL EXAMINATION: There were no vitals taken for this visit. Well-developed, well-nourished female in no acute distress. Awake, alert and oriented. Pl easant and cooperative mood. A skin examination was performed including the face. Findings were within normal limits ex cept for the following: Left chin: Dermal papule at the superior/medial aspect of linear pink Mohs scar Left chest: Firm 1.2 centimeter pink indurated nodule ASSESSMENT AND PLAN: (D48.5) Neoplasm of uncertain behavior of skin Comment: Left chin --possible retained suture? Plan: Biopsy performed today by punch technique. Procedure Note - Punch Biopsy Location: Left chin Location: A)Left chin Ddx: Retained suture Prior to beginning the procedure the team paused to verify the patient's identity, as well as the procedure to be performed and the biopsy site. All equipment required was ready and available. The patient was positioned appropriately. After PARQ addressed and scar factors discussed, the area was prepped with an isopropyl alcohol pad. Anesthesia was obtained by edwards bcutaneous infusion of buffered 1% lidocaine with 1:100,000 epinephrine. A 4mm mm punch bio psy was performed and the resultant defect closed with 5-0 fast gut suture. Blood loss was minimal. The site was dressed with white petrolatum jelly and a bandage. Patient reports n o pain after the procedure. Wash the area gently daily and dress with petrolatum ointment and a bandage. RETURN VISIT: Return in about 6 months (around 03/20/2019). 09/20/2018 PROCEDURE NOTE: PROCEDURE PERFORMED: Excision and intermediaterepair. ATTENDING SURGEON: Dr. Montiel PEST CONTROLLER: VALERY Hernandez PREOPERATIVE DIAGNOSIS(ES): Basal Cell Carcinoma, located on the left chest POSTOPERATIVE DIAGNOSIS(ES): Same. PREOPERATIVE SIZE: 1.2cm MARGIN: 0.4cm EXCISION SIZE: 2cm FINAL LENGTH: 6 cm COMPLICATIONS: none ESTIMATED BLOOD LOSS: less than 5cc INDICATIONS: The nature of the diagnosis was discussed with the patient and the details of the procedure , alternatives, risks were discussed with the patient and all questions were answered. Speci fically risks including but not limited to infection, bleeding, incomplete excision, recurre nce, nerve damage, scarring and poor cosmetic result were explained and the patient expresse d understanding. After both written and verbal informed consent was obtained the procedure was carried out. PROCEDURE: The patient was placed supine on the procedure room table. The above location of the lesio n was identified with the patient and the margins outlined with a marking pen. After alcoho l prep, the area was anesthetized with 1% Lidocaine with 1:100,000 epinephrine. It was then scrubbed with Hibiclens,rinsed with sterile saline, and sterile drapes were placed around t he operative site. Using the above outlined margins, the lesion was excised with a 15 blade scalpel in fusiform elliptical shape along the relaxed skin tension down to the level of mi d subcutaneous fat. The wound edges were then extensively undermined with blunt dissection. Hemostasis was obtained with spot electrodesiccation. The wound was then carefully reapproxi mated using 3-0 Vicryl dermal. The superficial wound was closed using 5-0 Fast Absorbing G ut suture. The wound was dressed and wound care instructions were given Patient reports no pain after the procedure. documented in th is encounter Plan of Treatment Not on filedocumented as of this encounter Procedures + +--------+ + + + | Procedure Name | Priori | Date/Time | Associated Diagnosis | Comments | | | ty | | | | + +--------+ + + + | DERM PATHOLOGY | Routin | 09/20/2018 | Neoplasm of | Results for this | | | e | 5:17 PM | uncertain behavior | procedure are in the | | | | PST | of skin | results section. | + +--------+ + + + | RI LAYR AMY OCONNOR | Routin | 09/20/2018 | Basal cell | | | TRUNK,ARM,LEG | e | 5:13 PM | carcinoma of skin of | | | 2.6-7.5 | | PST | trunk, except | | | | | | scrotum | | + +--------+ + + + | RI EXC SKIN BENIG | Routin | 09/20/2018 | Basal cell | | | 1.1-2CM | e | 5:13 PM | carcinoma of skin of | | | TRUNK,ARM,LEG | | PST | trunk, except | | | | | | scrotum | | + +--------+ + + + documented in this encounter Results DERM PATHOLOGY (09/20/2018 5:17 PM PST) + + + + + + | Component | Value | Ref Range | Performed | Pathologist | | | | | At | Signature | + + + + + + | Clinical | A: Biopsy proven basal | | [facility] | | | History | cell carcinoma; check | | DERMATOPATH | | | | margins.B: Papule at | | OLOGY | | | | edge of recent Mohs | | | | | | surgery site; Retained | | | | | | suture? | | | | + + + + + + | Final | A: RESIDUAL BASAL CELL | | [facility] | Electronically | | Pathologic | CARCINOMA, NODULAR AND | | DERMATOPATH | signed by | | Diagnosis | INFILTRATING PATTERN AND | | OLOGY | Veselina B | | | INCIDENTAL MELANOCYTIC | | | MD Luis Daniel on | | | NEVUS, INTRADERMAL TYPE. | | | 09/23/2018 at | | | NOTE: The residual left | | | 6:35 PM | | | chest BASAL CELL | | | | | | CARCINOMA is completely | | | | | | excised in these | | | | | | sections. The incidental | | | | | | MELANOCYTIC NEVUS is | | | | | | also excised. B: FOCAL | | | | | | NODULAR GRANULOMATOUS | | | | | | DERMATITIS WITH | | | | | | FRAGMENTS OF SUTURE | | | | | | MATERIAL (LEFT | | | | | | CHIN).NOTE: No basal | | | | | | cell carcinoma or | | | | | | squamous cell carcinoma | | | | | | is seen in these | | | | | | sections. VBK:sw09/23/18 | | | | + + + + + + | Gross | Received in formalin are | | [facility] | | | Description | two specimens labeled | | DERMATOPATH | | | | with the patient's | | OLOGY | | | | name:A: Specimen is | | | | | | labeled "Left chest" and | | | | | | consists of an | | | | | | elliptical excision of | | | | | | [id number]-[id number]-[id number] skin, 28 x | | | | | | 10 x 7 mm. The surgical | | | | | | margin is inked blue; | | | | | | the tissue is serially | | | | | | sectioned, and entirely | | | | | | submitted in cassettes | | | | | | A1 | | | | | | | | | | | | A2.B: Specimen is | | | | | | labeled "Left chin" and | | | | | | consists of a 4 mm punch | | | | | | of papular mercer skin, | | | | | | cut to a depth of 4 mm. | | | | | | The surgical margin is | | | | | | inked blue; the tissue | | | | | | is bisected; and | | | | | | entirely submitted in | | | | | | cassette B1. | | | | + + + + + + | Microscopic | In the A specimen, there | | [facility] | | | | are aggregates of cells | | DERMATOPATH | | | Description | with hyperchromatic | | OLOGY | | | | nuclei, scant cytoplasm | | | | | | and palisading of the | | | | | | peripheral nuclei. There | | | | | | is an incidental mostly | | | | | | well-circumscribed, | | | | | | predominantly | | | | | | intradermal melanocytic | | | | | | neoplasm characterized | | | | | | by nests and cords of | | | | | | melanocytes surrounding | | | | | | superficial vessels and | | | | | | adnexae in the upper | | | | | | dermis. Most of the | | | | | | melanocytic nuclei are | | | | | | moderately large and | | | | | | round to oval, and most | | | | | | of the cells contain | | | | | | amphophilic cytoplasm. | | | | | | In the left chin punch | | | | | | biopsy, there is | | | | | | basketweave | | | | | | orthokeratosis overlying | | | | | | unremarkable epidermis. | | | | | | There is solar | | | | | | elastosis with focal | | | | | | dermal fibrosis and | | | | | | small nodular | | | | | | collections of | | | | | | multinucleated | | | | | | histiocytes some | | | | | | containing suture | | | | | | material. | | | | + + + + + + + + | Specimen | + + | Biopsy | + + | Biopsy | + + + + + + + | Performing | Address | City/State/Zipcode | Phone Number | | Organization | | | | + + + + + | [facility] | [address], [address] | [place] [address] | | | DERMATOPATHOLOGY | [address] | | | + + + + + documented in this encounter Visit Diagnoses + + | Diagnosis | + + | Basal cell carcinoma of skin of trunk, except scrotum - Primary | + + | Neoplasm of uncertain behavior of skin | + + documented in this encounter
--- OUTSIDE RECORDS SUMMARY | ~2019-11-13 | XMS | Encounter Summary ---
Demographics + + + | Address | [address] | | | [place] [address] | + + + | Home Phone | | + + + | Preferred Language | Unknown | + + + | Marital Status | | + + + | Mandaeism Affiliation | 1013 | + + + | Race | Unknown | + + + | Ethnic Group | Unknown | + + + Author + + + | Author | [facility] | | | and [place] | + + + | Organization | [facility] | | | and [...] | | | | | [place] [address] | | + + + + + | Peter Hester | ECON | [address] | | | | | [place] [address] | | + + + + + Care Team Providers + +------+ + | Care Claims Examiner Name | Role | Phone | + +------+ + | Kaur Fisher MD | PCP | | + +------+ + Reason for Visit + + + | Reason | Comments | + + + | Follow-up | left knee pain wants to discuss pain clinic results/options | + + + Encounter Details +--------+---------+ + + + | Date | Type | Department | Care Team | Description | +--------+---------+ + + + | 05/29/ | Office | [facility] | Reagan Bronson | Primary | | 2015 | Visit | ORTHOPEDIC SURGERY | MD Miguelangel [address] [facility] | osteoarthritis of | | | | [address] [facility] | [place] | left knee (Primary | | | | [place] | [address] | Dx) | | | | [address] | | | | | | [phone] | | | +--------+---------+ + + + [...] Temperature | 36.4 C (97.5 F) | 05/29/2016 9:47 AM | | | | | PDT [...] Weight | 79.4 kg (175 lb) | 05/29/2016 9:47 AM | | | | | PDT | | + + + + + | Height | 152.4 cm (5') | 05/29/2016 9:47 AM | | | | | PDT | | + + + + + | Body Mass Index | 34.18 | 05/29/2016 9:47 AM | | | | | PDT | | + + + + + documented in this encounter Progress Notes Reagan Bronson MD - 05/29/2016 10:23 AM PDTSee soap note [id number].Electronically sign ed by Reagan Bronson MD at 05/29/2016 10:23 AM PDTReagan Bronson MD - 6 10:23 AM PDT [facility] ORTHOPEDIC SURGERY [address] [place] [id number] OFFICE NOTE REAGAN BRONSON MD Patient: ANNABEL JENSEN Admitting: MR #: [id number] LOC: PT TYPE: Adm Date: 05/29/2016 : 1945 Annabel returns today after last having been seen in July of last year. She notes that her left knee pain has worsened and is now significantly restricting her desired activitie s of daily living. She has aching pain at night that is preventing her from sleeping and s he very much would like to proceed with definitive knee joint replacement. EXAMINATION: The patient's left knee is examined. Her motion is approximately 10-105 deg jennifer. Ligaments remain stable, but she does have a varus deformity. ADVICE: We discussed our findings at length with Annabel and her daughter who accompanies alana parker. She has worked really hard on losing weight and now has a BMI of approximately 34. I feel that surgical intervention is appropriate given the persistence of her pain and, there fore, she will be scheduled for a left total knee replacement in the near future following financial clearance at a time that is convenient for her schedule. We plan to perform a Z immer Persona total knee with PSI jigs. REAGAN BRONSON MD Dictated by REAGAN BRONSON MD 05/29/2016 10:23:17 Transcribed on 05/30/2016 07:40:07 by [facility] job# [id number] Confirmation #: [id number] cc: KAUR FISHER MD documented in this encounter Plan of Treatment +--------+---------+ + + + | Date | Type | Specialty | Care Team | Description | +--------+---------+ + + + | 12/12/ | Office | Cardiology | Emile Rosario MD | | | 2020 | Visit | | [address] | | | | | | [place] [address] | | | | | | [phone] | | | | | | | | +--------+---------+ + + + documented as of this encounter Results XR Knee Bilateral AP Standing (05/29/2016 10:37 AM PDT) + + | Specimen | + + | | + + + + + | Narrative | Performed At | + + + | XR KNEE BILATERAL AP STANDING 05/29/2016 10:37 AM HISTORY: knee | [facility] | | pain. COMPARISON: None. FINDINGS: The right knee shows no | [facility] | | acute findings. There is moderate lateral compartment joint space | [facility] | | loss. Small osteophytes are observed of the lateral compartment. Bone | - IMAGING | | mineralization is decreased. Soft tissues are unremarkable. The | | | left knee demonstrate no acute findings. There is severe medial | | | compartment joint space loss with bone on bone contact along with | | | subchondral cyst formation. Large medial and lateral osteophytosis | | | are observed. There is moderate shifting of the tibia laterally | | | compared to the femur. Diffuse osteopenia is noted. Soft tissues are | | | unremarkable. IMPRESSION - Moderate degenerative changes of right | | | knee, advanced degenerative changes of left knee. Dictated and | | | Signed by: Saqib Castle MD Electronically signed: 05/29/2016 10:50 | | | AM | | + + + + + | Procedure Note | + + | Jeremy, Rad Results In - 05/29/2016 10:53 AM PDT XR KNEE BILATERAL AP STANDING 05/29/2016 | | 10:37 AMHISTORY: knee pain.COMPARISON: None.FINDINGS:The right knee shows no acute | | findings. There is moderate lateral compartmentjoint space loss. Small osteophytes are | | observed of the lateral compartment.Bone mineralization is decreased. Soft tissues are | | unremarkable.The left knee demonstrate no acute findings. There is severe medial | | compartmentjoint space loss with bone on bone contact along with subchondral | | cystformation. Large medial and lateral osteophytosis are observed. There ismoderate | | shifting of the tibia laterally compared to the femur. Diffuseosteopenia is noted. Soft | | tissues are unremarkable.IMPRESSION -Moderate degenerative changes of right knee, | | advanced degenerative changes ofleft knee.Dictated and Signed by: Saqib Castle MD | | Electronically signed: 05/29/2016 10:50 AM | |The left knee demonstrate no acute findings. There is severe medial compartment | |joint space loss with bone on bone contact along with subchondral cyst | |formation. Large medial and lateral osteophytosis are observed. There is | |moderate shifting of the tibia laterally compared to the femur. Diffuse | |osteopenia is noted. Soft tissues are unremarkable. | | | |IMPRESSION - | |Moderate degenerative changes of right knee, advanced degenerative changes of | |left knee. | | | |Dictated and Signed by: Saqib Castle MD | | Electronically signed: 05/29/2016 10:50 AM | + + + + + + + | Performing | Address | City/State/Zipcode | Phone Number | | Organization | | | | + + + + + | [facility] | [address] | [place] | [phone] | | [facility] | | [address] | | | - IMAGING | | | | + + + + + documented in this encounter Visit Diagnoses + + | Diagnosis | + + | Primary osteoarthritis of left knee - Primary Primary localized osteoarthrosis, lower | | leg | + + documented in this encounter"
--- OUTSIDE RECORDS SUMMARY | ~2019-11-13 | XMS | Encounter Summary ---
Demographics + + + | Address | [address] | | | [place] [address] | + + + | Home Phone | | + + + | Preferred Language | Unknown | + + + | Marital Status | | + + + | Jehovah'S Witness Affiliation | 1013 | + + + | Race | Unknown | + + + | Ethnic Group | Unknown | + + + Author + + + | Author | [facility] | | | and [place] | + + + | Organization | [facility] [...] | | | | | [place] [address] | | + + + + + | Peter Hester | ECON | [address] | | | | | [place] [address] | | + + + + + Care Team Providers + +------+ + | Care Talent Acquisition Manager Name | Role | Phone | [...] + + | 10/02/ | Office | [facility] | Reagan Bronson | Complete rotator | | 2016 | Visit | ORTHOPEDIC SURGERY | MD Miguelangel [address] [place] [address] | cuff tear or rupture | | | | [address] [facility] | [place] | of left shoulder, | | | | [place] | [address] | not specified as | | | | [address] | | traumatic (Primary | | | | [phone] | | Dx); Hyperlipidemia, | | | [...] use for 4 hours. Arthritis Breast cancer ([facility]) Lumbar radiculopathy - currently into the bilateral [...] 10 mg by mouth every 12 hours. [place]-3 Fatty Acids (EPA PO) Take by mouth. [...] [address]AN | | | | | | [place] [address] | | | | | | [phone] | | | | | | | [...] + | [facility] | [address] | [place] | [phone] | | [facility] | | [address] | | | - IMAGING | | [...] 13 | 7 - 18 mg/dL | [facility] | | | | | | [facility] | | | | | | MEDICAL | | | | | | CENTER - | | | | | | LABORATORY | | + + + + + + | Creatinine | 0.86 | 0.60 - 1.30 | [facility] | | | | | mg/dL | [facility] | | | | | | MEDICAL | | | | | | CENTER - | | | | | | LABORATORY | | + + + + + + | eGFR if not | >60Comment: GLOMERULAR | >=60 | [facility] | | | | FILTRATION | mL/min/1.73m2 | [facility] | | | AFGHAN | RATE,ESTIMATED | | MEDICAL | | | | mL/min/1.26q8Afmj than | | CENTER - | | [...] + | [facility] | [address] | [place] | [phone] | | [facility] | | [address] | | | - LABORATORY | | [...] [address] | [place] | [phone] | | [facility] | | [address] | | | - LABORATORY | | [...] | | | | VICK MAC MD ([id number]) | | | | | | on [...]
--- OUTSIDE RECORDS SUMMARY | ~2019-11-13 | XMS | Encounter Summary ---
Demographics + + + | Address | [address] | | | [place] [address] | + + + | Home Phone | | + + + | Preferred Language | Unknown | + + + | Marital Status | | + + + | Caodaism Affiliation | 1013 | + + + | Race | Unknown | + + + | Ethnic Group | Unknown | + + + Author + + + | Author | [facility] | | | and [place] | + + + | Organization | [facility] | | | and [...] | | | | | [place] [address] | | + + + + + | Peter Hester | ECON | [address] | | | | | [place] [address] | | + + + + + Care Team Providers + +------+ + | Care Weight Inspector Name | Role | Phone | [...] | ORTHOPEDIC SURGERY | MD Miguelangel [address] [facility] | osteoarthritis of | | | | [address] [facility] | [place] | left knee; | | | | [place], [place] | [address] | Application of | | | | [address] | | prosthesis | | | | [phone] | | | +--------+ + + + [...] CHAN | | | | | | [place] [address] | | | | | | [phone] | | | | | | | [...]
--- OUTSIDE RECORDS SUMMARY | ~2019-11-13 | XMS | Encounter Summary ---
Demographics + + + | Address | [address] | | | [place] [address] | + + + | Home Phone | | + + + | Preferred Language | Unknown | + + + | Marital Status | | + + + | Mosque Affiliation | 1013 | + + + | Race | Unknown | + + + | Ethnic Group | Unknown | + + + Author + + + | Author | [facility] | | | and [place] | + + + | Organization | [facility] | | [...] | | | | | [place] [address] | | + + + + + | Peter Hester | ECON | [address] | | | | | [place] [address] | | + + + + + Care Team Providers + +------+ + | Care Coordinator Of Library Services Name | Role | Phone | [...] + + | 05/29/ | Office | [facility] | Reagan Bronson | Primary | | 2015 | Visit | ORTHOPEDIC SURGERY | MD Miguelangel [address] [facility] | osteoarthritis of | | | | [address] [facility] | [place] | left knee (Primary | | | | [place] | [address] | Dx) | | | | [address] | | | | | | [phone] | | | +--------+---------+ + + + [...] - 05/29/2016 10:23 AM PDTSee soap note [id number].Electronically sign ed by Reagan Bronson MD at 05/29/2016 10:23 AM PDTReagan Bronson MD - 6 10:23 AM PDT [facility] [address] [place] [address] OFFICE NOTE REAGAN BRONSON MD Patient: ANNABEL JENSEN Admitting: MR #: [id number] LOC: PT TYPE: Adm Date: 05/29/2016 : [...] 05/29/2016 10:23:17 Transcribed on 05/30/2016 07:40:07 by [facility] job# [id number] Confirmation #: [id number] cc: KAUR FISHER MD documented in this encounter Plan of Treatment +--------+---------+ + + + | Date | Type | Specialty | Care Team | Description | +--------+---------+ + + + | 12/12/ | Office | Cardiology | Emile Rosario MD | | | 2020 | Visit | | [address] | | | | | | [place] [address] | | | | | | [phone] | | | | | | | [...] | [address] | [place] | [phone] | | [facility] | | [address] | | | - IMAGING | | | | + + + + + documented in this encounter Visit Diagnoses + + | Diagnosis | + + | Primary osteoarthritis of left knee - Primary Primary localized osteoarthrosis, lower | | leg | + + documented in this encounter"
--- OUTSIDE RECORDS SUMMARY | ~2019-11-13 | XMS | Encounter Summary ---
Demographics + + + | Address | [address] | | | [place] [address] | + + + | Home Phone | | + + + | Preferred Language | Unknown | + + + | Marital Status | | + + + | Samaritan Affiliation | 1013 | + + + | Race | Unknown | + + + | Ethnic Group | Unknown | + + + Author + + + | Author | [facility] | | | and [place] | + + + | Organization | [facility] | | | and [place] | + + + | Address | Unknown | + + + | Phone | Unavailable | + + + Support + + + + + | Name | Relationship | Address | Phone | + + + + + | Tamar Lancaster | JOSEE | [address] | | | | | [place] [address] | | + + + + + | Peter Hester | ECON | [address] | | | | | [place] [address] | | + + + + + Care Team Providers + +------+ + | Care Pediatrics Hospitalist Name | Role | Phone | + +------+ + PCP | Unavailable | + +------+ + Encounter Details +--------+ + + + + | Date | Type | Department | Care Team | Description | +--------+ + + + + | 01/23/ | Hospital | [facility] | Michael Lozada, | | | 2003 | Encounter | MED CTR SLEEP | [address] | | | | | CENTER [address] | [place] | | | | | [place] | [address] | | | | | [address] | | | | | | [phone] | | | +--------+ + + + [...] | | | | | [place] [address] | | | | | | [phone] | | | | | | | | +--------+---------+ + + + documented as of this encounter Visit Diagnoses Not on filedocumented in this encounter"
--- OUTSIDE RECORDS SUMMARY | ~2019-11-13 | XMS | Encounter Summary ---
Demographics + + + | Address | [address] | | | [place] [address] | + + + | Home Phone | | + + + | Preferred Language | Unknown | + + + | Marital Status | | + + + | Cheondoism Affiliation | 1013 | + + + | Race | Unknown | + + + | Ethnic Group | Unknown | + + + Author + + + | Author | [facility] | | | and [place] | + + + | Organization | [facility] | | [...] | | | | | [place] [address] | | + + + + + | Peter Hester | ECON | [address] | | | | | [place] [address] | | + + + + + Care Team Providers + +------+ + | Care Retail Reset Merchandiser Name | Role | Phone | + [...] + | 01/27/ | Telephone | [facility] | Boubacar Hobbs MD | Other (patient has | | 2012 | | NEUROSURGERY [address] | [address] | cancelled 2x | | | | [address] | [place] [address] | appointment for PT) | | | | [place] | [phone] | | | | | [address] | | | | | | [phone] | | | +--------+ + + + [...] | | | | | [place] [address] | | | | | | [phone] | | | | | | | | +--------+---------+ + + + documented as of this encounter Visit Diagnoses Not on filedocumented in this encounter"
--- OUTSIDE RECORDS SUMMARY | ~2019-11-13 | XMS | Encounter Summary ---
Demographics + + + | Address | [address] | | | [place] [address] | + + + | Home Phone [...] Author | [facility] | | | and [place] | + + + | Organization | [facility] | | | and [...] | | | | | [place] [address] | | + + + + + | Peter Hester | ECON | [address] | | | | | [place] [address] | | + + + + + Care Team Providers + +------+ + | Care Barrel Rifler Operator Name | Role | Phone | [...] | | | | shoulder | | [address] Phone: | | | | | Complete | | [phone] | | | | | rotator cuff | | Fax: | | | | | tear of | | [phone] | | | | | left | | | | | | | shoulder | | | | | | | [[id number]] | | | | | | | Procedures | | | | | | | ME REPAIR | | | | | | | ROTATOR | | | | | | | CUFF,CHRONIC | | | | | | | ME PARTIAL | | | | | | | | | | | | | | REMOVAL/REPA | | | | | | | IR,ACROMION | | | | | | | ME PARTIAL | | | | | | | REMOVAL, | | | | | | | CLAVICLE | | | +--------+--------+ + + + + Encounter Details +--------+---------+ + + + | Date | Type | Department | Care Team | Description | +--------+---------+ + + + | 10/07/ | Surgery | [facility] | Reagan Bronson | Left Rotator Cuff | | 2016 | | MED CTR OR INTRA OP | MD Miguelangel [address] | Repair w/ | | | | [address] | [place], [place] | Acromioplasty and | | | | [place], [place] | [address] | Distal Clavicle | | | | [address] | | Excision | | | | [phone] | | | +--------+---------+ + + + [...] + + + +---------+ + + | [place]-[address] Fatty | Take by mouth. | | [...] | | | | | [place] [address] | | | | | | [phone] | | | | | | | [...] | | | unavai | | | labsobeida) | +---+--------+ documented in this encounter Visit Diagnoses + + | Diagnosis | + + | Complete rotator cuff tear of left shoulder | + + documented in this encounter [...] +---+---+ | | | +---+---+ + +-------+ +--------+---+ + | ropivacaine (NAROPIN) 5 mg/mL | Given | 10/07/20 | 20 mLs | | Surgical | | (0.5%) injection PRN, Starting | | 16 10:39 | | | Site | | Thu10/07/16 at 1039, Intra-op | | AM PST | | | | + +-------+ +--------+---+ + +---+---+ | | | +---+---+ documented in this encounter"
--- OUTSIDE RECORDS SUMMARY | ~2019-11-13 | XMS | Encounter Summary ---
Demographics + + + | Address | [address] | | | [place] [address] | + + + | Home Phone | | + + + | Preferred Language | Unknown | + + + | Marital Status | | + + + | Presybeterian Affiliation | 1013 | + + + | Race | Unknown | + + + | Ethnic Group | Unknown | + + + Author + + + | Author | [facility] | | | and [place] | + + + | Organization | [facility] | | | and [...] | | | | | [place] [address] | | + + + + + | Peter Hester | ECON | [address] | | | | | [place] [address] | | + + + + + Care Team Providers + +------+ + | Care Lumber Grader Name | Role | Phone | + [...] for | | 2012 | | NEUROLOGY ARTESIAN | [address] | EEG) | | | | [address] [facility], | [address], | | | | | [address] [place] | [place] [address] | | | | | [place] [address] | [phone] | | | | | [phone] | | | +--------+ + + + [...] CHAN | | | | | | [place] [address] | | | | | | [phone] | | | | | | | | +--------+---------+ + + + documented as of this encounter Visit Diagnoses Not on filedocumented in this encounter"
--- OUTSIDE RECORDS SUMMARY | ~2019-11-13 | XMS | Encounter Summary ---
Demographics + + + | Address | [address] | | | [place] [address] | + + + | Home Phone | | + + + | Preferred Language | Unknown | + + + | Marital Status | | + + + | Methodist Affiliation | 1013 | + + + | Race | Unknown | + + + | Ethnic Group | Unknown | + + + Author + + + | Author | [facility] | | | and [place] | + + + | Organization | [facility] [...] | | | | | [place] [address] | | + + + + + | Peter Hester | ECON | [address] | | | | | [place] [address] | | + + + + + Care Team Providers + +------+ + | Care Carbon Paper Coating Machine Setter Name | Role | Phone | + +------+ + | Michael Montoya MD | PCP | | + +------+ + Reason for Visit + + + | Reason | Comments | + + + | Appointment | Cancelled appointment | + + + Encounter Details +--------+ + + + + | Date | Type | Department | Care Team | Description | +--------+ + + + + | 09/29/ | Telephone | [facility] [place] | Leeann Diaz | Appointment | | 2011 | | NEUROSURGERY [address] | [address] | (Cancelled | | | | [address] | | appointment) | | | | [place] | | | | | | [address] | | | | | | [phone] | | | +--------+ + + + [...] CHAN | | | | | | [place] [address] | | | | | | [phone] | | | | | | | | +--------+---------+ + + + documented as of this encounter Visit Diagnoses Not on filedocumented in this encounter"
--- OUTSIDE RECORDS SUMMARY | ~2019-11-13 | XMS | Encounter Summary ---
Demographics + + + | Address | [address] | | | [place] [address] | + + + | Home Phone | | + + + | Preferred Language | Unknown | + + + | Marital Status | | + + + | Oriental Orthodox Affiliation | 1013 | + + + | Race | Unknown | + + + | Ethnic Group | Unknown | + + + Author + + + | Author | [facility] | | | and [place] | + + + | Organization | [facility] | | | and [place] | + + + | Address | Unknown | + + + | Phone | Unavailable | + + + Support + + + + + | Name | Relationship | Address | Phone | + + + + + | Tamar [place] | JOSEE | [address] | | | | | [place] [address] | | + + + + + | Peter Hester | ECON | [address] | | | | | [place] [address] | | + + + + + Care Team Providers + +------+ + | Care Supervisor Powdered Metal Name | Role | Phone | + +------+ + | Michael Montoya MD | PCP | | + +------+ + Encounter Details +--------+ + + + + | Date | Type | Department | Care Team | Description | +--------+ + + + + | 10/02/ | Hospital | [facility] | Reagan Bronson | Hyperlipidemia, | | 2016 | Encounter | MED CTR DEVYN XRAY | MD Miguelangel [address] [facility] | unspecified | | | | [address] [place] | [place] | hyperlipidemia type; | | | | [place], [place] | [address] | Essential | | | | [address] | | hypertension; | | | | [phone] | | Complete rotator | | | [...] + + + +---------+ + + | [place]-3 Fatty | Take by mouth. | | [...] CHAN | | | | | | [place] [address] | | | | | | [phone] | | | | | | | [...] PA and Lateral Chest COMPARISON: None. | [facility] | | FINDINGS: Heart is [...] ST. | [address] | [place] | [phone] | | [facility] | | [address] | | | - IMAGING | | [...]
--- OUTSIDE RECORDS SUMMARY | ~2019-11-13 | XMS | Encounter Summary ---
Demographics + + + | Address | [address] | | | [place] [address] | + + + | Home Phone | | + + + | Preferred Language | Unknown | + + + | Marital Status | | + + + | Sabianism Affiliation | 1013 | + + + | Race | Unknown | + + + | Ethnic Group | Unknown | + + + Author + + + | Author | [facility] | | | and [place] | + + + | Organization | [facility] | | | and [...] | | | | | [place] [address] | | + + + + + | Peter Hester | ECON | [address] | | | | | [place] [address] | | + + + + + Care Team Providers + +------+ + | Care Screw Machine Setter Name | Role | Phone [...] + + | 10/20/ | Office | [facility] | Gamaliel Feng | S/P orthopedic | | 2016 | Visit | ORTHOPEDIC SURGERY | [place] [address] | surgery, follow-up | | | | [address] [facility] | [place] | exam (Primary Dx) | | | | [place] | [place] [address] | | | | | [address] | [phone] | | | | | [phone] | | | +--------+---------+ + + + [...] encounter Progress Notes Gamaliel Feng PA-C - 10/20/2016 2:14 PM PSTFormatting [...] on 10/07/16. She has remained in the [facility] immobilizer sling postoperatively. She has only [...] 14:14 This note was dictated using the [employer] voice recognition system. Minor errors in grammar [...] CHAN | | | | | | [place] [address] | | | | | | [phone] | | | | | | | | +--------+---------+ + + + documented as of this encounter Visit Diagnoses + + | Diagnosis | + + | S/P orthopedic surgery, follow-up exam - Primary Follow-up examination, following | | other surgery | + + documented in this encounter"
--- OUTSIDE RECORDS SUMMARY | ~2019-11-13 | XMS | Encounter Summary ---
Demographics + + + | Address | [address] | | | [place] [address] | + + + | Home Phone | | + + + | Preferred Language | Unknown | + + + | Marital Status | | + + + | Taoist Affiliation | 1013 | + + + | Race | Unknown | + + + | Ethnic Group | Unknown | + + + Author + + + | Author | [facility] | | | and [place] | + + + | Organization | [facility] | | | and [...] | | | | | [place] [address] | | + + + + + | Peter Hester | ECON | [address] | | | | | [place] [address] | | + + + + + Care Team Providers + +------+ + | Care Finish Production Manager Name | Role | Phone | [...] + + | 12/13/ | Office | [facility] | Uvaldo Hobbs | Lumbar radiculopathy | | 2016 | Visit | PHYSIATRY [address] | T[address] | - currently into | | | | [place], | [place], [place] | the bilateral lower | | | | [place] [address] | [address] | extremities (Primary | | | | [phone] | | Dx); DDD | | | [...] narcotic usage. She has been referred to [facility] to help with pain management [...] has no apparent deficits with short or fci memory. She has appropriate fund of knowledge [...] working on getting in to see a paint crew supervisor at [facility] and it sounds as though they have [...] CHAN | | | | | | [place] [address] | | | | | | [phone] | | | | | | | [...]
--- OUTSIDE RECORDS SUMMARY | ~2019-11-13 | XMS | Encounter Summary ---
Demographics + + + | Address | [address] | | | [place] [address] | + + + | Home Phone | | + + + | Preferred Language | Unknown | + + + | Marital Status | | + + + | Mormonism Affiliation | 1013 | + + + | Race | Unknown | + + + | Ethnic Group | Unknown | + + + Author + + + | Author | [facility] | | | and [place] | + + + | Organization | [facility] | | [...] | | | | | [place] [address] | | + + + + + | Peter Hester | ECON | [address] | | | | | [place] [address] | | + + + + + Care Team Providers + +------+ + | Care Peer Support Specialist Name | Role | Phone | + +------+ + | Michael Montoya MD | PCP | | + +------+ + Reason for Visit +---------+ + | Reason | Comments | +---------+ + | Post Op | left rotator cuff with acromioplasty and distal clavivle excision | | | DOS 10/07/16 | +---------+ + Encounter Details +--------+---------+ + + + | Date | Type | Department | Care Team | Description | +--------+---------+ + + + | 12/01/ | Office | [facility] | Gamaliel Feng | S/P orthopedic | | 2017 | Visit | ORTHOPEDIC SURGERY | [address] | surgery, follow-up | | | | [address] [facility] | [place] | exam (Primary Dx) | | | | [place] | [place] [address] | | | | | [address] | [phone] | | | | | [phone] | | | +--------+---------+ + + + [...] + + + + | Temperature | 36.8 C (98.2 F) | 12/01/2016 3:57 PM | | | | | PST [...] Weight | 83.5 kg (184 lb) | 12/01/2016 3:57 PM | | | | | PST | | + + + + + | Height | 152.4 cm (5') | 12/01/2016 3:57 PM | | | | | PST | | + + + + + | Body Mass Index | 35.94 | 12/01/2016 3:57 PM | | | | | PST | | + + + + + documented in this encounter Progress Notes Gamaliel Feng PA-C - 12/01/2016 4:26 PM PSTFormatting of this note might be differe nt from the original. Name:Annabel Saucedo Todays Date: 12/01/2016 Age: 71 y.o. PCP: Michael Montoya MD Chief Complaint Patient presents with Post Op left rotator cuff with acromioplasty and distal clavivle excision DOS 10/07/16 SUBJECTIVE: Today for postoperative visit following left rotator cuff repair with acromioplasty and dis shelly clavicle excision. Date of surgery was 10/07/16. She missed her previous appointment l ast week secondary to the road conditions. She is continue with physical therapy at home wi th pendulum and circumduction exercises. Continues with oxycodone for chronic pain medicati on prescribed by chronic pain medication provided. Pain has decreased since her last postop erative visit. Current level pain rated at 5 out of 10 OBJECTIVE: Incision site healing appropriately and well. His dose of complication or infection. No d rainage observed. Nontender with palpation over the incision site. Active abduction to eliud roximately 75 limited secondary to pain. Active forward flexion to approximately 80. Imaging/Studies: No studies to review at this time. Filed Vitals: 12/01/16 1557 Temp: 36.8 C (98.2 F) TempSrc: Temporal Height: 1.524 m (5') Weight: 83.462 kg (184 lb) ASSESSMENT/PLAN: 1. Left rotator cuff repair with distal clavicle excision and acromioplasty, status postop A. patient is recovering well postoperatively and is experiencing continued decrease of pa in at the left shoulder. We'll now incorporate the use of martin climbs and alvaro system at this time. Recommended that she perform this in conjunction with pendulum and circumductio n exercises. Demonstrate how to properly use the alvaro system today. Continue with pain m edication as prescribed by chronic pain management. Follow-up in approximately 4 weeks for reevaluation B. Patient is advised that if they have any questions, comments or concerns to contact our office. Electronically signed by: Gamaliel Feng PA-C 12/01/2016 16:27 This note was dictated using the [employer] voice recognition system. Minor errors in grammar [...] CHAN | | | | | | [place] [address] | | | | | | [phone] | | | | | | | | +--------+---------+ + + + documented as of this encounter Visit Diagnoses + + | Diagnosis | + + | S/P orthopedic surgery, follow-up exam - Primary Follow-up examination, following | | other surgery | + + documented in this encounter"
--- OUTSIDE RECORDS SUMMARY | ~2019-11-13 | XMS | Encounter Summary ---
Demographics + + + | Address | [address] | | | [place] [address] | + + + | Home Phone | | + + + | Preferred Language | Unknown | + + + | Marital Status | | + + + | Advent Affiliation | 1013 | + + + | Race | Unknown | + + + | Ethnic Group | Unknown | + + + Author + + + | Author | [facility] | | | and [place] | + + + | Organization | [facility] | | | [...] | | | | | [place] [address] | | + + + + + | Peter Hester | ECON | [address] | | | | | [place] [address] | | + + + + + Care Team Providers + +------+ + | Care Plastic Machine Operator Name | Role | Phone | + +------+ + | Michael Montoya MD | PCP | | + +------+ + Encounter Details +--------+ + + + + | Date | Type | Department | Care Team | Description | +--------+ + + + + | 04/10/ | Emergency | [facility] | Iron Josue, | Herpes zoster | | 2016 | | MEDICAL CENTER | MD [address] | dermatitis of eyelid | | | | EMERGENCY CENTER | [place] [address] | | | | | [address] | [phone] | | | | | [place], [place] | | | | | | [address] | | | | | | [phone] | | | +--------+ + + + [...] | | | | | [place] [address] | | | | | | [phone] | | | | | | | | +--------+---------+ + + + documented as of this encounter Visit Diagnoses + + | Diagnosis | + + | Herpes zoster dermatitis of eyelid | + + documented in this encounter"
--- OUTSIDE RECORDS SUMMARY | ~2019-11-13 | XMS | Encounter Summary ---
Demographics + + + | Address | [address] | | | [place] [address] | + + + | Home Phone | | + + + | Preferred Language | Unknown | + + + | Marital Status | Single | + + + | Protestant Affiliation | Unknown | + + + | Race | White | + + + | Ethnic Group | Not or | + + + Author + + + | Author | [facility] | + + + | Organization | [facility] | + + + | [...] Team Providers + +------+ + | Care Marionette Performer Name | Role | Phone | + [...] [address] | | | | | | [place], [place] | | | | | | [address] | | | +--------+ + + + [...]
--- OUTSIDE RECORDS SUMMARY | ~2019-11-13 | XMS | Encounter Summary ---
Demographics + + + | Address | [address] | | | [place] [address] | + + + | Home Phone [...] | Author | [facility] | | | and [place] | + + + | Organization | [facility] | | | and [place] | + + + | Address | Unknown | + + + | Phone | Unavailable | + + + Support + + + + + | Name | Relationship | Address | Phone | + + + + + | Tamar [place] | JOSEE | [address] | | | | | [place] [address] | | + + + + + | Peter Hester | ECON | [address] | | | | | [place] [address] | | + + + + + Care Team Providers + +------+ + | Care Retort Press Operator Name | Role | Phone [...] Primary | Reagan L, | [address] | | | | | osteoarthrit | MD [address] | [place], | | | | | is of left | [address] | [place] | | | | | knee | [place], | [address] | | | | | Application | [place] [address] | Phone: | | | | | of | Phone: | [phone] | | | | | prosthesis | [phone] | Fax: | | | | | Procedures | Fax: | [phone] | | | | | MRI Knee | [phone] | | | | | | Left [...] SURGERY | MD Miguelangel [address] [facility] | osteoarthritis of | | | | [address] [facility] | [place] | left knee (Primary | | | | [place], [place] | [address] | Dx); Application of | | | | [address] | | prosthesis | | | | [phone] | | | +--------+ + + + [...] CHAN | | | | | | [place] [address] | | | | | | [phone] | | | | | | | [...]
--- OUTSIDE RECORDS SUMMARY | ~2019-11-13 | XMS | Encounter Summary ---
Demographics + + + | Address | [address] | | | [place] [address] | + + + | Home Phone | | + + + | Preferred Language | Unknown | + + + | Marital Status | | + + + | Mormonism Affiliation | 1013 | + + + | Race | Unknown | + + + | Ethnic Group | Unknown | + + + Author + + + | Author | [facility] | | | and [place] | + + + | Organization | [facility] | | | and [place] | + + + | Address | Unknown | + + + | Phone | Unavailable | + + + Support + + + + + | Name | Relationship | Address | Phone | + + + + + | Tamar Lancaster | JOSEE | [address] | | | | | [place] [address] | | + + + + + | Peter Hester | ECON | [address] | | | | | [place] [address] | | + + + + + Care Team Providers + +------+ + | Care Major League Baseball Player Name | Role | Phone | + +------+ + | Michael Montoya MD | PCP | | + +------+ + Encounter Details +--------+ + + + + | Date | Type | Department | Care Team | Description | +--------+ + + + + | 12/12/ | Hospital | [facility] | Alexx, | Left knee pain | | 2015 | Encounter | MED CTR XRAY [address] | [address] [address] | | | | | [place] | [place], | | | | | [place] [address] | [place] [address] | | | | | [phone] | [phone] | | | | | | | [...] CHAN | | | | | | [place] [address] | | | | | | [phone] | | | | | | | [...] loss is present | | | with zxpk-wh-uaae contact. Moderate size subchondral cysts are noted [...] space | | loss is present with oqmg-ov-byex contact. Moderate size subchondral cysts are | [...] + | MISCELLANEOUS LAB | | | [phone] | + +---------+ + + | MISCELANIOUS LAB | | | [phone] | + +---------+ + + documented in this encounter Visit Diagnoses + + | Diagnosis | + + | Left knee pain Pain in joint, lower leg | + + documented in this encounter"
--- OUTSIDE RECORDS SUMMARY | ~2019-11-13 | XMS | Encounter Summary ---
Demographics + + + | Address | [address] | | | [place] [address] | + + + | Home Phone [...] | Author | [facility] | | | and [place] | + + + | Organization | [facility] [...] | | | | | [place] [address] | | + + + + + | Peter Hester | ECON | [address] | | | | | [place] [address] | | + + + + + Care Team Providers + +------+ + | Care Data Collection Specialist Name | Role | Phone | + +------+ + | Michael Montoya MD | PCP | | + +------+ + Reason for Visit + + + | Reason | Comments | + + + | Shoulder Pain | left shoulder pain ONSET 2 months | + + + Evaluate & Treat (Routine) [...] shoulder | PA-C [address] | | | | | Tear of left | [address] | [place] | | | | | | [place] | [address] Phone: | | | | | supraspinatu | [address] | [phone] | | | | | s tendon, | Phone: | Fax: | | | | | initial | [phone] | [phone] | | | | | encounter | Fax: | | | | | | | [phone] | | +--------+ + + + + + Encounter Details +--------+---------+ + + + | Date | Type | Department | Care Team | Description | +--------+---------+ + + + | 08/01/ | Office | [facility] | Alexx, | Complete tear of | | 2015 | Visit | ORTHOPEDIC SURGERY | [address] | left rotator cuff | | | | [address] [place] [address] | [facility], | (Primary Dx); | | | | [place] | [place] [address] | Arthritis of left | | | | [address] | [phone] | shoulder region; | | | | [phone] | | Acute pain of left | | | | | Gamaliel Feng, | shoulder | | | | | SHANI[address] [facility] | | | | | | [place] | | | | | | [address] | | | | | | | [...] + + + + | Temperature | 36.9 C (98.5 F) | 08/01/2016 9:40 AM | | | [...] Weight | 80.7 kg (178 lb) | 08/01/2016 9:40 AM | | | | | PDT | | + + + + + | Height | 152.4 cm (5') | 08/01/2016 9:40 AM | | | | | PDT | | + + + + + | Body Mass Index | 34.76 | 08/01/2016 9:40 AM | | | | | PDT | | + + + + + documented in this encounter Progress Notes Gamaliel Feng PA-C - 08/01/2016 3:25 PM PDTFormatting of this note might be differe nt from the original. Name:Annabel Saucedo Today Date: 08/01/2016 Age: 70 y.o. PCP: Michael Montoya MD Chief Complaint Patient presents with Shoulder Pain left shoulder pain ONSET 2 months SUBJECTIVE: Patient returns today for a new complaint of left shoulder injury and pain that started eliud roximately 2 months ago. She is accompanied today with her daughter. Describes that approx imately 2 months ago while at home she was chasing a wild baby rabbit. Describes that the reese rush Rabbitstefano, in her home had got out of its bed and made his way to the kitchen. She was be nding over to grape picker the we fatimah bunny when she slipped on the floor, her foot giving out from under her and landing abruptly on the lateral aspect of the left shoulder. She had im mediate pain and discomfort. She describes the pain as occurring at the superior lateral as pect of the shoulder. Describes it as a sharp pain with activities.The pain is always prese nt. Pain is relieved with chronic oxycodone and methadone provided by [facility]. Notes it helps to immobilize the left arm. She presented this complaint to [facility] which has provided her with 3 courses of injection therapy each of which prov ided little in the way of sustained pain relief. She then had an MRI obtained of the left s alonso revealing significant soft tissue pathology. She was then referred to our office fo r further consult and discussion of treatment options. OBJECTIVE: Examination reveals that she is guarded of the left shoulder. She does have significant de ficits in the left shoulder range of motion. She is approximately 90 of abduction limited secondary to significant pain pointing at the top lateral aspect of the shoulder. She has approximately 140 of forward flexion limited secondary to pain. She is possibly half-stre ngth of the left shoulder when compared to the right. Very guarded with Jean tests secon cassie to the pain that she is experiencing. Positive empty can test. Negative Yergason's an d speed's tests. She had no pain with palpation over the bicipital groove. Negative string sign. No bulging of the biceps is observed and it appears to contract relax normally with passive range of motion today. Pain with liftoff test. Imaging/Studies: Mri Shoulder Left Wo Contrast 07/02/2016 EXAM: MRI SHOULDER LEFT WO CONTRAST dated 07/02/2016 3:50 PM HISTORY: left loc ulder pain x 6 weeks, dislocation COMPARISON: None. TECHNIQUE: Multiplanar multisequence M R imaging of the left shoulder without contrast. Imaging is performed on a 3 Lorenza MRI. FI NDINGS: There is motion degradation. Rotator cuff: There is essentially a complete tear o f the supraspinatus tendon. The torn tendon is retracted to the level of the glenoid. Ther e may be component entrapped between the humeral head and glenoid. There is a very small co mponent, contributing to the junction with the infraspinatus, that is intact. There is mode rate supraspinatus muscle volume loss. There is edema along the supraspinatus muscle. Ther e is low to moderate grade articular sided and intrasubstance partial tearing of the infrasp inatus tendon. No significant volume loss in the infraspinatus muscle. The teres minor ten don is unremarkable and intact. There is moderate to high-grade tearing of the upper tendin ous fibers of the subscapularis tendon. Edema and volume loss in the subscapularis muscle. Labrum and biceps tendon: The intra-articular biceps tendon is not visible. Components of the long head of the biceps tendon are seen in the bicipital groove. This may be from prior tenodesis or more recent tear. The labrum is not well studied due to motion degradation. There is significant irregularity in the region of the superior labrum. There is a thickene d irregular and somewhat hyperintense middle glenohumeral ligament. This may be posttraumat ic. Glenohumeral and acromioclavicular joints: There is a large joint effusion. This commu nicates with the subacromial/subdeltoid bursa. This is heterogeneous. There is likely comp onent of synovitis and intra-articular hemorrhage. There is edema in the humeral head along the articular surface. Linear low signal deep to the subchondral bone may represent an imp action injury. The humeral head is anteriorly positioned in the glenoid. There are moderat e to severe degenerative changes in the glenohumeral joint. There are degenerative changes in acromioclavicular joint. The acromion is a type II. IMPRESSION - Essentially complete tear of the supraspinatus tendon retracted to the level of the glenoid. Moderate to high-gr april tear of the upper subscapularis tendon. Biceps tendon versus prior tenodesis. Correlat e with the clinical history. Probable mild impaction fracture related signal changes in the articular surface of humeral head. Large joint effusion with probable hemarthrosis and ass ociated synovitis. Moderate to severe degenerative changes in the glenohumeral Dictated an d Signed by: Zaire Zamora MD Electronically signed: 07/02/2016 5:11 PM Filed Vitals: 08/01/16 0940 Temp: 36.9 C (98.5 F) TempSrc: Temporal Height: 1.524 m (5') Weight: 80.74 kg (178 lb) ASSESSMENT/PLAN: 1. Left full-thickness rotator cuff tear 2. Left shoulder arthritis 3. Left shoulder pa in A. patient, her daughter and I reviewed physical exam findings and the results of the left shoulder MRI today at length. Patient does have a full-thickness tear of the supraspinatus tendon of the rotator cuff with some degree of retraction. However she does have arthritic changes at the level of the glenohumeral joint. She denies any significant discomfort or p ain that was present at the left shoulder prior to the injury that happened 2 months ago. T herefore we did discuss treatment plans consisting of physical therapy, continue pain medica tions, further injection surgery and surgical intervention. Surgical intervention in the wa y of rotator cuff repair with distal clavicle excision and acromioplasty. I explained to he r and her daughter about the surgical procedure. We did review the benefits, risks and alte rnatives. Explained the expected recovery time and the expected results. Patient is aware that she may have some degree of residual chronic pain in the left shoulder due to the arthr itic changes that are present at the left shoulder. Patient elects to move forward with hav ing the left rotator cuff repaired. Informed that I will authorize for this procedure and they will be contacted by our office for further scheduling and preoperative exam. Continue with pain medication as already prescribed by [facility]. B. Patient is advised that if they have any questions, comments or concerns to contact our office. I spent 30 minutes face to face with the patient, with over 50% spent in counseling and/or coordination of care regarding left shoulder injury, revealing pathology, a lengthy discussi on and development of treatment plan, review of the surgical procedure. Electronically signed by: Gamaliel Feng PA-C 08/01/2016 15:25 This note was dictated using the [employer] voice recognition system. Minor errors in grammar [...] CHAN | | | | | | [place] [address] | | | | | | [phone] | | | | | | | | +--------+---------+ + + + documented as of this encounter Visit Diagnoses + + | Diagnosis | + + | Complete tear of left rotator cuff - Primary | + + | Arthritis of left shoulder region Unspecified arthropathy, shoulder region | + + | Acute pain of left shoulder | + + documented in this encounter"
--- OUTSIDE RECORDS SUMMARY | ~2019-11-13 | XMS | Encounter Summary ---
Demographics + + + | Address | [address] | | | [place] [address] | + + + | Home Phone [...] + | Author | [facility] | | | and [place] | + + + | Organization | [facility] | | | and [place] | + + + | Address | Unknown | + + + | Phone | Unavailable | + + + Support + + + + + | Name | Relationship | Address | Phone | + + + + + | Tamar Lancaster | JOSEE | [address] | | | | | [place] [address] | | + + + + + | Peter Hester | ECON | [address] | | | | | [place] [address] | | + + + + + Care Team Providers + +------+ + | Care Telephone Switchboard Operator Name | Role | Phone | [...] Thoracic or | [place], | [address] | | | | | lumbosacral | Uvaldo Ahumada MD | [place], | | | | | neuritis or | [address] | [place] | | | | | | [place] | [address] | | | | | radiculitis, | [place], [place] | Phone: | | | | | unspecified | [address] | [phone] | | | | | Procedures | Phone: | Fax: | | | | | RI INJECT | [phone] | [phone] | | | | | ANES/STEROID | Fax: | | | | | | FORAMEN | [phone] | | | | | | LUMBAR/SACRA | | | | | | | L W IMG | | | | | | | GUIDE ,1 | | | | | | | LEVEL RI | | | | | | | TRIAMCINOLON | | | | | | | E ACET INJ | | | | | | | NOS, 10 MG | | | | | | | Bilateral | | | | | | | L4-L5 | | | | | | | TFESI-Pt | | | | | | | will call | | | +--------+--------+ + + + + Encounter Details +--------+ + + + + | Date | Type | Department | Care Team | Description | +--------+ + + + + | 09/03/ | Hospital | [facility] | Alexx, | Spinal stenosis of | | 2014 | Encounter | MED CTR XRAY [address] | [address]QUE Georges [address] | lumbar region at | | | | [place] | [facility], | multiple levels; | | | | [place] [address] | [place] [address] | Spondylolisthesis of | | | | [phone] | [phone] | lumbar region; DDD | | | | | | (degenerative disc | | | | | [facility] | disease), lumbar; | | | | | | Fibromyalgia | | | | | | syndrome; Lumbar | | | | | | radiculopathy - | | | | | | currently into the | | | | | | bilateral lower | | | | | | extremities | +--------+ + + + + Social [...] | No | | | Quit drinking 1976. | | | | | States went [...] +---------+ + + | Blood Pressure | 165/89 | 09/03/2015 2:32 PM | | | | | PDT | | + +---------+ + + | Pulse | 65 | 09/03/2015 2:32 PM | | | | | PDT [...] CHAN | | | | | | [place] [address] | | | | | | [phone] | | | | | | | | +--------+---------+ + + + documented as of this encounter Procedures + +--------+ + + + | Procedure Name | Priori | Date/Time | Associated Diagnosis | Comments | | | ty | | | | + +--------+ + + + | FL EPIDURAL STEROID | Routin | 09/03/2015 | Spinal stenosis of | Results for this | | INJECTION LUMBAR | e | 2:29 PM | lumbar region at | procedure are in the | | TRANSFORAMINAL | | PDT | multiple levels | results section. | | | | | Spondylolisthesis of [...] | | | extremities | | + +--------+ + + + documented in this encounter Results FL KHOA Lumbar Transforaminal (09/03/2015 2:29 PM PDT) + + | Specimen | + + | | + + + + + | Narrative | Performed At | + + + | 09/03/2015 Bilateral Trans[facility]inal Epid[facility] Steroid Injections | [facility] | | Diagnosis: Lumbar radiculopathy ICD-9 Code 724.4 Annabel | [facility] | | Ryanne Saucedo presents to the fluoroscopy suite for [facility] | | fluoroscopically-guided bilateral L4-L5 transforaminal [...] [address] | [place] | [phone] | | [facility] | | [address] | | | - IMAGING | | [...] in this encounter Administered Medications + +--------+ +------+------+------+ | Medication Order | MAR | Action | Dose | Rate | Site | | | Action | Date | | | | + +--------+ +------+------+------+ | betamethasone (CELESTONE | Given | 09/03/20 | 9 mg | | | | SOLUSPAN) injection 9 mg 9 mg, | | 15 2:30 | | | | | Other, EVERY 24 HOURS INTERVAL, | | PM PDT | | | | | First dose on Thu09/03/15 at | | | | | | | 1430, For 2 doses, Shake well. | | | | | | | Not for IV use., Radiology | | | | | | + +--------+ +------+------+------+ +---+---+ | | | +---+---+ + +-------+ +-------+---+ + | lidocaine buffered 1% injection | Given | 09/03/20 | 6 mLs | | Other | | 6 mL 6 mL, Intradermal, ONCE, | | 15 2:25 | | | (Comment | | 09/03/15 at 1430, For 1 dose, | | PM PDT | | | ) | | Radiology | | | | | | + +-------+ +-------+---+ + +---+---+ | | | +---+---+ documented in this encounter"
--- OUTSIDE RECORDS SUMMARY | ~2019-11-13 | XMS | Encounter Summary ---
Demographics + + + | Address | [address] | | | [place] [address] | + + + | Home Phone | | + + + | Preferred Language | Unknown | + + + | Marital Status | | + + + | Yazdanism Affiliation | 1013 | + + + | Race | Unknown | + + + | Ethnic Group | Unknown | + + + Author + + + | Author | [facility] | | | and [place] | + + + | Organization | [facility] | | [...] | | | | | [place] [address] | | + + + + + | Peter Hester | ECON | [address] | | | | | [place] [address] | | + + + + + Care Team Providers + +------+ + | Care Fan Blade Truer Name | Role | Phone | + [...] | | | | shoulder | | [address] Phone: | | | | | Complete | | [phone] | | | | | rotator cuff | | Fax: | | | | | tear of | | [phone] | | | | | left | | | | | | | shoulder | | | | | | | [[id number]] | | | | | | | Procedures | | | | | | | GA REPAIR | | | | | | | ROTATOR | | | | | | | CUFF,CHRONIC | | | | | | | GA PARTIAL | | | | | | | | | | | | | | REMOVAL/REPA | | | | | | | IR,ACROMION | | | | | | | GA PARTIAL | | | | | | | REMOVAL, | | | | | | | CLAVICLE | | | +--------+--------+ + + + + Encounter Details +--------+---------+ + + + | Date | Type | Department | Care Team | Description | +--------+---------+ + + + | 10/07/ | Surgery | [facility] | Reagan Bronson | Left Rotator Cuff | | 2016 | | MED CTR OR INTRA OP | MD Miguelangel [address] | Repair w/ | | | | [address] | [place] | Acromioplasty and | | | | [place], [place] | [address] | Distal Clavicle | | | | [address] | | Excision | | | | [phone] | | | +--------+---------+ + + + [...] + + + +---------+ + + | [address] | Take by mouth. | | [...] | | | | | [place] [address] | | | | | | [phone] | | | | | | | [...]
--- OUTSIDE RECORDS SUMMARY | ~2019-11-13 | XMS | Encounter Summary ---
Demographics + + + | Address | [address] | | | [place] [address] | + + + | Home Phone | | + + + | Preferred Language | Unknown | + + + | Marital Status | | + + + | Mosque Affiliation | 1013 | + + + | Race | Unknown | + + + | Ethnic Group | Unknown | + + + Author + + + | Author | [facility] | | | and [place] | + + + | Organization | [facility] | | | and [place] | + + + | Address | Unknown | + + + | Phone | Unavailable | + + + Support + + + + + | Name | Relationship | Address | Phone | + + + + + | Tmaar Lancaster | JOSEE | [address] | | | | | [place] [address] | | + + + + + | Peter Hester | ECON | [address] | | | | | [place] [address] | | + + + + + Care Team Providers + +------+ + | Care Docket Specialist Name | Role | Phone | [...] [address] | | | | | [place], | [facility], | | | | | [place] [address] | [place] [address] | | | | | [phone] | [phone] | | | | | | | [...] | 12/12/ | Office | Cardiology | Emlie Rosario MD | | | 2019 | Visit | | [address] | | | | | | [place] [address] | | | | | | [phone] | | | | | | | | +--------+---------+ + + + documented as of this encounter Visit Diagnoses Not on filedocumented in this encounter"
--- OUTSIDE RECORDS SUMMARY | ~2019-11-13 | XMS | Encounter Summary ---
Demographics + + + | Address | [address] | | | [place] [address] | + + + | Home Phone [...] | Author | [facility] | | | and [place] | + + + | Organization | [facility] | | | and [place] | + + + | Address | Unknown | + + + | Phone | Unavailable | + + + Support + + + + + | Name | Relationship | Address | Phone | + + + + + | Tamar [place] | JOSEE | [address] | | | | | [place] [address] | | + + + + + | Peter Hester | ECON | [address] | | | | | [place] [address] | | + + + + + Care Team Providers + +------+ + | Care Railways Assistant Name | Role | Phone | [...] | | | | | lumbar | [address] | | | | | | region at | Phone: | | | | | | multiple | [phone] | | | | | | levels DDD | Fax: | | | | | | (degenerativ | [phone] | | | | | | e [...] + + | 12/04/ | Office | [facility] | Alexx, | Bilateral lumbar | | 2014 | Visit | PHYSIATRY [address] | [address]QUE Georges [address] | radiculopathy | | | | [place], | [facility], | (Primary Dx); Spinal | | | | [place] [address] | [place] [address] | stenosis of lumbar | | | | [phone] | [phone] | region at multiple | | | [...] of the procedure you must provide a waste collection driver to take you home. For all [...] has no apparent deficits with short or pipeline gang supervisor memory. She has appropriate fund of knowledge [...] water. A detailed physical therapy referral to [facility] has been m april. 6. [...] CHAN | | | | | | [place] [address] | | | | | | [phone] | | | | | | | | +--------+---------+ + + + + + +--------+ + + | Name | Type | Priori | Associated Diagnoses | Order Schedule | | | | ty | | | + + +--------+ + + | AMB Referral to [facility] | Outpatient | Routin | [...] + | [facility] | [address] | [place], [place] | [phone] | | [facility] | | [address] | | | - IMAGING | | [...] loss is present | | | with zsbo-oy-etqs contact. Moderate size subchondral cysts are noted [...] space | | loss is present with ihcz-se-hzno contact. Moderate size subchondral cysts are | [...] + | MISCELLANEOUS LAB | | | [phone] | + +---------+ + + | MISCELANIOUS LAB | | | [phone] | + +---------+ + + documented in [...]
--- OUTSIDE RECORDS SUMMARY | ~2019-11-13 | XMS | Encounter Summary ---
Demographics + + + | Address | [address] | | | [place] [address] | + + + | Home Phone | | + + + | Preferred Language | Unknown | + + + | Marital Status | | + + + | Pentecostal Affiliation | 1013 | + + + | Race | Unknown | + + + | Ethnic Group | Unknown | + + + Author + + + | Author | [facility] | | | and [place] | + + + | Organization | [facility] | | | and [place] | + + + | Address | Unknown | + + + | Phone | Unavailable | + + + Support + + + + + | Name | Relationship | Address | Phone | + + + + + | Tamar Lancaster | JOSEE | [address] | | | | | [place] [address] | | + + + + + | Peter Hester | ECON | [address] | | | | | [place] [address] | | + + + + + Care Team Providers + +------+ + | Care Hand Straightener Name | Role | Phone | + [...] | | | | [place] | [address] Phone: | | | | | supraspinatu | [address] | [phone] | | | | | s tendon, | Phone: | Fax: | | | | | initial | [phone] | [phone] | | | | | encounter | Fax: | | | | | | | [phone] | | +--------+ + + + + + Encounter Details +--------+---------+ + + + | Date | Type | Department | Care Team | Description | +--------+---------+ + + + | 08/01/ | Office | [facility] | Alexx, | Complete tear of | | 2015 | Visit | ORTHOPEDIC SURGERY | SHANIQUE Georges [address] | left rotator cuff | | | | [address] [place] [address] | [facility], | (Primary Dx); | | | | [place] | [place] [address] | Arthritis of left | | | | [address] | [phone] | shoulder region; | | | | [phone] | | Acute pain of left | | | | | Gamaliel Feng, | shoulder | | | | | SHANIQUE [address] [facility] | | | | | | [place] | | | | | | [address] | | | | | | | [...] kitchen. She was be nding over to scrap picker the we fatimah bunny when she [...] with pain medication as already prescribed by [place] pain management. B. Patient is advised that [...] 15:25 This note was dictated using the [employer] voice recognition system. Minor errors in grammar [...] CHAN | | | | | | [place] [address] | | | | | | [phone] | | | | | | | [...]
--- OUTSIDE RECORDS SUMMARY | ~2019-11-13 | XMS | Encounter Summary ---
Demographics + + + | Address | [address] | | | [place] [address] | + + + | Home Phone | | + + + | Preferred Language | Unknown | + + + | Marital Status | Single | + + + | Nondenominational Affiliation | Unknown | + + + | Race | White | + + + | Ethnic Group | Not or | + + + Author + + + | Author | [facility] | + + + | Organization | [facility] | + + + | Address | Unknown | + + + | Phone | Unavailable | + + + Support + + + + + | Name | Relationship | Address | Phone | + + + + + | Tamar Villatoro | JOSEE | [place] | | + + + + + Care Team Providers + +------+ + | Care Collar Tailor Name | Role | Phone | + [...] | | 2018 | | Surgery at [facility] [address] | Ayaan Tanner MD [address] | ([facility]) | | | | [address] | [address] | | | | | Mailcode: CH16D | [place], [place] | | | | | [facility] | [address] | | | | | and Healing, | [phone] | | | | | [facility] | | | | | | Floor [place], [place] | | | | | | [address] | | | | | | [phone] | | | +--------+ + + + [...]
--- OUTSIDE RECORDS SUMMARY | ~2019-11-13 | XMS | Encounter Summary ---
Demographics + + + | Address | [address] | | | [place] [address] | + + + | Home Phone | | + + + | Preferred Language | Unknown | + + + | Marital Status | Single | + + + | Mormonism Affiliation | Unknown | + + + | Race | White | + + + | Ethnic Group | Not or | + + + Author + + + | Author | [facility] | + + + | Organization | [facility] | + + + | [...] Team Providers + +------+ + | Care Industrial Conveyor Belt Repairer Name | Role | Phone | + +------+ + PCP | Unavailable | + +------+ + Encounter Details +--------+ + + + + | Date | Type | Department | Care Team | Description | +--------+ + + + + | 04/28/ | Results | [facility] | Zaire Roman, | | | 1999 | Only | [facility] | [address] | | | | | Peewee Luna [facility] | Marysol Rene | | | | | [facility] | [place], [place] | | | | | Mailcode: [facility] | [address] | | | | | [place] [address] | [phone] | | | | | [phone] | | | +--------+ + + + [...] | + +--------+ + + + | KNEE, 2 VIEWS | Routin | 04/28/2000 | | Results for this | | | e | 12:00 PM | | procedure are in the | | | | PDT | | results section. | + +--------+ + + + | RHEUMATOID FACTOR, | Routin | 04/28/2000 | | Results for this | | SERUM | e | 11:49 AM | | procedure are in the | | | | PDT | | results section. | + +--------+ + + + | SEDIMENTATION RATE | Routin | 04/28/2000 | | Results for this | | | e | 11:49 AM | | procedure are in the | | | | PDT | | results section. | + +--------+ + + + documented in this encounter Results KNEE, 2 VIEWS (04/28/2000 12:00 PM PDT) + + + + + + | Component | Value | Ref Range | Performed | Pathologist | | | | | At | Signature | + + + + + + | KNEE, 2 | Radiologist 1: TRICIA, | | | | | VIEWS | KAUR, | | | | | | M.D.BILATERAL KNEES, | | | | | | WEIGHTBEARING AP AND | | | | | | LATERAL: 04/28/2000 | | | | | | Dictated 04/29/2000 | | | | | | RIGHT KNEE FINDINGS: | | | | | | There is mild medial | | | | | | compartment | | | | | | narrowingwithout | | | | | | marginal osteophytes. | | | | | | No erosions or | | | | | | chondrocalcinosis | | | | | | isseen. There is no | | | | | | joint effusion. Bone | | | | | | density is normal. LEFT | | | | | | KNEE FINDINGS: There | | | | | | is moderate medial | | | | | | compartment | | | | | | narrowingwith genu varus | | | | | | and minimal medial | | | | | | joint marginal spurring. | | | | | | There isno erosion, | | | | | | joint effusion, or | | | | | | chondrocalcinosis. | | | | | | Bone density isnormal. | | | | | | IMPRESSION: | | | | | | Osteoarthritis of the | | | | | | knees, mild on the | | | | | | right, moderate on the | | | | | | left,affecting the | | | | | | medial compartments. | | | | | | There is resultant | | | | | | mild genu varusof the | | | | | | left knee. END OF | | | | | | IMPRESSION: | | | | + + + + + + + + | Specimen | + + | | + + + +---------+ + + | Performing | Address | City/State/Zipcode | Phone Number | | Organization | | | | + +---------+ + + | [facility] | | | | | RADIOLOGY | | | | + +---------+ + + RHEUMATOID FACTOR (04/28/2000 11:49 AM PDT) + +-------+ + + + | Component | Value | Ref Range | Performed | Pathologist | | | | | At | Signature | + +-------+ + + + | RHEUMATOID | < 20 | <21 IU/mL | | | | FACTOR | | | | | + +-------+ + + + + + | Specimen | + + | | + + + + + + + | Performing | Address | City/State/Zipcode | Phone Number | | Organization | | | | + + + + + | [facility] | [address] | [place] [address] | | | LABORATORY | | | | + + + + + SEDIMENTATION RATE (04/28/2000 11:49 AM PDT) + +-------+ + + + | Component | Value | Ref Range | Performed | Pathologist | | | | | At | Signature | + +-------+ + + + | SEDIMENTATI | 4 | mm/hr | [facility] | | | ON RATE | | | DEPARTMENT | | | | | | OF | | | | | | PATHOLOGY | | + +-------+ + + + + + | Specimen | + + | | + + + + + + + | Performing | Address | City/State/Zipcode | Phone Number | | Organization | | | | + + + + + | [facility] | [address] [facility] | [place] [address] | | | PATHOLOGY | [address] | | | + + + + + | [facility] | [address] | [place] [address] | | | PATHOLOGY | [address] | | | + + + + + documented in this encounter Visit Diagnoses Not on filedocumented in this encounter"
--- OUTSIDE RECORDS SUMMARY | ~2019-11-13 | XMS | Encounter Summary ---
Demographics + + + | Address | [address] | | | [place] [address] | + + + | Home Phone [...] + | Author | [facility] | | | and [place] | + + + | Organization | [facility] | | | and [place] | + + + | Address | Unknown | + + + | Phone | Unavailable | + + + Support + + + + + | Name | Relationship | Address | Phone | + + + + + | Tamar [place] | JOSEE | [address] | | | | | [place] [address] | | + + + + + | Peter Hester | ECON | [address] | | | | | [place] [address] | | + + + + + Care Team Providers + +------+ + | Care Bleach Machine Operator Name | Role | Phone [...] Tear of left | [address] | [facility] [place] | | | | | | [place] | [id number] Phone: | | | | | supraspinatu | [address] | [phone] | | | | | s tendon, | Phone: | Fax: | | | | | initial | [phone] | [phone] | | | | | encounter | Fax: | | | | | | | [phone] | | +--------+ + + + + [...] | shoulder (Primary | | | | [place], | [place], | Dx); Tear of left | | | | [place] [id number] | [place] [id number] | supraspinatus | | | | [phone] | [phone] | tendon, initial | | | | [...] 5 mg by mouth 4 times daily. [place]-3 Fatty Acids (EPA PO) Take by mouth. [...] made. 2. She is a patient of [facility] and today received a left subacromial [...] CHAN | | | | | | [place] [address] | | | | | | [phone] | | | | | | | [...]
--- OUTSIDE RECORDS SUMMARY | ~2019-11-13 | XMS | Encounter Summary ---
Demographics + + + | Address | [address] | | | [place] [address] | + + + | Home Phone | | + + + | Preferred Language | Unknown | + + + | Marital Status | | + + + | Church Affiliation | 1013 | + + + | Race | Unknown | + + + | Ethnic Group | Unknown | + + + Author + + + | Author | [facility] | | | and [place] | + + + | Organization | [facility] | | | and [place] | + + + | Address | Unknown | + + + | Phone | Unavailable | + + + Support + + + + + | Name | Relationship | Address | Phone | + + + + + | Tamar Lancaster | JOSEE | [address] | | | | | [place] [address] | | + + + + + | Peter Hester | ECON | [address] | | | | | [place] [address] | | + + + + + Care Team Providers + +------+ + | Care Curriculum Development Manager Name | Role | Phone | [...] + + | 01/28/ | Office | [facility] | Gamaliel Feng | Chronic left | | 2017 | Visit | ORTHOPEDIC SURGERY | SHANIQUE [address] | shoulder pain | | | | [address] | [facility] | (Primary Dx); | | | | [place] | [place] [address] | Adhesive capsulitis | | | | [address] | [phone] | of left shoulder; | | | | [phone] | | Decreased range of | | [...] is also had pain management in the [facility] obtain MRI of the neck. This does [...] 16:32 This note was dictated using the [employer] voice recognition system. Minor errors in grammar [...] CHAN | | | | | | [place] [address] | | | | | | [phone] | | | | | | | [...]
--- OUTSIDE RECORDS SUMMARY | ~2019-11-13 | XMS | Encounter Summary ---
Demographics + + + | Address | [address] | | | [place] [address] | + + + | Home Phone | | + + + | Preferred Language | Unknown | + + + | Marital Status | | + + + | Denominational Affiliation | 1013 | + + + | Race | Unknown | + + + | Ethnic Group | Unknown | + + + Author + + + | Author | [facility] | | | and [place] | + + + | Organization | [facility] | | [...] | | | | | [place] [address] | | + + + + + | Peter Hester | ECON | [address] | | | | | [place] [address] | | + + + + + Care Team Providers + +------+ + | Care Drywall Taper Name | Role | Phone | + +------+ + | Michael Montoya MD | PCP | | + +------+ + Encounter Details +--------+ + + + + | Date | Type | Department | Care Team | Description | +--------+ + + + + | 05/29/ | Hospital | [facility] | Reagan Bronson | Primary | | 2016 | Encounter | [facility] | MD Miguelangel [address] | osteoarthritis of | | | | [address] [place] | [place], [place] | left knee | | | | [place], [place] | [address] | | | | | [address] | | | | | | [phone] | | | +--------+ + + + [...] + + + +---------+ + + | BorHoma personago | Take by mouth. | | 0 | | | | officinalis, (BORAGE | | | | | 6 | | OIL PO) | | | | | | [...] + + + +---------+ + + | [place]-3 Fatty | Take by mouth. | | 0 | | | | Acids (EPA PO) | | | | | 9 | + + + +---------+ + + | [place]-3 Fatty | Take by mouth. | | 0 | | | | Acids (FISH OIL PO) | | | | | [...] + + + +---------+ + + | prednisoLONE (PRED | | | 0 | 04/11/20 | | | FORTE) 1% | | | | 16 | 6 | | ophthalmic | | | | | | | suspension | | | | | | + [...] CHAN | | | | | | [place] [address] | | | | | | [phone] | | | | | | | | +--------+---------+ + + + documented as of this encounter Procedures + +--------+ + + + | Procedure Name | Priori | Date/Time | Associated Diagnosis | Comments | | | ty | | | | + +--------+ + + + | XR KNEE BILATERAL AP | Routin | 05/29/2016 | Primary | Results for this | | STANDING | e | 10:37 AM | osteoarthritis of | procedure are in the | | | | PDT | left knee | results section. | + +--------+ + + + documented in this encounter Results XR Knee Bilateral AP [...] ST. | [address] | [place] | [phone] | | [facility] | | [address] | | | - IMAGING | | | | + + + + + documented in this encounter Visit Diagnoses + + | Diagnosis | + + | Primary osteoarthritis of left knee Primary localized osteoarthrosis, lower leg | + + documented in this encounter"
--- OUTSIDE RECORDS SUMMARY | ~2019-11-13 | XMS | Encounter Summary ---
Demographics + + + | Address | [address] | | | [place] [address] | + + + | Home Phone | | + + + | Preferred Language | Unknown | + + + | Marital Status | | + + + | Synagogue Affiliation | 1013 | + + + | Race | Unknown | + + + | Ethnic Group | Unknown | + + + Author + + + | Author | [facility] | | | and [place] | + + + | Organization | [facility] [...] | | | | | [place] [address] | | + + + + + | Peter Hester | ECON | [address] | | | | | [place] [address] | | + + + + + Care Team Providers + +------+ + | Care Signal Tower Director Name | Role | Phone | [...] | | | is of both | [address] | [place] [address] | | | | | knees | [place], | [place] | | | | | | [place] [address] | [place] | | | | | | Phone: | [address] | | | | | | [phone] | Phone: | | | | | | Fax: | [phone] | | | | | | [phone] | Fax: | | | | | | | [phone] | +--------+ + + + + + Reason for Visit + + + | Reason | Comments | + + + | Follow-up | left knee pain | + + + Encounter Details +--------+---------+ + + + | Date | Type | Department | Care Team | Description | +--------+---------+ + + + | 08/14/ | Office | [facility] | Reagan Bronson | Primary | | 2014 | Visit | ORTHOPEDIC SURGERY | MD Miguelangel [address] [place] [address] | osteoarthritis of | | | | [address] [place] [address] | [place] | both knees (Primary | | | | [place] | [address] | Dx) | | | | [address] | | | | | | [phone] | | | +--------+---------+ + + + [...] - 08/14/2015 6:09 PM PDTSee soap note [id number].Electronically sign ed by Reagan Bronson MD at 08/14/2015 6:09 PM PDTReagan Bronson MD - 5 6:09 PM PDT [facility] [address] [place] [address] OFFICE NOTE REAGAN BRONSON MD Patient: ANNABEL JENSEN Admitting: MR #: [id number] LOC: PT TYPE: Adm Date: 08/14/2015 : 1945 IDENTIFICATION: Annabel Jensen is a 69-year-old female who has recently moved to live with her daughter in [place], [place]. CHIEF COMPLAINT: Left knee pain. 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 She has come to our office specifically for evaluation and treatment recommendations regarding her known left knee osteoarthritis. X-rays were reviewed, which show eezj-jc-tjmi apposition throughout the medial joint roseann rtment [...] rather advanced degenerative corina nt disease with uklr-ge-zlbw wear throughout the medial compartment with some [...] her a pres cription to go to [facility] in [place], near where she lives, for aqua-based therapy. We have encouraged her to proceed with weight loss as she actually has already lost about 30 pounds in the past 6 months. She will continue to work on weaning herself of f of her large amounts of narcotic pain medication under the care of her primary care physi yeimy, Dr. Fisher, in [place]. We will see Annabel back for further discussion regarding total knee joint replacement when desired in the future. Today she was given patient edu cation material regarding total joint replacement of the knee joint. REAGAN BRONSON MD Dictated by REAGAN BRONSON MD 08/14/2015 18:09:31 Transcribed on 08/15/2015 02:51:00 by dtw job# [id number] Confirmation #: [id number] cc: KAUR FISHER MD documented in this encounter Plan of Treatment +--------+---------+ + + + | Date | Type | Specialty | Care Team | Description | +--------+---------+ + + + | 12/12/ | Office | Cardiology | Emile Rosario MD | | | 2020 | Visit | | [address] | | | | | | [place] [address] | | | | | | [phone] | | | | | | | [...]
--- OUTSIDE RECORDS SUMMARY | ~2019-11-13 | XMS | Encounter Summary ---
Demographics + + + | Address | [address] | | | [place] [address] | + + + | Home Phone | | + + + | Preferred Language | Unknown | + + + | Marital Status | | + + + | Mu-Ism Affiliation | 1013 | + + + | Race | Unknown | + + + | Ethnic Group | Unknown | + + + Author + + + | Author | [facility] | | | and [place] | + + + | Organization | [facility] | | | and [place] | + + + | Address | Unknown | + + + | Phone | Unavailable | + + + Support + + + + + | Name | Relationship | Address | Phone | + + + + + | Tamar [place] | JOSEE | [address] | | | | | [place] [address] | | + + + + + | Peter Hester | ECON | [address] | | | | | [place] [address] | | + + + + + Care Team Providers + +------+ + | Care Barrel Raiser Name | Role | Phone | + [...] + + | 10/08/ | Office | [facility] | Reagan Bronson | S/P orthopedic | | 2016 | Visit | ORTHOPEDIC SURGERY | MD Nirmal Means [facility] | surgery, follow-up | | | | [address] [facility] | [place] | exam (Primary Dx) | | | | [place] | [address] | | | | | [address] | | | | | | [phone] | | | +--------+---------+ + + + [...] - 10/08/2016 2:30 PM PSTSee soap note [id number]. Electronically sign ed by Reagan Bronson MD at 10/08/2016 2:30 PM PSTReagan Bronson MD - 2:29 PM PST [facility] ORTHOPEDIC SURGERY [address] [place] [address] OFFICE NOTE REAGAN BRONSON MD Patient: ANNABEL JENSEN Admitting: MR #: [id number] LOC: PT TYPE: Adm Date: 10/08/2016 : [...] 10/08/2016 14:29:53 Transcribed on 10/10/2016 07:15:10 by [facility] job# [id number] Confirmation #: [id number] cc: KAUR FISHER MD documented in this encounter Plan of Treatment +--------+---------+ + + + | Date | Type | Specialty | Care Team | Description | +--------+---------+ + + + | 12/12/ | Office | Cardiology | Emile Rosario MD | | | 2019 | Visit | | [address] | | | | | | [place] [address] | | | | | | [phone] | | | | | | | | +--------+---------+ + + + documented as of this encounter Visit Diagnoses + + | Diagnosis | + + | S/P orthopedic surgery, follow-up exam - Primary Follow-up examination, following | | other surgery | + + documented in this encounter"
--- OUTSIDE RECORDS SUMMARY | ~2019-11-13 | XMS | Encounter Summary ---
Demographics + + + | Address | [address] | | | [place] [address] | + + + | Home Phone | | + + + | Preferred Language | Unknown | + + + | Marital Status | Single | + + + | Synagogue Affiliation | Unknown | + + + | Race | White | + + + | Ethnic Group | Not or | + + + Author + + + | Author | [facility] | + + + | Organization | [facility] | + + + [...] Team Providers + +------+ + | Care Dragger Name | Role | Phone | + [...] of basal | | | | [place], [place] | [address] | cell carcinoma (BCC) | | | | [address] | [phone] | | | | | [phone] | | | +--------+---------+ + + + [...] skin cance rs including melanoma. ? The [place] [employer] (AAD) recommends you wear [...] information is available at the following websites: http://www.[email or web address]/xd/health/services/dermatology/for-patients/health_info.cfm - [facility] Derm atology http://www.aad.org/public/sun/smart.html - AAD Website documented in this encounter Progress Notes Alka Montiel MD,PhD - 09/06/2018 10:30 AM PDTFormatting of this note might be differen t from the original. [facility] DERMATOLOGY FOLLOW-UP VISIT (Last Appointment in [facility] DERMATOLOGY CC was on 08/23/18 at 3:43 pm with [facility] CC. Removal of suture.) Derm Hx: L chin BCC - Mohs 08/2018 L chest BCC - please schedule for excision with md L dorsal hand BCC - Mohs 08/2018 [...] retu rn with any change or concern. (Z85.404) History of basal cell carcinoma (BCC) Comment: NER --we discussed that if the scar on the chin remains quite red that laser treatment would be an option. --She would like [facility] dermatology surgery to call her for a [...] 20 for excision Alka Montiel M.D. Ph.D. Bar Examiner Department of Dermatology [facility] ([facility]) Dermatology documented in is encounter Plan of Treatment Not on filedocumented as of this encounter Visit Diagnoses + + | Diagnosis | + + | Seborrheic keratosis - Primary Other seborrheic keratosis | + + | History of basal cell carcinoma (BCC) | + + documented in this encounter
--- OUTSIDE RECORDS SUMMARY | ~2019-11-13 | XMS | Encounter Summary ---
Demographics + + + | Address | [address] | | | [place] [address] | + + + | Home Phone [...] | Author | [facility] | | | and [place] | + + + | Organization | [facility] | | [...] | | | | | [place] [address] | | + + + + + | Peter Hester | ECON | [address] | | | | | [place] [address] | | + + + + + Care Team Providers + +------+ + | Care All Terrain Vehicle Racer Name | Role | Phone | + +------+ + | Michael Montoya MD | PCP | | + +------+ + Encounter Details +--------+ + + + + | Date | Type | Department | Care Team | Description | +--------+ + + + + | 12/30/ | Abstract | [facility] | Boubacar Hobbs MD | High blood pressure | | 2013 | | NEUROSURGERY [address] | [address] | (Primary Dx); High | | | | [address] | [place] [address] | cholesterol; | | | | [place] | [phone] | Anxiety; Depression; | | | | [address] | | Sleep apnea; | | | | [phone] | | Arthritis; Breast | | | | | | cancer (HCC) | +--------+ + + + + Social [...] [address]AN | | | | | | [place] [address] | | | | | | [phone] | | | | | | | | +--------+---------+ + + + documented as of this encounter Visit Diagnoses + + | Diagnosis | + + | High blood pressure - Primary Unspecified essential hypertension | + + | High cholesterol Pure hypercholesterolemia | + + | Anxiety Anxiety state, unspecified | + + | Depression Depressive disorder, not elsewhere classified | + + | Sleep apnea Unspecified sleep apnea | + + | Arthritis Arthropathy, unspecified, site unspecified | + + | Breast cancer (HCC) Malignant neoplasm of breast (female), unspecified site | + + documented in this encounter"
--- OUTSIDE RECORDS SUMMARY | ~2019-11-13 | XMS | Encounter Summary ---
Demographics + + + | Address | [address] | | | [place] [address] | + + + | Home Phone | | + + + | Preferred Language | Unknown | + + + | Marital Status | Single | + + + | Uatsdin Affiliation | Unknown | + + + | Race | White | + + + | Ethnic Group | Not or | + + + Author + + + | Author | [facility] | + + + | Organization | [facility] | + + + | Address [...] Team Providers + +------+ + | Care Blood Bank Specialist Name | Role | Phone | [...] | | 2017 | | Surgery at [facility] [address] | Ayaan Tanner MD [address] | | | | | [address] | [address] | | | | | Mailcode: CH16D | [place], [place] | | | | | [facility] | [address] | | | | | and Sammi, | [phone] | | | | | [facility] | | | | | | Floor [place], [place] | | | | | | [address] | | | | | | [phone] | | | +--------+ + + + [...]
--- OUTSIDE RECORDS SUMMARY | ~2019-11-13 | XMS | Encounter Summary ---
Demographics + + + | Address | [address] | | | [place] [address] | + + + | Home Phone | | + + + | Preferred Language | Unknown | + + + | Marital Status | Single | + + + | Yarsani Affiliation | Unknown | + + + | Race | White | + + + | Ethnic Group | Not or | + + + Author + + + | Author | [facility] | + + + | Organization | [facility] | + + + [...] Team Providers + +------+ + | Care Activity Specialist Name | Role | Phone | + +------+ + | Michael Montoya MD | PCP | | + +------+ + Reason for Referral CC to [facility] (Routine) +--------+ + + + + + | Status | Reason | Specialty | Diagnoses / | Referred By | Referred To | | | | | Procedures | Contact | Contact | +--------+ + + + + + | Closed | Specialty | Dermatology | Diagnoses | Tiana | Drm Surg | | | Services | | Basal cell | Alka Fontaine, | Outpt Hos | | | Required | | carcinoma | ,PhD 1933 | [address] | | | | | (BCC) of | [address] | | | | | chin Basal | [place]LE[place], | Mailcode: | | | | | cell | [place] | CH16D Center | | | | | carcinoma | [address] | for Health | | | | | (BCC) of | Phone: | and Healing, | | | | | left hand | [phone] | Building 1, | | | | | 1) left chin | Fax: | 5th Floor | | | | | 2) left | [phone] | [place], [place] | | | | | dorsal hand | | [address] | | | | | Procedures | | Phone: | | | | | CONSULT TO | | [phone] | | | | | DERM & DERM | | Fax: | | | | | SURGERY | | [phone] | | | | | mohs | | | +--------+ + + + + + Encounter Details +--------+ + + + + | Date | Type | Department | Care Team | Description | +--------+ + + + + | 05/18/ | [facility] | Dermatology at | Alka Montiel, | Basal cell carcinoma | | 2018 | | Jermaine Cabello | ,PhD 1933 [address] | (BCC) of chin | | | | Clinic [address] | [address] [place] | (Primary Dx); Basal | | | | St [place], [place] | [address] | cell carcinoma (BCC) | | | | [address] | [phone] | of left hand | | | | [phone] | | | +--------+ + + + [...] | Basal cell carcinoma (BCC) of chin - Primary | + + | Basal cell carcinoma (BCC) of left hand | + + documented in this encounter"
--- OUTSIDE RECORDS SUMMARY | ~2019-11-13 | XMS | Encounter Summary ---
Demographics + + + | Address | [address] | | | [place] [address] | + + + | Home Phone | | + + + | Preferred Language | Unknown | + + + | Marital Status | | + + + | Voodoo Affiliation | 1013 | + + + | Race | Unknown | + + + | Ethnic Group | Unknown | + + + Author + + + | Author | [facility] | | | and [place] | + + + | Organization | [facility] | | | and [place] | + + + | Address | Unknown | + + + | Phone | Unavailable | + + + Support + + + + + | Name | Relationship | Address | Phone | + + + + + | Tamar Lancaster | JOSEE | [address] | | | | | [place] [address] | | + + + + + | Peter Hester | ECON | [address] | | | | | [place] [address] | | + + + + + Care Team Providers + +------+ + | Care Sericulture Teacher Name | Role | Phone | [...] | ORTHOPEDIC SURGERY | MD Miguelangel [address] [facility] | | | | | [address] [facility] | [place] | | | | | [place], [place] | [address] | | | | | [address] | | | | | | [phone] | | | +--------+ + + + [...] | | | | | [place] [address] | | | | | | [phone] | | | | | | | | +--------+---------+ + + + documented as of this encounter Visit Diagnoses Not on filedocumented in this encounter"
--- OUTSIDE RECORDS SUMMARY | ~2019-11-13 | XMS | Clinical Summary ---
Demographics + + + | Address | [address] | | | [place] [address] | + + + | Home Phone | | + + + | Preferred Language | Unknown | + + + | Marital Status | | + + + | Zoroastrian Affiliation | Unknown | + + + | Race | Unknown | + + + | Ethnic Group | Unknown | + + + Author + + + | Author | [facility] (Historical as of | | | 07-02-19) | + + + | Organization | [facility] (Historical as of | | | 07-02-19) | + + + | Address | Unknown | + + + | Phone | Unavailable | + + + Support + + + + + | Name | Relationship | Address | Phone | + + + + + | Tamar Lancaster | ECON | [address] | | | | | [place] [address] | | + + + + + Care Team Providers + +------+ + | Care Seamer Name | Role | Phone | + [...] | MA - PREMIERCARE | MA-FAM | [id number] | Medica | | | | FAMILY | NEAL | | re | | | | | CARE | | | | | + +--------+ +--------+-------+ + | MEDICAID | MEDICA | [id number] | | | [address] | | | [place] | | | | [place] | | | [place] | | | | [address] | + +--------+ +--------+-------+ + + +--------+ [...] | neal | | | [address] | [address] | + +--------+ +--------+ + +"
--- OUTSIDE RECORDS SUMMARY | ~2019-11-13 | XMS | Encounter Summary ---
Demographics + + + | Address | [address] | | | [place] [address] | + + + | Home Phone | | + + + | Preferred Language | Unknown | + + + | Marital Status | | + + + | Zoroastrian Affiliation | 1013 | + + + | Race | Unknown | + + + | Ethnic Group | Unknown | + + + Author + + + | Author | [facility] | | | and [place] | + + + | Organization | [facility] | | | and [...] | | | | | [place] [address] | | + + + + + | Peter Hester | ECON | [address] | | | | | [place] [address] | | + + + + + Care Team Providers + +------+ + | Care Tribal Council Member Name | Role | Phone | + +------+ + | Michael Montoya MD | PCP | | + +------+ + Encounter Details +--------+ + + + + | Date | Type | Department | Care Team | Description | +--------+ + + + + | 03/03/ | Hospital | [facility] | Uvaldo Hobbs | | | 2013 | Encounter | MED CTR XRAY [address] | [address] | | | | | [place] | [place], [place] | | | | | [place] [address] | [address] | | | | | [phone] | | | +--------+ + + + [...] CHAN | | | | | | [place] [address] | | | | | | [phone] | | | | | | | [...] Performed At | + + + | [facility] Diagnostic Imaging | [place] | | Department [address] [place] [address] | [facility] | | [ rep [phone]] [ rep [facility] | | [facility]] Signed | - IMAGING | | | | | Patient Name: ANNABEL SAUCEDO Physician: | | | SANDY : 1945 Age: 67 Sex: F Unit #: [id number] | | | Exam Date: 03/03/13 Location: [facility] | | | Report #: [id number] Page: | | | %(RAD)RES..mtdd.print.filter("pg") of %(RAD) | | | RES..mtdd.print.filter("tpg") | | | | | | Accession Number: [id number] | | | EPIDURAL STEROID INJECTION, 02/27/2013 [...] | | | Transcribed Date/Time: 03/09/2013 09:55 Elementary Education Teacher: | | | <<Signature on File>> | | | Uvaldo Ahumada | | | MD Anjel03/12/13 2218 <Electronically signed by Uvaldo Ahumada | | | Anjel CHRISTIANSEN> Uvaldo Hobbs MD 03/09/13 0738 | | | Elementary Education Teacher: CARDFREE Tmtubaizskxou84/24/13 0955 | | | | | + + + + + + + + | Performing | Address | City/State/Zipcode | Phone Number | | Organization | | | | + + + + + | [facility] | [address] | [place] | [phone] | | [facility] | | [address] | | | - IMAGING | | | | + + + + + documented in this encounter Visit Diagnoses Not on filedocumented in this encounter
--- OUTSIDE RECORDS SUMMARY | ~2019-11-13 | XMS | Encounter Summary ---
Demographics + + + | Address | [address] | | | [place] [address] | + + + | Home Phone | | + + + | Preferred Language | Unknown | + + + | Marital Status | | + + + | Congregation Affiliation | 1013 | + + + | Race | Unknown | + + + | Ethnic Group | Unknown | + + + Author + + + | Author | [facility] | | | and [place] | + + + | Organization | [facility] | | | and [place] | + + + | Address | Unknown | + + + | Phone | Unavailable | + + + Support + + + + + | Name | Relationship | Address | Phone | + + + + + | Tamar Lancaster | JOSEE | [address] | | | | | [place] [address] | | + + + + + | Peter Hester | ECON | [address] | | | | | [place] [address] | | + + + + + Care Team Providers + +------+ + | Care Special Services Agent Name | Role | Phone | + +------+ + PCP | Unavailable | + +------+ + Encounter Details +--------+ + + + + | Date | Type | Department | Care Team | Description | +--------+ + + + + | 05/29/ | Hospital | [facility] | | | | 1997 | Encounter | MED CTR EMERGENCY | | | | | | CENTER [address] | | | | | | [place], [place] | | | | | | [address] | | | | | | [phone] | | | +--------+ + + + [...] | | | | | [place] [address] | | | | | | [phone] | | | | | | | | +--------+---------+ + + + documented as of this encounter Visit Diagnoses Not on filedocumented in this encounter"
--- OUTSIDE RECORDS SUMMARY | ~2019-11-13 | XMS | Clinical Summary ---
Demographics + + + | Address | [address] | | | [place] [address] | + + + | Home Phone [...] Author + + + | Author | [facility] | + + + | Organization | [facility] | + + + | Address | Unknown | + + + | Phone | Unavailable | + + + Support + + + + + | Name | Relationship | Address | Phone | + + + + + | Tamar Villatoro | JOSEE | [place] | | + + + + + Care Team Providers + +------+ + | Care Force Adjustment Supervisor Name | Role | Phone | + +------+ + | Michael Montoya MD | PCP | | + +------+ + Source Comments ELISEO is fully live on both [facility] Ambulatory and [facility] InPatient.[facility]3] Allergies + + + + + + | Active Allergy | Reactions | Severity | Noted | Comments | | | | | Date | | + + + + + + | Iodine | Anaphylaxis | High | 06/07/20 | Ingested or | | | | | 09 | topical, reacts to | | | | | | both | + + + + + + | Latex | Rash | | 09/06/20 | | | | | | 18 | | + + + + + + | Venom-Honey Bee | Anaphylaxis | High | 12/31/19 | | | | | | 13 | | + + + + + + | Venom-Wasp | Anaphylaxis | High | 10/13/20 | [...] | | + + + +---------+------+------+-------+ | Oxycodone 10 mg | Take 10 mg by mouth | | 0 | | | Activ | | Oral Tablet | every six hours as | | | | | e | | | needed. | | | | | | + + + +---------+------+------+-------+ | methadone 5 mg | Take 5 mg by mouth | | 0 | | | Activ | | Oral Tablet | two times daily. | | | | | e | + + + +---------+------+------+-------+ | TERAZOSIN HCL | Take by mouth. | | 0 | | | Activ | | (TERAZOSIN OR) | | | | | | e | + + + +---------+------+------+-------+ | CLONAZEPAM OR | Take by mouth. | | 0 | | | Activ | | | | | | | | e | + + + +---------+------+------+-------+ | RANITIDINE HCL OR | Take by mouth. | | 0 | | | Activ | | | | | | | | e | + + + +---------+------+------+-------+ | Potassium 75 mg | Take by mouth. | | 0 | | | Activ | | Oral Tablet | | | | | | e | + + + +---------+------+------+-------+ | DIAZEPAM ORAL | Take by mouth. | | 0 | | | Activ | | | | | | | | e | + + + +---------+------+------+-------+ | DULOXETINE HCL | Take by mouth. | | 0 | | | Activ | | (CYMBALTA ORAL) | | | | | | e | + + + +---------+------+------+-------+ | torsemide 10 mg | Take 10 mg by mouth | | 0 | | | Activ | | oral tablet | once daily. | | | | | e | + + + +---------+------+------+-------+ | baclofen 10 mg | | | 0 | 09/2 | | Activ | | oral tablet | | | | 8/20 | | e | | | | | | 18 | | | + + + +---------+------+------+-------+ | escitalopram | | | 0 | 09/0 | | Activ | | oxalate 20 mg oral | | | | 4/20 | | e | | tablet | | | | 18 | | | + + + +---------+------+------+-------+ | hydrOXYzine 10 mg | | | 0 | 09/1 | | Activ | | oral tablet | | | | 3/20 | | e | | | | | | 18 | | | + + + +---------+------+------+-------+ | ibuprofen 600 mg | take 1 tablet by | | 0 | 09/1 | | Activ | | oral tablet | mouth three times a | | | 0/20 | | e | | | day | | | 18 | | | + + + +---------+------+------+-------+ | potassium chloride | take 1 tablet by | | 0 | 09/1 | | Activ | | SR 20 mEq oral | mouth twice a day | | | 5/20 | | e | | tablet,ER | | | | 18 | | | | particles/crystals | | | | | | | + + + +---------+------+------+-------+ | terazosin 10 mg | | | 0 | 09/0 | | Activ | | oral capsule | | | | 4/20 | | e | | | | | | 18 | | | + + + +---------+------+------+-------+ | torsemide 5 mg | | | 0 | 09/1 | | Activ | | oral tablet | | | | 9/20 | | e | | | | | | 18 | | | + + + +---------+------+------+-------+ Active Problems + + + | Problem | Noted Date | + + + | Macular hole, left eye | 06/15/2009 | + + + Family History + + +------+ + | Medical History | Relation | Name | Comments | + + +------+ + | Diabetes | Brother | | | + + +------+ + | Heart Disease | Father | | | + + +------+ + | Heart Disease | Maternal | | | | | Grandmoth | | | | | er | | | + + +------+ + | Cancer | Mother | | at 60 of lung cancer | + + +------+ + | Diabetes | Mother | | | + + +------+ + | High blood pressure | Mother | | | + + +------+ + + +------+--------+ + | Relation | Name | Status | Comments | + +------+--------+ + | Brother | | | | + +------+--------+ + | Father | | | | + +------+--------+ + | Maternal Grandmother | | | | + +------+--------+ + [...] + + + | Blood Pressure | 151/64 | 2018 8:04 AM | | | | | PDT | | + + + + + | Pulse | 85 | [...] | + + + + + | Influenza (Flu) | | 09/02/2018, 10/16/2017, | | | vaccination (#1) | 9 | 08/11/2016, Additional history | | | | | exists | | + + + + + | Pneumococcal | Completed | 10/16/2017, 10/23/2015, | | | vaccination | | 10/07/2005 | | + + + + + Results Not on filefrom Last 3 Months Insurance + +--------+ +--------+ + +--------+ | Payer | Benefi | Subscriber | Effect | Phone | Address | Type | | | t Plan | ID | teetee | | | | | | / | | Dates | | | | | | Group | | | | | | + +--------+ +--------+ + +--------+ | MEDICARE | MEDICA | xxxxxxxxxx | Effect | [phone] | [address] | Medica | | | RE A & | | teetee | [address] | [address] | re | | | B | | for | | [place] | | | | | | all | | [id number] | | | | | | dates | | | | + +--------+ +--------+ + +--------+ | MEDICARE | MEDICA | xxxxxxxxxxx | 11/16/19 | [phone] | [address] | Medica | | | RE A & | | 17-Pre | 1 | [address] | re | | | B | | sent | | [place], [place] | | | | | | | | [address] | | + +--------+ +--------+ + +--------+ | GAMING FLOOR SUPERVISOR MEDICAID | GAMING FLOOR SUPERVISOR | xxxxxxxx | 06/16/20 | | | Medica | | | [place] | | 16-Pre | | | id | | | [place] | | sent | | | | + +--------+ +--------+ + +--------+ | GAMING FLOOR SUPERVISOR MEDICAID | GAMING FLOOR SUPERVISOR | xxxxxxxx | 06/16/20 | | | Medica | | | [place] | | 16-Pre | | | id | | | [place] | | sent | | | | + +--------+ +--------+ + +--------+ + +--------+ +--------+ + + | Guarantor Name | Accoun | Relation to | Date | Phone | Billing Address | | | t Type | Patient | of | | | | | | | | | | + +--------+ +--------+ + + | Annabel Saucedo | Person | Self | [birth year] | [address] | | | al/Fam | | 1945 | [phone] | [place] [address] | | | neal | | | 6 (Home) | | + +--------+ +--------+ + + | Annabel Saucedo | Person | Self | [birth year] | | [address] | | | al/Fam | | 1945 | [phone] | [place] [address] | | | neal | | | 6 (Home) | | + +--------+ +--------+ + +
--- OUTSIDE RECORDS SUMMARY | ~2019-11-13 | XMS | Encounter Summary ---
Demographics + + + | Address | [address] | | | [place] [address] | + + + | Home Phone | | + + + | Preferred Language | Unknown | + + + | Marital Status | | + + + | Scientology Affiliation | 1013 | + + + | Race | Unknown | + + + | Ethnic Group | Unknown | + + + Author + + + | Author | [facility] | | | and [place] | + + + | Organization | [facility] | | | and [...] | | | | | [place] [address] | | + + + + + | Peter Hester | ECON | [address] | | | | | [place] [address] | | + + + + + Care Team Providers + +------+ + | Care Soaking Pit Operator Name | Role | Phone | [...] Acute pain | Alexx, | [address] | | | | | of left | [place], | [place], | | | | | shoulder | PA-C [address] | [place] | | | | | Traumatic | [address] | [address] | | | | | closed | [place] | Phone: | | | | | displaced | [address] | [phone] | | | | | fracture of | Phone: | Fax: | | | | | right | [phone] | [phone] | | | | | shoulder | Fax: | | | | | | with | [phone] | | | | | | anterior [...] + + | 06/25/ | Office | [facility] [place] | Alexx, | Acute pain of left | | 2016 | Visit | PHYSIATRY [address] | [place] [address] | shoulder (Primary | | | | [place], | [address] [place], | Dx); Traumatic | | | | [place] [address] | [place] [address] | closed displaced | | | | [phone] | [phone] | fracture of right | | | [...] this will be ordered to be at [facility] WITHOUT contrast since iod ine [...] 5 mg by mouth 4 times daily. Cashmere-3 Fatty Acids (EPA PO) Take by mouth. [...] has no apparent deficits with short or [facility] memory. She has appropriate fund of knowledge [...] CHAN | | | | | | [place] [address] | | | | | | [phone] | | | | | | | [...] pain x 6 weeks, dislocation COMPARISON: | [facility] | | None. TECHNIQUE: Multiplanar multisequence MR imaging of the left [facility] | | shoulder without contrast. Imaging [...] + | [facility] | [address] | [place], [place] | [phone] | | [facility] | | [address] | | | - IMAGING | | [...] pain, possible fx or dislocation COMPARISON: | [facility] | | None. FINDINGS:3 views of the left shoulder. On the [facility] | | Y view and the [...] | | |Dictated and Signed by: Zaire Zmaora MD | | Electronically signed: 06/25/2016 5:01 PM | + + + + + + + | Performing | Address | City/State/Zipcode | Phone Number | | Organization | | | | + + + + + | [facility] | [address] | [place] | [phone] | | [facility] | | [address] | | | - IMAGING | | [...]
--- OUTSIDE RECORDS SUMMARY | ~2019-11-13 | XMS | Encounter Summary ---
Demographics + + + | Address | [address] | | | [place] [address] | + + + | Home Phone [...] Author + + + | Author | [facility] | + + + | Organization | [facility] | + + + | Address | Unknown | + + + | Phone | Unavailable | + + + Support + + + + + | Name | Relationship | Address | Phone | + + + + + | Tamar Vilaltoro | JOSEE | [place] | | + + + + + Care Team Providers + +------+ + | Care Instructional Design Specialist Name | Role | Phone | [...] | | 2018 | | Surgery at [facility] [address] | Ayaan Tanner MD [address] | | | | | [address] | [address] | | | | | Mailcode: CH16D | [place], [place] | | | | | [facility] | [address] | | | | | and Healing, | [phone] | | | | | [facility] | | | | | | Floor [place], [place] | | | | | | [address] | | | | | | [phone] | | | +--------+ + + + [...]
--- OUTSIDE RECORDS SUMMARY | ~2019-11-13 | XMS | Encounter Summary ---
Demographics + + + | Address | [address] | | | [place] [address] | + + + | Home Phone | | + + + | Preferred Language | Unknown | + + + | Marital Status | | + + + | Holiness Affiliation | 1013 | + + + | Race | Unknown | + + + | Ethnic Group | Unknown | + + + Author + + + | Author | [facility] | | | and [place] | + + + | Organization | [facility] | | | and [place] | + + + | Address | Unknown | + + + | Phone | Unavailable | + + + Support + + + + + | Name | Relationship | Address | Phone | + + + + + | Tamar [place] | JOSEE | [address] | | | | | [place] [address] | | + + + + + | Peter Hester | ECON | [address] | | | | | [place] [address] | | + + + + + Care Team Providers + +------+ + | Care Marine Safety Officer Name | Role | Phone | [...] in 1998. Managed by Dr. Montoya in [place]. | + + + | Osteoarthritis | [...] Saw Kanwal Son, mental health counselor, at [facility] x 2008. | + + + | [...] | | | | | ischemic | [place], | [address] | | | | | attack) | [place] [address] | [address] [place], | | | | | Confusion | Phone: | [place] [address] | | | | | | [phone] | Phone: | | | | | | Fax: | [phone] | | | | | | [phone] | Fax: | | | | | | | [phone] | +--------+ + + + + + Encounter Details +--------+---------+ + + + | Date | Type | Department | Care Team | Description | +--------+---------+ + + + | 02/03/ | [facility] | [facility] | Jamshid Xiong MD [address] | Confusion (Primary | | 2012 | Visit | [facility]UR[facility] [place] | [address] | Dx); Pain disorder; | | | | [address], | [address], | Repeated falls; | | | | [address] [facility] | [place] [address] | Obstructive sleep | | | | [place] [address] | [phone] | apnea | | | | [phone] | | | +--------+---------+ + + + [...] from us please call us. 2. Consider crayon painter 3. Please keep your sleep specialist appointmentElectronically signed by Jamshid Xiong MD at 12:19 PM PDT documented in this encounter Progress Notes Jasmhid Xiong MD - 02/03/2013 11:27 AM PDTFormatting [...] to establish with a sleep specialist in [place]. I encouraged her follow with the sleep [...] CHAN | | | | | | [place] [address] | | | | | | [phone] | | | | | | | [...]
--- OUTSIDE RECORDS SUMMARY | ~2019-11-13 | XMS | Encounter Summary ---
Demographics + + + | Address | [address] | | | [place] [address] | + + + | Home Phone | | + + + | Preferred Language | Unknown | + + + | Marital Status | | + + + | Anabaptist Affiliation | 1013 | + + + | Race | Unknown | + + + | Ethnic Group | Unknown | + + + Author + + + | Author | [facility] | | | and [place] | + + + | Organization | [facility] | | | [...] | | | | | [place] [address] | | + + + + + | Peter Hester | ECON | [address] | | | | | [place] [address] | | + + + + + Care Team Providers + +------+ + | Care Ironer Machine Name | Role | Phone | + [...] + + | 01/08/ | Office | [facility] | Gamaliel Feng | Chronic left | | 2017 | Visit | ORTHOPEDIC SURGERY | [address] | shoulder pain | | | | [address] | [place] | (Primary Dx); | | | | [place] | [place] [address] | Decreased range of | | | | [address] | [phone] | motion of left | | | | [phone] | | shoulder; S/P | | | [...] she did request injection therapy at the [facility] shoulder today which I do agree as [...] to this. I will refer her to [facility] physical therapy [facility] t for mobilization at the left shoulder. [...] 14:30 This note was dictated using the Coshared voice recognition system. Minor errors in grammar [...] CHAN | | | | | | [place] [address] | | | | | | [phone] | | | | | | | [...] | | -Left | | Other, ONCE, [facility] 01/08/17 at 1045, | | AM PST | | | | | For 1 dose, Shake well. Not for | | | | | | | IV use., | | | | | | + +--------+ +------+------+ + +---+---+ | | | +---+---+ documented in this encounter"
--- OUTSIDE RECORDS SUMMARY | ~2019-11-13 | XMS | Encounter Summary ---
Demographics + + + | Address | [address] | | | [place] [address] | + + + | Home Phone [...] Author | [facility] | | | and [place] | + + + | Organization | [facility] | | | and [place] | + + + | Address | Unknown | + + + | Phone | Unavailable | + + + Support + + + + + | Name | Relationship | Address | Phone | + + + + + | Tamar Lancaster | JOSEE | [address] | | | | | [place] [address] | | + + + + + | Peter Hester | ECON | [address] | | | | | [place] [address] | | + + + + + Care Team Providers + +------+ + | Care Knockdown Man Name | Role | Phone | + [...] Kristian ELIZONDO | | | | | [phone] | [place] [address] | | +--------+ + + + + [...] | | | | | [place] [address] | | | | | | [phone] | | | | | | | [...] for comparison only - no result from [facility]w. | [facility] | + + + + +---------+ + + | Performing | Address | City/State/Zipcode | Phone Number | | Organization | | | | + +---------+ + + | [facility] | | | | + +---------+ + + documented in this encounter Visit Diagnoses Not on filedocumented in this encounter"
--- OUTSIDE RECORDS SUMMARY | ~2019-11-13 | XMS | Encounter Summary ---
Demographics + + + | Address | [address] | | | [place] [address] | + + + | Home Phone | | + + + | Preferred Language | Unknown | + + + | Marital Status | | + + + | Zoroastrian Affiliation | 1013 | + + + | Race | Unknown | + + + | Ethnic Group | Unknown | + + + Author + + + | Author | [facility] | | | and [place] | + + + | Organization | [facility] | | | and [...] | | | | | [place] [address] | | + + + + + | Peter Hester | ECON | [address] | | | | | [place] [address] | | + + + + + Care Team Providers + +------+ + | Care Wagon Drill Operator Name | Role | Phone | [...] | | | | Decreased | [place] | [address] | | | | | range of | [address] | [address] | | | | | motion of | Phone: | [place] | | | | | left | [phone] | [address] | | | | | shoulder | Fax: | Phone: | | | | | S/P rotator | [phone] | [phone] | | | | | cuff repair | | Fax: | | | | | | | [phone] | +--------+ + + + + + [...] | (Primary Dx); | | | | [place], [place] | [place] [address] | Decreased range of | | | | [address] | [phone] | motion of left | | | | [phone] | | shoulder; S/P | | | [...] CHAN | | | | | | [place] [address] | | | | | | [phone] | | | | | | | [...]
--- OUTSIDE RECORDS SUMMARY | ~2019-11-13 | XMS | Clinical Summary ---
Demographics + + + | Address | [address] | | | [place] [address] | + + + | Home Phone | | + + + | Preferred Language | Unknown | + + + | Marital Status | | + + + | Spiritism Affiliation | 1013 | + + + | Race | Unknown | + + + | Ethnic Group | Unknown | + + + Author + + + | Author | [facility] | | | and [place] | + + + | Organization | [facility] | | | and [place] | + + + | Address | Unknown | + + + | Phone | Unavailable | + + + Support + + + + + | Name | Relationship | Address | Phone | + + + + + | Tamar Lancaster | JOSEE | [address] | | | | | [place] [address] | | + + + + + | Peter Hester | ECON | [address] | | | | | [place] [address] | | + + + + + Care Team Providers + +------+ + | Care Radiology Orderly Name | Role | Phone | + [...] | | + + + +---------+------+------+-------+ | Luke-3 Fatty | Take by mouth. | | [...] | 10/06/2016 | + + + | [facility] Use of Narcotic - METHADONE | 10/06/2016 [...] | Overview: Overview: | | Followed in [place] | + + + + + | [...] | | | | | [place] [address] | | | | | | [phone] | | | | | | | [...] +--------+ +---------+--------+ | MEDICARE | MEDICA | [id number] | | [phone] | | Medica | | | RE | | 001-Pr | 5 | | re | | | PART A | | esent | | | | | | AND B | | | | | | + +--------+ +--------+ +---------+--------+ | MEDICARE | MEDICA | [id number] | 11/16/19 | [phone] | | Medica | | | RE | | 17-Pre | 5 | | re | | | PART A | | sent | | | | | | AND B | | | | | | + +--------+ +--------+ +---------+--------+ | [employer]AN | MODA | [id number] | 06/16/20 | [phone] | | Medica | | MEDICAID HMO | HEALTH | | 16-Pre | 1 | | id | | | MDCD | | sent | | | | | | [place]MO [place] | | | | | | + +--------+ +--------+ +---------+--------+ | [employer] | MODA | [id number] | | [phone] | | Medica | | MEDICAID HMO [...] | | al/Fam | | 1945 | [phone] | [place] [address] | | | neal | | | 6 (Home) | | + +--------+ +--------+ + + | Annabel Saucedo | Person | Self | [birth year] | [address] | | | kwame/Jose | | 1945 | [phone] | [place] [address] | | | neal | | | 6 (Home) | | + +--------+ +--------+ + + Advance Directives + + + + + | Type | Date Recorded | Patient | Explanation | | | | Mold Shifter | | + + + + + | Power of | | | | | First Crusher | | | | + + + [...]
--- OUTSIDE RECORDS SUMMARY | ~2019-11-13 | XMS | Encounter Summary ---
Demographics + + + | Address | [address] | | | [place] [address] | + + + | Home Phone | | + + + | Preferred Language | Unknown | + + + | Marital Status | | + + + | Hinduism Affiliation | 1013 | + + + | Race | Unknown | + + + | Ethnic Group | Unknown | + + + Author + + + | Author | [facility] | | | and [place] | + + + | Organization | [facility] | | | and [place] | + + + | Address | Unknown | + + + | Phone | Unavailable | + + + Support + + + + + | Name | Relationship | Address | Phone | + + + + + | Tamar Lancaster | JOSEE | [address] | | | | | [place] [address] | | + + + + + | Peter Hester | ECON | [address] | | | | | [place] [address] | | + + + + + Care Team Providers + +------+ + | Care Machinist Helper Marine Name | Role | Phone | + +------+ + | Michael Montoya MD | PCP | | + +------+ + Encounter Details +--------+ + + + + | Date | Type | Department | Care Team | Description | +--------+ + + + + | 07/31/ | Hospital | [facility] | Conversion | Pain | | 2017 | Encounter | [address]VERSION [address] | Transaction, | | | | | [address] | Provider Unknown | | | | | [place], [place] | [phone] | | | | | [address] | | | | | | [phone] | | | +--------+ + + + [...] + + + +---------+ + + | [place]-3 Fatty | Take by mouth. | | [...] CHAN | | | | | | [place] [address] | | | | | | [phone] | | | | | | | [...]
--- OUTSIDE RECORDS SUMMARY | ~2019-11-13 | XMS | Encounter Summary ---
Demographics + + + | Address | [address] | | | [place] [address] | + + + | Home Phone [...] | Author | [facility] | | | and [place] | + + + | Organization | [facility] [...] | | | | | [place] [address] | | + + + + + | Peter Hester | ECON | [address] | | | | | [place] [address] | | + + + + + Care Team Providers + +------+ + | Care Software Tools Build Engineer Name | Role | Phone | + +------+ + | Michael Montoya MD | PCP | | + +------+ + Encounter Details +--------+ + + + + | Date | Type | Department | Care Team | Description | +--------+ + + + + | 07/29/ | Hospital | [facility] | Conversion | Diagnosis unknown | | 2017 | Encounter | [address] | Transaction, | | | | | [address] | Provider Unknown | | | | | [place], [place] | [phone] | | | | | [address] | | | | | | [phone] | | | +--------+ + + + [...] by Nasal route | | 0 | // | | | | as needed. | [...] + + + +---------+ + + | [place]-3 Fatty | Take by mouth. | | [...] CHAN | | | | | | [place] [address] | | | | | | [phone] | | | | | | | [...] this | | CONTRAST | e | 4:13 PM | | procedure are in the | | | | PDT | | results section. | + +--------+ + + + documented in this encounter Results MRI Lumbar Spine wo Contrast (05/29/2017 4:13 PM PDT) + + | Specimen | + + | | + + + + + | Narrative | Performed At | + + + | This is a non-reportable procedure without a radiologist report and | | | is used for image storage only | | + + + + + | Procedure Note | + + | Hank Luna Conversion - 06/30/2019 2:50 AM PDT This is a non-reportable procedure | | without a radiologist report and isused for image storage only | + + documented in this encounter Visit Diagnoses + + | Diagnosis | + + | Diagnosis unknown Other unknown and unspecified cause of morbidity or mortality | + + documented in this encounter"
--- OUTSIDE RECORDS SUMMARY | ~2019-11-13 | XMS | Encounter Summary ---
Demographics + + + | Address | [address] | | | [place] [address] | + + + | Home Phone | | + + + | Preferred Language | Unknown | + + + | Marital Status | | + + + | Denominational Affiliation | 1013 | + + + | Race | Unknown | + + + | Ethnic Group | Unknown | + + + Author + + + | Author | [facility] | | | and [place] | + + + | Organization | [facility] | | | and [...] | | | | | [place] [address] | | + + + + + | Peter Hester | ECON | [address] | | | | | [place] [address] | | + + + + + Care Team Providers + +------+ + | Care Academic Affairs Coordinator Name | Role | Phone | [...] Thoracic or | [place], | [address] | | | | | lumbosacral | Uvaldo Ahumada MD | [place], | | | | | neuritis or | [address] | [place] | | | | | | [place] | [address] | | | | | radiculitis, | [place], [place] | Phone: | | | | | unspecified | [address] | [phone] | | | | | Procedures | Phone: | Fax: | | | | | [place] INJECT | [phone] | [phone] | | | | | ANES/STEROID | Fax: | | | | | | [place] | [phone] | | | | | | LUMBAR/SACRA | | | | | | | L W IMG | | | | | | | GUIDE ,1 | | | | | | | LEVEL [place] | | | | | | | [...] + + | 12/12/ | Hospital | [facility] | Alexx, | Bilateral lumbar | | 2014 | Encounter | MED CTR XRAY [address] | [address]ANIQUE Georges [address] | radiculopathy; | | | | [address] [place] | [facility], | Spinal stenosis of | | | | [place] [address] | [place] [address] | lumbar region at | | | | [phone] | [phone] | multiple levels; DDD | | | | | | (degenerative disc | | | | | Tumbling [employer] Rolling Supervisor, Ws | disease), lumbar; | | | [...] CHAN | | | | | | [place] [address] | | | | | | [phone] | | | | | | | [...] [address] | [place] | [phone] | | [facility] | | [address] | | | - IMAGING | | [...]
--- OUTSIDE RECORDS SUMMARY | ~2019-11-13 | XMS | Encounter Summary ---
Demographics + + + | Address | [address] | | | [place] [address] | + + + | Home Phone [...] Author + + + | Author | [facility] | + + + | Organization | [facility] | + + + | Address [...] Team Providers + +------+ + | Care Cut Lace Machine Operator Name | Role | Phone [...] | carcinoma | ,PhD 1933 | [address] | | | | | (BCC) of | [address] | | | | | chin Basal | [place], | Mailcode: | | | | | cell | [place] | [facility] | | | | | carcinoma | [address] | for [facility] | | | | | (BCC) of | Phone: | and Healing, | | | | | left hand | [phone] | Building [address], | | | | | 1) left chin | Fax: | 5th Floor | | | | | 2) left | [phone] | [place], [place] | | | | | dorsal hand | | [address] | | | | | Procedures | | Phone: | | | | | CONSULT TO | | [phone] | | | | | DERM & DERM | | Fax: | | | | | SURGERY | | [phone] | | | | | mohs | | | +--------+ + + + + + Encounter Details +--------+ + + + + | Date | Type | Department | Care Team | Description | +--------+ + + + + | 05/18/ | [facility] | Dermatology at | [place], | Basal cell carcinoma | | 2018 | | Jermaine Cabello | ,PhD 1933 [address] | (BCC) of chin | | | | Clinic 1933 | [address] [place] [address] | (Primary Dx); Basal | | | | [place], [place] | [address] | cell carcinoma (BCC) | | | | [address] | [phone] | of left hand | | | | [phone] | | | +--------+ + + + [...]
--- OUTSIDE RECORDS SUMMARY | ~2019-11-13 | XMS | Encounter Summary ---
Demographics + + + | Address | [address] | | | [place] [address] | + + + | Home Phone | | + + + | Preferred Language | Unknown | + + + | Marital Status | Single | + + + | Denominational Affiliation | Unknown | + + + | Race | White | + + + | Ethnic Group | Not or | + + + Author + + + | Author | [facility] | + + + | Organization | [facility] | + + + | Address [...] Providers + +------+ + | Care Data Analyst Name | Role | Phone | + +------+ + PCP | Unavailable | + +------+ + Encounter Details +--------+ + + + + | Date | Type | Department | Care Team | Description | +--------+ + + + + | 04/28/ | Results | [facility] | Zaire Roman, | | | 1999 | Only | [facility] | [address] | | | | | Peewee Luna [facility] | Marysol Rene | | | | | [facility] | [place], [place] | | | | | Mailcode: [facility] | [address] | | | | | [place] [address] | [phone] | | | | | [phone] | | | +--------+ + + + [...] + + + | [facility] | [address] | [place] [address] | | | LABORATORY | | | [...] + | [place] DEPARTMENT OF | [address] [facility] | [place] [address] | | | PATHOLOGY | [address] | | | + + + + + | [facility] DEPARTMENT OF | [address] | [place] [address] | | | PATHOLOGY | [address] | | | + + + + + documented in this encounter Visit Diagnoses Not on filedocumented in this encounter"
--- OUTSIDE RECORDS SUMMARY | ~2019-11-13 | XMS | Encounter Summary ---
Demographics + + + | Address | [address] | | | [place] [address] | + + + | Home Phone [...] + | Author | [facility] | | | and [place] | + + + | Organization | [facility] | | | and [place] | + + + | Address | Unknown | + + + | Phone | Unavailable | + + + Support + + + + + | Name | Relationship | Address | Phone | + + + + + | Tamar Lancaster | JOSEE | [address] | | | | | [place] [address] | | + + + + + | Peter Hester | ECON | [address] | | | | | [place] [address] | | + + + + + Care Team Providers + +------+ + | Care Odd Job Worker Name | Role | Phone | + [...] | | | | | levels | [address] | | | | | | Spondylolist | Phone: | | | | | | hesis of | [phone] | | | | | | lumbar | Fax: | | | | | | region DDD | [phone] | | | | | | (degenerativ [...] + + | 08/14/ | Office | [facility] | Alexx, | Spinal stenosis of | | 2015 | Visit | PHYSIATRY [address] | SHANIQUE Georges [address] | lumbar region at | | | | [place], | [address] [place], | multiple levels | | | | [place] [address] | [place] [address] | (Primary Dx); | | | | [phone] | [phone] | Spondylolisthesis of | | | | [...] of the procedure you must provide a commercial driver's license driver to take you home. For all [...] CHAN | | | | | | [place] [address] | | | | | | [phone] | | | | | | | | +--------+---------+ + + + + + +--------+ + + | Name | Type | Priori | Associated Diagnoses | Order Schedule | | | | ty | | | + + +--------+ + + | AMB REFERRAL TO [facility] | Outpatient | Routin | Spinal stenosis [...] | Diagnosis: Lumbar radiculopathy ICD-9 Code 724.4 [facility] | [facility] | | Ryanne Saucedo presents to the fluoroscopy suite for [facility] | | fluoroscopically-guided bilateral L4-L5 transforaminal [...] | + + + + + | [facility] | [address] | [place] | [phone] | | [facility] | | [address] | | | - IMAGING | | [...]
--- OUTSIDE RECORDS SUMMARY | ~2019-11-13 | XMS | Encounter Summary ---
Demographics + + + | Address | [address] | | | [place] [address] | + + + | Home Phone | | + + + | Preferred Language | Unknown | + + + | Marital Status | | + + + | Tenriism Affiliation | 1013 | + + + | Race | Unknown | + + + | Ethnic Group | Unknown | + + + Author + + + | Author | [facility] | | | and [place] | + + + | Organization | [facility] | | [...] | | | | | [place] [address] | | + + + + + | Peter Hester | ECON | [address] | | | | | [place] [address] | | + + + + + Care Team Providers + +------+ + | Care Ship/Rec/Doc Control Name | Role | Phone | + [...] Thoracic or | [place], | [address] | | | | | lumbosacral | Uvaldo Ahumada MD | [place], | | | | | neuritis or | [address] | [place] | | | | | | [place] | [address] | | | | | radiculitis, | [place], [place] | Phone: | | | | | unspecified | [address] | [phone] | | | | | Procedures | Phone: | Fax: | | | | | [place] INJECT | [phone] | [phone] | | | | | ANES/STEROID | Fax: | | | | | | [place] | [phone] | | | | | | LUMBAR/SACRA | | | | | | | L W IMG | | | | | | | GUIDE ,1 | | | | | | | LEVEL [place] | | | | | | | [...] + + | 09/03/ | Hospital | [facility] | Alexx, | Spinal stenosis of | | 2014 | Encounter | MED CTR XRAY [address] | SHANIQUE Georges [address] | lumbar region at | | | | [place] | [facility], | multiple levels; | | | | [place] [address] | [place] [address] | Spondylolisthesis of | | | | [phone] | [phone] | lumbar region; DDD | | | | | | (degenerative disc | | | | | [employer], [facility] | disease), lumbar; | | | [...] CHAN | | | | | | [place] [address] | | | | | | [phone] | | | | | | | [...] 09/03/2015 Bilateral [facility] Epid[facility] In[facility] | [facility] | | Diagnosis: Lumbar radiculopathy ICD-9 Code 724.4 Annabel | [facility] | | Ryanen Saucedo presents to the fluoroscopy suite for [facility] | | fluoroscopically-guided bilateral L4-L5 transforaminal [...] [address] | [place] | [phone] | | [facility] | | [address] | | | - IMAGING | | [...]
--- OUTSIDE RECORDS SUMMARY | ~2019-11-13 | XMS | Encounter Summary ---
Demographics + + + | Address | [address] | | | [place] [address] | + + + | Home Phone [...] + | Author | [facility] | | | and [place] | + + + | Organization | [facility] | | | and [place] | + + + | Address | Unknown | + + + | Phone | Unavailable | + + + Support + + + + + | Name | Relationship | Address | Phone | + + + + + | Tamar Lancaster | JOSEE | [address] | | | | | [place] [address] | | + + + + + | Peter Hester | ECON | [address] | | | | | [place] [address] | | + + + + + Care Team Providers + +------+ + | Care Shoe Associate Name | Role | Phone | [...] [address] | [address] [place], [place] | unspecified back | | | | [place], [place] | [address] | location, | | | | [address] | | unspecified back | | | | [phone] | | pain laterality, | | | [...] | | | | | [place] [address] | | | | | | [phone] | | | | | | | [...]
--- OUTSIDE RECORDS SUMMARY | ~2019-11-13 | XMS | Encounter Summary ---
Demographics + + + | Address | [address] | | | [place] [address] | + + + | Home Phone | | + + + | Preferred Language | Unknown | + + + | Marital Status | | + + + | Adventism Affiliation | 1013 | + + + | Race | Unknown | + + + | Ethnic Group | Unknown | + + + Author + + + | Author | [facility] | | | and [place] | + + + | Organization | [facility] | | | and [...] | | | | | [place] [address] | | + + + + + | Peter Hester | ECON | [address] | | | | | [place] [address] | | + + + + + Care Team Providers + +------+ + | Care Dental Instrument Maker Name | Role | Phone | + +------+ + | Michael Montoya MD | PCP | | + +------+ + Encounter Details +--------+ + + + + | Date | Type | Department | Care Team | Description | +--------+ + + + + | 07/29/ | Hospital | [facility] | Conversion | Diagnosis unknown | | 2017 | Encounter | CONVERSION [address] | Transaction, | | | | | [address] | Provider Unknown | | | | | [place], [place] | [phone] | | | | | [address] | | | | | | [phone] | | | +--------+ + + + [...] + + + +---------+ + + | [place]-3 Fatty | Take by mouth. | | [...] CHAN | | | | | | [place] [address] | | | | | | [phone] | | | | | | | [...]
--- OUTSIDE RECORDS SUMMARY | ~2019-11-13 | XMS | Encounter Summary ---
Demographics + + + | Address | [address] | | | [place] [address] | + + + | Home Phone [...] + | Author | [facility] | | | and [place] | + + + | Organization | [facility] | | [...] | | | | | [place] [address] | | + + + + + | Peter Hester | ECON | [address] | | | | | [place] [address] | | + + + + + Care Team Providers + +------+ + | Care Block Hacker Name | Role | Phone | + +------+ + | Michael Montoya MD | PCP | | + +------+ + Reason for Visit +---------+ + | Reason | Comments | +---------+ + | Results | | +---------+ + Encounter Details +--------+ + + + + | Date | Type | Department | Care Team | Description | +--------+ + + + + | 12/13/ | Telephone | [facility] [place] | Alexx, | Results | | 2014 | | PHYSIATRY [address] | SHANIQUE Georges [address] | | | | | [place], | [facility], | | | | | [place] [address] | [place] [address] | | | | | [phone] | [phone] | | | | | | | [...] CHAN | | | | | | [facility] [place] [address] | | | | | | [phone] | | | | | | | | +--------+---------+ + + + documented as of this encounter Visit Diagnoses Not on filedocumented in this encounter"
--- OUTSIDE RECORDS SUMMARY | ~2019-11-13 | XMS | Encounter Summary ---
Demographics + + + | Address | [address] | | | [place] [address] | + + + | Home Phone | | + + + | Preferred Language | Unknown | + + + | Marital Status | | + + + | Mandaen Affiliation | 1013 | + + + | Race | Unknown | + + + | Ethnic Group | Unknown | + + + Author + + + | Author | [facility] | | | and [place] | + + + | Organization | [facility] | | | and [...] | | | | | [place] [address] | | + + + + + | Peter Hester | ECON | [address] | | | | | [place] [address] | | + + + + + Care Team Providers + +------+ + | Care Lodging Manager Name | Role | Phone | [...] Thoracic or | [place], | [address] | | | | | lumbosacral | Uvaldo Ahumada MD | [place], | | | | | neuritis or | [address] | [place] | | | | | | [place] | [address] | | | | | radiculitis, | [place], [place] | Phone: | | | | | unspecified | [address] | [phone] | | | | | Procedures | Phone: | Fax: | | | | | [place] INJECT | [phone] | [phone] | | | | | ANES/STEROID | Fax: | | | | | | FORAMEN | [phone] | | | | | | LUMBAR/SACRA | | | | | | | L W IMG | | | | | | | GUIDE ,1 | | | | | | | LEVEL [place] | | | | | | | [...] | 03/29/ | Hospital | [facility] | Uvaldo Hobbs | Lumbar radiculopathy | | 2013 | Encounter | MED CTR XRAY [address] | T, [address] | - currently into | | | | [address] [place] | [place] | the bilateral lower | | | | [place] [address] | [address] | extremities; DDD | | | | [phone] | | (degenerative disc | | | | | [facility] | disease), lumbar; | | | [...] CHAN | | | | | | [place] [address] | | | | | | [phone] | | | | | | | [...] 03/29/2014 Bilateral [facility] In[facility] | [facility] | | Diagnosis: Lumbar radiculopathy ICD-9 Code 724.4 Annabel Mcneil | [facility] | | Sheryl presents to the fluoroscopy suite for fluoroscopically-guided [facility] | | bilateral L4-L5 transforaminal [...] + | [facility] | [address] | [place], [place] | [phone] | | [facility] | | [address] | | | - IMAGING | | [...]
--- OUTSIDE RECORDS SUMMARY | ~2019-11-13 | XMS | Encounter Summary ---
Demographics + + + | Address | [address] | | | [place] [address] | + + + | Home Phone [...] | Author | [facility] | | | and [place] | + + + | Organization | [facility] | | | and [...] | | | | | [place] [address] | | + + + + + | Peter Hester | ECON | [address] | | | | | [place] [address] | | + + + + + Care Team Providers + +------+ + | Care Grinder Watch Parts Name | Role | Phone | + [...] [address] | | | | | [place], | [facility], | | | | | [place] [address] | [place] [address] | | | | | [phone] | [phone] | | | | | | | [...] CHAN | | | | | | [facility] [address] | | | | | | [phone] | | | | | | | | +--------+---------+ + + + documented as of this encounter Visit Diagnoses Not on filedocumented in this encounter"
--- OUTSIDE RECORDS SUMMARY | ~2019-11-13 | XMS | Encounter Summary ---
Demographics + + + | Address | [address] | | | [place] [address] | + + + | Home Phone | | + + + | Preferred Language | Unknown | + + + | Marital Status | | + + + | Bahai Affiliation | 1013 | + + + | Race | Unknown | + + + | Ethnic Group | Unknown | + + + Author + + + | Author | [facility] | | | and [place] | + + + | Organization | [facility] | | | and [place] | + + + | Address | Unknown | + + + | Phone | Unavailable | + + + Support + + + + + | Name | Relationship | Address | Phone | + + + + + | Tamar Lancaster | JOSEE | [address] | | | | | [place] [address] | | + + + + + | Petre Hester | ECON | [address] | | | | | [place] [address] | | + + + + + Care Team Providers + +------+ + | Care Alcohol Rubber Name | Role | Phone | + [...] [place] | | | | | | [address] | | | | | | [phone] | | | +--------+ + + + [...] CHAN | | | | | | [place] [address] | | | | | | [phone] | | | | | | | | +--------+---------+ + + + documented as of this encounter Visit Diagnoses Not on filedocumented in this encounter"
--- OUTSIDE RECORDS SUMMARY | ~2019-11-13 | XMS | Encounter Summary ---
Demographics + + + | Address | [address] | | | [place] [address] | + + + | Home Phone [...] | Author | [facility] | | | and [place] | + + + | Organization | [facility] [...] | | | | | [place] [address] | | + + + + + | Peter Hester | ECON | [address] | | | | | [place] [address] | | + + + + + Care Team Providers + +------+ + | Care Staff Auditor Name | Role | Phone | + +------+ + PCP | Unavailable | + +------+ + Encounter Details +--------+ + + + + | Date | Type | Department | Care Team | Description | +--------+ + + + + | 01/23/ | Hospital | [facility] | Michael Lozada, | | | 2003 | Encounter | MED CTR SLEEP | [address] | | | | | CENTER [address] | [place] | | | | | [place] | [address] | | | | | [address] | | | | | | [phone] | | | +--------+ + + + [...] | | | | | [place] [address] | | | | | | [phone] | | | | | | | | +--------+---------+ + + + documented as of this encounter Visit Diagnoses Not on filedocumented in this encounter"
--- OUTSIDE RECORDS SUMMARY | ~2019-11-13 | XMS | Encounter Summary ---
Demographics + + + | Address | [address] | | | [place] [address] | + + + | Home Phone | | + + + | Preferred Language | Unknown | + + + | Marital Status | Single | + + + | Christianity Affiliation | Unknown | + + + | Race | White | + + + | Ethnic Group | Not or | + + + Author + + + | Author | [facility] | + + + | Organization | [facility] | + + + | [...] Team Providers + +------+ + | Care Therapist Respiratory Name | Role | Phone | + [...] (Primary Dx) | | | | [place], [place] | [address] | | | | | [address] | [phone] | | | | | [phone] | | | +--------+---------+ + + + [...] Sierra Oakes MA - 05/12/2018 11:00 AM [facility] Dermatology BIOPSY WOUND CARE INSTRUCTIONS General Care [...] is rare, but if present, try an eatm-jtw-uzdytgg pain medication such as Tylenol talya ry [...] any questions, please contact the clinic at [phone] Please note: In addition to your visit charges, you or your insurance company may be billed. It usually takes 1-2 weeks to be notified of biopsy results. For dermatopathology services by Ricky Russell MD billed through [facility] A fee from an outside laboratory where [...] with her daughter. She grew up in [place], [place]. They have no history of tanning [...] - they are willing to travel to [facility] B) Left Chest , ddx r/o BCC [...] months (around 11/11/2018). Alka Montiel M.D. Ph.D. Painter Barrel Department of Dermatology [facility] ([facility] Dermatology documented in th is encounter [...] | + +--------+ + + + | [place] BIOPSY, EACH | Routin | 05/12/2018 | Neoplasm of | | | ADDED LESION | e | 11:29 AM | uncertain behavior | | | | | PDT | of skin | | + +--------+ + + + | [place] BIOPSY OF SKIN | Routin | 05/12/2018 [...] patchy | | | | | | rlh-nhlj-awmfq skin, 5 | | | | | [...] ELISEO | [address], [address] | [place] [address] | | | DERMATOPATHOLOGY | [address] | | | + + + + + documented in this encounter Visit Diagnoses + + | Diagnosis | + + | Neoplasm of uncertain behavior of skin - Primary | + + documented in this encounter
--- OUTSIDE RECORDS SUMMARY | ~2019-11-13 | XMS | Encounter Summary ---
Demographics + + + | Address | [address] | | | [place] [address] | + + + | Home Phone | | + + + | Preferred Language | Unknown | + + + | Marital Status | | + + + | Sabianism Affiliation | 1013 | + + + | Race | Unknown | + + + | Ethnic Group | Unknown | + + + Author + + + | Author | [facility] | | | and [place] | + + + | Organization | [facility] [...] | | | | | [place] [address] | | + + + + + | Peter Hester | ECON | [address] | | | | | [place] [address] | | + + + + + Care Team Providers + +------+ + | Care Early Childhood Aide Classroom Name | Role | Phone | + [...] | | | | | [address] | [address] [place], [place] | | | | | [place], [place] | [address] | | | | | [address] | | | | | | [phone] | | | +--------+ + + + [...] | | | | | [place] [address] | | | | | | [phone] | | | | | | | | +--------+---------+ + + + documented as of this encounter Visit Diagnoses Not on filedocumented in this encounter"
--- OUTSIDE RECORDS SUMMARY | ~2019-11-13 | XMS | Encounter Summary ---
Demographics + + + | Address | [address] | | | [place] [address] | + + + | Home Phone [...] Author | [facility] | | | and [place] | + + + | Organization | [facility] | | | [...] | | | | | [place] [address] | | + + + + + | Peter Hester | ECON | [address] | | | | | [place] [address] | | + + + + + Care Team Providers + +------+ + | Care Geology Technician Name | Role | Phone | + [...] + | 06/30/ | Telephone | [facility] [place] | Alexx, | Pain Management | | 2015 | | PHYSIATRY [address] | [place] [address] | | | | | [place], | [facility] | | | | | [place] [address] | [place] [address] | | | | | [phone] | [phone] | | | | | | | [...] | | | | | [place] [address] | | | | | | [phone] | | | | | | | | +--------+---------+ + + + documented as of this encounter Visit Diagnoses Not on filedocumented in this encounter"
--- OUTSIDE RECORDS SUMMARY | ~2019-11-13 | XMS | Encounter Summary ---
Demographics + + + | Address | [address] | | | [place] [address] | + + + | Home Phone | | + + + | Preferred Language | Unknown | + + + | Marital Status | Single | + + + | Oriental Orthodox Affiliation | Unknown | + + + | Race | White | + + + | Ethnic Group | Not or | + + + Author + + + | Author | [facility] | + + + | Organization | [facility] | + + + | [...] Team Providers + +------+ + | Care Room Service Bellhop Name | Role | Phone | + [...] Hole, | | 2009 | Visit | [facility] | [address] | or Pseudohole of | | | | Cynthiaines [address] | [address] | Retina (Primary Dx) | | | | [address] | [place], [place] | | | | | Mailcode: [facility] | [address] | | | | | [place] [address] | [phone] | | | | | [phone] | | | +--------+---------+ + + + [...] hx of ocular surgery. PMH: Reviewed in [facility], + HTN SH: Reviewed in [facility], Tobacco: Past use of chewing tobacco [...] | + + +--------+ + + | FL OPTHALMIC DX | Procedures | Routin | Macular Cyst, | Ordered: 06/07/2009 | | IMAGING | | e | Hole, or Pseudohole | | | | | | of Retina | | + + +--------+ + + | FL OPTHALMIC DX | Procedures | Routin | [...]
--- OUTSIDE RECORDS SUMMARY | ~2019-11-13 | XMS | Encounter Summary ---
Demographics + + + | Address | [address] | | | [place] [address] | + + + | Home Phone | | + + + | Preferred Language | Unknown | + + + | Marital Status | | + + + | Lutheran Affiliation | 1013 | + + + | Race | Unknown | + + + | Ethnic Group | Unknown | + + + Author + + + | Author | [facility] | | | and [place] | + + + | Organization | [facility] | | | and [...] | | | | | [place] [address] | | + + + + + | Peter Hester | ECON | [address] | | | | | [place] [address] | | + + + + + Care Team Providers + +------+ + | Care Technology Coach Name | Role | Phone | [...] + + | 12/01/ | Office | [facility] | Gamaliel Feng | S/P orthopedic | | 2017 | Visit | ORTHOPEDIC SURGERY | [address] | surgery, follow-up | | | | [address] [facility] | Maikel DOROTHY | exam (Primary Dx) | | | | [place] | [place] [address] | | | | | [address] | [phone] | | | | | [phone] | | | +--------+---------+ + + + [...] 16:27 This note was dictated using the Galenea voice recognition system. Minor errors in grammar [...] CHAN | | | | | | [place] [address] | | | | | | [phone] | | | | | | | | +--------+---------+ + + + documented as of this encounter Visit Diagnoses + + | Diagnosis | + + | S/P orthopedic surgery, follow-up exam - Primary Follow-up examination, following | | other surgery | + + documented in this encounter"
--- OUTSIDE RECORDS SUMMARY | ~2019-11-13 | XMS | Encounter Summary ---
Demographics + + + | Address | [address] | | | [place] [address] | + + + | Home Phone | | + + + | Preferred Language | Unknown | + + + | Marital Status | | + + + | Quaker Affiliation | 1013 | + + + | Race | Unknown | + + + | Ethnic Group | Unknown | + + + Author + + + | Author | [facility] | | | and [place] | + + + | Organization | [facility] | | [...] | | | | | [place] [address] | | + + + + + | Peter Hester | ECON | [address] | | | | | [place] [address] | | + + + + + Care Team Providers + +------+ + | Care Outsole Paraffiner Name | Role | Phone | + [...] | | [address] | [place] [address] | cholesterol; | | | | [place] | [phone] | Anxiety; Depression; | | | | [address] | | Sleep apnea; | | | | [phone] | | Arthritis; Breast | | | [...] CHAN | | | | | | [place] [address] | | | | | | [phone] | | | | | | | [...]
--- OUTSIDE RECORDS SUMMARY | ~2019-11-13 | XMS | Encounter Summary ---
Demographics + + + | Address | [address] | | | [place] [address] | + + + | Home Phone [...] + | Author | [facility] | | | and [place] | + + + | Organization | [facility] | | | and [...] | | | | | [place] [address] | | + + + + + | Peter Hester | ECON | [address] | | | | | [place] [address] | | + + + + + Care Team Providers + +------+ + | Care Plastics Fabricator Name | Role | Phone | + [...] + + | 05/15/ | Office | [facility] | Alexx, | Lumbar radiculopathy | | 2015 | Visit | PHYSIATRY [address] | [place] [address] | - currently into | | | | [place], | [address] [place], | the bilateral lower | | | | [place] [address] | [place] [address] | extremities (Primary | | | | [phone] | [phone] | Dx); DDD | | | | [...] of the procedure you must provide a haul truck driver to take you home. For [...] has no apparent deficits with short or snf memory. She has appropriate fund of knowledge [...] CHAN | | | | | | [place] [address] | | | | | | [phone] | | | | | | | [...] radiculopathy ICD-9 Code 724.4 Annabel Mcneil | [facility] | | Sheryl presents to the fluoroscopy suite for fluoroscopically-guided [facility] | | bilateral L4-L5 transforaminal epidural steroid [...] + + | Performing | Address | City[facility]State[facility] | Phone Number | | Organization | | | | + + + + + | [facility] | [address] | [place], [place] | [phone] | | [facility] | | [address] | | | - IMAGING | | [...]
--- OUTSIDE RECORDS SUMMARY | ~2019-11-13 | XMS | Encounter Summary ---
Demographics + + + | Address | [address] | | | [place] [address] | + + + | Home Phone | | + + + | Preferred Language | Unknown | + + + | Marital Status | | + + + | Caodaism Affiliation | 1013 | + + + | Race | Unknown | + + + | Ethnic Group | Unknown | + + + Author + + + | Author | [facility] | | | and [place] | + + + | Organization | [facility] | | | and [place] | + + + | Address | Unknown | + + + | Phone | Unavailable | + + + Support + + + + + | Name | Relationship | Address | Phone | + + + + + | Tamar Lancaster | JOSEE | [address] | | | | | [place] [address] | | + + + + + | Peter Hester | ECON | [address] | | | | | [place] [address] | | + + + + + Care Team Providers + +------+ + | Care Glass Enamel Mixer Name | Role | Phone | + [...] | | | | | shoulder | [address] | [address] | | | | | pain | Phone: | [place] | | | | | Adhesive | [phone] | [address] | | | | | capsulitis | Fax: | Phone: | | | | | of left | [phone] | [phone] | | | | | shoulder | | Fax: | | | | | Decreased | | [phone] | | | | | range of [...] rotator cuff | | | | [address] [facility] | [address] [facility] | (Primary Dx); | | | | [place], [place] | [place] [address] | Chronic left | | | | [address] | [phone] | shoulder pain; | | | | [phone] | | Adhesive capsulitis | | | [...] CHAN | | | | | | [place] [address] | | | | | | [phone] | | | | | | | [...]
--- OUTSIDE RECORDS SUMMARY | ~2019-11-13 | XMS | Encounter Summary ---
Demographics + + + | Address | [address] | | | [place] [address] | + + + | Home Phone [...] [facility] | | | and [place] | + + + | Organization | [facility] | | | and [...] | | | | | [place] [address] | | + + + + + | Peter Hester | ECON | [address] | | | | | [place] [address] | | + + + + + Care Team Providers + +------+ + | Care Supervisor Lace Tearing Name | Role | Phone | + [...] | | | | Atypical | [place] [address] | | | | | | chest pain | Phone: | | | | | | Procedures | [phone] | | | | | | [place] Nuclear | Fax: | | | | | | Stress Test | [phone] | | | | | | (Vasodilator [...] | | | | Atypical | [place] [address] | | | | | | chest pain | Phone: | | | | | | Procedures | [phone] | | | | | | ECHO | Fax: | | | | | | Complete | [phone] | | + +--------+ + + + [...] Chest | [address] [place] [address], [place] | [place], [place] | | | | | pain, | [address] | [address] Phone: | | | | | unspecified | [place], | [phone] | | | | | Procedures | [place] [address] | Fax: | | | | | Consult | Phone: | [phone] | | | | | | [phone] | | | | | | | Fax: | | | | | | | [phone] | | + +--------+ + + + + Encounter Details +--------+---------+ + + + | Date | Type | Department | Care Team | Description | +--------+---------+ + + + | 10/26/ | Office | [facility] | Emile Rosario MD | Essential | | 2019 | Visit | [facility] [place] | [address] | hypertension | | | | [address] | [place] [address] | (Primary Dx); High | | | | [place], [place] | [phone] | cholesterol; | | | | [address] | | Atypical chest pain | | | | [phone] | | | +--------+---------+ + + + [...] CHAN | | | | | | [place] [address] | | | | | | [phone] | | | | | | | [...]
--- OUTSIDE RECORDS SUMMARY | ~2019-11-13 | XMS | Encounter Summary ---
Demographics + + + | Address | [address] | | | [place] [address] | + + + | Home Phone | | + + + | Preferred Language | Unknown | + + + | Marital Status | | + + + | Scientologist Affiliation | 1013 | + + + | Race | Unknown | + + + | Ethnic Group | Unknown | + + + Author + + + | Author | [facility] | | | and [place] | + + + | Organization | [facility] | | | and [...] | | | | | [place] [address] | | + + + + + | Peter Hester | ECON | [address] | | | | | [place] [address] | | + + + + + Care Team Providers + +------+ + | Care Supervisor Offset Plate Preparation Name | Role | Phone | + [...] | Lumbar | Alexx, | [address] | | | | | radiculopath | [place], | [place], | | | | | y DDD | PA-C [address] | [place] | | | | | (degenerativ | [address] | [address] | | | | | e disc | [place] | Phone: | | | | | disease), | [address] | [phone] | | | | | lumbar | Phone: | Fax: | | | | | Spinal | [phone] | [phone] | | | | | stenosis of | Fax: | | | | | | lumbar | [phone] | | | | | | region [...] | Lumbar | Alexx, | [address] | | | | | radiculopath | [place], | [place], | | | | | y DDD | PA-C [address] | [place] | | | | | (degenerativ | [address] | [address] | | | | | e disc | [place] | Phone: | | | | | disease), | [address] | [phone] | | | | | lumbar | Phone: | Fax: | | | | | Spinal | [phone] | [phone] | | | | | stenosis of | Fax: | | | | | | lumbar | [phone] | | | | | | region [...] + + | 10/24/ | Hospital | [facility] | Alexx, | Lumbar radiculopathy | | 2015 | Encounter | MED CTR MRI [address] | [place] [address] | - currently into | | | | [place], | [facility], | the bilateral lower | | | | [place] [address] | [place] [address] | extremities; DDD | | | | [phone] | [phone] | (degenerative disc | | | | [...] CHAN | | | | | | [place] [address] | | | | | | [phone] | | | | | | | [...] Bilaterally COMPARISON: 08/18/2012 TECHNIQUE: In the 1.5T [facility] | | scanner multiplanar, multisequence [...] canal stenosis at L3-L4 and L4-L5. The L3-T2bcbgwhl are | | stable when compared to [...] [address] | [place] | [phone] | | [facility] | | [address] | | | - IMAGING | | [...]
--- OUTSIDE RECORDS SUMMARY | ~2019-11-13 | XMS | Encounter Summary ---
Demographics + + + | Address | [address] | | | [place] [address] | + + + | Home Phone | | + + + | Preferred Language | Unknown | + + + | Marital Status | | + + + | Latter Day Affiliation | 1013 | + + + | Race | Unknown | + + + | Ethnic Group | Unknown | + + + Author + + + | Author | [facility] | | | and [place] | + + + | Organization | [facility] | | | and [place] | + + + | Address | Unknown | + + + | Phone | Unavailable | + + + Support + + + + + | Name | Relationship | Address | Phone | + + + + + | Tamar Lancaster | JOSEE | [address] | | | | | [place] [address] | | + + + + + | Peter Hester | ECON | [address] | | | | | [place] [address] | | + + + + + Care Team Providers + +------+ + | Care Refrigeration Plant Operator Name | Role | Phone | [...] | | | | shoulder | | [address] Phone: | | | | | Complete | | [phone] | | | | | rotator cuff | | Fax: | | | | | tear of | | [phone] | | | | | left | | | | | | | shoulder | | | | | | | [[id number]] | | | | | | | Procedures | | | | | | | SD REPAIR | | | | | | | ROTATOR | | | | | | | CUFF,CHRONIC | | | | | | | SD PARTIAL | | | | | | | | | | | | | | REMOVAL/REPA | | | | | | | IR,ACROMION | | | | | | | SD PARTIAL | | | | | | | REMOVAL, | | | | | | | CLAVICLE | | | +--------+--------+ + + + + Encounter Details +--------+ + + + + | Date | Type | Department | Care Team | Description | +--------+ + + + + | 10/07/ | Hospital | [facility] | Reagan Bronson | Impingement syndrome | | 2016 | Encounter | MED CTR OR INTRA OP | MD Miguelangel [address] | of left shoulder | | | | [address] | [place] | (Primary Dx); | | | | [place] | [address] | Complete tear of | | | | [address] | | left rotator cuff | | | | [phone] | | | +--------+ + + + [...] + + + +---------+ + + | [place]-[employer] Fatty | Take by mouth. | | [...] CHAN | | | | | | [place] [address] | | | | | | [phone] | | | | | | | [...]
--- OUTSIDE RECORDS SUMMARY | ~2019-11-13 | XMS | Encounter Summary ---
Demographics + + + | Address | [address] | | | [place] [address] | + + + | Home Phone [...] + | Author | [facility] | | | and [place] | + + + | Organization | [facility] | | | [...] | | | | | [place] [address] | | + + + + + | Peter Hester | ECON | [address] | | | | | [place] [address] | | + + + + + Care Team Providers + +------+ + | Care Dental Receptionist Name | Role | Phone | + +------+ + | Avani Barahona | PCP | | + +------+ + Encounter Details +--------+ + + + + | Date | Type | Department | Care Team | Description | +--------+ + + + + | 06/25/ | Hospital | [facility] | Robvibhashelley, | Acute pain of left | | 2016 | Encounter | MED CTR XRAY [address] | SHANIQUE Georges [address] | shoulder | | | | [place] | [facility], | | | | | [place] [address] | [place] [address] | | | | | [phone] | [phone] | | | | | | | [...] + + + +---------+ + + | [place]-3 Fatty | Take by mouth. | | [...] | 12/12/ | Office | Cardiology | mEile Rosario MD | | | 2020 | Visit | | [address] | | | | | | [place] [address] | | | | | | [phone] | | | | | | | [...] pain, possible fx or dislocation COMPARISON: | [facility] | | None. FINDINGS:3 views of [...] | + + + + + | [address] | [address] | [place] | [phone] | | [facility] | | [address] | | | - IMAGING | | | | + + + + + documented in this encounter Visit Diagnoses + + | Diagnosis | + + | Acute pain of left shoulder | + + documented in this encounter"
--- OUTSIDE RECORDS SUMMARY | ~2019-11-13 | XMS | Encounter Summary ---
Demographics + + + | Address | [address] | | | [place] [address] | + + + | Home Phone | | + + + | Preferred Language | Unknown | + + + | Marital Status | Single | + + + | Yazdanism Affiliation | Unknown | + + + [...] Team Providers + +------+ + | Care Insurance Clerk Name | Role | Phone | + [...] Hole, | | 2009 | Visit | [place] | | or Pseudohole of | | | | Photography at | | Retina | | | | [address] | | | | | | [address] | | | | | | Mailcode: [address] | | | | | | [place] [address] | | | | | | [phone] | | | +--------+---------+ + + + [...]
--- OUTSIDE RECORDS SUMMARY | ~2019-11-13 | XMS | Encounter Summary ---
Demographics + + + | Address | [address] | | | [place] [address] | + + + | Home Phone | | + + + | Preferred Language | Unknown | + + + | Marital Status | Single | + + + | Mandaen Affiliation | Unknown | + + + | Race | White | + + + | Ethnic Group | Not or | + + + Author + + + | Author | [facility] | + + + | Organization | [facility] | + + + | [...] Team Providers + +------+ + | Care Electrophysiology Technologist Name | Role | Phone | + [...] | | [place] | [address] | | | | | [address] | [phone] | | | | | [phone] | | | +--------+ + + + [...] [facility] D[facility] FOLLOW-UP VISIT (Last Appointment [address] was on 09/07/18 at 3:41 pm [...] Excision and intermediaterepair. ATTENDING SURGEON: Dr. Montiel RECREATION CLERK: VALERY Hernandez PREOPERATIVE DIAGNOSIS(ES): Basal Cell Carcinoma, [...] | + +--------+ + + + | [place] LAYR AMY OCONNOR | Routin | 09/20/2018 | Basal cell | | | TRUNK,ARM,LEG | e | 5:13 PM | carcinoma of skin of | | | 2.6-7.5 | | PST | trunk, except | | | | | | scrotum | | + +--------+ + + + | [place] EXC SKIN BENIG | Routin | 09/20/2018 [...] of | | | | | | [id number] skin, 28 x | | | | [...] [facility] | Mailcode [address], [address] | [place] [address] | | | DERMATOPATHOLOGY | [address] [...]
--- OUTSIDE RECORDS SUMMARY | ~2019-11-13 | XMS | Clinical Summary ---
Demographics + + + | Address | [address] | | | [place] [address] | + + + | Home Phone | | + + + | Preferred Language | Unknown | + + + | Marital Status | Single | + + + | Adventist Affiliation | Unknown | + + + | Race | White | + + + | Ethnic Group | Not or | + + + Author + + + | Author | [facility] | + + + | Organization | [facility] | + + + | [...] Team Providers + +------+ + | Care Heating And Cooling Systems Engineer Name | Role | Phone | + +------+ + | Michael Montoya MD | PCP | | + +------+ + Source Comments ELISEO is fully live on both [facility] and [facility] Allergies + + + + + + [...] | MEDICA | xxxxxxxxxx | Effect | [phone] | [address] | Medica | | | RE A & | | teetee | [address] | [address] | re | | | B | | for | | [place] | | | | | | all | | [id number] | | | | | | dates [...] | | | | | | | [address] | | + +--------+ +--------+ + +--------+ | ENVIRONMENTAL PROGRAMS MANAGER MEDICAID | ENVIRONMENTAL PROGRAMS MANAGER | xxxxxxxx | 06/16/20 | | | Medica | | | [place]AST[place] | | 16-Pre | | | id | | | [place] | | sent | | | | + +--------+ +--------+ + +--------+ | ENVIRONMENTAL PROGRAMS MANAGER MEDICAID | ENVIRONMENTAL PROGRAMS MANAGER | xxxxxxxx | 06/16/20 | | | [...] | 1945 | [phone] | [place] [address] | | | neal | | | 6 (Home) | | + +--------+ +--------+ + + | Annabel Saucedo | Person | Self | [birth year] | | [address] | | | al/Fam | | 1945 | [phone] | [place] [address] | | | neal | | | 6 (Home) | | + +--------+ +--------+ + +
--- OUTSIDE RECORDS SUMMARY | ~2019-11-13 | XMS | Encounter Summary ---
Demographics + + + | Address | [address] | | | [place] [address] | + + + | Home Phone | | + + + | Preferred Language | Unknown | + + + | Marital Status | | + + + | Hoahaoism Affiliation | 1013 | + + + | Race | Unknown | + + + | Ethnic Group | Unknown | + + + Author + + + | Author | [facility] | | | and [place] | + + + | Organization | [facility] [...] | | | | | [place] [address] | | + + + + + | Peter Hester | ECON | [address] | | | | | [place] [address] | | + + + + + Care Team Providers + +------+ + | Care Buckle Strap Drum Operator Name | Role | Phone | [...] | | | | shoulder | | [address] Phone: | | | | | Complete | | [phone] | | | | | rotator cuff | | Fax: | | | | | tear of | | [phone] | | | | | left | | | | | | | shoulder | | | | | | | [[id number]] | | | | | | | Procedures | | | | | | | LA REPAIR | | | | | | | ROTATOR | | | | | | | CUFF,CHRONIC | | | | | | | LA PARTIAL | | | | | | | | | | | | | | REMOVAL/REPA | | | | | | | IR,ACROMION | | | | | | | LA PARTIAL | | | | | | | REMOVAL, | | | | | | | CLAVICLE | | | +--------+--------+ + + + + Encounter Details +--------+ + + + + | Date | Type | Department | Care Team | Description | +--------+ + + + + | 10/07/ Anesthesia | [facility] | Robert Lindsay | | | 2015 | Event | MED CTR OR INTRA OP | MD Fer [address] | | | | | [address] | [address] [place], [place] | | | | | [place], [place] | [address] | | | | | [address] | [phone] | | | | | [phone] | | | +--------+ + + + [...] CHAN | | | | | | [place] [address] | | | | | | [phone] | | | | | | | [...]
--- OUTSIDE RECORDS SUMMARY | ~2019-11-13 | XMS | Encounter Summary ---
Demographics + + + | Address | [address] | | | [place] [address] | + + + | Home Phone [...] + + | Author | [facility] | | | and [place] | + + + | Organization | [facility] | | | [...] | | | | | [place] [address] | | + + + + + | Peter Hester | ECON | [address] | | | | | [place] [address] | | + + + + + Care Team Providers + +------+ + | Care Broadcast Meteorologist Name | Role | Phone | + [...] + + | 03/20/ | Office | [facility] | Uvaldo Hobbs | Lumbar radiculopathy | | 2013 | Visit | PHYSIATRY [address] | MD Zita [address] | - currently into | | | | [place], | [place], [place] | the bilateral lower | | | | [place] [address] | [address] | extremities (Primary | | | | [phone] | | Dx); DDD | | | [...] the procedure you must provide a haul driver to take you home. For all [...] CHAN | | | | | | [place] [address] | | | | | | [phone] | | | | | | | [...] presents to the fluoroscopy suite for fluoroscopically-guided [facility] | | bilateral L4-L5 transforaminal epidural steroid [...] + | [facility] | [address] | [place], [place] | [phone] | | [facility] | | [address] | | | - IMAGING | | [...]
--- OUTSIDE RECORDS SUMMARY | ~2019-11-13 | XMS | Encounter Summary ---
Demographics + + + | Address | [address] | | | [place] [address] | + + + | Home Phone | | + + + | Preferred Language | Unknown | + + + | Marital Status | | + + + | Restoration Affiliation | 1013 | + + + | Race | Unknown | + + + | Ethnic Group | Unknown | + + + Author + + + | Author | [facility] | | | and [place] | + + + | Organization | [facility] | | [...] | | | | | [place] [address] | | + + + + + | Peter Hester | ECON | [address] | | | | | [place] [address] | | + + + + + Care Team Providers + +------+ + | Care Loss Control Technician Name | Role | Phone | + +------+ + | Michael Montoya MD | PCP | | + +------+ + Encounter Details +--------+ + + + + | Date | Type | Department | Care Team | Description | +--------+ + + + + | 05/29/ | Hospital | [facility] | Reagan Bronson | Primary | | 2016 | Encounter | MED CTR DEVYN XRAY | MD Miguelangel [address] | osteoarthritis of | | | | [address] [place] | [place], [place] | left knee | | | | [place], [place] | [address] | | | | | [address] | | | | | | [phone] | | | +--------+ + + + [...] + + + +---------+ + + | [place]-3 Fatty | Take by mouth. | | 0 | | | | Acids (EPA PO) | | | | | 9 | + + + +---------+ + + | [place]-3 Fatty | Take by mouth. | | [...] CHAN | | | | | | [place] [address] | | | | | | [phone] | | | | | | | [...] ST. | [address] | [place] | [phone] | | [facility] | | [address] | | | - IMAGING | | | | + + + + + documented in this encounter Visit Diagnoses + + | Diagnosis | + + | Primary osteoarthritis of left knee Primary localized osteoarthrosis, lower leg | + + documented in this encounter"
--- OUTSIDE RECORDS SUMMARY | ~2019-11-13 | XMS | Encounter Summary ---
Demographics + + + | Address | [address] | | | [place] [address] | + + + | Home Phone [...] Team Providers + +------+ + | Care Abrasive Coating Machine Operator Name | Role | Phone [...] hole, | | 2011 | Visit | [place] | | or pseudohole of | | | | Photography at | | retina | | | | [facility] | | | | | | [address] | | | | | | Mailcode: [address] | | | | | | [place] [address] | | | | | | [phone] | | | +--------+---------+ + + + [...] PDT Annabel Saucedo was seen in the [facility] [facility]Ultrasound Department today, 02/23/2012, for OCT OU. Marilin Velez documented in this encounter Plan of Treatment Not on filedocumented as of this encounter Visit Diagnoses + + | Diagnosis | + + | Macular cyst, hole, or pseudohole of retina | + + documented in this encounter"
--- OUTSIDE RECORDS SUMMARY | ~2019-11-13 | XMS | Encounter Summary ---
Demographics + + + | Address | [address] | | | [place] [address] | + + + | Home Phone [...] + | Author | [facility] | | | and [place] | + + + | Organization | [facility] [...] | | | | | [place] [address] | | + + + + + | Peter Hester | ECON | [address] | | | | | [place] [address] | | + + + + + Care Team Providers + +------+ + | Care Vocational Rehabilitation Teacher Name | Role | Phone | [...] | | | | | ischemic | [place], | [address] | | | | | attack) | [place] [address] | [address], | | | | | Confusion | Phone: | [place] [address] | | | | | | [phone] | Phone: | | | | | | Fax: | [phone] | | | | | | [phone] | Fax: | | | | | | | [phone] | +--------+ + + + + + [...] | | | | hesis of | [place], | | | | | | lumbar | [place] [address] | | | | | | region | Phone: | | | | | | Degenerative | [phone] | | | | | | disc | Fax: | | | | | | disease, | [phone] | | | | | | lumbar [...] + + | 12/31/ | Office | [facility] | Boubacar Hobbs MD | Spondylolisthesis of | | 2012 | Visit | NEUROSURGERY [address] | [address] | lumbar region | | | | [address] | [place] [address] | (Primary Dx); | | | | [place] | [phone] | Degenerative disc | | | | [address] | | disease, lumbar; | | | | [phone] | | Lumbar spinal | | | [...] might be differ ent from the original. MARYEBTH Mclain, and Boubacar Hobbs M.D. [address] [facility], [address] [place], [place] [id number] FAX: NEUROSURGERY HISTORY AND PHYSICAL EXAMINATION CHIEF [...] has no apparent deficits with short or watermaster memory. CRANIAL NERVES: Fundoscopic Exam: The optic [...] Intrinsics 5 5 Ulnar Intrinsics 5 5 Pay Station Collector Strength 5 5 Hip Flexion 5 5 [...] CHAN | | | | | | [place] [address] | | | | | | [phone] | | | | | | | [...]
[~2019-11-13 10:23] MED LIST: CLONAZEPAM0.5 MG PO; CYMBALTA60 MG PO; DIAZEPAM5 MG PO; IBUPROFEN600 MG PO; LASIX20 MG PO; METHADONE HCL10 MG PO; OXYCODONE HCL15 MG PO; POTASSIUM CHLO20 ME1 PO; PRILOSEC20 MG PO; RANITIDINE HCL300 MG PO; TERAZOSIN HCL10 MG PO; TORSEMIDE5 MG PO
--- OUTSIDE RECORDS SUMMARY | 2019-11-13 10:26 | XMS ---
PreManage Notification: RUBA JENSEN Security House Manager Events No recent Security Events currently on file CRITERIA MET - [facility]Romario Tanner PHONE: [phone] Erika Thurman Liquid Hydrogen Plant Operator/Contracts Specialist 10/16/2019-Current PHONE: [phone] Erika Thurman Primary Care 10/16/2019-Current PHONE: [phone] [facility] Care Romario FISHER PHONE: Unknown [facility] Care 05/12/2018-Romario Tanner PHONE: [phone] KAUR [facility] Primary Care 07/11/2016-Romario FISHER PHONE: Unknown Other Romario PHONE: Unknown Haile has no Care Guidelines for this patient. Eduardo VISIT COUNT (12 MO.) [address] [place] [address] [place] [facility] TOTAL 2 NOTE: Visits indicate total known visits. ED/UCC VISIT TRACKING (12 MO.) 11/13/2019 10:24 [facility] [place] TYPE: Emergency COMPLAINT: - INJURIES FROM FALL 10/04/2019 15:57 [facility] [place] TYPE: Emergency DIAGNOSES: - Concussion without loss of consciousness, initial encounter - Unspecified fall, initial encounter - FELL HEAD INJURY INPATIENT VISIT TRACKING (12 MO.) No inpatient visits to display in this time frame [email or web address]
[2019-11-13] MEDS ORDERED: ONDANSETRON ODT4 MG PO (10:43)
[2019-11-13] MEDS ORDERED: BACLOFEN10 MG PO (10:43)
[2019-11-13] MEDS ORDERED: HYDROXYZINE HCL25 MG PO (10:44)
[2019-11-13] MEDS ORDERED: LISINOPRIL10 MG PO (10:44)
[2019-11-13] MEDS ORDERED: METHADONE HCL5 MG PO (10:45)
[2019-11-13] MEDS ORDERED: SUDOGEST30 MG PO (10:45)
== END 2019-11-13 13:51 | disposition home or self-care (01) ==
LOC: ED 10:23
DX: S70.02XA Contusion of left hip, initial encounter (principal); S90.31XA Contusion of right foot, initial encounter; W01.198A Fall on same level from slipping, tripping and stumbling with subsequent striking against other object, initial encounter; I10 Essential (primary) hypertension; Z91.030 Bee allergy status; Z88.8 Allergy status to other drugs, medicaments and biological substances; Z79.899 Other long term (current) drug therapy; Z79.891 Long term (current) use of opiate analgesic
CPT/HCPCS: 72170; 73552; 73630; 99283-25; A9270

== ENCOUNTER 2020-09-24 01:34 | Inpatient (IN) | payer MEDICARE, OTHER ==
[~2020-09-24] VITALS: Ht 149.9 cm; Wt 80.6 kg
[~2020-09-24 01:34] MED LIST changes: +BACLOFEN10 MG PO; +HYDROXYZINE HCL25 MG PO; +LISINOPRIL10 MG PO; +METHADONE HCL5 MG PO; +OMEPRAZOLE20 MG PO; +ONDANSETRON ODT4 MG PO; -PRILOSEC20 MG PO; +SUDOGEST30 MG PO
--- OUTSIDE RECORDS SUMMARY | 2020-09-24 01:36 | XMS ---
PreManage Notification: RUBA JENSEN Security Policy Writer Sales Events No recent Security Events currently on file CRITERIA MET - [facility] PROVIDERS ANASTASIYA ANDERSON Internal Medicine [facility] PHONE[facility]Romario Tanner PHONE: [phone] Emily Fitzgerald Adult Ministries Director/Shuttle Car Operator 05/16/2020-Current PHONE: [phone] Haile has no Care Guidelines for this patient. E.D. VISIT COUNT (12 MO.) 2 [facility] 2 [facility] [place] TOTAL 4 NOTE: Visits indicate total known visits. ED/UCC VISIT TRACKING (12 MO.) 09/24/2020 01:34 [facility] [place] TYPE: Emergency COMPLAINT: - POSS OVERDOSE 01/07/2020 19:36 [facility] [place] TYPE: Emergency DIAGNOSES: - AMS - Disorientation, unspecified - Unspecified dementia with behavioral disturbance 11/13/2019 10:24 [facility] [place] TYPE: Emergency COMPLAINT: - INJURIES FROM FALL DIAGNOSES: - Contusion of right foot, initial encounter - Fall on same level from slipping, tripping and stumbling with subsequent striking against other object, initial encounter - Bee allergy status - alf (current) use of opiate analgesic - Pain in left hip - Other snf (current) drug therapy - Essential (primary) hypertension - Contusion of left hip, initial encounter - Allergy status to other drugs, medicaments and biological substances 10/04/2019 15:57 [facility] [place] TYPE: Emergency DIAGNOSES: - Concussion without loss of consciousness, initial encounter - Unspecified fall, initial encounter - FELL HEAD INJURY INPATIENT VISIT TRACKING (12 MO.) No inpatient visits to display in this time frame [email or web address]
[2020-09-24] MEDS ORDERED: ESCITALOPRAM OX20 MG PO (03:04)
[2020-09-24] MEDS ORDERED: ALLERGY MEDICAT25 M1 PO (03:13)
[2020-09-24] MEDS ORDERED: LO-DOSE ASPIRIN81 MG PO (03:13)
[2020-09-24] MEDS ORDERED: MELATONIN10 M2 PO (03:14)
--- NOTE | 2020-09-24 05:50 | NUR ---
PATIENT ADMITTED ON STRETCHER FROM ER AND REPORT RECEIVED FROM FAROOQ SHAH. PT. OBTUNDED AND OCCASIONALLY OPENS EYES TO VERBAL STIM. RESPONSIVE TO PAINFUL STIM. GARBLED SPEECH, EXCEPT WITH STERNAL RUB WHEN PATIENT RESPONDED "THAT HURT ME". PINPOINT PUPILS THAT ARE EQUAL AND REACTIVE. TONGUE ENLARGED AND LIPS DARK AND DRY. PT. HAS APNEIC PERIODS AND DESATS TO 80'S. O2 STARTED VIA NASAL CANULA. TITRATED TO 2L. PT. LEGS TWITCH AND ARE RESTLESS. UPON ARRIVAL FROM ER, BUSTOS EMPTIED OF 2050CC OF DILUTE URINE. IV SITE WNL AND IV FLUIDS STARTED. PATIENT LEFT RESTING IN BED WITH CURTAIN OPEN IN SIGHT OF NURSES STATION.
--- NOTE | 2020-09-24 07:34 | NUR ---
REPORT RECIEVED FROM FAROOQ FALK AND KONRAD. PT DAUGHTER HERE BRIEFLY AND TALKED TO KONRAD, WILL BE BACK LATER. PT RESTING WITH EYES CLOSED. LIGHTLY SNORING. URINE OUTPUT MORE THAN Q\S WITH CONTINUE WITH HOURLY MONITORING UNTIL IT NORMALIZES.
--- NOTE | 2020-09-24 08:26 | NUR ---
DID ORAL CARE ON PT HER LIPS AND TONGUE APPEARED DRY. PT DID NOT WAKE TO STIMULI OR VOICE. APPLIED CHAPSTICK TO LIPS.
--- NOTE | 2020-09-24 08:53 | NUR ---
PT DAUGHTER IN ROOM.
--- NOTE | 2020-09-24 09:26 | NUR ---
PT SHIFTED TO HER SIDE WITH A PILLOW. UPON SHIFTING SHE AWOKE AND SPOKE. HER WORDS WERE GARBLED AND INAPPROPRIATE, MOSTLY REPEAT BACK. BRUISE ON HAND APPEARS TO NOT BE PAINFUL. UNABLE TO FOLLOW DIRECTIONS. URINE OUTPUT HAS DROPPED OFF DRAMATICALLY TO 33ML FOR 8-0900.
[2020-09-24] MEDS ORDERED: BREO ELLIPTA I1 EACH INH (09:52)
[2020-09-24] MEDS ORDERED: SUDOGEST60 MG PO (09:55)
--- NOTE | 2020-09-24 11:09 | NUR ---
PT QUITE AGITATED WITH DAUGHTER AND STAFF AND SITUATION. CALLING OUT AND SHOUTING AT EVERYONE THEY ARE "OUT OF CONTROL". ADMINISTERED HALDOL AND PT APPEARS TO BE SETTLING DOWN A BIT. DAUGHTER IN ROOM. LAB HERE TO DRAW BLOOD WITH ASSISTANCE.
--- NOTE | 2020-09-24 13:22 | NUR ---
PT CONTINUES TO REST WITH EYES CLOSED. BREATHING SLOW AND REGULAR. IVF SWITCHED OUT PER ORDER. U\O QS. VS STABLE. PT WAKES TO NOISES.
--- NOTE | 2020-09-24 14:46 | NUR ---
PT MORE AWAKE. BOUNCES BETWEEN LUCID RESPONSES AND NONSENSICAL ONES. ADMINISTERED TYLENOL IN APPLESAUCE. PT ABLE TO SUCK ON A STRAW BUT THE APPLESAUCE WORKED BETTER. PT STATED SHE HAD A HEADACHE. WATCHING TV AND LAUGHING AT IT.
[2020-09-24] MEDS ORDERED: MAGNESIUM500 MG PO (15:29)
[2020-09-24] MEDS ORDERED: HYDRALAZINE HCL10 MG PO (15:30)
--- NOTE | 2020-09-24 15:30 | NUR ---
MED REC COMPLETE
--- NOTE | 2020-09-24 16:00 | NUR ---
REPORT RECIEVED FROM MARLON DAY RN. PATIENT HAS MULTIPLE COMPLAINTS AT THIS TIME. NO TREATMENT GIVEN. WILL FOLLOW MOST COMMANDS. AFFECT VARIES.WILL ANSWERE MOST QUESTIONS WITH ONE TO TWO WORS. IS DELAYED WITH RESPONSE.
--- NOTE | 2020-09-24 17:52 | NUR ---
ASSISTED PATIENT taking few bits of PUDDING. IS NOT ABLE TO UNDERSTAND HOW TO FEED SELF.
--- NOTE | 2020-09-24 18:40 | NUR ---
TOOK ONLY FEW BITES OF APPLESAUSE, NOT ABLE TO TAKE COTTAGE CHEESE OR RICE CEREAL. PATIENT IS HAVING DIFFICULTY FINDING WORDS, EXPRESSING SELF
--- NOTE | 2020-09-24 19:06 | NUR ---
TAKING ICE CHIPS WITH ASSIST.
--- NOTE | 2020-09-24 19:15 | NUR ---
Report received, orders acknowledged. Patient laying in bed with daughter at bedside. 2LNC in place, IVF infusing.
--- NOTE | 2020-09-24 19:45 | NUR ---
Patient given 1mg of IV haldol prn due to increasing agitation. Patient communication is inappropriate and nonsensical at times. Patient not oriented to location, event, or date. Vital signs taken, assessment complete. IVF infusing at 85 mls/hr. Patient reports pain in left hip, pillow placed between legs for comfort. Patient states "that helped, that's what I do at home." Daughter reports patient had a doctors appointment next week for left hip, which was cancelled today due to hospitalization. Daughter also stated "wow, I'm amazed at how well she's doing off her pain medication right now. She seems to be doing okay." Patient denies GAVIRIA. No needs at this time, will continue to monitor.
--- NOTE | 2020-09-24 20:50 | NUR ---
Patient begins pulling on cords, removes pulse oximetry, nasal cannula. This RN in room at bedside, attempts to place nasal cannula back on patient. Patient refuses to wear O2 and begins yelling. Patient spot checked, SpO2 of 92% and will continue to spot check. Patient becomes more agitated by all the cords, attempts to pull IV out and pull dior catheter out. Patient begins communicating in nonsensical sentences regarding the clock fixing her blood. Patient requests ice chips and will need to boost patient up in bed prior to swallowing. Fellow RN currently busy to help with boost, patient asked to wait one minute. Patient begins yelling "You will boost me in bed NOW! Have you ever heard of a lawsuit? I'll start screaming!" Patient begins screaming "HELP! HELP!" RNs immediately enter room, patient stops yelling. Patient boosted in bed and calms down. Patient continually fidgeting with IV site and dior. RN to remain at bedside within arms reach.
--- NOTE | 2020-09-24 21:15 | NUR ---
Called Dr. Veloz to update him on the patient's agitation level. Orders acknowledged to D/C telemetry and pulse oximetry. 25mg of seroquel ordered.
--- NOTE | 2020-09-24 21:45 | NUR ---
25 mg of seroquel given in applesauce.
--- NOTE | 2020-09-24 21:51 | NUR ---
Patient removes gown and is laying in bed naked. IV cord is wrapped up in gown, RN requests to help untangle gown from IV cord. Patient is gripping gown and yells "Stop! If you do that I will !" Gown is slightly wet from hand cloth, fresh dry gown offered. Patient would like a new gown, which is placed over her body. Patient states "that's nice" and closes eyes. Several minutes later slight snoring is heard. Respirations even and unlabored.
--- NOTE | 2020-09-24 22:00 | NUR ---
Patient pulls dior catheter out with balloon intact. Begins pulling at IV site and yelling. Two RNs at bedside. Sock placed over IV site and taped to skin. Vaginal area checked with patient permission, no signs of bleeding. Patient continues to refuse to put gown on, laying in bed naked. This RN to remain at bedside within arms reach.
--- NOTE | 2020-09-24 22:20 | NUR ---
FIRE CHIEF in room for one-on-one observation.
--- NOTE | 2020-09-24 22:50 | NUR ---
Patient resting in bed at this time, less restless motion observed. DIRECT SUPPORT SPECIALIST at bedside for one-on-one observation.
--- NOTE | 2020-09-25 00:25 | NUR ---
Patient sleeping in bed on right side, respirations even and unlabored. OSCILLOGRAPH TECHNICIAN sitting at bedside.
--- NOTE | 2020-09-25 01:04 | NUR ---
Patient awake in bed with eyes open, legs restless at times. STUDENT DEVELOPMENT ADVISOR at bedside for one-on-one observation
--- NOTE | 2020-09-25 02:30 | NUR ---
Patient sleeping in bed, respirations even and unlabored. Rouses to voice easily. Patient pleasant and cooperative with assessment. New bag of D5LR hung and infusing at 85 mls/hr, mesh placed over IV site and taped down. Lung sounds clear, active bowel tones. Patient due to void since dior removal at 5, bladder scan of 133 mls shown. Patient denies urge to urinate, will continue to monitor. SpO2 ranging from 88-90% when spot checked, 2LNC put in place. Patient cooperative and agreeable to oxygen, SpO2 rises to 98%. Patient repositioned in bed for comfort with pillows underneath both hips. Patient very drowsy and sleeps through most of assessment. This RN at bedside for one-on-one observation.
--- NOTE | 2020-09-25 04:00 | NUR ---
Patient awake and laying calmly in bed, respirations even and unlabored. 2LNC in place, SpO2 in the upper 90's. Patient reports urge to urinate and agrees to use BSC. However, once BSC in place and nursing staff at bedside to assist patient, patient refuses to move. Now patient denies urge to urinate. Bladder scan performed, 307 mls of urine now. Will continue to monitor. Vital signs taken, assessment complete. Patient now resting in bed with eyes closed. IVF infusing. This RN to remain at bedside for one-on-one observation.
--- NOTE | 2020-09-25 05:05 | NUR ---
Patient reports generalized pain, prn acetaminophen given to patient in applesauce. Patient sitting up straight in aspiration precautions. Small sip of water given through straw after applesauce, small cough noted after sip. IVF infusing, patient now laying in semi-fowlers position with eyes closed. This RN to remain at the bedside for one-on-one observation.
--- NOTE | 2020-09-25 06:15 | NUR ---
Patient sleeping in bed, respirations even and unlabored. Rouses to voice easily. When asked, patient reports urge to urinate. Bladder scan performed, which shows 485 mls of urine. Message sent to Dr. Veloz with updates on patient. This RN to remain at bedside for 1:1 observation.
--- NOTE | 2020-09-25 06:50 | NUR ---
Imaging in room to perform chest xray. Afterwards, oral care done. Wet swab given to rinse mouth.
--- NOTE | 2020-09-25 08:17 | NUR ---
vitals, garbages emptied. face washed, hands washed, hair combed. no other needs at this time
--- NOTE | 2020-09-25 09:06 | NUR ---
IN PATIENT'S ROOM WITH PATIENT'S DAUGHTER. PT RESPONDING IN 1-2 WORDS ANSWERS, BUT ALLOWING THIS RN TO GET PATIENT'S BLOOD PRESSURE. OXYGEN TURNED OFF AT THIS TIME AND SP02 IS CURRENTLY 92-93%. PT DENIES NEEDING TO USE THE BATHROOM, BUT IS STILL DUE TO VOID AFTER REMOVING HER BUSTOS CATH LAST EVENING. PT STATES SHE DOESN'T NEED TO VOID AT THIS TIME. ASKED PATIENT TO TELL THIS RN WHEN SHE FEELS THE NEED TO VOID. WILL CONTINUE TO MONITOR.
--- NOTE | 2020-09-25 09:20 | NUR ---
DR. MOELLER IN ROOM AT THIS TIME TO EVAL PATIENT. PATIENT ANSWERING QUESTIONS FOR DR. MOELLER SOME. PT STATES THAT SHE IS HUNGRY NOW. WILL ATTEMPT TO ORDER HRE SOME FOOD IF SHE ALLOWS.
--- NOTE | 2020-09-25 09:30 | NUR ---
MORE ALERT. FED PATIENT APPROX 100 ML OF ENSURE. TOOK WELL.
--- NOTE | 2020-09-25 09:56 | NUR ---
TOOK MEDICATIONS WELL WITH PUDDING. IVF DECREASED TO 50 ML HR.
--- NOTE | 2020-09-25 11:10 | NUR ---
OOB TO CHAIR WITH ASSIST. TOLERATED MOVEMENT FAIR. ABLE TO STAND WITH WALKER.
--- NOTE | 2020-09-25 11:37 | NUR ---
REMAINS ON COMMODE.
--- NOTE | 2020-09-25 12:56 | NUR ---
pt. requires firm direction, moves slow. FAROOQ Esquivel and myself got pt. up and assisted pt to the commode. Bedlinens changed, room picked up garbages emptied. Pt. sitting in chair resting. Pt. drank an ensure, ate a sherbert, ate a few bites of mashed potatoes and gravy and tomatoe soup. no other needs at this time.
--- NOTE | 2020-09-25 14:10 | EKG ---
[facility] [address] [facility] [place], [place] [address] Signed Normal sinus rhythm Normal ECG No previous ECGs available Confirmed by HELEN MOELLER MD ([id number]) on 09/25/2020 2:09:49 PM Electronically Signed By: HELEN MOELLER MD 09/25/20 1410 PATIENT NAME: RUBA JENSEN Electrocardiogram DATE OF : 47 PHYSICIAN: HELEN MOELLER MD REPORT #: [id number] REPORT IS CONFIDENTIAL AND NOT TO BE RELEASED WITHOUT AUTHORIZATION
--- NOTE | 2020-09-25 15:16 | NUR ---
RESPONDED TO PT IV PUMP. PT STATED SHE WAS IN 10/10 PAIN ON HER LEFT HIP. SCHEDULED METHADONE GIVEN. PT STATES SHE IS FEELING BETTER NOW. PT HAS REPOSITIONED HERSELF FROM A RECLINING POSITION TO A SITTING POSITION ON HER BEDSIDE CHAIR. DAUGHTER IS IN ROOM WITH PATIENT. PT AND DAUGHTER STATE THAT ITS POSSIBLE PT COULD HAVE FURTHER INJURED HER L HIP DURING A FALL. WHEN ASKED ABOUT PAIN PT STATED IT HAD SUBSIDED WITH MORNING DOSE OF METHADONE. PT DENIED ADDITIONAL TYLENOL FOR PAIN. PT CURRENTLY SITTING IN BEDSIDE CHAIR AND REPORTS NO FURTHER NEEDS. WILL CONTINUE PLAN OF CARE.
--- NOTE | 2020-09-25 16:17 | NUR ---
PT TAKEN DOWN VIA WHEELCHAIRE TO GET AN XRAY OF THE LEFT HIP. PT WAS ABLE TO TOLERATE IT AND IS NOW BACK IN THE CCU LAYING IN BED ON R-SIDE. PT STATES SHE HAS NO FURTHER NEEDS AT THSI TIME AND WILL GO TO SLEEP. WILL CONTINUE PLAN OF CARE. IV FLUIDS RESUMED AT ORDERED RATE, CALL LIGHT IN REACH, BED IN LOWEST POSITION.
--- NOTE | 2020-09-25 16:30 | NUR ---
Spoke with pt and her daughter Tamar. Pt currently living in [place] with her son Eladio as she is unable to care for herself. aTmar and her family moved to [place] and live next door to assist. Pt is not able to answer questions without assist. Daughter states they fill med box and pt takes. She feels pt got into her muscle relaxers and took to many. Per daughter, pt has long history of overuse of pain medication. She sees a drDimitris for pain management. Family plan on locking medications away from pt following this admission. Daughter plans on pt returning to [facility] and she will assist with care. Denies needs for dc. Would like to transfer to [place] from [facility], [facility] has a new MD who started in August and she is accepting patients. Phone number given and daughter will call.
--- NOTE | 2020-09-25 18:33 | NUR ---
181 REPORT GIVEN TO FAROOQ BOWENS ON [facility] FOR [facility]SFER. PT AWAKE AND ALERT AND WAS TRANSFERRED TO [facility] AT 1830. PT TAKEN VIA BED WITH ALL BELONGINGS AND IV FLUIDS.
--- NOTE | 2020-09-25 19:13 | NUR ---
REPROT RECIEVED OVER PHON.E PT TRANSFERED IN BED, DINNER AT BEDSIDE. VITALS TAKEN AND STABLE. D5LR AT 50ML INFUSING. PT REPORTING 8/10 PAIN "ALL OVER". TYLENOL ADMINISTERED. WILL CONT TO MONITOR.
--- NOTE | 2020-09-25 19:20 | NUR ---
SHIFT REPORT FROM NURSE PRINGLE. PT IN BED, ALERT AND CALM. PT IN VIEW OF NURSES STATION. CALL LIGHT WITHIN REACH
--- NOTE | 2020-09-25 19:30 | NUR ---
PER PT REQUEST I BROUGHT HER TWO WARM BLANKETS. HELPED TURN HER TV ON FOR HER. FOUND A SHOW SHE LIKES. BEDSIDE TABLE AND CALL LIGHT IN REACH.
--- NOTE | 2020-09-25 20:59 | NUR ---
CALL LIGHT ANSWERED. pt REQUESTING MEDICATIONS, C/O 30/08 PAIN. MEDICATIONS ADMINISTERED BY FAROOQ KAUR. IV LEFT HAND INFILTRATED, D/C'D WNL. NEW IV STARTED RIGHT HAND, IVF INFUSING WNL ORDERED. TOILETING OFFERED, pt REFUSES. DENIES ADDITIONAL NEEDS. BED ALARM ON.
--- NOTE | 2020-09-25 21:37 | NUR ---
PT HAD CALLED NURSES STATION REPEATEDLY REPORTING PAIN. PT IS UNABLE TO RATE HER PAIN BUT REPORTS THAT HER PAIN IS "EVERYWHERE". PRN TYLENOL AND BACLOFEN ADMINISTERED ALONG WITH 1MG HALDOL IV. CALL LIGHT WITHIN REACH.
--- NOTE | 2020-09-25 21:55 | NUR ---
CHECKED ON PT. PT IS CALM IN BED, EYES CLOSED, EVEN UNLABORED BREATHING. CALL LIGHT WITHIN REACH.
--- NOTE | 2020-09-25 22:37 | NUR ---
WITH THE HELP OF NADER ORTEGA WE HELPED PT TO THE BSC AND BACK TO BED WITH HER FWW. BEDSIDE TABLE AND CALL LIGHT IN REACH. BED ALARM SET.
--- NOTE | 2020-09-25 22:41 | NUR ---
THIS BOTTLING LINE OPERATOR AND BOTTLING LINE OPERATOR FLOAT FEBRUARY HELPED PATIENT GET UP TO USE THE BEDSIDE COMMODE. PATIENT VOIDED 575 ML. PATIENT IS BACK IN BED. CALL LIGHT WITHIN REACH. BED ALARM ON FOR SAFETY. PATIENT LIKES WARM WATER TO DRINK.
--- NOTE | 2020-09-25 22:55 | NUR ---
CALL LIGHT ANSWERED. PT REQUESTING PAIN MEDS FOR "ALL OVER PAIN". PT REMINDED THAT IT IS TOO SOON FOR MEDS. PT ARGUING THAT SHE "HASNT HAD ANYTHING SINCE 6PM". REPOSITIONED PT IN BED. PT CALMED AND SAID THE POSITION FELT BETTER. CALL LIGHT WITHIN REACH
--- NOTE | 2020-09-26 00:12 | NUR ---
CHECKED ON PT. PT APPEARS TO BE SLEEPING RIGHT LATERAL. EVEN UNLABORED BREATHING, EYES CLOSED. PT WITHIN VIEW OF NURSES STATION. NO SIGNS OF DISTRESS. CALL LIGHT WITHIN REACH
--- NOTE | 2020-09-26 00:47 | NUR ---
CALL LIGHT ANSWERED. THIS NIGHT ASSISTANT AND PERFORMANCE ARCHITECT(ORIENT) NATASHA HELPED PATIENT GET UP TO THE BEDSIDE COMMODE. PATIENT IS BACK IN BED. BED ALARM ON FOR SAFETY.
--- NOTE | 2020-09-26 00:59 | NUR ---
CALL LIGHT ANSWERED. PT STATES THAT SHE HAS PAIN IN LEFT HIP. ICE PACK APPLIED. PRN TYLENOL ADMINISTERED. CALL LIGHT WITHIN REACH
--- NOTE | 2020-09-26 04:55 | NUR ---
IN ROOM FOR ASSESSMENT. PT IS ORIENTED PERSON, PLACE AND TIME. PT REMEMBERED THAT SHE WAS SCHEDULED FOR HIP SURGERY. PT REPORTS THATS SHE TAKES HER MORNING MEDS BETWEEN 3AM AND 4AM AND THAT SHE NORMALLY TAKES HER METHADONE Q8HRS. INFUSION INFUSING PER ORDERS. WATER REFILLED WITH WARM WATER PER PT REQUEST. TAUGHT PT HOW TO CONTROL TV REMOTE. NO FURTHER NEEDS AT THIS TIME. CALL LIGHT WITHIN REACH
--- NOTE | 2020-09-26 05:54 | NUR ---
PT HAD A DECENT NIGHT. PT SEEMS TO FALL ASLEEP AND THEN WHEN SHE AWAKES SHE IS DISORIENTED TO TIME AND FEELS SHE NEEDS TO TAKE HER MEDICATION AGAIN. PT WAS EASILY REORIENTED AND ONCE TOLD THAT SHE HAD TAKEN HER MEDS, WAS SATISFIED. PT C/O PAIN 15/10 AT ONE POINT AND PAIN RATING WAS AT THE LOWEST 8/10. WITH JUST PRN TYLENOL, PT WAS CALM AND ABLE TO SLEEP IN BETWEEN DOSES. PT HAD EXCELLENT URINE OUTPUT THIS SHIFT AND WAS CONTINENT. PT CALLED APPROPRIATELY AND NEVER TRIED TO GET OUT OF THE BED ALONE.
--- NOTE | 2020-09-26 06:36 | NUR ---
CALL LIGHT ANSWERED. PT TO TOILET SBA WITH FWW. PT WALKED WELL. LARGE AMOUNT OF CLEAR URINE NOTED, ALTHOUGH PT MISSED URINE HAT. PT SEEMS VERY CLEAR AND STATES SHE BELEIVES THE BACLOFEN CAUSED HER DISORIENTATION SHE "TENDS TO TAKE TOO MUCH WHEN SHE HURTS". PT IS VERY CONCENTRATED ON HER NEXT "PILL". PT REPORTS SHE TAKES BETWEEN 1800-2400MG IBUPROFEN EVERY DAY FOR PAIN. CALL LIGHT WITHIN REACH, NO FURTHER NEEDS AT THIS TIME.
--- NOTE | 2020-09-26 08:39 | NUR ---
CALL LIGHT ANSWERED. PATIENT SITTING UP IN BED. PATIENT ASSISTED TO TRANSFER TO THE CHAIR. ONE PERSON ASSISTING WITH WALKER. WARM BLANKET PROVIDED. CALL LIGHT WITHIN REACH. NO OTHER NEEDS AT THIS TIME
--- NOTE | 2020-09-26 09:47 | NUR ---
PATIENT BACK IN CHAIR AFTER WORKING WITH PT. VISITOR IN ROOM, VITALS AND I&OS CHARTED. LINENS CHANGED, FRESH WATER PROVIDED
--- NOTE | 2020-09-26 10:00 | NUR ---
In and spoke with Annabel and her daughter. Pt is wanting to go home today. Informed it will be up to Dr. Huitron and he will see her today. Daughter denies needs for dc, but states they cannot leave until this afternoon or tomorrow as brother cannot pick them up this am. Informed I don't know when Dr. Huitron is planning for dc, but they should discuss with him.
--- NOTE | 2020-09-26 11:37 | NUR ---
Patient doing well this morning, alert and oriented x4. Patient reports she feels as if she is back to her "normal". Daughter at bedside and reports her mother is doing well. Patient requesting to go home today; provider to see her here soon. Call light within reach.
--- NOTE | 2020-09-26 14:12 | NUR ---
PT SITTING ON SIDE OF BED, DAUGHTER AT BS. PT WAS TALKING ON PHONE, REQUESTED I RETURN. WIILL FOLLOW NEEDED
--- NOTE | 2020-09-26 14:13 | NUR ---
PATIENT AWAKE IN CHAIR, FAMILY IN ROOM. VITALS AND I&OS CHARTED. IV REMOVED FOR D/C. CALL LIGHT IN REACH
== END 2020-09-26 14:35 | disposition home or self-care (01) | DRG 917 ==
LOC: ED 01:34 → CCU 01:35 → MS 09-25 09:31 → CCU 09-25 09:31 → MS 09-25 18:37
PROVIDERS: ADMIT Internal Medicine; ATTEND Internal Medicine
DX: T65.891A Toxic effect of other specified substances, accidental (unintentional), initial encounter (principal); G92 Toxic encephalopathy; E87.1 Hypo-osmolality and hyponatremia; Z20.828 Contact with and (suspected) exposure to other viral communicable diseases; E86.0 Dehydration; G30.9 Alzheimer's disease, unspecified; F02.80 Dementia in other diseases classified elsewhere, unspecified severity, without behavioral disturbance, psychotic disturbance, mood disturbance, and anxiety; G89.4 Chronic pain syndrome; I10 Essential (primary) hypertension; K21.9 Gastro-esophageal reflux disease without esophagitis; T50.1X5A Adverse effect of loop [high-ceiling] diuretics, initial encounter; F39 Unspecified mood [affective] disorder; Z88.8 Allergy status to other drugs, medicaments and biological substances; Z79.82 Long term (current) use of aspirin; Z79.891 Long term (current) use of opiate analgesic; Z79.899 Other long term (current) drug therapy
CPT/HCPCS: 36415; 51702; 70450; 71045; 73502; 80048; 80053; 80176; 81001; 82803; 83735; 84443; 85025; 93005; 93010; 97162; 99285-25; C9803; G0480; J1630; J1650; J2310; J2405; J7121

== ENCOUNTER 2021-03-09 11:50 | Emergency (ER) | payer MEDICARE, OTHER ==
[~2021-03-09] VITALS: Ht 149.9 cm; Wt 80.3 kg
[~2021-03-09 11:50] MED LIST changes: +ALLERGY MEDICAT25 M1 PO; +BREO ELLIPTA I1 EACH INH; +ESCITALOPRAM OX20 MG PO; +HYDRALAZINE HCL10 MG PO; +LO-DOSE ASPIRIN81 MG PO; +MAGNESIUM500 MG PO; +MELATONIN10 M2 PO; +SUDOGEST60 MG PO
--- OUTSIDE RECORDS SUMMARY | 2021-03-09 11:52 | XMS ---
PreManage Notification: RUBA JENSEN Security Traffic Enumerator Events No recent Security Events currently on file CRITERIA MET - [facility] PROVID[facility] ANASTASIYA ANDERSON Internal [facility]: [facility]Romario Tanner PHONE: [phone] Emily Fitzgerald Manager Php/Management Developer 05/16/2020-Current PHONE: [phone] Emily Fitzgerald Manager Php/Management Developer 12/17/2020-Current PHONE: [phone] Haile has no Care Guidelines for this patient. Eduardo VISIT COUNT (12 MO.) 2 JESSICA Henson TOTAL 2 NOTE: Visits indicate total known visits. ED/UCC VISIT TRACKING (12 MO.) 03/09/2021 11:51 [facility] [place] TYPE: Emergency COMPLAINT: - SOB, LOW OXYGEN 09/24/2020 01:34 [facility] [place] TYPE: Emergency COMPLAINT: - POSS OVERDOSE INPATIENT VISIT TRACKING (12 MO.) 12/25/2020 07:42 [facility] OR TYPE: Surgery DIAGNOSES: - Unilateral primary osteoarthritis, left hip 09/25/2020 09:31 JESSICA Xavier OR TYPE: Medical Surgical COMPLAINT: - OVERDOSE/ALTERED MENTAL STATUS DIAGNOSES: - Adverse effect of loop [high-ceiling] diuretics, initial encounter - Alzheimer's disease, unspecified - terminal computer operator (current) use of opiate analgesic - Other manager intermediate (current) drug therapy - Dementia in other diseases classified elsewhere without behavioral disturbance - Allergy status to other drugs, medicaments and biological substances - Allergy status to other drugs, medicaments and biological substances - Other retirement (current) drug therapy - Unspecified mood [affective] disorder - Metabolic encephalopathy - Dehydration - terminal computer operator (current) use of aspirin - Unspecified mood [affective] disorder - Gastro-esophageal reflux disease without esophagitis - Dementia in other diseases classified elsewhere without behavioral disturbance - Chronic pain syndrome - Essential (primary) hypertension - Hypo-osmolality and hyponatremia - Toxic encephalopathy - Contact with and (suspected) exposure to other viral communicable diseases - Alzheimer's disease, unspecified - Allergy status to other drugs, medicaments and biological substances - Adverse effect of loop [high-ceiling] diuretics, initial encounter - Toxic effect of other specified substances, accidental (unintentional), initial encounter - Toxic encephalopathy - Hypo-osmolality and hyponatremia - Essential (primary) hypertension - Dehydration - Toxic effect of other specified substances, accidental (unintentional), initial encounter - Gastro-esophageal reflux disease without esophagitis - prison (current) use of opiate analgesic - Chronic pain syndrome - Contact with and (suspected) exposure to other viral communicable diseases - prison (current) use of aspirin [email or web address]
[2021-03-09] MEDS ORDERED: HYDROXYZINE HCL25 MG PO (12:09)
[2021-03-09] MEDS ORDERED: TORSEMIDE5 MG PO (12:09)
--- NOTE | 2021-03-09 15:17 | EKG ---
[facility] [address] [facility] [place], [place] [address] Signed Sinus bradycardia Minimal voltage criteria for LVH, may be normal variant Borderline ECG When compared with ECG of 24-SEP-2020 01:48, No significant change was found Confirmed by CACHORRO ELIZABETH DO ([id number]) on 03/09/2021 3:17:33 PM Electronically Signed By: CACHORRO ELIZABETH DO 03/09/21 1517 PATIENT NAME: CHRISTINA JENSENJA Tarun Electrocardiogram DATE OF : 47 PHYSICIAN: CACHORRO ELIZABETH DO REPORT #: [id number] REPORT IS CONFIDENTIAL AND NOT TO BE RELEASED WITHOUT AUTHORIZATION
== END 2021-03-09 14:00 | disposition home or self-care (01) ==
LOC: ED 11:50
DX: R07.89 Other chest pain (principal); I10 Essential (primary) hypertension; Z91.030 Bee allergy status; Z88.8 Allergy status to other drugs, medicaments and biological substances; Z79.899 Other long term (current) drug therapy; Z79.82 Long term (current) use of aspirin
CPT/HCPCS: 71045; 80053; 83880; 84484; 85025; 93005; 93010; 99285-25

== ENCOUNTER 2021-06-26 06:30 | Day surgery (SDC) | payer MEDICARE, OTHER ==
[~2021-06-26] VITALS: Ht 152.4 cm; Wt 85.6 kg
[~2021-06-26 06:30] MED LIST changes: +MELATONIN5 M2 PO; +OXYCODONE HCL5 MG PO
--- NOTE | 2021-06-26 08:21 | NUR ---
06/26/21 0821 Heather Gasca 0804- PT TO PACU IN LL POSITION. RESPONDS TO TACTILE STIMULI. DOES NOT FOLLOW COMMANDS AND FALLS QUICKLY BACK TO SLEEP. BREATHING EASY AND UNLABORED. SPO2 >95% ON 6 L O2 VIA NASAL CANULA. PT PASSING GAS. 0810- PT OPENS EYES TO VERBAL STIMULI, FOLLOWS COMMANDS BUT REMAINS DROWSY. SPO2 >95%. O2 TIRATED DOWN TO 2 L VIA NASAL CANULA. 0819- PT REPOSITIONS SELF IN THE BED. HOB ELEVATED TO SF. PT DENIES PAIN AND DIZZINESS. SPO2 >95% ON 2 L O2 VIA NASAL CANULA.
--- NOTE | 2021-06-26 10:51 | OR ---
[facility] [address] [place], [place] [address] Signed DATE OF OPERATION: 06/26/2021 SURGEON: Sherie Cintron MD PREOPERATIVE DIAGNOSES: 1. Epigastric abdominal pain. 2. Celiac sprue. 3. Cecal tubular adenomatous polyp in 2010(864). 4. Chronic constipation. POSTOPERATIVE DIAGNOSES: 1. Mild diffuse gastritis. 2. Minimal internal hemorrhoids. 3. Long redundant colon. PROCEDURES: 1. Esophagogastroduodenoscopy with CLOtest and biopsies of the duodenum, antrum. 2. Colonoscopy without biopsy. ESTIMATED BLOOD LOSS: None. INDICATIONS: Annabel is a 75-year-old female I have known for many years. She was asked to see me for upper and lower endoscopy. She had been in the emergency room a number of weeks ago with epigastric abdominal pain. The evaluation was negative. She is also known to have a history of celiac disease diagnosed by her protective services case worker in [place], [place]. She does her best to follow a gluten free diet. In addition, I had removed a tubular adenomatous polyp in 2010 in her cecum. She has no lower GI complaints currently. No family history of colon cancer or polyps. We know Dr. Rodrigue Lopez diagnosed gastritis in 2002 with upper endoscopy. She had a negative colonoscopy with Dr. Lopez in 2003. Dr. Lara did her endoscopic ultrasound in 2006 following her gallbladder surgery. A few months later Dr. Charly Bragg performed her ERCP with sphincterotomy. In the office, I had reviewed all this with Annabel and her daughter. I gave them pamphlets on both upper and lower endoscopy. They understand the nature of the two tests. There is risk including, but not limited to gas bloating, crampy abdominal pain, bleeding, perforation requiring surgery, and missed diagnosis. Also because of her advanced medical issues and her sleep apnea, we asked that an anesthesia provider help with increased monitoring sedation with propofol. That proved to be a black decision as she needed continuous airway monitoring. They had expressed Electronically Signed By: SHERIE CINTRON MD 06/26/21 1051 PATIENT NAME: ANNABEL JENSEN OPERATIVE REPORT DATE OF : 47 REPORT #: [id number] PHYSICIAN: SHERIE CINTRON MD PCP: PATT COOK MD REPORT IS CONFIDENTIAL AND NOT TO BE RELEASED WITHOUT AUTHORIZATION [facility] [address] [place], [place] [address] Signed understanding and wished to proceed. PROCEDURE NOTE: Annabel was taken into our endoscopy suite and placed in a supine semi-recumbent position. The posterior oropharynx was anesthetized with lidocaine spray. A bite block was utilized for the case. The adult gastroscope was introduced and advanced under direct visualization of camera into the third portion of the duodenum under direct visualization camera without difficulty. The duodenum appeared unremarkable. We went ahead and took a biopsy because of the history of celiac disease and epigastric pain. The pyloric channel was unremarkable. The stomach showed some mild erythematous changes throughout consistent with mild gastritis. We took a biopsy of the antrum for CLOtest as well as pathologic review. Upon retroflexion of scope, there was no evidence of any hiatal hernia. The scope was withdrawn up through the area of the GE junction, which was compliant without stricture. There was no evidence of any gastric or esophageal varices. She has very minimal disruption to the Z-line. There was no Levine's mucosa. No distal esophagitis. The middle and upper esophagus were unremarkable. After this, the gas was suctioned out. The gastroscope removed. Annabel tolerated her upper endoscopy quite well. Annabel was then rotated into the left lateral decubitus position. She was maintained on IV propofol per our nurse optical sales associate. A digital rectal exam was performed and this was unremarkable except for some very tiny anal skin tags. The adult colonoscope was then introduced and advanced all around into the cecum under direct visualization of camera. She does have a somewhat long redundant colon. It took extra sedation abdominal compression in order to advance the scope directly into the cecum itself. We could easily see the appendiceal orifice and ileocecal valve. Overall, her prep was quite good. The scope was then slowly withdrawn. We found no specific pathology throughout the entire colon or rectum. Upon retroflexion of scope she does have minimal internal hemorrhoid columns. After this, the gas was suctioned out. The colonoscope removed. Annabel tolerated the lower endoscopy quite well. RECOMMENDATIONS: I will see Annabel back in my office in the next 1 to 2 weeks to review her results. Sherie Cintron MD ALB/MODL /[id number] Electronically Signed By: SHERIE CINTRON MD 06/26/21 1051 PATIENT NAME: ANNABEL JENSEN OPERATIVE REPORT DATE OF : 47 REPORT #: [id number] PHYSICIAN: SHERIE CINTRON MD PCP: PATT COOK MD REPORT IS CONFIDENTIAL AND NOT TO BE RELEASED WITHOUT AUTHORIZATION [address] [place], [place] [address] Signed cc: Dr. Patt Cintron MD Copies: SHERIE CINTRON MD ~ Electronically Signed By: SHERIE CINTRON MD 06/26/21 1051 PATIENT NAME: ANNABEL JENSEN OPERATIVE REPORT DATE OF : 47 REPORT #: [id number] PHYSICIAN: SHERIE CINTRON MD PCP: PATT COOK MD REPORT IS CONFIDENTIAL AND NOT TO BE RELEASED WITHOUT AUTHORIZATION
--- NOTE | 2021-06-27 11:52 | PATH ---
[facility] [address] [place], [place] [address] Signed SPECIMEN(S): A DUODENAL BIOPSY SPECIMEN(S): B ANTRUM BIOPSY SPECIMEN SOURCE: A. DUODENAL BIOPSY B. ANTRUM BIOPSY CLINICAL HISTORY: History of gastritis and celiac disease. Gastritis, internal hemorrhoids. MICROSCOPIC DESCRIPTION: Histologic sections of all submitted blocks are examined by light microscopy. These findings, together with the gross examination, support the pathologic diagnosis. FINAL PATHOLOGIC DIAGNOSIS: A. Duodenum, biopsy: - Duodenal mucosa with no histopathologic abnormality. - Negative for increased intraepithelial lymphocytes or villous blunting. - Negative for dysplasia or malignancy. B. Stomach, antrum, biopsy: - Antral mucosa with chronic, inactive gastritis. - Negative for Helicobacter organisms on HE stain. - Negative for dysplasia or malignancy. NAL:cml:C2NR GROSS DESCRIPTION: Two specimens are received in two containers, labeled "SJ." A. The specimen, labeled "SJ, duodenum biopsy," is received in formalin and consists of one mercer soft tissue fragment that measures 0.2 cm in greatest dimension. The specimen is entirely submitted in cassette (A1). B. The specimen, labeled "SJ, antrum biopsy," is received in formalin and consists of one mercer soft tissue fragment that measures 0.2 cm in greatest dimension. The specimen is entirely submitted in cassette (B1). JS (under the direct supervision of a pathologist) The Gross Description was prepared using a voice recognition system. The report was reviewed for accuracy; however, sound-alike word errors, addition and/or deletions may occur. If there is any question about this report, please contact Client Services. PATIENT NAME: RUBA JENSEN PATHOLOGY DATE OF : 47 REPORT #: [id number] PHYSICIAN: RANDY CROWDER PCP: GRIS COOK MD REPORT IS CONFIDENTIAL AND NOT TO BE RELEASED WITHOUT AUTHORIZATION [facility] [address] [place] [address] Signed PERFORMING LABORATORY: The technical component was performed [place] [place] [address] (County Manager: Farideh Marie MD; CLIA# [id number]). Professional interpretation was performed by [employer] [facility] [address] [address] (CLIA# [id number]). Diagnostician: Raina Campa MD Pathologist Electronically Signed 06/27/2021 Copies: ~ PATIENT NAME: RUBA JENSEN PATHOLOGY DATE OF : 47 REPORT #: [id number] PHYSICIAN: RANDY CROWDER PCP: GRIS COOK MD REPORT IS CONFIDENTIAL AND NOT TO BE RELEASED WITHOUT AUTHORIZATION
== END 2021-06-26 09:15 | disposition home or self-care (01) ==
LOC: OPS 06:30 → DS 06:30 → OPS 06:45 → DS 07:30 → OPS 07:30
PROVIDERS: ATTEND Colon & Rectal Surgery
PROC: 0DJD8ZZ Inspection of Lower Intestinal Tract, Via Natural or Artificial Opening Endoscopic (ICD-10-PCS; 2021-06-26)
PROC: 0DB98ZX Excision of Duodenum, Via Natural or Artificial Opening Endoscopic, Diagnostic (ICD-10-PCS; principal; 2021-06-26 06:45)
PROC: 0DB78ZX Excision of Stomach, Pylorus, Via Natural or Artificial Opening Endoscopic, Diagnostic (ICD-10-PCS; 2021-06-26 06:45)
DX: K29.50 Unspecified chronic gastritis without bleeding (principal); K64.8 Other hemorrhoids; Q43.8 Other specified congenital malformations of intestine; K90.0 Celiac disease; I10 Essential (primary) hypertension; E78.00 Pure hypercholesterolemia, unspecified; F03.90 Unspecified dementia, unspecified severity, without behavioral disturbance, psychotic disturbance, mood disturbance, and anxiety; M19.90 Unspecified osteoarthritis, unspecified site; K21.9 Gastro-esophageal reflux disease without esophagitis; J45.909 Unspecified asthma, uncomplicated; M79.7 Fibromyalgia; I69.851 Hemiplegia and hemiparesis following other cerebrovascular disease affecting right dominant side; Z85.3 Personal history of malignant neoplasm of breast; Z87.19 Personal history of other diseases of the digestive system; Z88.8 Allergy status to other drugs, medicaments and biological substances; Z91.030 Bee allergy status; Z91.040 Latex allergy status; Z91.013 Allergy to seafood; Z96.641 Presence of right artificial hip joint; Z87.891 Personal history of nicotine dependence
CPT/HCPCS: 88305; J0690; J2001; J2704; J7121

== ENCOUNTER 2021-10-09 13:46 | Emergency (ER) | payer MEDICARE, OTHER ==
[~2021-10-09] VITALS: Ht 152.4 cm; Wt 85.3 kg
[2021-10-09] MEDS ORDERED: ONDANSETRON ODT4 MG PO (16:06)
--- NOTE | 2021-10-09 19:58 | EKG ---
[facility] [address] [facility] [place], [place] [address] Signed Sinus bradycardia Minimal voltage criteria for LVH, may be normal variant ( R in aVL ) Borderline ECG When compared with ECG of 20-JUN-2021 14:56, T wave amplitude has increased in Anterior leads Confirmed by CACHORRO ELIZABETH DO ([id number]) on 10/09/2021 7:57:50 PM Electronically Signed By: CACHORRO ELIZABETH DO 10/09/211957 PATIENT NAME: RUBA JENSEN Electrocardiogram DATE OF : 47 PHYSICIAN: CACHORRO ELIZABETH DO REPORT #: [id number] REPORT IS CONFIDENTIAL AND NOT TO BE RELEASED WITHOUT AUTHORIZATION
== END 2021-10-09 16:15 | disposition home or self-care (01) ==
LOC: ED 13:46
DX: B34.9 Viral infection, unspecified (principal); Z20.822 Contact with and (suspected) exposure to COVID-19; I10 Essential (primary) hypertension; Z88.8 Allergy status to other drugs, medicaments and biological substances; Z91.040 Latex allergy status; Z91.030 Bee allergy status; Z79.899 Other long term (current) drug therapy; Z79.82 Long term (current) use of aspirin
CPT/HCPCS: 71045; 80053; 83880; 84484; 85025; 87502; 93005; 93010; 99285-25; C9803; U0003

== ENCOUNTER 2022-02-01 11:02 | Emergency (ER) | payer OTHER, MEDICARE ==
[~2022-02-01] VITALS: Ht 152.4 cm; Wt 85.3 kg
--- OUTSIDE RECORDS SUMMARY | 2022-02-01 11:06 | XMS ---
PreManage Notification: RUBA JENSEN Security Anesthesia Technician Events No recent Security Events currently on file [facility] KAUR Tanner PHONE: [phone] Emily Fitzgerald Vascular Ultrasound Technologist/Well Logging Mud Analysis Captain 01/14/2022-Current PHONE: [phone] Emily Fitzgerald Vascular Ultrasound Technologist/Well Logging Mud Analysis Captain 05/16/2020-Current PHONE: [phone] [facility] Current PHONE: Unknown Haile has no Care Guidelines for this patient. Care History Medical/Surgical 03/11/2021 [facility] Care Recommendation: - PLEASE REVIEW PDMP - HAILE - USE EXTREME CAUTION IN GIVING NARCOTICS. - Avoid Discharge Narcotic prescriptions if at all possible. Physician discretion. PATIENT CURRENTLY ON A PAIN CONTRACT WITH CHAY WHITTAKER MD., E.D. VISIT COUNT (12 MO.) 3 [facility]. TOTAL 3 NOTE: Visits indicate total known visits. ED/UCC VISIT TRACKING (12 MO.) 02/01/2022 11:05 [facility] [place] TYPE: Emergency COMPLAINT: - FALL RT SIDE HURTS 10/09/2021 13:47 [facility] [place] TYPE: Emergency COMPLAINT: - FLU SYMPTOMS DIAGNOSES: - Viral infection, unspecified - [facility] (current) use of aspirin - Allergy status to other drugs, medicaments and biological substances - Other alf (current) drug therapy - Essential (primary) hypertension - Latex allergy status - COUGH, UNSPECIFIED - Bee allergy status 03/09/2021 11:51 [facility] [place] TYPE: Emergency COMPLAINT: - SOB, LOW OXYGEN DIAGNOSES: - Bee allergy status - Other chest pain - Shortness of breath - Other alf (current) drug therapy - Essential (primary) hypertension - predatory animal exterminator (current) use of aspirin - Allergy status to other drugs, medicaments and biological substances INPATIENT VISIT TRACKING (12 MO.) No inpatient visits to display in this time frame [id number]
== END 2022-02-01 15:48 | disposition home or self-care (01) ==
LOC: ED 11:02
DX: S00.83XA Contusion of other part of head, initial encounter (principal); M25.561 Pain in right knee; M79.10 Myalgia, unspecified site; M25.562 Pain in left knee; M25.512 Pain in left shoulder; R07.81 Pleurodynia; M25.571 Pain in right ankle and joints of right foot; R51.9 Headache, unspecified; M19.90 Unspecified osteoarthritis, unspecified site; I10 Essential (primary) hypertension; Z88.8 Allergy status to other drugs, medicaments and biological substances; Z91.030 Bee allergy status; Z91.040 Latex allergy status; Z79.82 Long term (current) use of aspirin; Z79.899 Other long term (current) drug therapy; W06.XXXA Fall from bed, initial encounter
CPT/HCPCS: 36415; 70450; 71250; 72125; 73030; 73560; 73610; 74176; 80053; 83690; 85025; 99284-25; A9270

== ENCOUNTER 2022-02-17 18:29 | Inpatient (IN) | payer MEDICARE, OTHER ==
[~2022-02-17] VITALS: Ht 152.4 cm; Wt 82.0 kg
--- OUTSIDE RECORDS SUMMARY | 2022-02-17 18:32 | XMS ---
PreManage Notification: RUBA JENSEN Security Cross Tie Tram Loader Events No recent Security Events currently on file CRITERIA MET - [facility] - [facility] - 2 Visits in 30 Days [facility] PROVIDERS PH[facility]IP [facility] 05/12/2018-Current KAUR Tanner PHONE: [phone] Emily Fitzgerald Project Development Engineer/Ruling Machine Operator 05/16/2020-Current PHONE: [phone] Emily Fitzgerald Project Development Engineer/Ruling Machine Operator 01/14/2022-Current PHONE: [phone] [facility] Current PHONE: Unknown Haile has no Care Guidelines for this patient. Care History Medical/Surgical 03/11/2021 [facility] Care Recommendation: - PLEASE REVIEW PDMP - HAILE - USE EXTREME CAUTION IN GIVING NARCOTICS. - Avoid Discharge Narcotic prescriptions if at all possible. Physician discretion. PATIENT CURRENTLY ON A PAIN CONTRACT WITH CHAY WHITTAKER MD., E.D. VISIT COUNT (12 MO.) 4 [facility]. TOTAL 4 NOTE: Visits indicate total known visits. ED/UCC VISIT TRACKING (12 MO.) 02/17/2022 18:30 [facility] [place] TYPE: Emergency COMPLAINT: - ALTERED MENTAL STATUS 02/01/2022 11:05 [facility] [place] TYPE: Emergency COMPLAINT: - FALL RT SIDE HURTS DIAGNOSES: - Headache, unspecified - Bee allergy status - Pain in right ankle and joints of right foot - Fall from bed, initial encounter - Pleurodynia - Unspecified osteoarthritis, unspecified site - salvage determiner (current) use of aspirin - Pain in right knee - Myalgia, unspecified site - Latex allergy status - Other middle or intermediate school principal (current) drug therapy - Pain in left knee - Pain in left shoulder - Contusion of other part of head, initial encounter - Allergy status to other drugs, medicaments and biological substances - Essential (primary) hypertension 10/09/2021 13:47 [facility] [place] TYPE: Emergency COMPLAINT: - FLU SYMPTOMS DIAGNOSES: - Viral infection, unspecified - correction (current) use of aspirin - Allergy status to other drugs, medicaments and biological substances - Other senior care (current) drug therapy - Essential (primary) hypertension - Latex allergy status - COUGH, UNSPECIFIED - Bee allergy status 03/09/2021 11:[address] [facility] [address] [place] TYPE: Emergency COMPLAINT: - SOB, LOW OXYGEN DIAGNOSES: - Bee allergy status - Other chest pain - Shortness of breath - Other senior care (current) drug therapy - Essential (primary) hypertension - salvage determiner (current) use of aspirin - Allergy status to other drugs, medicaments and biological substances INPATIENT VISIT TRACKING (12 MO.) No inpatient visits to display in this time frame [id number]
[2022-02-18] MEDS ORDERED: TRAZODONE HCL50 MG PO (08:27)
[2022-02-18] MEDS ORDERED: METHADONE HCL5 MG PO (08:28)
[2022-02-18] MEDS ORDERED: POTASSIUM CHLO20 ME1 PO (08:29)
[2022-02-18] MEDS ORDERED: HYDRALAZINE HCL10 MG PO (08:30)
[2022-02-18] MEDS ORDERED: LISINOPRIL20 MG PO (12:55)
--- NOTE | 2022-02-20 17:26 | EKG ---
[facility] [address] [facility] [facility] [place] [address] Signed Normal sinus rhythm Nonspecific ST abnormality Abnormal ECG When compared with ECG of 09-OCT-2021 14:38, No significant change was found Confirmed by HELEN MOELLER MD ([id number]) on 02/20/2022 5:26:14 PM Electronically Signed By: HELEN MOELLER MD 02/20/22 1726 PATIENT NAME: CHRISTINA JENSENJOSIE PEARL Electrocardiogram DATE OF : 47 PHYSICIAN: HELEN MOELLER MD REPORT #: [id number] REPORT IS CONFIDENTIAL AND NOT TO BE RELEASED WITHOUT AUTHORIZATION
== END 2022-02-19 17:30 | disposition home or self-care (01) | DRG 93 ==
LOC: ED 18:29 → MS 02-18 01:16
PROVIDERS: ADMIT Internal Medicine; ATTEND Internal Medicine
DX: G92.8 Other toxic encephalopathy (principal); I10 Essential (primary) hypertension; F31.9 Bipolar disorder, unspecified; F41.9 Anxiety disorder, unspecified; F43.10 Post-traumatic stress disorder, unspecified; K21.9 Gastro-esophageal reflux disease without esophagitis; G62.9 Polyneuropathy, unspecified; M19.90 Unspecified osteoarthritis, unspecified site; M79.7 Fibromyalgia; Z96.643 Presence of artificial hip joint, bilateral; G30.9 Alzheimer's disease, unspecified; F02.80 Dementia in other diseases classified elsewhere, unspecified severity, without behavioral disturbance, psychotic disturbance, mood disturbance, and anxiety; G89.4 Chronic pain syndrome; G31.84 Mild cognitive impairment of uncertain or unknown etiology; K90.0 Celiac disease; Z90.710 Acquired absence of both cervix and uterus; Z91.048 Other nonmedicinal substance allergy status; Z79.82 Long term (current) use of aspirin; Z79.899 Other long term (current) drug therapy; Z91.040 Latex allergy status; Z91.041 Radiographic dye allergy status; Z90.49 Acquired absence of other specified parts of digestive tract; Z98.890 Other specified postprocedural states
CPT/HCPCS: 70450; 71045; 80053; 81001; 82140; 84484; 85025; 93005; 93010; 99285-25; A9270; G0480; J1650; J3480; Q0177; U0003

== ENCOUNTER 2022-09-19 12:48 | Emergency (ER) | payer MEDICARE, OTHER ==
[~2022-09-19] VITALS: Ht 152.4 cm; Wt 81.7 kg
[~2022-09-19 12:48] MED LIST changes: +LISINOPRIL20 MG PO; +TRAZODONE HCL50 MG PO
--- OUTSIDE RECORDS SUMMARY | 2022-09-19 12:52 | XMS ---
PreManage Notification: RUBA JENSEN Security Explosives Handler Events No recent Security Events currently on file [facility]ITERIA MET - PD[facility]Current KAUR Tanner PHONE: [phone] Emily Fitzgerald Veterans Service Representative/Computer Meteorologist 04/16/2022-Current PHONE: [phone] [facility]Current PHONE: Unknown Haile has no Care Guidelines for this patient. Care History Medical/Surgical 03/11/2021 [facility] Care Recommendation: - PLEASE REVIEW PDMP - HAILE - USE EXTREME CAUTION IN GIVING NARCOTICS. - Avoid Discharge Narcotic prescriptions if at all possible. Physician discretion. PATIENT CURRENTLY ON A PAIN CONTRACT WITH CHAY WHITTAKER MD., E.D. VISIT COUNT (12 MO.) 5 [facility] TOTAL 5 NOTE: Visits indicate total known visits. ED/UCC VISIT TRACKING (12 MO.) 09/19/2022 12:49 [facility] [place] TYPE: Emergency COMPLAINT: - FALL, L SIDE RIBCAGE PAIN 05/17/2022 18:05 [facility] [place] TYPE: Emergency COMPLAINT: - FALL DIAGNOSES: - Allergy status to other drugs, medicaments and biological substances - Other terminologist (current) drug therapy - Unspecified osteoarthritis, unspecified site - Latex allergy status - Unspecified injury of head, initial encounter - Contusion of right shoulder, initial encounter - Essential (primary) hypertension - Contact with and (suspected) exposure to COVID-19 - Personal history of malignant neoplasm of breast - Bee allergy status - termite exterminator helper (current) use of aspirin 02/17/2022 18:30 [facility] [place] TYPE: Emergency COMPLAINT: - ALTERED MENTAL STATUS 02/01/2022 11:05 [facility] [place] TYPE: Emergency COMPLAINT: - FALL RT SIDE HURTS DIAGNOSES: - Pain in left knee - Pain in right ankle and joints of right foot - Latex allergy status - Headache, unspecified - Pain in right knee - Allergy status to other drugs, medicaments and biological substances - Unspecified osteoarthritis, unspecified site - Pain in left shoulder - Fall from bed, initial encounter - Other snf (current) drug therapy - Bee allergy status - Myalgia, unspecified site - Essential (primary) hypertension - snf (current) use of aspirin - Contusion of other part of head, initial encounter - Pleurodynia 10/09/2021 13:47 [facility] [place] TYPE: Emergency COMPLAINT: - FLU SYMPTOMS DIAGNOSES: - Cough, unspecified - Bee allergy status - Viral infection, unspecified - COUGH, UNSPECIFIED - Essential (primary) hypertension - Allergy status to other drugs, medicaments and biological substances - snf (current) use of aspirin - Contact with and (suspected) exposure to COVID-19 - Latex allergy status - Other snf (current) drug therapy INPATIENT VISIT TRACKING (12 MO.) 02/18/2022 01:16 [facility] [place] TYPE: Medical Surgical COMPLAINT: - ALTERED MENTAL STATUS, POSSIBLE POISONING DIAGNOSES: - Celiac disease - Mild cognitive impairment, so stated - Unspecified osteoarthritis, unspecified site - Essential (primary) hypertension - Latex allergy status - Celiac disease - Post-traumatic stress disorder, unspecified - Other specified postprocedural states - Polyneuropathy, unspecified - termite exterminator helper (current) use of aspirin - Post-traumatic stress disorder, unspecified - Other terminologist (current) drug therapy - Alzheimer's disease, unspecified - Acquired absence of other specified parts of digestive tract - Anxiety disorder, unspecified - Bipolar disorder, unspecified - Chronic pain syndrome - Acquired absence of other specified parts of digestive tract - Radiographic dye allergy status - Dementia in other diseases classified elsewhere without behavioral disturbance - Bipolar disorder, unspecified - Other specified postprocedural states - Latex allergy status - snf (current) use of aspirin - Presence of artificial hip joint, bilateral - Mild cognitive impairment, so stated - Other terminologist (current) drug therapy - Fibromyalgia - Chronic pain syndrome - Acquired absence of both cervix and uterus - Gastro-esophageal reflux disease without esophagitis - Fibromyalgia - Alzheimer's disease, unspecified - Polyneuropathy, unspecified - Dementia in other diseases classified elsewhere without behavioral disturbance - Other nonmedicinal substance allergy status - Essential (primary) hypertension - Other nonmedicinal substance allergy status - Gastro-esophageal reflux disease without esophagitis - Radiographic dye allergy status - Acquired absence of both cervix and uterus - Anxiety disorder, unspecified - Presence of artificial hip joint, bilateral - Unspecified osteoarthritis, unspecified site - Other toxic encephalopathy [id number]
[2022-09-19] MEDS ORDERED: LIDODERM1 EACH TOP (16:10)
[2022-09-19] MEDS ORDERED: ACETAMINOPHEN-1 EAC1 PO (16:10)
--- NOTE | 2022-09-19 17:36 | EKG ---
[facility] [address] [facility] [place] [address] Signed Normal sinus rhythm Normal ECG When compared with ECG of 17-FEB-2022 19:22, No significant change was found Confirmed by Carla Irene MD () on 09/19/2022 5:35:57 PM Electronically Signed By: CARLA IRENE MD 09/19/22 1736 PATIENT NAME: RUBA JENSENCHIARA Electrocardiogram DATE OF : 47 PHYSICIAN: CARLA IRENE MD REPORT #: [id number] REPORT IS CONFIDENTIAL AND NOT TO BE RELEASED WITHOUT AUTHORIZATION
== END 2022-09-19 16:20 | disposition home or self-care (01) ==
LOC: ED 12:48
DX: S22.32XA Fracture of one rib, left side, initial encounter for closed fracture (principal); R55 Syncope and collapse; W19.XXXA Unspecified fall, initial encounter; M19.90 Unspecified osteoarthritis, unspecified site; I10 Essential (primary) hypertension; Z85.3 Personal history of malignant neoplasm of breast; Z88.8 Allergy status to other drugs, medicaments and biological substances; Z91.040 Latex allergy status; Z79.899 Other long term (current) drug therapy; Z79.82 Long term (current) use of aspirin
CPT/HCPCS: 36415; 70450; 71046; 80053; 81001; 84484; 85025; 99284-25; A9270

== ENCOUNTER 2023-04-05 11:07 | Emergency (ER) | payer MEDICARE, OTHER ==
[~2023-04-05] VITALS: Ht 152.4 cm; Wt 81.7 kg
[~2023-04-05 11:07] MED LIST changes: +ACETAMINOPHEN-1 EAC1 PO; +LIDODERM1 EACH TOP
--- OUTSIDE RECORDS SUMMARY | 2023-04-05 11:10 | XMS ---
PreManage Notification: RUBA JENSEN Security Manager Integrity Events No recent Security Events currently on file [facility]ITERIA MET - PD[facility]Current KAUR Tanner PHONE: [phone] Emily Fitzgerald Stove Cleaner/Boarding House Cook 04/16/2022-Current PHONE: [phone] [facility]Current PHONE: Unknown Haile has no Care Guidelines for this patient. Care History Medical/Surgical 03/11/2021 [facility] Care Recommendation: - PLEASE REVIEW PDMP - HAILE - USE EXTREME CAUTION IN GIVING NARCOTICS. - Avoid Discharge Narcotic prescriptions if at all possible. Physician discretion. PATIENT CURRENTLY ON A PAIN CONTRACT WITH CHAY WHITTAKER MD., E.D. VISIT COUNT (12 MO.) 3 [facility] TOTAL 3 NOTE: Visits indicate total known visits. ED/UCC VISIT TRACKING (12 MO.) 04/05/2023 11:08 [facility] [place] TYPE: Emergency COMPLAINT: - GLF, R SHOULDER/ELBOW PAIN 09/19/2022 12:49 [facility] [place] TYPE: Emergency COMPLAINT: - FALL, L SIDE RIBCAGE PAIN DIAGNOSES: - Allergy status to other drugs, medicaments and biological substances - Essential (primary) hypertension - Fracture of one rib, left side, initial encounter for closed fracture - Latex allergy status - prison (current) use of aspirin - Other predatory animal exterminator (current) drug therapy - Personal history of malignant neoplasm of breast - Pleurodynia - Syncope and collapse - Unspecified fall, initial encounter - Unspecified osteoarthritis, unspecified site 05/17/2022 18:05 [facility] [place] TYPE: Emergency COMPLAINT: - FALL DIAGNOSES: - Allergy status to other drugs, medicaments and biological substances - Bee allergy status - Contact with and (suspected) exposure to COVID-19 - Contusion of right shoulder, initial encounter - Essential (primary) hypertension - Latex allergy status - intermediate project manager (current) use of aspirin - Other mcc (current) drug therapy - Personal history of malignant neoplasm of breast - Unspecified injury of head, initial encounter - Unspecified osteoarthritis, unspecified site INPATIENT VISIT TRACKING (12 MO.) No inpatient visits to display in this time frame [email or web address]
[2023-04-05] MEDS ORDERED: OXYCODONE HCL5 MG PO (14:02)
[2023-04-05 14:34] VITALS: BP 160/64
== END 2023-04-05 14:35 | disposition home or self-care (01) ==
LOC: ED 11:07
DX: S42.414A Nondisplaced simple supracondylar fracture without intercondylar fracture of right humerus, initial encounter for closed fracture (principal); S52.124A Nondisplaced fracture of head of right radius, initial encounter for closed fracture; I10 Essential (primary) hypertension; F03.90 Unspecified dementia, unspecified severity, without behavioral disturbance, psychotic disturbance, mood disturbance, and anxiety; W07.XXXA Fall from chair, initial encounter; Z96.643 Presence of artificial hip joint, bilateral; Z91.040 Latex allergy status; Z91.030 Bee allergy status; Z91.048 Other nonmedicinal substance allergy status; Z79.82 Long term (current) use of aspirin; Z79.899 Other long term (current) drug therapy
CPT/HCPCS: 29105; 73030; 73080; 99283-25

== ENCOUNTER 2024-05-13 16:12 | Inpatient (IN) | payer MEDICARE, OTHER ==
[~2024-05-13] VITALS: Ht 152.4 cm; Wt 84.0 kg
[2024-05-13] MEDS ORDERED: TRAZODONE HCL50 MG PO (16:36)
[2024-05-13] MEDS ORDERED: MELOXICAM15 MG PO (16:37)
[2024-05-13] MEDS ORDERED: EPINEPHRIN0.3 MG/0.3 IM (16:38)
[2024-05-13] MEDS ORDERED: HYDROmorphone HCL 2 MG/ML VIAL IM ONE (16:45)
[2024-05-13] MEDS ORDERED: KETOROLAC TROMETHAMINE 30 MG/ML VIAL IV ONE (19:45)
[2024-05-13 20:36] LABS: BASOPHILS 0.7 % (0-2); EOSINOPHILS 3.1 % (0-6); HEMATOCRIT 37.2 % (35.0-50.0); HEMOGLOBIN 12.5 g/dL (12.0-18.0); MCH 31.1 (27-36); MCHC 33.5 g/dl (30-36); MONOCYTES 10.3 % (0-12); NEUTROPHILS 69.9 % (39-80); PLATELET COUNT 229 K/uL (140-440); RDW 13.8 (10.5-15.0)
[2024-05-13 20:51] LABS: ALBUMIN 3.6 g/dL (3.4-5.0); ALBUMIN/GLOBULIN RATIO 1.16 (1.1-2.4); ANION GAP 14.7 (7-21); BILIRUBIN, TOTAL 0.8 ng/dL (0.2-1.0); CALCIUM 8.8 mg/dL (8.5-10.1); CREATININE, SERUM 0.92 mg/dL (0.55-1.02); POTASSIUM 3.7 mmol/L (3.5-5.1); PROTEIN, TOTAL 6.7 g/dL (6.4-8.2)
[2024-05-13 22:01] LABS: BILIRUBIN, URINE NEGATIVE (negative); BLOOD/HGB, URINE NEGATIVE (Negative); KETONE, URINE NEGATIVE (Negative); LEUK ESTERASE, URINE NEGATIVE (negative); NITRITE, URINE NEGATIVE (negative)
[2024-05-13] MEDS ORDERED: ACETAMINOPHEN 325 MG TAB PO PRN (22:30)
[2024-05-13] MEDS ORDERED: HYDROmorphone HCL 1 MG/ML SYR IV PRN (22:30)
[2024-05-14] VITALS (7 sets, daily range): BP systolic 128–152; BP diastolic 49–77
[2024-05-14] MEDS ORDERED: DULOXETINE HCL30 MG PO (10:33)
[2024-05-14] MEDS ORDERED: OMEPRAZOLE20 MG PO (10:34)
[2024-05-14] MEDS ORDERED: ondansetron HCL 4 MG/2 ML VIAL IV PRN (12:15)
[2024-05-14] MEDS ORDERED: ACETAMINOPHEN 325 MG TAB PO PRN (12:15)
[2024-05-14] MEDS ORDERED: MORPHINE SULFATE 4 MG/ML VIAL IV PRN (12:30)
[2024-05-14] MEDS ORDERED: TRAZODONE HCL 50 MG TAB PO PRN (19:15)
[2024-05-14] MEDS ORDERED: MELATONIN 1 MG TAB PO SCH (21:00)
[2024-05-15] VITALS (10 sets, daily range): BP systolic 130–161; BP diastolic 50–69
[2024-05-15 05:25] LABS: BASOPHILS 0.9 % (0-2); EOSINOPHILS 3.9 % (0-6); MCHC 34.4 g/dl (30-36); MCV 93.2 fl (81-99); NEUTROPHILS 64.2 % (39-80); PLATELET COUNT 190 K/uL (140-440); RBC 3.76 M/ul (4.3-5.7); RDW 13.6 (10.5-15.0)
[2024-05-15 05:40] LABS: ALBUMIN 2.9 g/dL (3.4-5.0); ALBUMIN/GLOBULIN RATIO 0.94 (1.1-2.4); BILIRUBIN, TOTAL 0.4 ng/dL (0.2-1.0); BUN/CREATININE RATIO 25.35 (6.0-28.6); CALCIUM 8.5 mg/dL (8.5-10.1); CREATININE, SERUM 0.71 mg/dL (0.55-1.02); PHOSPHORUS, INORGANIC 3.7 mg/dL (2.5-4.9)
[2024-05-15] MEDS ORDERED: PANTOPRAZOLE SODIUM 40 MG TABEC PO SCH (07:30)
[2024-05-15] MEDS ORDERED: SODIUM CHLORIDE 0.9% 1,000 ML IV SCH (07:45)
[2024-05-15] MEDS ORDERED: ESCITALOPRAM OXALATE 10 MG TAB PO SCH (09:00)
[2024-05-15] MEDS ORDERED: ENOXAPARIN SODIUM 40 MG/0.4 ML SYR SUB-Q SCH (09:00)
[2024-05-15] MEDS ORDERED: ASPIRIN 81 MG TABEC PO SCH (09:00)
[2024-05-15] MEDS ORDERED: PHARMACY RENAL DOSE ADJUSTMENT 1 DOSE MISC PO SCH (12:00)
[2024-05-15] MEDS ORDERED: TROLAMINE SALICYLATE 35.4 GM TUBE TOP PRN (16:00)
[2024-05-15] MEDS ORDERED: POLYETHYLENE GLYCOL 3350 1 PACKET PO SCH (21:00)
[2024-05-15] MEDS ORDERED: SENNOSIDES/DOCUSATE 1 EA TAB PO SCH (21:00)
[2024-05-16 02:55] VITALS: BP 151/50
[2024-05-16 05:55] VITALS: BP 146/62
[2024-05-16 09:35] VITALS: BP 150/69
[2024-05-16] MEDS ORDERED: OXYCODONE/APAP 5/325 TAB PO PRN (10:45)
[2024-05-16 13:48] VITALS: BP 163/57
[2024-05-16 18:20] VITALS: BP 158/71
[2024-05-16 20:58] VITALS: BP 180/70
[2024-05-16] MEDS ORDERED: hydrALAZINE HCL 20 MG/ML VIAL IV PRN (21:30)
[2024-05-16] MEDS ORDERED: lisinopriL 20 MG TAB PO SCH (21:30)
[2024-05-17 05:28] VITALS: BP 149/59
[2024-05-17] MEDS ORDERED: bisacodyL 10 MG SUPP PR ONE (07:30)
[2024-05-17 10:37] VITALS: BP 118/62
[2024-05-17 14:03] VITALS: BP 138/68
[2024-05-17 18:23] VITALS: BP 148/79
[2024-05-17 20:24] VITALS: BP 142/51
[2024-05-18 05:21] VITALS: BP 151/68
[2024-05-18 06:22] VITALS: BP 151/68
[2024-05-18 08:37] VITALS: BP 149/63
[2024-05-18 08:39] VITALS: BP 149/63
[2024-05-18 13:25] VITALS: BP 152/51
[2024-05-18 13:26] VITALS: BP 152/51
== END 2024-05-18 13:38 | DRG 534 ==
LOC: ED 16:12 → MS 22:27
PROVIDERS: Internal Medicine; ADMIT Family Medicine; ATTEND Family Medicine
DX: S72.402A Unspecified fracture of lower end of left femur, initial encounter for closed fracture (principal); W18.30XA Fall on same level, unspecified, initial encounter; Z91.041 Radiographic dye allergy status; Z91.038 Other insect allergy status; Z91.040 Latex allergy status; Z79.899 Other long term (current) drug therapy; M79.7 Fibromyalgia; F41.9 Anxiety disorder, unspecified; F03.90 Unspecified dementia, unspecified severity, without behavioral disturbance, psychotic disturbance, mood disturbance, and anxiety; Z85.3 Personal history of malignant neoplasm of breast; M19.90 Unspecified osteoarthritis, unspecified site; Z90.11 Acquired absence of right breast and nipple; Z90.49 Acquired absence of other specified parts of digestive tract; Z90.710 Acquired absence of both cervix and uterus; Z96.643 Presence of artificial hip joint, bilateral; Z79.811 Long term (current) use of aromatase inhibitors; G47.00 Insomnia, unspecified
CPT/HCPCS: 36415; 73552; 73700; 80053; 81003; 82553; 83735; 84100; 85025; 97110; 97116; 97161; 97165; 97530; 97535; A9270; J0360; J1170; J1650; J1885; J2270; J2405; J7030